=== PATIENT | female | born 1995 | race Caucasian/White ===

== ENCOUNTER 2018-02-22 17:10 | Emergency (ER) | payer SELFPAY ==
[2018-02-22] MEDS ORDERED: IBUPROFEN 200 MG TAB PO ONE (19:40)
[2018-02-22] MEDS ORDERED: ONDANSETRON 4 MG (ODT) TAB ONE (19:40)
[2018-02-22] MEDS ORDERED: DEXAMETHASONE 10 MG/ML VIAL ONE (19:40)
--- NOTE | 2018-02-22 20:43 | ER ---
Nurse's Notes [facility] Name: Wilber Amos Age: 22 yrs Sex: Female : 1995 Arrival Date: 02/22/2018 Time: 17:14 Bed 12 Private MD: None, None Diagnosis: Viral pharyngitis Presentation: 02/22 17:41 Presenting complaint: Patient states: Flu like symptoms with N/V/D without fever that aj started 2 days ago. Transition of care: patient was not received from another setting of care. Onset of symptoms was February 20, 2018. Risk Assessment: Do you want to hurt yourself or someone else? Patient reports no desire to harm self or others. Care prior to arrival: None. 17:41 Method Of Arrival: Ambulatory 17:41 Acuity: ANU 4 18:45 Initial Sepsis Screen: Does the patient meet any 2 criteria? No. Patient's initial kr2 sepsis screen is negative. Does the patient have a suspected source of infection? No. Patient's initial sepsis screen is negative. Triage Assessment: 17:42 General: Appears in no apparent distress. comfortable, Behavior is calm, cooperative, aj appropriate for age. Pain: Denies pain. EENT: Reports nasal congestion nasal discharge. Neuro: Level of Consciousness is awake, alert, obeys commands, Oriented to person, place, time, situation, Appropriate for age. Respiratory: Reports cough that is Airway is patent Respiratory effort is even, unlabored, Respiratory pattern is regular, symmetrical. GI: Reports diarrhea, nausea, vomiting. Derm: Skin is intact, is healthy with good turgor, Skin is pink, warm \T\ dry. normal. 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 - Social history:: Smoking status: Patient uses tobacco products, denies chronic smoking, but will smoke occasionally. - Ebola Screening: : Patient negative for fever greater than or equal to 101.5 degrees Fahrenheit, and additional compatible Ebola Virus Disease symptoms Patient denies exposure to infectious person Patient denies travel to an Ebola-affected area in the 21 days before illness onset No symptoms or risks identified at this time. Screenin:45 Abuse screen: Denies threats or abuse. Denies injuries from another. Nutritional kr2 screening: No deficits noted. Tuberculosis screening: No symptoms or risk factors identified. Fall Risk None identified. Assessment: 19:15 General: Appears in no apparent distress. comfortable, well groomed, well developed, kr2 well nourished, Behavior is calm, cooperative, appropriate for age. Pain: Denies pain. Neuro: Level of Consciousness is awake, alert, obeys commands, Oriented to person, place, time, situation, Appropriate for age. Cardiovascular: Capillary refill < 3 seconds in bilateral fingers Patient's skin is warm and dry. Respiratory: Reports cough that is non-productive, Airway is patent Respiratory effort is even, unlabored, Respiratory pattern is regular, symmetrical, Breath sounds are clear bilaterally. GI: Abdomen is flat, non-distended, Reports diarrhea, nausea, vomiting. : No signs and/or symptoms were reported regarding the genitourinary system. EENT: Oral mucosa is moist. Throat is pink. Derm: Skin is intact, is healthy with good turgor, Skin is pink, warm \T\ dry. pale. Musculoskeletal: Circulation, motion, and sensation intact. Vital Signs: 17:42 BP 112 / 67; Pulse 97; Resp 16; Temp 98.1; Pulse Ox 98% on R/A; Weight 86.18 kg; Height aj 5 ft. 6 in. (167.64 cm); 17:42 Body Mass Index 30.67 (86.18 kg, 167.64 cm) aj ED Course: 17:14 Patient arrived in ED. sb2 17:15 None, None is Private Physician. sb2 17:42 Triage completed. aj 17:42 Arm band placed on left wrist. Patient placed in waiting room, Patient notified of wait aj time. 18:42 Ana Anders RN is Primary Nurse. kr2 18:46 Patient has correct armband on for positive identification. Call light in reach. Door kr2 closed. Warm blanket given. Verbal reassurance given. 19:04 Sebastian Singleton MD is Attending Physician. ps1 19:35 Strep swab sent to lab. kr2 20:54 No provider procedures requiring assistance completed. Patient did not have IV access kr2 during this emergency room visit. Administered Medications: 19:47 Drug: Motrin 600 mg Route: PO; kr2 20:56 Follow up: Response: No adverse reaction kr2 19:47 Drug: Zofran 4 mg Route: PO; kr2 20:55 Follow up: Response: No adverse reaction; Nausea is decreased kr2 19:48 Drug: Decadron - Dexamethasone 10 mg {Note: Given oral as ordered by physician.} Route: kr2 IVP; Site: Other; 20:56 Follow up: Response: No adverse reaction kr2 Outcome: 20:43 Discharge ordered by MD. ps1 20:55 Discharged to home ambulatory, with family. kr2 20:55 Condition: good 20:55 Discharge instructions given to patient, family, Instructed on discharge instructions, follow up and referral plans. medication usage, Demonstrated understanding of instructions, follow-up care, medications, Prescriptions given X 1. 20:56 Patient left the ED. kr2 Signatures: Kat Duenas RN RN aj Reaves, Karey, RN RN kr2 Sebastian Singleton MD MD ps1 Christie Yoon2
--- NOTE | 2018-02-22 20:43 | EDPHYS ---
Physician Documentation [facility] Name: Wilber Amos Age: 22 yrs Sex: Female : 1995 Arrival Date: 02/22/2018 Time: 17:14 Bed 12 Private MD: None, None ED Physician Sebastian Singleton HPI: 02/22 19:33 This 22 yrs old Female presents to ER via Ambulatory with complaints of Flu ps1 Symptoms. 19:33 Onset 2 days ago and associated with pharyngitis, myalgias, nausea, vomiting, and ps1 diarrhea. No remitting or exacerbating factors. No abdominal pain. . 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 - Social history:: Smoking status: Patient uses tobacco products, denies chronic smoking, but will smoke occasionally. - Ebola Screening: : Patient negative for fever greater than or equal to 101.5 degrees Fahrenheit, and additional compatible Ebola Virus Disease symptoms Patient denies exposure to infectious person Patient denies travel to an Ebola-affected area in the 21 days before illness onset No symptoms or risks identified at this time. ROS: 19:33 Eyes: Negative for injury, pain, redness, and discharge, Neck: Negative for injury, ps1 pain, and swelling, Cardiovascular: Negative for chest pain, palpitations, and edema, Back: Negative for injury and pain, : Negative for injury, bleeding, discharge, and swelling, MS/Extremity: Negative for injury and deformity, Skin: Negative for injury, rash, and discoloration, Neuro: Negative for headache, weakness, numbness, tingling, and seizure. 19:33 Constitutional: Positive for fatigue, malaise. 19:33 ENT: Positive for sore throat. 19:33 Abdomen/GI: Positive for nausea, vomiting, and diarrhea. Exam: 19:33 Constitutional: This is a well developed, well nourished patient who is awake, alert, ps1 and in no acute distress. Head/Face: Normocephalic, atraumatic. Eyes: Pupils equal round and reactive to light, extra-ocular motions intact. Lids and lashes normal. Conjunctiva and sclera are non-icteric and not injected. Chest/axilla: Normal chest wall appearance and motion. Nontender with no deformity. No lesions are appreciated. Cardiovascular: Regular rate and rhythm. No gallops, murmurs, or rubs. Normal PMI, no JVD. No pulse deficits. Respiratory: Lungs have equal breath sounds bilaterally, clear to auscultation and percussion. No rales, rhonchi or wheezes noted. No increased work of breathing, no retractions or nasal flaring. Abdomen/GI: Soft, non-tender, with normal bowel sounds. No distension or tympany. No guarding or rebound. No evidence of tenderness throughout. Skin: Warm, dry with normal turgor. Normal color with no rashes, no lesions, and no evidence of cellulitis. MS/ Extremity: Pulses equal, no cyanosis. Neurovascular intact. Full, normal range of motion. Neuro: Awake and alert, GCS 15, oriented to person, place, time, and situation. Cranial nerves II-XII grossly intact. Sensory grossly intact. Vital Signs: 17:42 BP 112 / 67; Pulse 97; Resp 16; Temp 98.1; Pulse Ox 98% on R/A; Weight 86.18 kg; Height aj 5 ft. 6 in. (167.64 cm); 17:42 Body Mass Index 30.67 (86.18 kg, 167.64 cm) aj MDM: 19:33 Data reviewed: vital signs, nurses notes. ps1 20:43 Patient medically screened. ps1 06/05 19:32 Order name: Strep; Complete Time: 20:41 ps1 06/ 19:32 Order name: Throat Culture ps1 Administered Medications: 19:47 Drug: Motrin 600 mg Route: PO; kr2 20:56 Follow up: Response: No adverse reaction kr2 19:47 Drug: Zofran 4 mg Route: PO; kr2 20:55 Follow up: Response: No adverse reaction; Nausea is decreased kr2 19:48 Drug: Decadron - Dexamethasone 10 mg {Note: Given oral as ordered by physician.} Route: kr2 IVP; Site: Other; 20:56 Follow up: Response: No adverse reaction kr2 Disposition: 02/22/18 20:43 Discharged to Home. Impression: Viral pharyngitis. - Condition is Stable. - Discharge Instructions: Pharyngitis. - Prescriptions for Zofran 4 mg Oral Tablet - take 1 tablet by ORAL route every 12 hours As needed; 20 tablet. - Work release form, Medication Reconciliation Form, Thank You Letter, Antibiotic Education, Prescription Opioid Use form. - Follow up: Private Physician; When: 10 - 14 days; Reason: Recheck today's complaints, Continuance of care, Staple/Suture removal, Re-evaluation by your physician. Follow up: Emergency Department; When: As needed; Reason: Fever > 102 F, Worsening of condition. - Problem is new. - Symptoms have improved. Signatures: Dispatcher [employer] EDMS Kat Duenas RN RN aj Ana Anders RN RN kr2 Sebastian Singleton MD MD ps1 Corrections: (The following items were deleted from the chart) 20:56 20:43 02/22/2018 20:43 Discharged to Home. Impression: Viral pharyngitis. Condition is kr2 Stable. Forms are Medication Reconciliation Form, Thank You Letter, Antibiotic Education, Prescription Opioid Use. Follow up: Private Physician; When: 10 - 14 days; Reason: Recheck today's complaints, Continuance of care, Staple/Suture removal, Re-evaluation by your physician. Follow up: Emergency Department; When: As needed; Reason: Fever > 102 F, Worsening of condition. Problem is new. Symptoms have improved. ps1
== END 2018-02-22 20:56 | disposition home or self-care (01) ==
LOC: ER 17:10
DX: J02.8 Acute pharyngitis due to other specified organisms (principal); J45.909 Unspecified asthma, uncomplicated; F17.200 Nicotine dependence, unspecified, uncomplicated; Z88.8 Allergy status to other drugs, medicaments and biological substances
CPT/HCPCS: 87070; 87081; 96374; 99283; J1100

== ENCOUNTER 2018-02-26 19:39 | Emergency (ER) | payer SELFPAY ==
--- NOTE | 2018-02-26 20:51 | RAD REPORT ---
EXAM DESCRIPTION: RAD - Chest Pa And Lat (2 Views) - 02/26/2018 8:42 pm CLINICAL HISTORY: Chest pain. COMPARISON: 08/23/2017, 08/05/2017 FINDINGS: The lungs are clear. The heart is normal in size. No displaced fractures. IMPRESSION: No acute or concerning finding suspected.
--- NOTE | 2018-02-26 21:00 | ER ---
Nurse's Notes [facility] Name: Wilber Amos Age: 22 yrs Sex: Female : 1995 Arrival Date: 02/26/2018 Time: 19:40 Bed 28 Private MD: Diagnosis: Acute bronchitis Presentation: 02/26 19:44 Presenting complaint: Patient states: "I was here Wednesday for the same thing and they aj1 just told me it was a virus. Some of the symptoms have gone away like the diarrhea, but now my congestion is really bad and it hurts when I try to breathe. I'm still having cold sweats and hot flashes and nausea" Patient has not followed up with her PHCP. Transition of care: patient was not received from another setting of care. Onset of symptoms was February 20, 2018. Risk Assessment: Do you want to hurt yourself or someone else? Patient reports no desire to harm self or others. Initial Sepsis Screen: Does the patient meet any 2 criteria? No. Patient's initial sepsis screen is negative. Does the patient have a suspected source of infection? Yes: Other: sinus congestion. Care prior to arrival: None. 19:44 Method Of Arrival: Ambulatory aj1 19:44 Acuity: ANU 4 aj1 Triage Assessment: 19:48 General: Appears in no apparent distress. comfortable, Behavior is calm, cooperative, aj1 appropriate for age. Pain: Complains of pain in chest Pain does not radiate. Pain currently is 7 out of 10 on a pain scale. Quality of pain is described as sharp, throbbing, Pain began 1 day ago. Is continuous, Alleviated by nothing. Aggravated by deep breathing, coughing. 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 - Social history:: Smoking status: Patient uses tobacco products, denies chronic smoking, but will smoke occasionally. - Ebola Screening: : Patient denies travel to an Ebola-affected area in the 21 days before illness onset. Screenin:26 Abuse screen: Denies threats or abuse. Nutritional screening: No deficits noted. rk2 Tuberculosis screening: No symptoms or risk factors identified. Fall Risk None identified. Assessment: 20:26 General: Appears in no apparent distress. well groomed, well developed, well nourished, rk2 Behavior is calm, cooperative. Neuro: Level of Consciousness is alert, obeys commands, Oriented to person, place, time, situation. Respiratory: Airway is patent Respiratory effort is even, unlabored, Respiratory pattern is regular, symmetrical. Derm: Skin is pink, warm \\T\\ dry. 20:44 Reassessment: Returned from xray. rk2 Vital Signs: 19:48 BP 133 / 89; Pulse 94; Resp 18; Temp 98.1; Pulse Ox 100% on R/A; Weight 86.18 kg (R); aj1 Height 5 ft. 6 in. (167.64 cm); Pain 7/10; 21:24 BP 132 / 87; Pulse 88; Resp 17; Pulse Ox 100% on R/A; rk2 19:48 Body Mass Index 30.67 (86.18 kg, 167.64 cm) aj1 ED Course: 19:40 Patient arrived in ED. am2 19:46 Triage completed. aj1 19:48 Arm band placed on Patient placed in an exam room. aj 19:52 Magdiel Carter PA is PHCP. [facility] 19:52 Alcon Olmstead MD is Attending Physician. [facility] 19:54 Barbara Bernal, TOMÁS is Primary Nurse. rk2 20:26 Patient has correct armband on for positive identification. Bed in low position. Call rk2 light in reach. 20:41 Chest Pa And Lat (2 Views) XRAY In Process Unspecified. EDMS 21:25 No provider procedures requiring assistance completed. Patient did not have IV access rk2 during this emergency room visit. Administered Medications: No medications were administered Outcome: 21:00 Discharge ordered by . jm 21:25 Discharged to home ambulatory. rk2 21:25 Condition: good 21:25 Discharge instructions given to patient, Prescriptions given X 2. 21:26 Patient left the ED. rk2 Signatures: Dispatcher [employer] EDMS Amanda Elder RN RN aj1 Magdiel Carter PA PA jmm Moreno, Amanda am2 Barbara Bernal RN RN rk2
--- NOTE | 2018-02-26 21:00 | EDPHYS ---
Physician Documentation [facility] Name: Wilber Amos Age: 22 yrs Sex: Female : 1995 Arrival Date: 02/26/2018 Time: 19:40 Bed 28 Private MD: ED Physician Alcon Olmstead HPI: 02/26 20:05 This 22 yrs old Female presents to ER via Ambulatory with complaints of Chest jmm Congestion, Cold Symptoms. 20:05 The patient or guardian reports cough. Onset: The symptoms/episode began/occurred jmm gradually, 5 day(s) ago. Associated signs and symptoms: Pertinent positives: rhinorrhea, sore throat, vomiting, cough, diarrhea. This is a 22 year old female with a history of asthma that presents to the ED with cough, congestion, beginning approx 5 days ago. Patient also complains of sinus pressure and productive cough. . 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 - Social history:: Smoking status: Patient uses tobacco products, denies chronic smoking, but will smoke occasionally. - Ebola Screening: : Patient denies travel to an Ebola-affected area in the 21 days before illness onset. ROS: 20:05 Eyes: Negative for injury, pain, redness, and discharge. jmm 20:05 Neck: Negative for injury, pain, and swelling, Cardiovascular: Negative for chest pain, palpitations, and edema. 20:05 Back: Negative for injury and pain, MS/Extremity: Negative for injury and deformity, Skin: Negative for injury, rash, and discoloration, Neuro: Negative for headache, weakness, numbness, tingling, and seizure. 20:05 Constitutional: Positive for body aches. 20:05 ENT: Positive for sore throat. 20:05 Respiratory: Positive for cough. 20:05 Abdomen/GI: Positive for nausea, vomiting, diarrhea. 20:05 All other systems are negative. Exam: 20:05 Head/Face: atraumatic. Chest/axilla: Normal chest wall appearance and motion. jmm Nontender with no deformity. No lesions are appreciated. Cardiovascular: Regular rate and rhythm. No gallops, murmurs, or rubs. Full/Equal distal pulses. Respiratory: Lungs have equal breath sounds bilaterally, clear to auscultation. No rales, rhonchi or wheezes noted. No increased work of breathing, no retractions or nasal flaring. 20:05 Constitutional: The patient appears in no acute distress, alert, awake. 20:05 Skin: Appearance: Color: normal in color. 20:05 Neuro: Orientation: is normal, Mentation: is normal, Memory: is normal, Gait: is steady. Vital Signs: 19:48 BP 133 / 89; Pulse 94; Resp 18; Temp 98.1; Pulse Ox 100% on R/A; Weight 86.18 kg (R); aj1 Height 5 ft. 6 in. (167.64 cm); Pain 7/10; 21:24 BP 132 / 87; Pulse 88; Resp 17; Pulse Ox 100% on R/A; rk2 19:48 Body Mass Index 30.67 (86.18 kg, 167.64 cm) aj1 MDM: 20:03 Patient medically screened. [facility] 20:05 Differential diagnosis: bronchitis, URI, viral infection, pnuemonia. Data reviewed: [facility] vital signs, nurses notes. 20:58 Counseling: I had a detailed discussion with the patient and/or guardian regarding: the [facility] historical points, exam findings, and any diagnostic results supporting the discharge/admit diagnosis, the presence of at least one elevated blood pressure reading (>120/80) during this emergency department visit. 02/26 20:04 Order name: Chest Pa And Lat (2 Views) XRAY; Complete Time: 20:58 [facility] Administered Medications: No medications were administered Disposition: 23:26 Co-signature as Attending Physician, Alcon Olmstead MD. rn Disposition: 02/26/18 21:00 Discharged to Home. Impression: Acute bronchitis. - Condition is Stable. - Discharge Instructions: Acute Bronchitis. - Prescriptions for Zithromax Z- Andrea 250 mg Oral Tablet - take 1 tablet by ORAL route as directed for 5 days Day 1 - take two (2) tablets one time. Day 2, 3, 4 , 5 take one (1) tablet once daily.; 6 tablet. Albuterol Sulfate 90 mcg/actuation - inhale 1-2 puff by INHALATION route every 4-6 hours; 1 Inhaler. - Medication Reconciliation Form, Thank You Letter, Antibiotic Education, Prescription Opioid Use, Work release form form. - Follow up: Private Physician; When: 1 - 2 days; Reason: Continuance of care. Signatures: Dispatcher [employer] Amanda Singh RN RN aj1 Magdiel Carter PA PA jmm Nieto, Roman, MD MD rn Kidder, Rhonda, RN RN rk2 Corrections: (The following items were deleted from the chart) 21:26 21:00 02/26/2018 21:00 Discharged to Home. Impression: Acute bronchitis. Condition is rk2 Stable. Forms are Medication Reconciliation Form, Thank You Letter, Antibiotic Education, Prescription Opioid Use. Follow up: Private Physician; When: 1 - 2 days; Reason: Continuance of care. cesar
== END 2018-02-26 21:26 | disposition home or self-care (01) ==
LOC: ER 19:39
DX: J20.9 Acute bronchitis, unspecified (principal); F41.9 Anxiety disorder, unspecified; J45.909 Unspecified asthma, uncomplicated; F32.9 Major depressive disorder, single episode, unspecified; G43.909 Migraine, unspecified, not intractable, without status migrainosus; G47.00 Insomnia, unspecified; F17.200 Nicotine dependence, unspecified, uncomplicated
CPT/HCPCS: 71046; 99283

== ENCOUNTER 2018-03-24 08:04 | Emergency (ER) | payer SELFPAY ==
[2018-03-24 08:31] LABS: Absolute Lymphocytes (CBC) 2.2 K/uL (0.7-4.9); Absolute Monocytes 0.3 K/uL (0.1-1.3); Absolute Neutrophil 4.8 K/uL (1.8-8.0); Basophils % 0.6 % (0-1.3); Eosinophils % 0.7 % (0-4.4); Hematocrit 43.6 % (36.0-45.0); Lymphocytes % 29.9 % (15.3-44.8); MCH 27.1 pg (27.0-35.0); MCV 81.5 fL (80-100); Monocytes % 4.6 % (3.3-12.3); RBC Red Blood Cell Count 5.34 M/uL (3.86-4.86)
[2018-03-24] MEDS ORDERED: NA CHLORIDE 0.9% 1,000 ML ONE (08:43)
[2018-03-24 08:50] LABS: ALT/SGPT 19 U/L (12-78); AST/SGOT 15 U/L (15-37); Albumin 3.7 g/dL (3.4-5.0); Alkaline Phosphatase 93 U/L (45-117); BUN Blood Urea Nitrogen 10 mg/dL (7-18); Bicarbonate 27 mmol/L (21-32); Bilirubin Direct < 0.1 mg/dL (0-0.2); Bilirubin Total 0.2 mg/dL (0.2-1.0); Glucose Level 113 mg/dL (74-106); Lipase 158 U/L (73-393); Potassium 3.7 mmol/L (3.5-5.1); Protein, Total 7.5 g/dL (6.4-8.2); Sodium Level 141 mmol/L (136-145)
[2018-03-24 08:54] LABS: Urine Bacteria >50 /HPF (<20); Urine Culture Reflex Order NOT NEEDED; Urine RBC <5 /HPF (NONE SEEN)
--- NOTE | 2018-03-24 09:26 | ER ---
Nurse's Notes [facility] Name: Wilber Amos Age: 22 yrs Sex: Female : 1995 Arrival Date: 03/24/2018 Time: 08:07 Bed 5 Private MD: None, None Diagnosis: Urinary tract infection, site not specified;Nausea Presentation: 03/24 08:11 Presenting complaint: Patient states: generalized abd pain that is continuous and ss intermittent nausea x 1 week. Transition of care: patient was not received from another setting of care. Onset of symptoms was April 16, 2018. Risk Assessment: Do you want to hurt yourself or someone else? Patient reports no desire to harm self or others. Initial Sepsis Screen: Does the patient meet any 2 criteria? No. Patient's initial sepsis screen is negative. Does the patient have a suspected source of infection? No. Patient's initial sepsis screen is negative. Care prior to arrival: None. 08:11 Method Of Arrival: Ambulatory ss 08:11 Acuity: ANU 3 ss Historical: - PMHx: 08:13 Anxiety; Asthma; Depression; Migraines; sleep insomnia; ss - PSHx: 08:13 None; ss - Immunization history:: Adult Immunizations up to date. - Social history:: Smoking status: Patient/guardian denies using tobacco. - Ebola Screening: : Patient denies exposure to infectious person Patient denies travel to an Ebola-affected area in the 21 days before illness onset. Screenin:24 Abuse screen: Denies threats or abuse. Denies injuries from another. Nutritional sv screening: No deficits noted. Tuberculosis screening: No symptoms or risk factors identified. Fall Risk None identified. Assessment: 08:24 General: Appears in no apparent distress. comfortable, well groomed, Behavior is calm, ph cooperative, appropriate for age, Denies fever. Pain: Complains of pain in abdomen Pain began "about a week ago". Neuro: Level of Consciousness is awake, alert, obeys commands, Oriented to person, place, time, situation. Cardiovascular: Capillary refill < 3 seconds Patient's skin is warm and dry. Respiratory: Airway is patent Respiratory effort is even, unlabored, Respiratory pattern is regular, symmetrical. GI: Abdomen is non-distended, Bowel sounds present X 4 quads. Abd is soft X 4 quads Abdomen is tender to palpation X 4 quads. Reports lower abdominal pain, upper abdominal pain, diarrhea, nausea, Patient currently denies vomiting. : Denies burning with urination, urinary frequency. Derm: Skin is intact, is healthy with good turgor, Skin is pink, warm \\T\\ dry. Musculoskeletal: Circulation, motion, and sensation intact. Range of motion: intact in all extremities. 09:30 Reassessment: Patient appears in no apparent distress at this time. Patient and/or ph family updated on plan of care and expected duration. Pain level reassessed. Patient is alert, oriented x 3, equal unlabored respirations, skin warm/dry/pink. Vital Signs: 08:13 Weight 113.4 kg; Height 5 ft. 6 in. (167.64 cm); Pain 6/10; ss 08:27 BP 123 / 75; Pulse 79; Resp 18; Temp 97.6; Pulse Ox 100% on R/A; ph 09:09 BP 119 / 79; Pulse 77; Resp 18; Pulse Ox 99% on R/A; dh3 08:13 Body Mass Index 40.35 (113.40 kg, 167.64 cm) ED Course: 08:07 Patient arrived in ED. sb2 08:07 None, None is Private Physician. sb2 08:08 Josette Castillo FNP-C [facility]. snw 08:08 Alcon Olmstead MD is Attending Physician. snw 08:10 Deepthi Vicente, TOMÁS is Primary Nurse. ph 08:12 Triage completed. ss 08:13 Arm band placed on right wrist. ss 08:20 Initial lab(s) drawn, by nd, sent to lab. Inserted saline lock: 20 gauge in right sv antecubital area, using aseptic technique. Blood collected. Flushed right antecubital with 5 ml normal saline. 08:24 Patient has correct armband on for positive identification. Placed in gown. Bed in low sv position. Pulse ox on. NIBP on. 09:45 No provider procedures requiring assistance completed. IV discontinued, intact, sv bleeding controlled, No redness/swelling at site. Pressure dressing applied. Administered Medications: 08:45 Drug: NS 0.9% 1000 ml Route: IV; Rate: 1 bolus; Site: right antecubital; ph 18:33 Follow up: Response: No adverse reaction; IV Status: Completed infusion ph 09:30 Drug: Rocephin 1 grams Route: IV; Rate: calculated rate; Site: right antecubital; sv 09:35 Follow up: Response: No adverse reaction; IV Status: Completed infusion; IV Intake: 10mlsv Intake: 09:35 IV: 10ml; Total: 10ml. sv Outcome: 09:25 Discharge ordered by MD. vergara 09:45 Discharged to home ambulatory. sv 09:45 Condition: stable 09:45 Discharge instructions given to patient, Instructed on discharge instructions, follow up and referral plans. medication usage, Demonstrated understanding of instructions, follow-up care, medications, Prescriptions given X 2. 09:45 Patient left the ED. sv Signatures: Jayleen Quiroz RN RN Josette Castillo, ACCOUNTING MACHINE OPERATOR-C ACCOUNTING MACHINE OPERATOR-Csnw Tatianna Lan RN RN Deepthi Vicente RN RN Yogesh, Queenie 3 Christie Yoon sb2 Corrections: (The following items were deleted from the chart) 10:04 10:03 Patient left the ED. sv sv
--- NOTE | 2018-03-24 09:26 | EDPHYS ---
Physician Documentation [facility] Name: Wilber Amos Age: 22 yrs Sex: Female : 1995 Arrival Date: 03/24/2018 Time: 08:07 Bed 5 Private MD: None, None ED Physician Alcon Olmstead HPI: 03/24 08:51 This 22 yrs old Female presents to ER via Ambulatory with complaints of snw Abdominal Pain, Nausea. 08:51 The patient presents with abdominal pain that is diffuse. Onset: The symptoms/episode snw began/occurred suddenly, 1 week(s) ago, and became persistent. The symptoms do not radiate. Associated signs and symptoms: Pertinent positives: diarrhea, nausea. The symptoms are described as constant. Severity of pain: At its worst the pain was mild. The patient has not experienced similar symptoms in the past. The patient has not recently seen a physician. Historical: - PMHx: 08:13 Anxiety; Asthma; Depression; Migraines; sleep insomnia; ss - PSHx: 08:13 None; ss - Immunization history:: Adult Immunizations up to date. - Social history:: Smoking status: Patient/guardian denies using tobacco. - Ebola Screening: : Patient denies exposure to infectious person Patient denies travel to an Ebola-affected area in the 21 days before illness onset. ROS: 08:51 Constitutional: Negative for fever, chills, and weight loss, Eyes: Negative for injury, snw pain, redness, and discharge, ENT: Negative for injury, pain, and discharge, Neck: Negative for injury, pain, and swelling, Cardiovascular: Negative for chest pain, palpitations, and edema, Respiratory: Negative for shortness of breath, cough, wheezing, and pleuritic chest pain, Back: Negative for injury and pain, : Negative for injury, bleeding, discharge, and swelling, MS/Extremity: Negative for injury and deformity, Skin: Negative for injury, rash, and discoloration, Neuro: Negative for headache, weakness, numbness, tingling, and seizure. 08:51 Abdomen/GI: Positive for abdominal pain, nausea, vomiting, and diarrhea. Exam: 08:39 Constitutional: This is a well developed, well nourished patient who is awake, alert, snw and in no acute distress. Head/Face: Normocephalic, atraumatic. Eyes: Pupils equal round and reactive to light, extra-ocular motions intact. Lids and lashes normal. Conjunctiva and sclera are non-icteric and not injected. Cornea within normal limits. Periorbital areas with no swelling, redness, or edema. ENT: Nares patent. No nasal discharge, no septal abnormalities noted. Tympanic membranes are normal and external auditory canals are clear. Oropharynx with no redness, swelling, or masses, exudates, or evidence of obstruction, uvula midline. Mucous membranes moist. Neck: Trachea midline, no thyromegaly or masses palpated, and no cervical lymphadenopathy. Supple, full range of motion without nuchal rigidity, or vertebral point tenderness. No Meningismus. Chest/axilla: Normal chest wall appearance and motion. Nontender with no deformity. No lesions are appreciated. Cardiovascular: Regular rate and rhythm with a normal S1 and S2. No gallops, murmurs, or rubs. Normal PMI, no JVD. No pulse deficits. Respiratory: Lungs have equal breath sounds bilaterally, clear to auscultation and percussion. No rales, rhonchi or wheezes noted. No increased work of breathing, no retractions or nasal flaring. Back: No spinal tenderness. No costovertebral tenderness. Full range of motion. Skin: Warm, dry with normal turgor. Normal color with no rashes, no lesions, and no evidence of cellulitis. MS/ Extremity: Pulses equal, no cyanosis. Neurovascular intact. Full, normal range of motion. Neuro: Awake and alert, GCS 15, oriented to person, place, time, and situation. Cranial nerves II-XII grossly intact. Motor strength 5/5 in all extremities. Sensory grossly intact. Cerebellar exam normal. Normal gait. 08:39 Abdomen/GI: Inspection: obese Bowel sounds: normal, Palpation: moderate abdominal tenderness, in all quadrants. Vital Signs: 08:13 Weight 113.4 kg; Height 5 ft. 6 in. (167.64 cm); Pain 6/10; ss 08:27 BP 123 / 75; Pulse 79; Resp 18; Temp 97.6; Pulse Ox 100% on R/A; ph 09:09 BP 119 / 79; Pulse 77; Resp 18; Pulse Ox 99% on R/A; dh3 08:13 Body Mass Index 40.35 (113.40 kg, 167.64 cm) ss MDM: 08:13 Patient medically screened. snw 11:06 Data reviewed: vital signs, nurses notes. Data interpreted: Pulse oximetry: on room air snw is 99 %. Interpretation: normal. Counseling: I had a detailed discussion with the patient and/or guardian regarding: the historical points, exam findings, and any diagnostic results supporting the discharge/admit diagnosis, lab results, the need for outpatient follow up, to return to the emergency department if symptoms worsen or persist or if there are any questions or concerns that arise at home. Special discussion: Based on the patient's Hx, exam, and Dx evaluation, there is no indication for emergent surgery or inpatient Tx. It is understood by the patient/guardian that if the Sx's persist or worsen they need to return immediately for re-evaluation. Based on the history and exam findings, there is no indication for further emergent testing or inpatient evaluation. I discussed with the patient/guardian the need to see the primary care provider for further evaluation of the symptoms. 03/24 08:08 Order name: Urine Culture snw 03/24 08:08 Order name: Urine Microscopic Only; Complete Time: 08:55 snw 03/24 08:13 Order name: Basic Metabolic Panel; Complete Time: 08:52 snw 03/24 08:13 Order name: CBC with Diff; Complete Time: 08:33 snw 03/24 08:13 Order name: Hepatic Function; Complete Time: 08:52 snw 03/24 08:13 Order name: Lipase; Complete Time: 08:52 snw 03/24 08:08 Order name: Urine Test (obtain specimen); Complete Time: 08:23 snw 03/24 08:08 Order name: Urine Dipstick-Ancillary (obtain specimen); Complete Time: 08:23 snw 03/24 08:13 Order name: IV Saline Lock; Complete Time: 08:24 snw 03/24 08:13 Order name: Labs collected and sent; Complete Time: 08:24 snw 03/24 08:24 Order name: Urine Dipstick--Ancillary (enter results) em1 03/24 08:24 Order name: Urine --Ancillary (enter results) em1 Administered Medications: 08:45 Drug: NS 0.9% 1000 ml Route: IV; Rate: 1 bolus; Site: right antecubital; ph 18:33 Follow up: Response: No adverse reaction; IV Status: Completed infusion ph 09:30 Drug: Rocephin 1 grams Route: IV; Rate: calculated rate; Site: right antecubital; sv 09:35 Follow up: Response: No adverse reaction; IV Status: Completed infusion; IV Intake: 10mlsv Disposition: 15:00 Co-signature as Attending Physician, Alcon Olmstead MD. rn Disposition: 03/24/18 09:25 Discharged to Home. Impression: Urinary tract infection, site not specified, Nausea. - Condition is Stable. - Discharge Instructions: Nausea, Adult, Urinary Tract Infection, Abdominal Pain, Women. - Prescriptions for Zofran 4 mg Oral Tablet - take 1 tablet by ORAL route every 12 hours As needed; 6 tablet. cefpodoxime 200 mg Oral Tablet - take 1 tablet by ORAL route every 12 hours with food; 20 tablet. - Medication Reconciliation Form, Thank You Letter, Antibiotic Education, Prescription Opioid Use form. - Follow up: Private Physician; When: 2 - 3 days; Reason: Recheck today's complaints, Continuance of care, Re-evaluation by your physician. Follow up: Emergency Department; When: As needed; Reason: Worsening of condition. Signatures: Dispatcher [employer] EDJayleen Webb RN RN Josette Bernal, JOSELUIS-Rachel POTATO PEELER-Alcon Hill MD MD rn Smirch, Shelby, RN RN Deepthi Vicente RN RN ph Corrections: (The following items were deleted from the chart) 10:03 09:25 03/24/2018 09:25 Discharged to Home. Impression: Urinary tract infection, site sv not specified; Nausea. Condition is Stable. Forms are Medication Reconciliation Form, Thank You Letter, Antibiotic Education, Prescription Opioid Use. Follow up: Private Physician; When: 2 - 3 days; Reason: Recheck today's complaints, Continuance of care, Re-evaluation by your physician. Follow up: Emergency Department; When: As needed; Reason: Worsening of condition. snw
[2018-03-24] MEDS ORDERED: CEFTRIAXONE/SWI 1gm 1 GM/10 ML SYR ONE (09:45)
[2018-03-24 15:08] LABS: Urine Blood NEGATIVE (NEG); Urine Glucose NEGATIVE (NEG); Urine Protein NEGATIVE (NEG)
== END 2018-03-24 10:03 | disposition home or self-care (01) ==
LOC: ER 08:04
DX: N39.0 Urinary tract infection, site not specified (principal); J45.909 Unspecified asthma, uncomplicated
CPT/HCPCS: 36415; 80048; 80076; 81003; 81015; 81025; 83690; 85025; 87086; 87088; 96361; 96374; 99284; J0696; J7030

== ENCOUNTER 2018-05-24 20:06 | Emergency (ER) | payer SELFPAY ==
--- NOTE | 2018-05-24 21:18 | RAD REPORT ---
EXAM DESCRIPTION: RAD - Chest Pa And Lat (2 Views) - 05/24/2018 9:00 pm CLINICAL HISTORY: Chest pain COMPARISON: February 26 TECHNIQUE: PA and lateral views of the chest were obtained. FINDINGS: The lungs are clear. Heart size is normal and central vasculature is within normal limit s. No pleural effusion or pneumothorax seen. No acute bony finding noted. No aortic abnormality. IMPRESSION: No acute cardiopulmonary process. No significant interval change.
[2018-05-24 21:26] LABS: Urine Blood NEGATIVE (NEG); Urine Glucose NEGATIVE (NEG); Urine Protein NEGATIVE (NEG); Urine Specific Gravity >1.030 (1.005-1.030)
--- NOTE | 2018-05-24 21:43 | EDPHYS ---
Physician Documentation [facility] Name: Wilber Amos Age: 23 yrs Sex: Female : 1995 Arrival Date: 05/24/2018 Time: 20:09 Bed 24 Private MD: ED Physician Alcon Olmstead HPI: 05/24 21:36 This 23 yrs old Female presents to ER via Ambulatory with complaints of rn Cough, Chest Pain, Back Pain. 21:36 The patient or guardian reports cough, that is intermittent, described as mild, with no rn sputum. 21:36 Onset: The symptoms/episode began/occurred 4 day(s) ago. Severity of symptoms: At their rn worst the symptoms were mild, in the emergency department the symptoms are unchanged. Modifying factors: The symptoms are alleviated by nothing, the symptoms are aggravated by nothing. Associated signs and symptoms: Pertinent negatives: fever, vomiting. The patient has experienced similar episodes in the past. Reports cough, chest pain, back pain, breast pain, for 4 days, no fever, non-productive cough, no famhx of early/sudden cardiac disease.. 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 - Social history:: Smoking status: Patient/guardian denies using tobacco. - Ebola Screening: : Patient denies travel to an Ebola-affected area in the 21 days before illness onset. - Family history:: not pertinent. - Hospitalizations: : No recent hospitalization is reported. ROS: 21:36 Constitutional: Negative for fever, chills, and weight loss, Eyes: Negative for injury, rn pain, redness, and discharge, Cardiovascular: Negative for palpitations, and edema, Respiratory: Negative for wheezing Abdomen/GI: Negative for abdominal pain, nausea, vomiting, diarrhea, and constipation, MS/Extremity: Negative for injury and deformity, Skin: Negative for injury, rash, and discoloration, Neuro: Negative for headache, weakness, numbness, tingling, and seizure. Exam: 21:28 ECG was reviewed by the Attending Physician. rn 21:36 Constitutional: This is a well developed, well nourished patient who is awake, alert, rn and in no acute distress. Head/Face: Normocephalic, atraumatic. Eyes: Pupils equal round and reactive to light, extra-ocular motions intact. Lids and lashes normal. Conjunctiva and sclera are non-icteric and not injected. Cornea within normal limits. Periorbital areas with no swelling, redness, or edema. Chest/axilla: + reproducible central chest wall pain, no crepitus Cardiovascular: Regular rate and rhythm with a normal S1 and S2. No gallops, murmurs, or rubs. Normal PMI, no JVD. No pulse deficits. Respiratory: Lungs have equal breath sounds bilaterally, clear to auscultation and percussion. No rales, rhonchi or wheezes noted. No increased work of breathing, no retractions or nasal flaring. Abdomen/GI: Soft, non-tender, No guarding or rebound Skin: Warm, dry with normal turgor. Normal color with no rashes, no lesions, and no evidence of cellulitis. MS/ Extremity: Pulses equal, no cyanosis. Neurovascular intact. Full, normal range of motion. Equal circumference. Neuro: Awake and alert, GCS 15, oriented to person, place, time, and situation. Cranial nerves II-XII grossly intact. Motor strength 5/5 in all extremities. Sensory grossly intact. Cerebellar exam normal. Normal gait. Vital Signs: 20:23 BP 125 / 91; Pulse 86; Resp 16; Temp 98.6(O); Pulse Ox 99% on R/A; Weight 97.07 kg (R); aj1 Height 5 ft. 6 in. (167.64 cm) (R); Pain 6/10; 20:44 BP 122 / 75; Pulse 64; Pulse Ox 100% on R/A; rv 21:16 Pulse 72; Pulse Ox 100% on R/A; rv 20:23 Body Mass Index 34.54 (97.07 kg, 167.64 cm) aj1 MDM: 20:29 Patient medically screened. rn 21:36 Differential Diagnosis: Allergic Rhinitis Viral Syndrome Pneumonia Other pleurisy, rn chest wall pain, costochondritis. Data reviewed: vital signs, nurses notes, EKG, radiologic studies, and as a result, I will discharge patient. 21:42 Counseling: I had a detailed discussion with the patient and/or guardian regarding: the rn historical points, exam findings, and any diagnostic results supporting the discharge/admit diagnosis, radiology results, the need for outpatient follow up, to return to the emergency department if symptoms worsen or persist or if there are any questions or concerns that arise at home. Special discussion: Based on the patient's history, exam, and Dx evaluation, there is no indication for emergent intervention or inpatient Tx. It is understood by the patient/guardian that if the Sx's persist or worsen they need to return immediately for re-evaluation. I discussed with the patient/guardian in detail that at this point there is no indication for admission to the hospital. It is understood, however, that if the symptoms persist or worsen the patient needs to return immediately for re-evaluation. 05/24 20:45 Order name: Urine Dipstick--Ancillary (enter results); Complete Time: 21:28 [facility] 05/24 20:45 Order name: Urine --Ancillary (enter results); Complete Time: 21:28 [facility] 05/24 20:36 Order name: XRAY Chest Pa And Lat (2 Views); Complete Time: 21:28 05/24 20:36 Order name: EKG; Complete Time: 20:37 rn 05/24 20:36 Order name: EKG - Nurse/Tech; Complete Time: 20:37 05/24 20:36 Order name: Urine Test (obtain specimen); Complete Time: 20:37 rn EC:28 Rate is 66 beats/min. Rhythm is regular. QRS [place] is Normal. [place] interval is normal. QRS rn interval is normal. QT interval is normal. No Q waves. T waves are Normal. No ST changes noted. Clinical impression: Normal ECG. Interpreted by me. Administered Medications: No medications were administered Disposition: 05/24/18 21:42 Discharged to Home. Impression: Cough, Chest pain, unspecified. - Condition is Stable. - Discharge Instructions: Nonspecific Chest Pain, Chest Wall Pain, Pain Without a Known Cause, Form - Return To Work. - Medication Reconciliation Form, Thank You Letter, Antibiotic Education, Prescription Opioid Use, Work release form form. - Follow up: Private Physician; When: As needed; Reason: Recheck today's complaints, Re-evaluation by your physician. - Problem is new. - Symptoms have improved. Signatures: Dispatcher [employer] EDAmanda Caballero, RN RN aj1 Alcon Olmstead MD MD rn Lowrey, Tammy, RN RN tl3 Corrections: (The following items were deleted from the chart) 21:58 21:42 05/24/2018 21:42 Discharged to Home. Impression: Cough; Chest pain, unspecified. tl3 Condition is Stable. Forms are Medication Reconciliation Form, Thank You Letter, Antibiotic Education, Prescription Opioid Use. Follow up: Private Physician; When: As needed; Reason: Recheck today's complaints, Re-evaluation by your physician. Problem is new. Symptoms have improved. rn
--- NOTE | 2018-05-24 21:43 | ER ---
Nurse's Notes [facility] Name: Wilber Amos Age: 23 yrs Sex: Female : 1995 Arrival Date: 05/24/2018 Time: 20:09 Bed 24 Private MD: Diagnosis: Cough;Chest pain, unspecified Presentation: 05/24 20:20 Presenting complaint: Patient states: Her chest has been feeling congested for the past aj1 4 days, and she's been coughing, but has not been able to cough up any sputum. Her chest has been hurting intermittently and when it hurts that pain radiates to her back. Also reports SOB, sinus pressure. Denies nasal congestion, fever, N/V/D. Transition of care: patient was not received from another setting of care. Onset of symptoms was May 21, 2018. Risk Assessment: Do you want to hurt yourself or someone else? Patient reports no desire to harm self or others. Initial Sepsis Screen: Does the patient meet any 2 criteria? No. Patient's initial sepsis screen is negative. Does the patient have a suspected source of infection? No. Patient's initial sepsis screen is negative. Care prior to arrival: None. 20:20 Method Of Arrival: Ambulatory aj1 20:20 Acuity: ANU 3 aj1 Triage Assessment: 20:23 General: Appears in no apparent distress. comfortable, Behavior is calm, cooperative, aj1 appropriate for age. Pain: Complains of pain in mid-sternal area, right breast and left breast Pain radiates to back Pain currently is 6 out of 10 on a pain scale. Quality of pain is described as aching, sharp, Pain began 4 days ago Is intermittent, Aggravated by deep breathing. EENT: Reports sinus pressure. Denies nasal congestion, nasal discharge. Neuro: Level of Consciousness is awake, alert, obeys commands, Speech is normal, Facial symmetry appears normal. Cardiovascular: Reports chest pain, shortness of breath, Denies palpitations, syncope, vomiting, Patient's skin is warm and dry. Respiratory: Reports cough that is non-productive, Airway is patent Respiratory effort is even, unlabored, Respiratory pattern is regular, symmetrical. GI: Patient currently denies diarrhea, nausea, vomiting. [employer]: 20:23 LMP N/A - Depo-provera aj1 Historical: - Allergies: 20:23 Mefoxin; aj1 20:23 Iodine; aj1 - Home Meds: 20:23 Albuterol Inhl [Active]; Vistaril Oral [Active]; Zoloft Oral [Active]; Remeron Oral aj1 [Active]; - PMHx: 20:23 Anxiety; Asthma; Depression; Migraines; sleep insomnia; aj1 - Immunization history:: Flu vaccine is not up to date. - Social history:: Smoking status: Patient/guardian denies using tobacco. - Ebola Screening: : Patient denies travel to an Ebola-affected area in the 21 days before illness onset. - Family history:: not pertinent. - Hospitalizations: : No recent hospitalization is reported. Screenin:44 Abuse screen: Denies threats or abuse. Denies injuries from another. Nutritional rv screening: No deficits noted. Tuberculosis screening: No symptoms or risk factors identified. Fall Risk None identified. Assessment: 20:43 General: Appears in no apparent distress. comfortable, Behavior is calm, cooperative. rv Pain: Complains of pain in chest Pain currently is 6 out of 10 on a pain scale. Neuro: Level of Consciousness is awake, alert, obeys commands, Oriented to person, place, time, situation. Cardiovascular: Capillary refill < 3 seconds. Respiratory: Airway is patent. GI: No signs and/or symptoms were reported involving the gastrointestinal system. : No signs and/or symptoms were reported regarding the genitourinary system. EENT: No signs and/or symptoms were reported regarding the EENT system. Derm: Skin is intact. 21:17 Reassessment: Patient appears in no apparent distress at this time. Patient and/or rv family updated on plan of care and expected duration. Pain level reassessed. Patient is alert, oriented x 3, equal unlabored respirations, skin warm/dry/pink. AWAITING XRAY RESULT. Vital Signs: 20:23 BP 125 / 91; Pulse 86; Resp 16; Temp 98.6(O); Pulse Ox 99% on R/A; Weight 97.07 kg (R); aj1 Height 5 ft. 6 in. (167.64 cm) (R); Pain 6/10; 20:44 BP 122 / 75; Pulse 64; Pulse Ox 100% on R/A; rv 21:16 Pulse 72; Pulse Ox 100% on R/A; rv 20:23 Body Mass Index 34.54 (97.07 kg, 167.64 cm) aj1 ED Course: 20:09 Patient arrived in ED. al2 20:22 Triage completed. aj1 20:23 Arm band placed on Patient placed in an exam room. aj1 20:29 Alcon Olmstead MD is Attending Physician. rn 20:30 Urine collected: clean catch specimen, clear, yeni colored, Amount Voided: 100mL. jp3 20:44 Patient has correct armband on for positive identification. Placed in gown. Bed in low rv position. Call light in reach. Side rails up X 1. panel monitor on. Pulse ox on. NIBP on. 20:44 No provider procedures requiring assistance completed. Patient maintains SpO2 rv saturation greater than 95% on room air. 20:59 X-ray completed. Patient tolerated procedure well. az 21:08 XRAY Chest Pa And Lat (2 Views) In Process Unspecified. EDMS 21:57 Patient did not have IV access during this emergency room visit. tl3 Administered Medications: No medications were administered Outcome: 21:42 Discharge ordered by . rn 21:57 Discharged to home ambulatory. tl3 21:57 Condition: stable 21:57 Discharge instructions given to patient, Instructed on discharge instructions, follow up and referral plans. Demonstrated understanding of instructions, follow-up care. 21:58 Patient left the ED. tl3 Signatures: Dispatcher [employer] Amanda Singh RN RN aj1 Alcon Olmstead MD MD rn Love, Angelica al2 Melanie Pride RN RN tl3 Blas Gleason RN RN rv Pisarski, Jacob jp3 Elizabeth Manrique az
--- NOTE | 2018-05-25 17:54 | EKG ---
Test Date: 2018-05-24 Test Time: 20:36:59 [employer] Consultant: MEASUREMENT RESULTS: Intervals: Rate: 66 KS: 146 QRSD: 92 QT: 382 QTc: 400 Brimley: P: 65 KS: 146 QRS: 64 T: 62 INTERPRETIVE STATEMENTS: Normal sinus rhythm Normal ECG Compared to ECG 08/23/2017 17:44:18 No significant changes Electronically Signed On 05-25-18 17:51:06 CDT by Bart Christopher
== END 2018-05-24 21:58 | disposition home or self-care (01) ==
LOC: ER 20:06
DX: R07.9 Chest pain, unspecified (principal); J45.909 Unspecified asthma, uncomplicated; F32.9 Major depressive disorder, single episode, unspecified; F41.9 Anxiety disorder, unspecified; Z88.8 Allergy status to other drugs, medicaments and biological substances; Z91.048 Other nonmedicinal substance allergy status
CPT/HCPCS: 71046; 81003; 81025; 93005; 99284

== ENCOUNTER 2018-06-19 22:51 | Emergency (ER) | payer SELFPAY ==
--- NOTE | 2018-06-20 00:09 | EDPHYS ---
Physician Documentation [facility] Name: Wilber Amos Age: 23 yrs Sex: Female : 1995 Arrival Date: 06/19/2018 Time: 22:52 Bed 20 Private MD: ED Physician Sunny Bone HPI: 06/19 23:22 This 23 yrs old Female presents to ER via Ambulatory with complaints of jona Pelvic Pain. 23:22 The patient presents with pelvic pain, urinary symptoms, dysuria, frequency, hesitancy, jona urgency. Onset: The symptoms/episode began/occurred 3 day(s) ago. Modifying factors: The symptoms are alleviated by nothing. Associated signs and symptoms: The patient has no apparent associated signs or symptoms. Severity of symptoms: At their worst the symptoms were mild, in the emergency department the symptoms are unchanged. The patient has experienced similar episodes in the past, a few times. LUGGER: 22:54 LMP 03/2018, patient is taking her depo shot, last time she took was in March 2018. cc3 23:22 0, Full Term 0, Premature 0, 0, Living 0 jona Historical: - Allergies: 22:54 Iodine; cc3 22:54 Mefoxin; cc3 - Home Meds: 22:54 Remeron Oral 0.5 tab once daily [Active]; Vistaril Oral 0.5 cap once daily [Active]; cc3 - PMHx: 22:54 Anxiety; Depression; Asthma; Migraines; sleep insomnia; cc3 - PSHx: 22:54 None; cc3 - Immunization history:: Adult Immunizations not up to date. - Social history:: Smoking status: Patient/guardian denies using tobacco, never smoked. - Family history:: not pertinent. - Ebola Screening: : No symptoms or risks identified at this time. ROS: 23:22 Constitutional: Negative for fever, chills, and weight loss, Eyes: Negative for injury, jona pain, redness, and discharge, ENT: Negative for injury, pain, and discharge, Neck: Negative for injury, pain, and swelling, Cardiovascular: Negative for chest pain, palpitations, and edema, Respiratory: Negative for shortness of breath, cough, wheezing, and pleuritic chest pain, Abdomen/GI: Negative for abdominal pain, nausea, vomiting, diarrhea, and constipation, Back: Negative for injury and pain, MS/Extremity: Negative for injury and deformity, Skin: Negative for injury, rash, and discoloration, Neuro: Negative for headache, weakness, numbness, tingling, and seizure, Psych: Negative for depression, anxiety, suicide ideation, homicidal ideation, and hallucinations, Allergy/Immunology: Negative for hives, rash, and allergies, Endocrine: Negative for neck swelling, polydipsia, polyuria, polyphagia, and marked weight changes, Hematologic/Lymphatic: Negative for swollen nodes, abnormal bleeding, and unusual bruising. 23:22 : Positive for urinary symptoms, urinary frequency, burning with urination. Exam: 23:22 Constitutional: This is a well developed, well nourished patient who is awake, alert, jona and in no acute distress. Head/Face: Normocephalic, atraumatic. Eyes: Pupils equal round and reactive to light, extra-ocular motions intact. Lids and lashes normal. Conjunctiva and sclera are non-icteric and not injected. Cornea within normal limits. Periorbital areas with no swelling, redness, or edema. ENT: Nares patent. No nasal discharge, no septal abnormalities noted. Tympanic membranes are normal and external auditory canals are clear. Oropharynx with no redness, swelling, or masses, exudates, or evidence of obstruction, uvula midline. Mucous membranes moist. Neck: Trachea midline, no thyromegaly or masses palpated, and no cervical lymphadenopathy. Supple, full range of motion without nuchal rigidity, or vertebral point tenderness. No Meningismus. Chest/axilla: Normal chest wall appearance and motion. Nontender with no deformity. No lesions are appreciated. Cardiovascular: Regular rate and rhythm with a normal S1 and S2. No gallops, murmurs, or rubs. Normal PMI, no JVD. No pulse deficits. Respiratory: Lungs have equal breath sounds bilaterally, clear to auscultation and percussion. No rales, rhonchi or wheezes noted. No increased work of breathing, no retractions or nasal flaring. Back: No spinal tenderness. No costovertebral tenderness. Full range of motion. Female : Normal external genitalia. Skin: Warm, dry with normal turgor. Normal color with no rashes, no lesions, and no evidence of cellulitis. MS/ Extremity: Pulses equal, no cyanosis. Neurovascular intact. Full, normal range of motion. Neuro: Awake and alert, GCS 15, oriented to person, place, time, and situation. Cranial nerves II-XII grossly intact. Motor strength 5/5 in all extremities. Sensory grossly intact. Cerebellar exam normal. Normal gait. Psych: Awake, alert, with orientation to person, place and time. Behavior, mood, and affect are within normal limits. 23:22 Abdomen/GI: Inspection: abdomen appears normal, Bowel sounds: normal, Palpation: nontender, Liver: no appreciated palpable abnormalities, Hernia: not appreciated. Vital Signs: 22:54 BP 129 / 72; Pulse 98; Resp 17 S; Temp 99(O); Pulse Ox 99% on R/A; Weight 97.07 kg; 3 Height 5 ft. 6 in. (167.64 cm); Pain 3; 23:30 BP 117 / 73; Pulse 73; Resp 17 S; Pulse Ox 100% on R/A; 3 06/20 00:00 BP 122 / 88; Pulse 75; Resp 16 S; Pulse Ox 99% on R/A; 3 06/19 22:54 Body Mass Index 34.54 (97.07 kg, 167.64 cm) 3 MDM: 06/19 22:56 Patient medically screened. [facility] 23:22 Data reviewed: vital signs, nurses notes, lab test result(s). [facility] 06/19 23:21 Order name: Urine Culture [facility] 06/19 23:35 Order name: Urine Dipstick--Ancillary (enter results) ms 06/19 23:21 Order name: Urine Test (obtain specimen); Complete Time: 23:36 [facility] 06/19 23:21 Order name: Urine Dipstick-Ancillary (obtain specimen); Complete Time: 23:36 [facility] 06/19 23:35 Order name: Urine --Ancillary (enter results) ms Administered Medications: No medications were administered Disposition: 06/20/18 00:08 Discharged to Home. Impression: Dysuria. - Condition is Stable. - Discharge Instructions: Dysuria. - Prescriptions for Pyridium 200 mg Oral Tablet - take 1 tablet by ORAL route every 8 hours for 2 days; 6 tablet. Bactrim DS 800- 160 mg Oral Tablet - take 1 tablet by ORAL route every 12 hours for 7 days; 14 tablet. - Medication Reconciliation Form, Thank You Letter, Antibiotic Education, Prescription Opioid Use form. - Follow up: Private Physician; When: 2 - 3 days; Reason: Recheck today's complaints, Continuance of care, Re-evaluation by your physician. - Problem is new. - Symptoms have improved. Signatures: Dispatcher [employer] Sunny Martinez MD MD cha Cordel, Charlene cc3 Corrections: (The following items were deleted from the chart) 06/20 00:27 00:08 06/20/2018 00:08 Discharged to Home. Impression: Dysuria. Condition is Stable. cc3 Discharge Instructions: Dysuria. Prescriptions for Pyridium 200 mg Oral Tablet - take 1 tablet by ORAL route every 8 hours for 2 days; 6 tablet, Bactrim DS 800-160 mg Oral Tablet - take 1 tablet by ORAL route every 12 hours for 7 days; 14 tablet. and Forms are Medication Reconciliation Form, Thank You Letter, Antibiotic Education, Prescription Opioid Use. Follow up: Private Physician; When: 2 - 3 days; Reason: Recheck today's complaints, Continuance of care, Re-evaluation by your physician. Problem is new. Symptoms have improved. jona
--- NOTE | 2018-06-20 00:09 | ER ---
Nurse's Notes [facility] Name: Wilber Aoms Age: 23 yrs Sex: Female : 1995 Arrival Date: 06/19/2018 Time: 22:52 Bed 20 Private MD: Diagnosis: Dysuria Presentation: 06/19 22:54 Presenting complaint: Patient states: Lower abdominal pain and burning in urination cc3 since 2 days. Transition of care: patient was not received from another setting of care. Onset of symptoms was June 17, 2018. Risk Assessment: Do you want to hurt yourself or someone else? Patient reports no desire to harm self or others. Initial Sepsis Screen: Does the patient meet any 2 criteria? No. Patient's initial sepsis screen is negative. Does the patient have a suspected source of infection? No. Patient's initial sepsis screen is negative. Note patient said she took an over the counter drug for UTI for 2 days, which she cannot remember the name, but still the symptoms are unrelieved. Care prior to arrival: None. 22:54 Method Of Arrival: Ambulatory cc3 22:54 Acuity: ANU 3 cc3 Triage Assessment: 22:53 General: Appears in no apparent distress. comfortable, Behavior is calm, cooperative, cc3 appropriate for age. Pain: Complains of pain in lower abdominal pain Pain currently is 3 out of 10 on a pain scale. Quality of pain is described as crampy, Pain began 2-3 days ago. EENT: No signs and/or symptoms were reported regarding the EENT system. Neuro: Level of Consciousness is awake, alert, obeys commands, Oriented to person, place, time, situation, Appropriate for age. Cardiovascular: Denies chest pain, Patient's skin is warm and dry. Respiratory: Airway is patent Respiratory effort is even, unlabored, Respiratory pattern is regular, symmetrical. GI: Reports lower abdominal pain. : Reports burning with urination, since 2 days. Derm: No signs and/or symptoms reported regarding the dermatologic system. Musculoskeletal: Reports pain in lower abdomen. [employer]: 22:54 LMP 03/2018, patient is taking her depo shot, last time she took was in March 2018. cc3 23:22 0, Full Term 0, Premature 0, 0, Living 0 jona Historical: - Allergies: 22:54 Iodine; cc3 22:54 Mefoxin; cc3 - Home Meds: 22:54 Remeron Oral 0.5 tab once daily [Active]; Vistaril Oral 0.5 cap once daily [Active]; cc3 - PMHx: 22:54 Anxiety; Depression; Asthma; Migraines; sleep insomnia; cc3 - PSHx: 22:54 None; cc3 - Immunization history:: Adult Immunizations not up to date. - Social history:: Smoking status: Patient/guardian denies using tobacco, never smoked. - Family history:: not pertinent. - Ebola Screening: : No symptoms or risks identified at this time. Screenin:54 Abuse screen: Denies threats or abuse. Denies injuries from another. Nutritional cc3 screening: No deficits noted. Tuberculosis screening: No symptoms or risk factors identified. Fall Risk None identified. Ambulatory Aid- None/Bed Rest/Nurse Assist (0 pts). Gait- Normal/Bed Rest/Wheelchair (0 pts) Mental Status- Oriented to own ability (0 pts). Assessment: 22:55 Reassessment: see triage assessment. cc3 23:30 Reassessment: Patient appears in no apparent distress at this time. Patient and/or cc3 family updated on plan of care and expected duration. Pain level reassessed. Patient is alert, oriented x 3, equal unlabored respirations, skin warm/dry/pink. 06/20 00:15 Reassessment: Patient appears in no apparent distress at this time. Patient and/or cc3 family updated on plan of care and expected duration. Pain level reassessed. Patient is alert, oriented x 3, equal unlabored respirations, skin warm/dry/pink. Dr. Bone discharged home the patient with prescription given. Patient left ER vitally stable and ambulatory. Vital Signs: 06/19 22:54 BP 129 / 72; Pulse 98; Resp 17 S; Temp 99(O); Pulse Ox 99% on R/A; Weight 97.07 kg; cc3 Height 5 ft. 6 in. (167.64 cm); Pain 11/27; 23:30 BP 117 / 73; Pulse 73; Resp 17 S; Pulse Ox 100% on R/A; cc3 06/20 00:00 BP 122 / 88; Pulse 75; Resp 16 S; Pulse Ox 99% on R/A; cc3 06/19 22:54 Body Mass Index 34.54 (97.07 kg, 167.64 cm) cc3 ED Course: 06/19 22:52 Patient arrived in ED. ds1 22:54 Arm band placed on right wrist. cc3 22:54 Patient has correct armband on for positive identification. Bed in low position. Call cc3 light in reach. Side rails up X 1. 22:56 Sunny Bone MD is Attending Physician. jona 23:04 Rosa Davila is Primary Nurse. cc3 23:09 Triage completed. cc3 06/20 00:15 No provider procedures requiring assistance completed. Patient did not have IV access cc3 during this emergency room visit. Administered Medications: No medications were administered Outcome: 00:08 Discharge ordered by . jona 00:15 Discharged to home ambulatory. cc3 00:15 Condition: stable 00:15 Discharge instructions given to patient, Instructed on discharge instructions, follow up and referral plans. medication usage, Demonstrated understanding of instructions, follow-up care, medications, Prescriptions given X 2. 00:27 Patient left the ED. cc3 Signatures: Sunny Bone MD MD cha Sanford, Demi ds1 Rosa Davila cc3 Corrections: (The following items were deleted from the chart) 06/19 23:16 22:54 BP 129 / 72; Pulse 98bpm; Resp 17bpm; Spontaneous; Pulse Ox 99% RA; Temp 99F cc3 Oral; cc3 23:22 22:54 BP 129 / 72; Pulse 98bpm; Resp 17bpm; Spontaneous; Pulse Ox 99% RA; Temp 99F cc3 Oral; 97.07 kg; Height 5 ft. 6 in.; BMI: 34.5; cc3
[2018-06-20 01:39] LABS: Urine Blood TRACE (NEG); Urine Glucose NEGATIVE (NEG); Urine Protein TRACE (NEG); Urine Specific Gravity >1.030 (1.005-1.030); Urine pH 5.5 (5.0-7.0)
== END 2018-06-20 00:27 | disposition home or self-care (01) ==
LOC: ER 22:51
DX: R30.0 Dysuria (principal); F41.9 Anxiety disorder, unspecified; F32.9 Major depressive disorder, single episode, unspecified; Z88.8 Allergy status to other drugs, medicaments and biological substances; Z91.048 Other nonmedicinal substance allergy status
CPT/HCPCS: 81003; 81025; 87086; 87088; 99282

== ENCOUNTER 2018-08-05 16:43 | Emergency (ER) | payer SELFPAY ==
[2018-08-05] MEDS ORDERED: NA CHLORIDE 0.9% 1,000 ML ONE (17:52)
[2018-08-05] MEDS ORDERED: ONDANSETRON 4 MG/2 ML VIAL ONE (17:52)
[2018-08-05 18:13] LABS: Absolute Lymphocytes (CBC) 1.7 K/uL (0.7-4.9); Absolute Monocytes 0.4 K/uL (0.1-1.3); Absolute Neutrophil 4.8 K/uL (1.8-8.0); Basophils % 0.6 % (0-1.3); Eosinophils % 0.6 % (0-4.4); Hematocrit 43.2 % (36.0-45.0); Lymphocytes % 24.3 % (15.3-44.8); MCH 27.7 pg (27.0-35.0); MCV 82.6 fL (80-100); Monocytes % 5.6 % (3.3-12.3); RBC Red Blood Cell Count 5.23 M/uL (3.86-4.86)
[2018-08-05 18:23] LABS: Potassium 3.6 mmol/L (3.5-5.1)
[2018-08-05 18:24] LABS: Albumin 3.9 g/dL (3.4-5.0); Bilirubin Direct 0.1 mg/dL (0-0.2); Bilirubin Total 0.4 mg/dL (0.2-1.0); Protein, Total 7.5 g/dL (6.4-8.2)
[2018-08-05 18:55] LABS: Urine Blood NEGATIVE (NEG); Urine Glucose NEGATIVE (NEG); Urine Protein NEGATIVE (NEG); Urine Specific Gravity 1.015 (1.005-1.030)
[2018-08-05] MEDS ORDERED: PROMETHAZINE 25 MG TABLET ONE (20:36)
--- NOTE | 2018-08-05 20:39 | ER ---
Nurse's Notes [facility] Name: Wilber Amos Age: 23 yrs Sex: Female : 1995 Arrival Date: 08/05/2018 Time: 16:43 Bed 26 Private MD: None, None Diagnosis: Vomiting;Diarrhea, unspecified Presentation: 08/05 17:22 Presenting complaint: Patient states: For the past 3 days she been having nausea, aj1 vomiting, diarrhea, body aches, sore throat. Denies fever. Transition of care: patient was not received from another setting of care. Onset of symptoms was August 02, 2018. Risk Assessment: Do you want to hurt yourself or someone else? Patient reports no desire to harm self or others. Initial Sepsis Screen: Does the patient meet any 2 criteria? No. Patient's initial sepsis screen is negative. Does the patient have a suspected source of infection? No. Patient's initial sepsis screen is negative. Care prior to arrival: None. 17:22 Method Of Arrival: Ambulatory aj 17:22 Acuity: ANU 4 aj1 Triage Assessment: 17:23 General: Appears in no apparent distress. comfortable, Behavior is calm, cooperative, aj1 appropriate for age. Pain: Pain currently is 5 out of 10 on a pain scale. Neuro: Level of Consciousness is awake, alert, obeys commands. Cardiovascular: Patient's skin is warm and dry. Respiratory: Airway is patent Respiratory effort is even, unlabored, Respiratory pattern is regular, symmetrical. 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 - Social history:: Smoking status: Patient/guardian denies using tobacco. - Ebola Screening: : Patient denies travel to an Ebola-affected area in the 21 days before illness onset. Screenin:00 Abuse screen: Denies threats or abuse. Denies injuries from another. Nutritional sg screening: No deficits noted. Tuberculosis screening: No symptoms or risk factors identified. Never had TB. Fall Risk None identified. Assessment: 18:00 General: Appears in no apparent distress. well groomed, well developed, well nourished, sg Behavior is calm, cooperative, appropriate for age. Pain: Complains of pain in left upper quadrant and right upper quadrant Quality of pain is described as aching, crampy. Neuro: No deficits noted. Cardiovascular: Capillary refill is brisk in bilateral fingers Patient's skin is warm and dry. Chest pain is denied. Respiratory: Airway is patent Respiratory effort is even, unlabored, Respiratory pattern is regular, symmetrical. GI: Abdomen is round non-distended, Bowel sounds present X 4 quads. Reports lower abdominal pain, upper abdominal pain, nausea. : No signs and/or symptoms were reported regarding the genitourinary system. EENT: No signs and/or symptoms were reported regarding the EENT system. Derm: Skin is pink, warm \T\ dry. Musculoskeletal: No signs and/or symptoms reported regarding the musculoskeletal system. 19:00 Reassessment: Patient appears in no apparent distress at this time. Patient and/or sg family updated on plan of care and expected duration. Pain level reassessed. Patient is alert, oriented x 3, equal unlabored respirations, skin warm/dry/pink. awaiting new orders at this time Patient states feeling better. 20:12 Reassessment: Patient appears in no apparent distress at this time. Patient and/or mg2 family updated on plan of care and expected duration. Pain level reassessed. Patient is alert, oriented x 3, equal unlabored respirations, skin warm/dry/pink. 20:30 Reassessment: Upon preparation for discharge patient complained of nausea, no vomiting. kr2 Provider notified, medication given as ordered. Patient being monitored at this time. Vital Signs: 17:23 BP 130 / 73; Pulse 82; Resp 18; Temp 98.8; Pulse Ox 99% on R/A; Weight 97.07 kg (R); aj1 Height 5 ft. 6 in. (167.64 cm) (R); Pain 5/10; 20:09 BP 113 / 72; Pulse 69; Resp 18; Temp 98.4; Pulse Ox 99% on R/A; Pain 0/10; mg2 17:23 Body Mass Index 34.54 (97.07 kg, 167.64 cm) aj1 ED Course: 16:43 Patient arrived in ED. sb2 16:44 None, None is Private Physician. sb2 17:23 Triage completed. aj1 17:23 Arm band placed on Patient placed in an exam room. aj 17:30 Magdiel Carter PA is PHCP. [facility] 17:30 Liberty Colvin MD is Attending Physician. [facility] 17:30 Patient has correct armband on for positive identification. Bed in low position. Call kr2 light in reach. Side rails up X 1. Adult w/ patient. Pulse ox on. NIBP on. Door closed. Warm blanket given. Head of bed elevated. 17:59 Randy Alonzo, RN is Primary Nurse. sg 18:00 No provider procedures requiring assistance completed. Initial lab(s) drawn, by fl, sg sent to lab. Inserted saline lock: 20 gauge in right antecubital area, using aseptic technique. Blood collected. 20:25 IV discontinued, intact, bleeding controlled, No redness/swelling at site. Pressure kr2 dressing applied. Administered Medications: 18:00 Drug: NS 0.9% 1000 ml Route: IV; Rate: 1 bolus; Site: right antecubital; sg 20:09 Follow up: Response: No adverse reaction; Marked relief of symptoms; IV Status: mg2 Completed infusion 18:00 Drug: Zofran 4 mg Route: IVP; Site: right antecubital; sg 19:00 Follow up: Response: No adverse reaction; Marked relief of symptoms mg2 20:30 Drug: Promethazine 25 mg Route: PO; kr2 20:50 Follow up: Response: No adverse reaction kr2 Outcome: 20:10 Discharge ordered by . [facility] 20:44 Discharged to home via wheelchair, with family. kr2 20:44 Condition: stable 20:44 Discharge instructions given to patient, family, Instructed on discharge instructions, follow up and referral plans. medication usage, Demonstrated understanding of instructions, follow-up care, medications, Prescriptions given X 1. 20:51 Patient left the ED. kr2 Signatures: Amanda Elder, RN RN aj1 Randy Alonzo, RN RN sg Magdiel Carter PA PA jmm Reaves, Karey RN RN kr2 Christie Yoon sb2 Gera Fortune RN RN mg2
--- NOTE | 2018-08-05 20:39 | EDPHYS ---
Physician Documentation [facility] Name: Wilber Amos Age: 23 yrs Sex: Female : 1995 Arrival Date: 08/05/2018 Time: 16:43 Bed 26 Private MD: None, None ED Physician Liberty Colvin HPI: 08/05 17:33 This 23 yrs old Female presents to ER via Ambulatory with complaints of Flu jmm Symptoms. 17:33 The patient presents to the emergency department with nausea, vomiting, diarrhea, jmm abdominal pain. Onset: The symptoms/episode began/occurred gradually, 3 day(s) ago. Possible causes: sick contacts, by family, sister. Associated signs and symptoms: Pertinent positives: sore throat, cough. This is a 23 year old female with a history of anxiety, asthma, depression, migraines, that presents to the ED with cough, sore throat, vomiting, diarrhea and epigastric abdominal pain beginning 3 days ago.. Sister has similar symptoms. . 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 - Social history:: Smoking status: Patient/guardian denies using tobacco. - Ebola Screening: : Patient denies travel to an Ebola-affected area in the 21 days before illness onset. ROS: 17:33 Constitutional: Negative for fever, chills, and weight loss, Cardiovascular: Negative jmm for chest pain, palpitations, and edema. 17:33 Respiratory: Positive for cough. 17:33 Abdomen/GI: Positive for abdominal pain, nausea and vomiting, diarrhea. 17:33 All other systems are negative. Exam: 17:33 Constitutional: This is a well developed, well nourished patient who is awake, alert, jmm and in no acute distress. Head/Face: atraumatic. Eyes: EOMI, no conjunctival erythema appreciated ENT: Moist Mucus Membranes Neck: Trachea midline, Supple Chest/axilla: Normal chest wall appearance and motion. Cardiovascular: Regular rate and rhythm. No edema appreciated Respiratory: Normal respirations, no respiratory distress appreciated 17:33 Abdomen/GI: Inspection: abdomen appears normal, Bowel sounds: normal, Palpation: soft, mild abdominal tenderness, in the right upper quadrant and left upper quadrant. 17:33 Back: ROM is normal. 17:33 Musculoskeletal/extremity: ROM: intact in all extremities. 17:33 Skin: Appearance: Color: normal in color. 17:33 Neuro: Orientation: is normal, Mentation: is normal, Memory: is normal. 17:33 Psych: Behavior/mood is pleasant, cooperative. Vital Signs: 17:23 BP 130 / 73; Pulse 82; Resp 18; Temp 98.8; Pulse Ox 99% on R/A; Weight 97.07 kg (R); aj Height 5 ft. 6 in. (167.64 cm) (R); Pain 5/10; 20:09 BP 113 / 72; Pulse 69; Resp 18; Temp 98.4; Pulse Ox 99% on R/A; Pain 0/10; mg2 17:23 Body Mass Index 34.54 (97.07 kg, 167.64 cm) [facility] MDM: 17:33 Patient medically screened. [facility] 19:57 Data reviewed: vital signs, nurses notes. Data interpreted: Pulse oximetry: on room air [facility] is 99 %. Interpretation: normal. Counseling: I had a detailed discussion with the patient and/or guardian regarding: the historical points, exam findings, and any diagnostic results supporting the discharge/admit diagnosis, radiology results, the need for outpatient follow up, to return to the emergency department if symptoms worsen or persist or if there are any questions or concerns that arise at home. 20:08 ED course: Patient states feeling better in the ED. Patient is able to tolerate PO in jmm the ED. Abdomen is soft. No lower abdominal pain. I do not currently suspect an acute intraabdominal process. Symptoms appear more likely related to a viral syndrome. Patient and mother given early appendicitis return precautions. Mother and patient understood and agree with the plan of care. . 08/05 17:25 Order name: Flu; Complete Time: 18:41 [facility] 08/05 17:25 Order name: Strep; Complete Time: 18:08 [facility] 08/05 17:38 Order name: Basic Metabolic Panel; Complete Time: 18:41 [facility] 08/05 17:38 Order name: CBC with Diff; Complete Time: 18:41 [facility] 08/05 17:38 Order name: Creatinine for Radiology; Complete Time: 18:41 [facility] 08/05 17:38 Order name: Hepatic Function; Complete Time: 18:41 [facility] 08/05 17:38 Order name: Lipase; Complete Time: 18:41 [facility] 08/05 17:38 Order name: IV Saline Lock; Complete Time: 18:00 [facility] 08/05 17:56 Order name: Urine Dipstick--Ancillary (enter results); Complete Time: 19:16 08/05 17:56 Order name: Urine --Ancillary (enter results); Complete Time: 19:16 08/05 18:02 Order name: Throat Culture [facility] 08/05 17:38 Order name: Labs collected and sent; Complete Time: 18:00 [facility] 08/05 17:38 Order name: Urine Dipstick-Ancillary (obtain specimen); Complete Time: 18:00 [facility] 08/05 17:38 Order name: Urine Test (obtain specimen); Complete Time: 18:00 [facility] Administered Medications: 18:00 Drug: NS 0.9% 1000 ml Route: IV; Rate: 1 bolus; Site: right antecubital; sg 20:09 Follow up: Response: No adverse reaction; Marked relief of symptoms; IV Status: mg2 Completed infusion 18:00 Drug: Zofran 4 mg Route: IVP; Site: right antecubital; sg 19:00 Follow up: Response: No adverse reaction; Marked relief of symptoms mg2 20:30 Drug: Promethazine 25 mg Route: PO; kr2 20:50 Follow up: Response: No adverse reaction kr2 Disposition: 08/05/18 20:10 Discharged to Home. Impression: Vomiting, Diarrhea, unspecified. - Condition is Stable. - Discharge Instructions: Food Choices to Help Relieve Diarrhea, Adult, Nausea and Vomiting, Adult. - Prescriptions for Zofran ODT 4 mg Oral tablet,disintegrating - place 1 tablet by TRANSLINGUAL route every 4-6 hours; 20 tablet. - Medication Reconciliation Form, Thank You Letter, Antibiotic Education, Prescription Opioid Use, Work release form form. - Follow up: Private Physician; When: As needed; Reason: Recheck today's complaints, Continuance of care, Re-evaluation by your physician. Addendum: 08/09/2018 17:25 Co-signature as Attending Physician, Liberty garza a2 Signatures: Dispatcher [employer] EDAmanda Caballero RN RN aj1 Randy Alonzo RN RN Magdiel Corona PA PA jmm Reaves, Karey, RN RN kr2 Liberty Colvin MD MD ma2 Gera Fortune RN mg2 Corrections: (The following items were deleted from the chart) 08/05 20:51 20:10 08/05/2018 20:10 Discharged to Home. Impression: Vomiting; Diarrhea, unspecified. kr2 Condition is Stable. Forms are Medication Reconciliation Form, Thank You Letter, Antibiotic Education, Prescription Opioid Use. Follow up: Private Physician; When: As needed; Reason: Recheck today's complaints, Continuance of care, Re-evaluation by your physician. cesar
== END 2018-08-05 20:51 | disposition home or self-care (01) ==
LOC: ER 16:43
DX: R11.10 Vomiting, unspecified (principal); R19.7 Diarrhea, unspecified
CPT/HCPCS: 36415; 80048; 80076; 81003; 81025; 83690; 85025; 87070; 87081; 87804; 96361; 96374; 99284; J2405; J7030

== ENCOUNTER 2018-10-14 10:55 | Emergency (ER) | payer SELFPAY ==
[2018-10-14 12:51] LABS: Absolute Lymphocytes (CBC) 1.7 K/uL (0.7-4.9); Absolute Monocytes 0.4 K/uL (0.1-1.3); Absolute Neutrophil 4.4 K/uL (1.8-8.0); Basophils % 0.3 % (0-1.3); Eosinophils % 0.6 % (0-4.4); Lymphocytes % 25.9 % (15.3-44.8); MPV 8.3 fL (7.6-11.3); Monocytes % 5.6 % (3.3-12.3); RBC Red Blood Cell Count 5.27 M/uL (3.86-4.86)
[2018-10-14 12:55] LABS: Urine Amorphous Sediment 1+ /HPF (NONE SEEN); Urine Bacteria >50 /HPF (<20); Urine Culture Reflex Order NOT NEEDED; Urine Mucus LIGHT /HPF (NONE SEEN); Urine RBC <5 /HPF (NONE SEEN)
[2018-10-14 12:56] LABS: Urine Blood NEGATIVE (NEG); Urine Glucose NEGATIVE (NEG); Urine Protein TRACE (NEG); Urine pH 5.5 (5.0-7.0)
[2018-10-14 13:07] LABS: ALT/SGPT 18 U/L (12-78); AST/SGOT 15 U/L (15-37); Albumin 3.7 g/dL (3.4-5.0); Alkaline Phosphatase 83 U/L (45-117); BUN Blood Urea Nitrogen 13 mg/dL (7-18); Bicarbonate 26 mmol/L (21-32); Bilirubin Direct < 0.1 mg/dL (0-0.2); Bilirubin Total 0.3 mg/dL (0.2-1.0); Glucose Level 84 mg/dL (74-106); Lipase 130 U/L (73-393); Potassium 4.1 mmol/L (3.5-5.1); Protein, Total 7.5 g/dL (6.4-8.2); Sodium Level 142 mmol/L (136-145)
--- NOTE | 2018-10-14 15:34 | RAD REPORT ---
EXAM DESCRIPTION: CT - Abdomen Pelvis Wo Contrast - 10/14/2018 3:11 pm CLINICAL HISTORY: Abdominal pain with vomiting COMPARISON: November 2017 TECHNIQUE: Computed axial tomography of the abdomen and pelvis was obtained. IV was not requested. O ral contrast was given. Coronal reconstructions performed. All CT scans are performed using dose optimization technique as appropriate and may include automated exposure control or mA/KV adjustment according to patient size. FINDINGS: The evaluation of solid organs and vessels is limited secondary to the lack of contrast a dministration. The liver, spleen, pancreas, adrenals and kidneys appear grossly normal. The appendix is normal. There is no evidence of diverticulitis. An adnexal mass is not noted Small umbilical hernia IMPRESSION: No acute abnormality is displayed.
--- NOTE | 2018-10-14 16:07 | EDPHYS ---
Physician Documentation [facility] Name: Wilber Amos Age: 23 yrs Sex: Female : 1995 Arrival Date: 10/14/2018 Time: 10:59 Bed 14 Private MD: None, None ED Physician Liberty Colvin HPI: 10/14 12:30 This 23 yrs old Female presents to ER via Ambulatory with complaints of pm1 Abdominal Pain. 12:30 The patient presents with abdominal pain. pm1 12:30 Onset: The symptoms/episode began/occurred 2 day(s) ago. The symptoms do not radiate. pm1 Associated signs and symptoms: Pertinent positives: nausea and vomiting, Pertinent negatives: chest pain, constipation, diarrhea, dysuria, fever, shortness of breath. The symptoms are described as sharp. Modifying factors: The symptoms are alleviated by nothing, the symptoms are aggravated by nothing. Severity of pain: in the emergency department the pain is unchanged. The patient has not experienced similar symptoms in the past. The patient has not recently seen a physician. Historical: - Allergies: 11:06 Iodine; sv 11:06 Mefoxin; sv - PMHx: 11:06 Anxiety; Asthma; Depression; Migraines; sleep insomnia; sv - PSHx: 11:06 None; sv - Immunization history:: Adult Immunizations up to date. - Social history:: Smoking status: Patient uses tobacco products, vape. - Ebola Screening: : No symptoms or risks identified at this time. ROS: 12:30 Constitutional: Negative for fever, chills, and weight loss, Eyes: Negative for injury, pm1 pain, redness, and discharge, ENT: Negative for injury, pain, and discharge, Neck: Negative for injury, pain, and swelling, Cardiovascular: Negative for chest pain, palpitations, and edema, Respiratory: Negative for shortness of breath, cough, wheezing, and pleuritic chest pain. 12:30 Back: Negative for injury and pain, : Negative for injury, bleeding, discharge, and swelling, MS/Extremity: Negative for injury and deformity, Skin: Negative for injury, rash, and discoloration, Neuro: Negative for headache, weakness, numbness, tingling, and seizure. 12:30 Abdomen/GI: Positive for abdominal pain, nausea and vomiting, of the abdomen diffusely, Negative for diarrhea, constipation. Exam: 12:30 Constitutional: This is a well developed, well nourished patient who is awake, alert, pm1 and in no acute distress. Head/Face: Normocephalic, atraumatic. Eyes: Pupils equal round and reactive to light, extra-ocular motions intact. Lids and lashes normal. Conjunctiva and sclera are non-icteric and not injected. Cornea within normal limits. Periorbital areas with no swelling, redness, or edema. ENT: Nares patent. No nasal discharge, no septal abnormalities noted. Tympanic membranes are normal and external auditory canals are clear. Oropharynx with no redness, swelling, or masses, exudates, or evidence of obstruction, uvula midline. Mucous membranes moist. Neck: Trachea midline, no thyromegaly or masses palpated, and no cervical lymphadenopathy. Supple, full range of motion without nuchal rigidity, or vertebral point tenderness. No Meningismus. Chest/axilla: Normal chest wall appearance and motion. Nontender with no deformity. No lesions are appreciated. Cardiovascular: Regular rate and rhythm with a normal S1 and S2. No gallops, murmurs, or rubs. Normal PMI, no JVD. No pulse deficits. Respiratory: Lungs have equal breath sounds bilaterally, clear to auscultation and percussion. No rales, rhonchi or wheezes noted. No increased work of breathing, no retractions or nasal flaring. 12:30 Back: No spinal tenderness. No costovertebral tenderness. Full range of motion. Skin: Warm, dry with normal turgor. Normal color with no rashes, no lesions, and no evidence of cellulitis. MS/ Extremity: Pulses equal, no cyanosis. Neurovascular intact. Full, normal range of motion. 12:30 Abdomen/GI: Inspection: obese Bowel sounds: normal, Palpation: soft, mild abdominal tenderness, in the umbilical area, mass, is not appreciated, rebound tenderness, is not appreciated. 12:30 Neuro: Orientation: is normal, Motor: is normal, moves all fours, Sensation: is normal, no obvious gross deficits, Gait: is steady, at a normal pace, without difficulty. Vital Signs: 11:06 BP 107 / 72; Pulse 84; Resp 16; Temp 98.7(O); Pulse Ox 98% ; Weight 95.44 kg (M); sv Height 5 ft. 6 in. (167.64 cm); Pain 6/10; 12:01 BP 126 / 79; Pulse 72; Resp 18; Pulse Ox 99% on R/A; aj1 13:05 BP 121 / 82; Pulse 82; Resp 18; Pulse Ox 99% on R/A; aj1 14:12 BP 113 / 72; Pulse 74; Resp 18; Pulse Ox 98% on R/A; aj1 16:15 BP 108 / 71; Pulse 82; Resp 16; Pulse Ox 100% on R/A; aj1 11:06 Body Mass Index 33.96 (95.44 kg, 167.64 cm) sv MDM: 12:00 Patient medically screened. pm1 12:30 Data reviewed: vital signs. Data interpreted: Pulse oximetry: on room air is 98 %. pm1 Interpretation: normal. 16:05 Counseling: I had a detailed discussion with the patient and/or guardian regarding: the pm1 historical points, exam findings, and any diagnostic results supporting the discharge/admit diagnosis, lab results, radiology results, the need for outpatient follow up, to return to the emergency department if symptoms worsen or persist or if there are any questions or concerns that arise at home. 10/14 12:07 Order name: Basic Metabolic Panel 1 10/14 12:07 Order name: CBC with Diff [facility] 10/14 12:07 Order name: Creatinine for Radiology [facility] 10/14 12:07 Order name: Hepatic Function [facility] 10/14 12:07 Order name: Lipase [facility] 10/14 12:07 Order name: Urine Microscopic Only [facility] 10/14 12:24 Order name: Urine Dipstick--Ancillary (enter results) 10/14 12:24 Order name: Urine --Ancillary (enter results) 10/14 12:56 Order name: Urine Microscopic Only; Complete Time: 13:07 [facility] 10/14 12:56 Order name: Urine --Ancillary; Complete Time: 13:07 [facility] 10/14 12:56 Order name: Urine Dipstick-Ancillary; Complete Time: 13:07 [facility] 10/14 12:57 Order name: CBC with Automated Diff; Complete Time: 13:07 [facility] 10/14 13:06 Order name: Creatinine (Radiology Only); Complete Time: 13:07 [facility] 10/14 13:07 Order name: Basic Metabolic Panel; Complete Time: 13:08 [facility] 10/14 12:07 Order name: IV Saline Lock; Complete Time: 12:38 pm1 10/14 12:07 Order name: Labs collected and sent; Complete Time: 12:38 pm1 10/14 12:07 Order name: Urine Dipstick-Ancillary (obtain specimen); Complete Time: 12:58 pm10/14 12:07 Order name: Urine Test (obtain specimen); Complete Time: 12:58 pm10/14 13:07 Order name: Liver (Hepatic) Function; Complete Time: 13:08 [facility] 10/14 13:07 Order name: Lipase; Complete Time: 13:08 [facility] 10/14 13:13 Order name: CT Abd/Pelvis - W/Contrast: PO contrast only pm10/14 15:35 Order name: CT; Complete Time: 16:01 EDMS Administered Medications: No medications were administered Disposition: 16:48 Co-signature as Attending Physician, Liberty Colvin MD. ma2 Disposition: 10/14/18 16:06 Discharged to Home. Impression: Unspecified abdominal pain. - Condition is Stable. - Discharge Instructions: Abdominal Pain, Adult, Nausea and Vomiting, Adult. - Prescriptions for Bentyl 20 mg Oral Tablet - take 1 tablet by ORAL route every 6 hours As needed; 20 tablet. Zofran 4 mg Oral Tablet - take 1 tablet by ORAL route every 12 hours As needed; 20 tablet. - Work release form, Medication Reconciliation Form, Thank You Letter, Antibiotic Education, Prescription Opioid Use form. - Follow up: Emergency Department; When: As needed; Reason: Worsening of condition. Follow up: Private Physician; When: 2 - 3 days; Reason: Recheck today's complaints, Continuance of care, Re-evaluation by your physician. - Problem is new. - Symptoms have improved. Signatures: Dispatcher [employer] EDNV Amanda Elder RN RN aj1 Jayleen Quiroz RN RN sv Marinas, Patrick, WALL COVERING INSTALLER WALL COVERING INSTALLER pm1 Liberty Colvin MD MD ma2 Corrections: (The following items were deleted from the chart) 16:45 16:06 10/14/2018 16:06 Discharged to Home. Impression: Unspecified abdominal pain. aj1 Condition is Stable. Forms are Medication Reconciliation Form, Thank You Letter, Antibiotic Education, Prescription Opioid Use. Follow up: Emergency Department; When: As needed; Reason: Worsening of condition. Follow up: Private Physician; When: 2 - 3 days; Reason: Recheck today's complaints, Continuance of care, Re-evaluation by your physician. Problem is new. Symptoms have improved. pm1
--- NOTE | 2018-10-14 16:07 | ER ---
Nurse's Notes [facility] Name: Wilber Amos Age: 23 yrs Sex: Female : 1995 Arrival Date: 10/14/2018 Time: 10:59 Bed 14 Private MD: None, None Diagnosis: Unspecified abdominal pain Presentation: 10/14 11:04 Presenting complaint: Patient states: diffuse abd pain, n/v x 2 days. Transition of sv care: patient was not received from another setting of care. Onset of symptoms was October 12, 2018. Care prior to arrival: None. 11:04 Method Of Arrival: Ambulatory sv 11:04 Acuity: ANU 3 sv 16:15 Risk Assessment: Do you want to hurt yourself or someone else? Patient reports no aj1 desire to harm self or others. Initial Sepsis Screen: Does the patient meet any 2 criteria? No. Patient's initial sepsis screen is negative. Does the patient have a suspected source of infection? Yes: Acute abdominal pain. Historical: - Allergies: 11:06 Iodine; sv 11:06 Mefoxin; sv - PMHx: 11:06 Anxiety; Asthma; Depression; Migraines; sleep insomnia; sv - PSHx: 11:06 None; sv - Immunization history:: Adult Immunizations up to date. - Social history:: Smoking status: Patient uses tobacco products, vape. - Ebola Screening: : No symptoms or risks identified at this time. Screenin:01 Abuse screen: Denies threats or abuse. Denies injuries from another. Nutritional aj1 screening: No deficits noted. Tuberculosis screening: No symptoms or risk factors identified. 16:15 Fall Risk None identified. aj1 Assessment: 12:01 General: Appears in no apparent distress. comfortable, Behavior is calm, cooperative, aj1 appropriate for age. Pain: Complains of pain in left upper quadrant and left lower quadrant Pain does not radiate. Pain currently is 6 out of 10 on a pain scale. Pain began 2-3 days ago. Neuro: Level of Consciousness is awake, alert, obeys commands. Cardiovascular: Patient's skin is warm and dry. Respiratory: Airway is patent Respiratory effort is even, unlabored, Respiratory pattern is regular, symmetrical. GI: Abdomen is flat, non-distended, Bowel sounds present X 4 quads. Abd is soft X 4 quads Abdomen is tender to palpation in left lower quadrant. : No signs and/or symptoms were reported regarding the genitourinary system. EENT: No signs and/or symptoms were reported regarding the EENT system. Derm: No signs and/or symptoms reported regarding the dermatologic system. Skin is pink, warm \T\ dry. normal. Musculoskeletal: No signs and/or symptoms reported regarding the musculoskeletal system. Capillary refill. 13:05 Reassessment: Patient appears in no apparent distress at this time. No changes from aj1 previously documented assessment. Patient and/or family updated on plan of care and expected duration. Pain level reassessed. Patient is alert, oriented x 3, equal unlabored respirations, skin warm/dry/pink. 13:32 Reassessment: Notified CT that patient has finished her contrast. aj1 14:12 Reassessment: Patient appears in no apparent distress at this time. No changes from aj1 previously documented assessment. Patient and/or family updated on plan of care and expected duration. Pain level reassessed. Patient is alert, oriented x 3, equal unlabored respirations, skin warm/dry/pink. 15:15 Reassessment: Patient appears in no apparent distress at this time. No changes from aj1 previously documented assessment. Patient and/or family updated on plan of care and expected duration. Pain level reassessed. Patient is alert, oriented x 3, equal unlabored respirations, skin warm/dry/pink. 16:15 Reassessment: Patient appears in no apparent distress at this time. No changes from aj1 previously documented assessment. Patient and/or family updated on plan of care and expected duration. Pain level reassessed. Patient is alert, oriented x 3, equal unlabored respirations, skin warm/dry/pink. Vital Signs: 11:06 BP 107 / 72; Pulse 84; Resp 16; Temp 98.7(O); Pulse Ox 98% ; Weight 95.44 kg (M); sv Height 5 ft. 6 in. (167.64 cm); Pain 6/10; 12:01 BP 126 / 79; Pulse 72; Resp 18; Pulse Ox 99% on R/A; aj1 13:05 BP 121 / 82; Pulse 82; Resp 18; Pulse Ox 99% on R/A; aj1 14:12 BP 113 / 72; Pulse 74; Resp 18; Pulse Ox 98% on R/A; aj1 16:15 BP 108 / 71; Pulse 82; Resp 16; Pulse Ox 100% on R/A; aj1 11:06 Body Mass Index 33.96 (95.44 kg, 167.64 cm) sv ED Course: 10:59 Patient arrived in ED. sb2 10:59 None, None is Private Physician. sb2 11:05 Triage completed. sv 11:07 Arm band placed on. sv 11:47 Amanda Elder RN is Primary Nurse. aj1 11:50 [facility] pm1 11:50 Liberty Colvin MD is Attending Physician. pm1 12:01 Patient has correct armband on for positive identification. Bed in low position. Call aj1 light in reach. Side rails up X 1. 12:01 No provider procedures requiring assistance completed. aj1 12:33 Initial lab(s) drawn, by me, sent to lab. Inserted saline lock: 20 gauge in right dh3 antecubital area, using aseptic technique. Blood collected. 15:11 CT completed. Patient tolerated procedure well. Patient moved to CT via wheelchair. Patient moved back from CT. 16:15 IV discontinued, intact, bleeding controlled, No redness/swelling at site. Pressure aj1 dressing applied. Administered Medications: No medications were administered Outcome: 16:06 Discharge ordered by MD. pm1 16:35 Discharged to home ambulatory. aj1 16:35 Condition: good 16:35 Discharge instructions given to patient, Instructed on discharge instructions, follow up and referral plans. medication usage, Demonstrated understanding of instructions, follow-up care, medications, Prescriptions given X 2. 16:45 Patient left the ED. aj1 Signatures: Amanda Elder RN RN aj1 Jayleen Quiroz RN RN Jono Menendez Jordy Sellers NP EMERGENCY MANAGEMENT PROGRAM SPECIALIST pm1 Queenie Zuñiga 3 Christie Yoon sb2 Corrections: (The following items were deleted from the chart) 11:07 11:06 BP 107 / 72; Pulse 84bpm; Resp 16bpm; Pulse Ox 98%; Temp 98.7F Oral; Height 5 ft. sv 6 in.; Pain 6/10; sv
== END 2018-10-14 16:45 | disposition home or self-care (01) ==
LOC: ER 10:55
DX: R10.9 Unspecified abdominal pain (principal); R11.2 Nausea with vomiting, unspecified; Z72.0 Tobacco use; Z88.8 Allergy status to other drugs, medicaments and biological substances; Z91.048 Other nonmedicinal substance allergy status
CPT/HCPCS: 36415; 74176; 80048; 80076; 81003; 81015; 81025; 83690; 85025; 99284

== ENCOUNTER 2018-11-01 10:28 | Emergency (ER) | payer SELFPAY ==
[2018-11-01 11:46] LABS: Absolute Lymphocytes (CBC) 1.6 K/uL (0.7-4.9); Absolute Monocytes 0.3 K/uL (0.1-1.3); Absolute Neutrophil 4.4 K/uL (1.8-8.0); Basophils % 0.6 % (0-1.3); Eosinophils % 0.7 % (0-4.4); Hematocrit 43.1 % (36.0-45.0); Lymphocytes % 25.2 % (15.3-44.8); MPV 8.3 fL (7.6-11.3); Monocytes % 5.2 % (3.3-12.3); RBC Red Blood Cell Count 5.26 M/uL (3.86-4.86)
[2018-11-01] MEDS ORDERED: ONDANSETRON 4 MG/2 ML VIAL ONE (11:47)
[2018-11-01] MEDS ORDERED: MORPHINE 4 MG/ML SYR ONE (11:47)
[2018-11-01 11:51] LABS: Potassium 4.1 mmol/L (3.5-5.1)
--- NOTE | 2018-11-01 13:23 | RAD REPORT ---
EXAM DESCRIPTION: US - Transvaginal Study Probe - 11/01/2018 1:07 pm CLINICAL HISTORY: ABD PAIN Pelvic pain. COMPARISON: Transvaginal Study Probe dated 07/12/2017; Abdomen Pelvis Wo Contrast dated 10/14/2018 FINDINGS: The uterus is normal in size, shape and echotexture. The uterus measures 6.2 x 3.6 x 3.1 c m. The endometrial stripe measures 2 mm, normal. Both ovaries are normal in size, shape and echotexture. The right ovary measures 1.9 x 1.4 x 1.2 cm. The left ovary measures 2.5 x 2.4 x 2.3 cm. No ovarian or parovarian lesions. No adnexal masses. Normal Doppler blood flow was demonstrated to both ovaries. No significant pelvic ascites. IMPRESSION: Unremarkable study.
--- NOTE | 2018-11-01 13:29 | ER ---
Nurse's Notes [facility] Name: Wilber Amos Age: 23 yrs Sex: Female : 1995 Arrival Date: 11/01/2018 Time: 10:31 Bed 25 Private MD: None, None Diagnosis: Dysmenorrhea, unspecified;Abnormal uterine and vaginal bleeding, unspecified Presentation: 11/01 10:35 Presenting complaint: Patient states: Lower abdominal pain 10/10 x 2 days, heavy hb menstrual bleeding x 2 weeks. Transition of care: patient was not received from another setting of care. Onset of symptoms was November 01, 2018. Risk Assessment: Do you want to hurt yourself or someone else? Patient reports no desire to harm self or others. Initial Sepsis Screen: Does the patient meet any 2 criteria? No. Patient's initial sepsis screen is negative. Does the patient have a suspected source of infection? No. Patient's initial sepsis screen is negative. Care prior to arrival: None. 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 - Social history:: Smoking status: Patient/guardian denies using tobacco. - Ebola Screening: : No symptoms or risks identified at this time. Screenin:32 Abuse screen: Denies threats or abuse. Denies injuries from another. Nutritional aj screening: No deficits noted. Tuberculosis screening: No symptoms or risk factors identified. Fall Risk None identified. Assessment: 11:32 General: Appears in no apparent distress. comfortable, Behavior is calm, cooperative, aj appropriate for age. Pain: Complains of pain in pelvis. Neuro: Level of Consciousness is awake, alert, obeys commands, Oriented to person, place, time, situation, Appropriate for age. Respiratory: Airway is patent Respiratory effort is even, unlabored, Respiratory pattern is regular, symmetrical. GI: Abdomen is flat, Bowel sounds present X 4 quads. Abd is soft and non tender X 4 quads. : Reports vaginal bleeding that is moderate flow. Derm: Skin is intact, is healthy with good turgor, Skin is pink, warm \T\ dry. normal. Vital Signs: 10:37 BP 127 / 75; Pulse 81; Resp 16; Temp 98.4(O); Pulse Ox 100% on R/A; Pain 10/10; hb 13:03 BP 108 / 69 LA (auto/lg); Pulse Ox 97% on R/A; jp3 ED Course: 10:31 Patient arrived in ED. mr 10:32 None, None is Private Physician. mr 10:37 Triage completed. hb 10:37 Arm band placed on. hb 10:44 Judson Masters PA is PHCP. jr8 10:44 Alcon Olmstead MD is Attending Physician. jr8 11:18 Kat Duenas, TOMÁS is Primary Nurse. aj 11:32 Patient has correct armband on for positive identification. aj 11:32 Inserted saline lock: 20 gauge in right antecubital area, using aseptic technique. aj 11:35 CBC with Diff Sent. aj 11:35 Basic Metabolic Panel Sent. aj 11:40 Urine collected: clean catch specimen, clear. aj 13:05 US Transvaginal Study (Probe) In Process Unspecified. EDMS 13:51 No provider procedures requiring assistance completed. IV discontinued, intact, aj bleeding controlled, No redness/swelling at site. Pressure dressing applied. Administered Medications: 11:39 Drug: Zofran 4 mg Route: IVP; Site: right antecubital; aj 13:53 Follow up: Response: No adverse reaction aj 11:40 Drug: morphine 4 mg Route: IVP; Site: right antecubital; aj 13:52 Follow up: Response: No adverse reaction aj Outcome: 13:28 Discharge ordered by . jr8 13:51 Discharged to home ambulatory. aj 13:51 Condition: good 13:51 Discharge instructions given to patient, Instructed on discharge instructions, follow up and referral plans. medication usage, Demonstrated understanding of instructions, follow-up care, medications, Need to follow up with OIL[employer] FIELD OPERATOR Prescriptions given X 1. 13:53 Patient left the ED. aj Signatures: Dispatcher [employer] EDMS Kat Duenas RN RN aj Rivera, Mary mr Judson Masters PA PA jrEsme Dobbins RN RN Taiwo Mccord jp3 Corrections: (The following items were deleted from the chart) 13:06 13:03 BP 105 / 63 Auto L Arm Large; Pulse Ox 97% RA; jp3 jp3
--- NOTE | 2018-11-01 13:29 | EDPHYS ---
Physician Documentation [facility] Name: Wilber Amos Age: 23 yrs Sex: Female : 1995 Arrival Date: 11/01/2018 Time: 10:31 Bed 25 Private MD: None, None ED Physician Alcon Olmstead HPI: 11/01 11:34 This 23 yrs old Female presents to ER via Ambulatory with complaints of jr8 Abdominal Cramping, Vaginal Bleeding. 11:51 Onset: The symptoms/episode began/occurred gradually, 2 week(s) ago. Modifying factors: jr8 The symptoms are alleviated by nothing, the symptoms are aggravated by nothing. Associated signs and symptoms: Pertinent positives: cramping, vaginal bleeding. Severity of symptoms: At their worst the symptoms were moderate, in the emergency department the symptoms are unchanged. The patient has not experienced similar symptoms in the past. The patient has not recently seen a physician. 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 - Social history:: Smoking status: Patient/guardian denies using tobacco. - Ebola Screening: : No symptoms or risks identified at this time. ROS: 11:52 Eyes: Negative for injury, pain, redness, and discharge, ENT: Negative for injury, jr8 pain, and discharge, Neck: Negative for injury, pain, and swelling, Cardiovascular: Negative for chest pain, palpitations, and edema, Respiratory: Negative for shortness of breath, cough, wheezing, and pleuritic chest pain, Back: Negative for injury and pain, MS/Extremity: Negative for injury and deformity, Skin: Negative for injury, rash, and discoloration, Neuro: Negative for headache, weakness, numbness, tingling, and seizure. 11:52 Abdomen/GI: Positive for abdominal pain, Negative for nausea, vomiting, and diarrhea, abdominal distension, hematemesis, black/tarry stool, rectal pain, rectal bleeding, bowel incontinence, flatulence. 11:52 : Positive for vaginal bleeding, menstrual abnormality, Negative for vaginal discharge, vaginal itching. Exam: 11:52 Eyes: Pupils equal round and reactive to light, extra-ocular motions intact. Lids and jr8 lashes normal. Conjunctiva and sclera are non-icteric and not injected. Cornea within normal limits. Periorbital areas with no swelling, redness, or edema. ENT: Nares patent. No nasal discharge, no septal abnormalities noted. Tympanic membranes are normal and external auditory canals are clear. Oropharynx with no redness, swelling, or masses, exudates, or evidence of obstruction, uvula midline. Mucous membranes moist. Neck: Trachea midline, no thyromegaly or masses palpated, and no cervical lymphadenopathy. Supple, full range of motion without nuchal rigidity, or vertebral point tenderness. No Meningismus. Cardiovascular: Regular rate and rhythm with a normal S1 and S2. No gallops, murmurs, or rubs. Normal PMI, no JVD. No pulse deficits. Respiratory: Lungs have equal breath sounds bilaterally, clear to auscultation and percussion. No rales, rhonchi or wheezes noted. No increased work of breathing, no retractions or nasal flaring. Back: No spinal tenderness. No costovertebral tenderness. Full range of motion. Skin: Warm, dry with normal turgor. Normal color with no rashes, no lesions, and no evidence of cellulitis. MS/ Extremity: Pulses equal, no cyanosis. Neurovascular intact. Full, normal range of motion. Neuro: Awake and alert, GCS 15, oriented to person, place, time, and situation. Cranial nerves II-XII grossly intact. Motor strength 5/5 in all extremities. Sensory grossly intact. Cerebellar exam normal. Normal gait. 11:52 Abdomen/GI: Inspection: abdomen appears normal, Bowel sounds: active, all quadrants, Palpation: soft, in all quadrants, moderate abdominal tenderness, in the lower pelvic region, rebound tenderness, is not appreciated, voluntary guarding, is not appreciated, involuntary guarding, is not appreciated, no appreciated organomegaly, Indicators: McBurney's point is not tender, Mason's sign is negative, Rovsing's sign is negative, Liver: tenderness, is not appreciated. Vital Signs: 10:37 BP 127 / 75; Pulse 81; Resp 16; Temp 98.4(O); Pulse Ox 100% on R/A; Pain 10/10; hb 13:03 BP 108 / 69 LA (auto/lg); Pulse Ox 97% on R/A; jp3 MDM: 10:44 Patient medically screened. 8 13:27 Differential diagnosis: dysmenorrhea, ectopic , endometriosis, jr8 menometrorrhagia, menorrhea, Neoplasm nonspecific abdominal pain, ovarian cyst, pelvic inflammatory disease, ruptured ectopic , uterine fibroids, urinary tract infection. Data reviewed: vital signs, nurses notes, lab test result(s), radiologic studies, ultrasound, and as a result, I will discharge patient. Data interpreted: Pulse oximetry: on room air is 97 %. Interpretation: normal. Counseling: I had a detailed discussion with the patient and/or guardian regarding: the historical points, exam findings, and any diagnostic results supporting the discharge/admit diagnosis, lab results, radiology results, the need for outpatient follow up, an OB/Gyne specialist, to return to the emergency department if symptoms worsen or persist or if there are any questions or concerns that arise at home. Special discussion: Based on the patient's Hx, exam, and Dx evaluation, there is no indication for emergent surgery or inpatient Tx. It is understood by the patient/guardian that if the Sx's persist or worsen they need to return immediately for re-evaluation. 11/01 11:11 Order name: CBC with Diff; Complete Time: 11:[address] [facility] 11/01 11:11 Order name: Basic Metabolic Panel; Complete Time: 11:[address] [facility] 11/01 11:38 Order name: Urine Dipstick--Ancillary (enter results) 11/01 11:38 Order name: Urine --Ancillary (enter results) 11/01 11:51 Order name: US Transvaginal Study (Probe); Complete Time: 13:[address] [facility] 11/01 11:11 Order name: Urine Test (obtain specimen); Complete Time: 11:[address] [facility] 11/01 11:11 Order name: Urine Dipstick-Ancillary (obtain specimen); Complete Time: 11:[address] [facility] 11/01 11:11 Order name: IV; Complete Time: 11:31 Administered Medications: 11:39 Drug: Zofran 4 mg Route: IVP; Site: right antecubital; aj 13:53 Follow up: Response: No adverse reaction aj 11:40 Drug: morphine 4 mg Route: IVP; Site: right antecubital; aj 13:52 Follow up: Response: No adverse reaction aj Disposition: 18:20 Co-signature as Attending Physician, Alcon Olmstead MD. rn Disposition: 11/01/18 13:28 Discharged to Home. Impression: Dysmenorrhea, unspecified, Abnormal uterine and vaginal bleeding, unspecified. - Condition is Stable. - Discharge Instructions: Abnormal Uterine Bleeding, Dysmenorrhea. - Prescriptions for Tylenol- Codeine #3 300-30 mg Oral Tablet - take 2 tablets by ORAL route every 6 hours As needed; 12 tablet. - Work release form, Medication Reconciliation Form, Thank You Letter, Antibiotic Education, Prescription Opioid Use form. - Follow up: Private Physician; When: 2 - 3 days; Reason: Recheck today's complaints, Continuance of care, Re-evaluation by your physician. - Problem is new. - Symptoms have improved. Signatures: Dispatcher [employer] EDKat Ocasio RN RN aj Nieto, Roman, MD MD rn Roszak, Josh, PA PA jr8 Esme Cochran RN RN Corrections: (The following items were deleted from the chart) 13:53 13:28 11/01/2018 13:28 Discharged to Home. Impression: Dysmenorrhea, unspecified; aj Abnormal uterine and vaginal bleeding, unspecified. Condition is Stable. Forms are Medication Reconciliation Form, Thank You Letter, Antibiotic Education, Prescription Opioid Use. Follow up: Private Physician; When: 2 - 3 days; Reason: Recheck today's complaints, Continuance of care, Re-evaluation by your physician. Problem is new. Symptoms have improved. jr8
[2018-11-01 14:12] LABS: Urine Blood 3+ (NEG); Urine Glucose NEGATIVE (NEG); Urine Protein TRACE (NEG); Urine Specific Gravity 1.025 (1.005-1.030); Urine pH 5.5 (5.0-7.0)
== END 2018-11-01 13:53 | disposition home or self-care (01) ==
LOC: ER 10:28
DX: N94.6 Dysmenorrhea, unspecified (principal); N93.9 Abnormal uterine and vaginal bleeding, unspecified; F41.9 Anxiety disorder, unspecified; J45.909 Unspecified asthma, uncomplicated; F32.9 Major depressive disorder, single episode, unspecified; Z88.1 Allergy status to other antibiotic agents; Z88.8 Allergy status to other drugs, medicaments and biological substances
CPT/HCPCS: 36415; 76830; 80048; 81003; 81025; 85025; 96374; 96375; 99284; J2405

== ENCOUNTER 2018-11-03 11:18 | Emergency (ER) | payer SELFPAY ==
[2018-11-03 14:37] LABS: Urine Blood 2+ (NEG); Urine Glucose NEGATIVE (NEG); Urine Protein TRACE (NEG); Urine Specific Gravity >1.030 (1.005-1.030)
[2018-11-03] MEDS ORDERED: NA CHLORIDE 0.9% 1,000 ML ONE (14:45)
[2018-11-03] MEDS ORDERED: ONDANSETRON 4 MG/2 ML VIAL ONE (14:45)
[2018-11-03] MEDS ORDERED: MORPHINE 4 MG/ML SYR ONE (14:45)
[2018-11-03] MEDS ORDERED: FAMOTIDINE 20 MG/2 ML VIAL IV ONE (14:46)
[2018-11-03 14:51] LABS: Absolute Lymphocytes (CBC) 2.1 K/uL (0.7-4.9); Absolute Monocytes 0.3 K/uL (0.1-1.3); Absolute Neutrophil 3.7 K/uL (1.8-8.0); Basophils % 0.6 % (0-1.3); Hematocrit 41.2 % (36.0-45.0); Lymphocytes % 33.3 % (15.3-44.8); MPV 8.3 fL (7.6-11.3); Monocytes % 5.4 % (3.3-12.3); RBC Red Blood Cell Count 5.04 M/uL (3.86-4.86)
[2018-11-03 15:05] LABS: ALT/SGPT 13 U/L (12-78); AST/SGOT 10 U/L (15-37); Albumin 3.8 g/dL (3.4-5.0); Alkaline Phosphatase 88 U/L (45-117); BUN Blood Urea Nitrogen 11 mg/dL (7-18); Bicarbonate 28 mmol/L (21-32); Bilirubin Direct < 0.1 mg/dL (0-0.2); Bilirubin Total 0.2 mg/dL (0.2-1.0); Glucose Level 82 mg/dL (74-106); Lipase 102 U/L (73-393); Potassium 3.8 mmol/L (3.5-5.1); Protein, Total 7.2 g/dL (6.4-8.2); Sodium Level 141 mmol/L (136-145)
--- NOTE | 2018-11-03 15:08 | RAD REPORT ---
EXAM DESCRIPTION: CT - Abdomen Pelvis Wo Contrast - 11/03/2018 2:46 pm CLINICAL HISTORY: Vaginal bleeding, abdominal pain, left lower quadrant pain COMPARISON: Pelvic ultrasound November 01, CT imaging October 14 TECHNIQUE: Axial [address] imaging of the abdomen and pelvis was performed without IV contrast. No IV contrast was given because of allergy, abnormal renal function, patient refusal or physician re quest. No oral contrast given. All CT scans are performed using dose optimization technique as appropriate and may include automated exposure control or mA/KV adjustment according to patient size. FINDINGS: No suspicious findings in the lung bases. The liver, spleen and pancreas show no suspicious findings on non-contrast imaging. Gallbladder and b iliary tree are also without suspicious finding. No hydronephrosis or suspicious renal mass. No significant adrenal finding. Isodense renal masses an d pyelonephritis cannot be excluded in the absence of IV contrast. Urinary bladder is contracted. [place] murali and ovaries show no suspicious findings. There is a 2 cm left ovarian cyst. No evidence for cyst rupture or hemorrhage. A few small mesenteric lymph nodes are present. No dilated bowel loops or bowel wall thickening. No free air, free fluid or inflammatory stranding. N o hernia, mass or bulky lymphadenopathy. No suspicious bony findings. IMPRESSION: Non-contrast enhanced CT abdomen and pelvis imaging show no significant or suspicious fi nding. A small left ovarian cyst is present without cyst rupture or hemorrhage finding. Full assessment is limited is the absence of IV contrast.
--- NOTE | 2018-11-03 16:23 | ER ---
Nurse's Notes [facility] Name: Wilber Amos Age: 23 yrs Sex: Female : 1995 Arrival Date: 11/03/2018 Time: 11:26 Bed 25 Private MD: Diagnosis: Abdominal and pelvic pain;Abnormal uterine and vaginal bleeding, unspecified Presentation: 11/03 11:31 Presenting complaint: Mother states: she was here a couple of days ago for the same tw2 symptoms, pain the the lower stomach and into left abdomen, been bleeding for 2.5 weeks, +N, she was passing blood clots last night, she is tired and dizzy, she says sharp shooting pain. Transition of care: patient was not received from another setting of care. Onset of symptoms was November 03, 2018. Risk Assessment: Do you want to hurt yourself or someone else? Patient reports no desire to harm self or others. Initial Sepsis Screen: Does the patient meet any 2 criteria? No. Patient's initial sepsis screen is negative. Does the patient have a suspected source of infection? No. Patient's initial sepsis screen is negative. Care prior to arrival: None. 11:31 Method Of Arrival: Wheelchair tw2 11:31 Acuity: ANU 3 tw2 Triage Assessment: 11:33 General: Appears in no apparent distress. Behavior is calm, cooperative. Pain: tw2 Complains of pain in abdomen. GI: Reports lower abdominal pain, nausea. 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 - Social history:: Smoking status: Patient/guardian denies using tobacco. - Ebola Screening: : Patient denies travel to an Ebola-affected area in the 21 days before illness onset. Screenin:56 Abuse screen: Denies threats or abuse. Denies injuries from another. Nutritional ca1 screening: No deficits noted. Tuberculosis screening: No symptoms or risk factors identified. Fall Risk None identified. Assessment: 13:56 General: Appears in no apparent distress. uncomfortable, ill, Behavior is calm, ca1 cooperative, appropriate for age. Pain: Complains of pain in abdomen Pain does not radiate. Pain currently is 8 out of 10 on a pain scale. Neuro: Level of Consciousness is awake, alert, obeys commands, Oriented to person, place, time, situation, Reports dizziness. Cardiovascular: Heart tones S1 S2 Capillary refill < 3 seconds Patient's skin is warm and dry. Respiratory: Airway is patent Respiratory effort is even, unlabored, Respiratory pattern is regular, symmetrical, Breath sounds are clear bilaterally. GI: Abdomen is flat, non-distended, Bowel sounds present X 4 quads. Abd is soft X 4 quads Abdomen is tender to palpation in suprapubic area Reports cramping, nausea, vomiting. : No signs and/or symptoms were reported regarding the genitourinary system. EENT: No signs and/or symptoms were reported regarding the EENT system. Derm: Skin is intact, Skin is pink, warm \\T\\ dry. Musculoskeletal: Circulation, motion, and sensation intact. 14:50 Reassessment: Patient appears in no apparent distress at this time. Patient and/or ca1 family updated on plan of care and expected duration. Pain level reassessed. Patient is alert, oriented x 3, equal unlabored respirations, skin warm/dry/pink. 15:55 Reassessment: Patient appears in no apparent distress at this time. Patient and/or ca1 family updated on plan of care and expected duration. Pain level reassessed. Patient is alert, oriented x 3, equal unlabored respirations, skin warm/dry/pink. Patient states feeling better. 16:45 Reassessment: Patient appears in no apparent distress at this time. Patient is alert, ca1 oriented x 3, equal unlabored respirations, skin warm/dry/pink. Dr. Sanderson at bedside. Vital Signs: 11:33 BP 112 / 75; Pulse 72; Resp 18; Temp 98.8(O); Pulse Ox 100% on R/A; Weight 95.25 kg tw2 (R); Height 5 ft. 6 in. (167.64 cm); Pain 9/10; 13:56 BP 116 / 67; Pulse 75; Resp 18; Pulse Ox 100% on R/A; ca1 14:55 BP 115 / 74; Pulse 74; Resp 18; Pulse Ox 100% on R/A; ca1 15:59 BP 110 / 63; Pulse 73; Resp 19; Pulse Ox 100% ; ca1 16:40 BP 107 / 62; Pulse 75; Resp 19; Pulse Ox 100% on R/A; ca1 11:33 Body Mass Index 33.89 (95.25 kg, 167.64 cm) tw2 ED Course: 11:26 Patient arrived in ED. as 11:32 Triage completed. tw2 11:34 Arm band placed on. tw2 13:44 Yoel Sanderson MD is Attending Physician. kdr 13:49 Shayla Jaime RN is Primary Nurse. ca1 13:56 Patient has correct armband on for positive identification. Placed in gown. Bed in low ca1 position. Call light in reach. Side rails up X2. Pulse ox on. NIBP on. Warm blanket given. 14:25 Inserted saline lock: 20 gauge in right antecubital area, using aseptic technique. ca1 Blood collected. 14:[address] via wheelchair. nj 14:45 CT completed. Patient tolerated procedure well. Patient moved to CT via wheelchair. nj Patient moved back from CT. 14:48 CT Abd/Pelvis - Without Cont In Process Unspecified. EDMS 16:46 No provider procedures requiring assistance completed. IV discontinued, intact, ca1 bleeding controlled, No redness/swelling at site. Pressure dressing applied. Administered Medications: 14:33 Drug: NS 0.9% 1000 ml Route: IV; Rate: 1 bolus; Site: right antecubital; ca1 16:13 Follow up: Response: No adverse reaction; IV Status: Completed infusion ca1 14:35 Drug: Pepcid 20 mg Route: IVP; Site: right antecubital; ca1 16:13 Follow up: Response: No adverse reaction ca1 14:37 Drug: Zofran 4 mg Route: IVP; Site: right antecubital; ca1 16:14 Follow up: Response: No adverse reaction; Nausea is decreased ca1 14:43 Drug: morphine 4 mg Route: IVP; Site: right antecubital; ca1 16:14 Follow up: Response: No adverse reaction; Pain is decreased ca1 16:42 Drug: Captiva 10 mg-325 mg 1 tabs Route: PO; ca1 16:45 Follow up: Response: No adverse reaction; Medication administered at discharge. ca1 Outcome: 16:23 Discharge ordered by . kdr 16:46 Discharged to home via wheelchair. ca1 16:46 Condition: stable 16:46 Discharge instructions given to patient, Instructed on discharge instructions, follow up and referral plans. medication usage, Demonstrated understanding of instructions, follow-up care, medications, Prescriptions given X 4. 16:54 Patient left the ED. ca1 Signatures: Dispatcher [employer] EDMS Yoel Sanderson MD MD kdr Martinez, Amelia as Wise, Tara, RN RN tw2 Eugene Guzman Cheryl RN RN ca1
--- NOTE | 2018-11-03 16:24 | EDPHYS ---
Physician Documentation [facility] Name: Wilber Amos Age: 23 yrs Sex: Female : 1995 Arrival Date: 11/03/2018 Time: 11:26 Bed 25 Private MD: ED Physician Yoel Sanderson HPI: 11/03 15:14 This 23 yrs old Female presents to ER via Wheelchair with complaints of kdr Abdominal Pain. 15:14 The patient presents with abdominal pain in the lower abdomen, in the left lower kdr quadrant. Onset: The symptoms/episode began/occurred gradually, 2.5 week(s) ago. The symptoms do not radiate. Associated signs and symptoms: Pertinent positives: nausea and vomiting, fever, vaginal bleeding, vomiting, Pertinent negatives: constipation, diarrhea, dysuria, fever, headache, hematuria, palpitations, shortness of breath, vaginal discharge. The symptoms are described as achy, crampy, intermittent, stabbing, waxing/waning. Modifying factors: The symptoms are alleviated by nothing, the symptoms are aggravated by coughing, movement. Severity of pain: At its worst the pain was moderate severe just prior to arrival, in the emergency department the pain has improved mildly. The patient has experienced a previous episode, This is an ongoing problem for the past two and a half weeks. The patient has not recently seen a physician. 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 - Social history:: Smoking status: Patient/guardian denies using tobacco. - Ebola Screening: : Patient denies travel to an Ebola-affected area in the 21 days before illness onset. ROS: 15:14 Constitutional: Negative for fever, chills, and weight loss, Eyes: Negative for injury, kdr pain, redness, and discharge, Neck: Negative for injury, pain, and swelling, Cardiovascular: Negative for chest pain, palpitations, and edema, Respiratory: Negative for shortness of breath, cough, wheezing, and pleuritic chest pain, Back: Negative for injury and pain, : Negative for injury, bleeding, discharge, and swelling, MS/Extremity: Negative for injury and deformity, Skin: Negative for injury, rash, and discoloration, Neuro: Negative for headache, weakness, numbness, tingling, and seizure activity. Psych: Negative for depression, anxiety, suicide ideation, homicidal ideation, and hallucinations, Allergy/Immunology: Negative for hives, rash, and allergies, Endocrine: Negative for neck swelling, polydipsia, polyuria, polyphagia, and marked weight changes, Hematologic/Lymphatic: Negative for swollen nodes, abnormal bleeding, and unusual bruising. 15:14 Abdomen/GI: Positive for abdominal pain, nausea and vomiting, abdominal cramps, Negative for diarrhea, constipation, abdominal distension, dysphagia, hematemesis, black/tarry stool, rectal pain, rectal bleeding, bowel incontinence. Exam: 15:14 Constitutional: This is a well developed, well nourished patient who is awake, alert, kdr and in no acute distress. Head/Face: Normocephalic, atraumatic. Eyes: Pupils equal round and reactive to light, extra-ocular motions intact. Lids and lashes normal. Conjunctiva and sclera are non-icteric and not injected. Cornea within normal limits. Periorbital areas with no swelling, redness, or edema. Neck: Trachea midline, no thyromegaly or masses palpated, and no cervical lymphadenopathy. Supple, full range of motion without nuchal rigidity, or vertebral point tenderness. No Meningismus. Chest/axilla: Normal chest wall appearance and motion. Nontender with no deformity. No lesions are appreciated. Cardiovascular: Regular rate and rhythm with a normal S1 and S2. No gallops, murmurs, or rubs. Normal PMI, no JVD. No pulse deficits. Respiratory: Lungs have equal breath sounds bilaterally, clear to auscultation and percussion. No rales, rhonchi or wheezes noted. No increased work of breathing, no retractions or nasal flaring. Back: No spinal tenderness. No costovertebral tenderness. Full range of motion. Skin: Warm, dry with normal turgor. Normal color with no rashes, no lesions, and no evidence of cellulitis. MS/ Extremity: Pulses equal, no cyanosis. Neurovascular intact. Full, normal range of motion. Neuro: Awake and alert, GCS 15, oriented to person, place, time, and situation. Cranial nerves II-XII grossly intact. Motor strength 5/5 in all extremities. Sensory grossly intact. Cerebellar exam normal. Normal gait. Psych: Awake, alert, with orientation to person, place and time. Behavior, mood, and affect are within normal limits. 15:14 Abdomen/GI: Inspection: abdomen appears normal, Bowel sounds: active, all quadrants, diminished, Palpation: soft, moderate abdominal tenderness, in the suprapubic area and left lower quadrant. Vital Signs: 11:33 BP 112 / 75; Pulse 72; Resp 18; Temp 98.8(O); Pulse Ox 100% on R/A; Weight 95.25 kg tw2 (R); Height 5 ft. 6 in. (167.64 cm); Pain 9/10; 13:56 BP 116 / 67; Pulse 75; Resp 18; Pulse Ox 100% on R/A; ca1 14:55 BP 115 / 74; Pulse 74; Resp 18; Pulse Ox 100% on R/A; ca1 15:59 BP 110 / 63; Pulse 73; Resp 19; Pulse Ox 100% ; ca1 16:40 BP 107 / 62; Pulse 75; Resp 19; Pulse Ox 100% on R/A; ca1 11:33 Body Mass Index 33.89 (95.25 kg, 167.64 cm) tw2 MDM: 15:14 Data reviewed: vital signs, nurses notes, lab test result(s), radiologic studies. kdr Counseling: I had a detailed discussion with the patient and/or guardian regarding: the historical points, exam findings, and any diagnostic results supporting the discharge/admit diagnosis, lab results, radiology results. 16:23 Patient medically screened. kdr 11/03 14:10 Order name: Urine Dipstick--Ancillary (enter results); Complete Time: 16:21 em1 11/03 14:10 Order name: Urine --Ancillary (enter results); Complete Time: 16:21 em1 11/03 14:19 Order name: Basic Metabolic Panel; Complete Time: 16:21 kdr 11/03 14:19 Order name: CBC with Diff; Complete Time: 16:21 kdr 11/03 14:19 Order name: Creatinine for Radiology; Complete Time: 16:21 [facility] 11/03 14:19 Order name: Hepatic Function; Complete Time: 16:21 [facility] 11/03 14:10 Order name: Urine Dipstick-Ancillary (obtain specimen); Complete Time: 14:10 1 11/03 14:19 Order name: Lipase; Complete Time: 16:21 [facility] 11/03 14:21 Order name: CT Abd/Pelvis - Without Cont; Complete Time: 16:21 [facility] 11/03 14:10 Order name: Urine Test (obtain specimen); Complete Time: 14:10 em1 11/03 14:19 Order name: IV Saline Lock; Complete Time: 14:44 kdr 11/03 14:19 Order name: Labs collected and sent; Complete Time: 14:44 kdr Administered Medications: 14:33 Drug: NS 0.9% 1000 ml Route: IV; Rate: 1 bolus; Site: right antecubital; ca1 16:13 Follow up: Response: No adverse reaction; IV Status: Completed infusion ca1 14:35 Drug: Pepcid 20 mg Route: IVP; Site: right antecubital; ca1 16:13 Follow up: Response: No adverse reaction ca1 14:37 Drug: Zofran 4 mg Route: IVP; Site: right antecubital; ca1 16:14 Follow up: Response: No adverse reaction; Nausea is decreased ca1 14:43 Drug: morphine 4 mg Route: IVP; Site: right antecubital; ca1 16:14 Follow up: Response: No adverse reaction; Pain is decreased ca1 16:42 Drug: [place] 10 mg-325 mg 1 tabs Route: PO; ca1 16:45 Follow up: Response: No adverse reaction; Medication administered at discharge. ca1 Disposition: 11/03/18 16:23 Discharged to Home. Impression: Abdominal and pelvic pain, Abnormal uterine and vaginal bleeding, unspecified. - Condition is Stable. - Discharge Instructions: Dysfunctional Uterine Bleeding, Abdominal Pain, Adult, [id number], Abnormal Uterine Bleeding, [id number]. - Prescriptions for Bentyl 20 mg Oral Tablet - take 1 tablet by ORAL route every 6 hours As needed; 20 tablet. Pepcid 20 mg Oral Tablet - take 1 tablet by ORAL route every 12 hours for 5 days; 10 tablet. Tramadol 50 mg Oral Tablet - take 1 tablet by ORAL route every 8 hours as needed; 12 tablet. promethazine 25 mg Oral Tablet - take 1 tablet by ORAL route every 6 hours As needed; 20 tablet. - Medication Reconciliation Form, Thank You Letter, Prescription Opioid Use, Work release form form. - Follow up: Private Physician; When: 2 - 3 days; Reason: If symptoms return, Further diagnostic work-up, Recheck today's complaints, Continuance of care, Re-evaluation by your physician. - Problem is an ongoing problem. - Symptoms have improved. Signatures: Dispatcher [employer] EDMS Yoel Sanderson MD MD kdr Sim Quigley em1 Anna Sánchez RN RN tw2 Shayla Jaime RN RN ca1 Corrections: (The following items were deleted from the chart) 16:54 16:23 11/03/2018 16:23 Discharged to Home. Impression: Abdominal and pelvic pain; ca1 Abnormal uterine and vaginal bleeding, unspecified. Condition is Stable. Forms are Medication Reconciliation Form, Thank You Letter, Antibiotic Education, Prescription Opioid Use. Follow up: Private Physician; When: 2 - 3 days; Reason: If symptoms return, Further diagnostic work-up, Recheck today's complaints, Continuance of care, Re-evaluation by your physician. Problem is an ongoing problem. Symptoms have improved. kdr
[2018-11-03] MEDS ORDERED: HYDROCODONE/APAP 10/325 TAB ONE (16:52)
== END 2018-11-03 16:54 | disposition home or self-care (01) ==
LOC: ER 11:18
DX: N93.9 Abnormal uterine and vaginal bleeding, unspecified (principal); F41.9 Anxiety disorder, unspecified; F32.9 Major depressive disorder, single episode, unspecified; Z88.8 Allergy status to other drugs, medicaments and biological substances
CPT/HCPCS: 36415; 74176; 80048; 80076; 81003; 81025; 83690; 85025; 96361; 96374; 96375; 99284; J2405; J7030

== ENCOUNTER 2018-12-21 17:31 | Emergency (ER) | payer SELFPAY ==
[2018-12-21 20:36] LABS: Urine Bacteria <20 /HPF (<20); Urine Culture Reflex Order NOT NEEDED; Urine Mucus 1+ /HPF (NONE SEEN); Urine RBC NONE SEEN /HPF (NONE SEEN)
[2018-12-21 20:37] LABS: Urine Blood NEGATIVE (NEG); Urine Glucose NEGATIVE (NEG); Urine Protein 1+ (NEG); Urine Specific Gravity >1.030 (1.005-1.030); Urine pH 5.5 (5.0-7.0)
[2018-12-21] MEDS ORDERED: ACETAMINOPHEN 500 MG TAB ONE (22:09)
[2018-12-21] MEDS ORDERED: IPRATROPIUM BROM 0.5MG/2.5ML ONE (22:09)
[2018-12-21] MEDS ORDERED: ONDANSETRON 4 MG (ODT) TAB ONE (22:09)
[2018-12-21] MEDS ORDERED: ALBUTEROL 2.5 MG/3 ML NEB SOL ONE (22:09)
--- NOTE | 2018-12-22 01:14 | EDPHYS ---
Physician Documentation [facility] Name: Wilber Amos Age: 23 yrs Sex: Female : 1995 Arrival Date: 12/21/2018 Time: 17:34 Bed 12 Private MD: ED Physician Fausto Hendrickson HPI: 12/22 01:18 This 23 yrs old Female presents to ER via Ambulatory with complaints of Body wa Aches, Congestion, Cough, Nausea/Vomiting/Diarrhea. 01:18 The patient or guardian reports cough, that is constant, with productive sputum, that wa is yellow, body aches, diarrhea, vomiting. Onset: The symptoms/episode began/occurred 3 day(s) ago. Severity of symptoms: At their worst the symptoms were moderate, in the emergency department the symptoms have improved, states only one episode of diarrhea today. vomiting has resolved. still coughing. Modifying factors: The symptoms are alleviated by nothing, the symptoms are aggravated by nothing. Associated signs and symptoms: Pertinent positives: diarrhea, fever, nausea, vomiting, Pertinent negatives: chest pain, sore throat. The patient has not experienced similar symptoms in the past. The patient has not recently seen a physician. 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 - Social history:: Smoking status: Patient/guardian denies using tobacco. - Ebola Screening: : No symptoms or risks identified at this time. - Family history:: not pertinent. - Hospitalizations: : No recent hospitalization is reported. ROS: 12/22 01:21 Eyes: Negative for injury, pain, redness, and discharge, Neck: Negative for injury, wa pain, and swelling, Cardiovascular: Negative for chest pain, palpitations, and edema, Back: Negative for injury and pain, : Negative for injury, bleeding, discharge, and swelling, MS/Extremity: Negative for injury and deformity, Skin: Negative for injury, rash, and discoloration, Neuro: Negative for headache, weakness, numbness, tingling, and seizure, Psych: Negative for depression, anxiety, suicide ideation, homicidal ideation, and hallucinations. Constitutional: Positive for body aches, chills, fever, Negative for weight loss. ENT: Positive for sinus congestion. Respiratory: Positive for cough, with yellow sputum, Negative for shortness of breath. Abdomen/GI: Positive for nausea, vomiting, diarrhea, Negative for abdominal pain. Exam: 01:24 Constitutional: This is a well developed, well nourished patient who is awake, alert, wa and in no acute distress. Head/Face: Normocephalic, atraumatic. Eyes: Pupils equal round and reactive to light, extra-ocular motions intact. Lids and lashes normal. Conjunctiva and sclera are non-icteric and not injected. Cornea within normal limits. Periorbital areas with no swelling, redness, or edema. Neck: Trachea midline, no thyromegaly or masses palpated, and no cervical lymphadenopathy. Supple, full range of motion without nuchal rigidity, or vertebral point tenderness. No Meningismus. Chest/axilla: Normal chest wall appearance and motion. Nontender with no deformity. No lesions are appreciated. Cardiovascular: Regular rate and rhythm with a normal S1 and S2. No gallops, murmurs, or rubs. Normal PMI, no JVD. No pulse deficits. Abdomen/GI: Soft, non-tender, with normal bowel sounds. No distension or tympany. No guarding or rebound. No evidence of tenderness throughout. Back: No spinal tenderness. No costovertebral tenderness. Full range of motion. Skin: Warm, dry with normal turgor. Normal color with no rashes, no lesions, and no evidence of cellulitis. MS/ Extremity: Pulses equal, no cyanosis. Neurovascular intact. Full, normal range of motion. Neuro: Awake and alert, GCS 15, oriented to person, place, time, and situation. Cranial nerves II-XII grossly intact. Motor strength 5/5 in all extremities. Sensory grossly intact. Cerebellar exam normal. Normal gait. Psych: Awake, alert, with orientation to person, place and time. Behavior, mood, and affect are within normal limits. 01:24 ENT: Mouth: is normal, Posterior pharynx: is normal. 01:24 Respiratory: the patient does not display signs of respiratory distress, Respirations: normal, Breath sounds: coarse bilaterally. associated with deep cough on inspiration. Vital Signs: 12/21 18:09 BP 125 / 75; Pulse 84; Resp 18 S; Temp 97.7(TE); Pulse Ox 98% on R/A; Pain 7/10; aa5 12/22 00:23 BP 110 / 66; Pulse 83; Resp 20; Temp 96.8(O); Pulse Ox 98% on R/A; Pain 0/10; fu MDM: 12/21 20:54 Patient medically screened. vt 12/22 01:26 Differential Diagnosis: Bronchitis Influenza Upper Respiratory Infection Viral Syndrome wa Pneumonia. Data reviewed: vital signs, nurses notes, lab test result(s), radiologic studies. Test interpretation: by ED physician or midlevel provider: CXR normal. flu screen negative. . Response to treatment: the patient's symptoms have mildly improved after treatment. 12/21 19:02 Order name: Urine Culture snw 12/21 19:02 Order name: Urine Microscopic Only; Complete Time: 20:39 snw 12/21 20:08 Order name: Urine --Ancillary (enter results); Complete Time: 20:39 ar5 12/21 20:08 Order name: Urine Dipstick--Ancillary (enter results); Complete Time: 20:39 [facility] 12/21 21:38 Order name: Flu; Complete Time: 23:36 vt 12/21 21:39 Order name: Chest Pa And Lat (2 Views) XRAY vt 12/21 19:02 Order name: Urine Test (obtain specimen); Complete Time: 20:59 snw 12/21 19:02 Order name: Urine Dipstick-Ancillary (obtain specimen); Complete Time: 20:59 snw Administered Medications: 12/21 22:11 Drug: Zofran 4 mg Route: PO; 22:12 Drug: Albuterol - atroVENT (3:1) (2.5 mg - 0.5 mg) 3 ml Route: Nebulizer; 22:15 Drug: Tylenol 1000 mg Route: PO; Disposition: 12/22/18 01:14 Discharged to Home. Impression: Acute Viral Syndrome, Acute bronchitis. - Condition is Stable. - Discharge Instructions: Viral Respiratory Infection, Acute Bronchitis, [id number]. - Prescriptions for Prednisone 20 mg Oral Tablet - take 2 tablet by ORAL route once daily for 5 days; 10 tablet. Albuterol Sulfate 2.5 mg /3 mL (0.083 %) Inhalation Solution for Nebulization - inhale 1 unit by NEBULIZATION route every 8 hours As needed; 1 box. Cipro 500 mg Oral Tablet - take 1 tablet by ORAL route every 12 hours for 5 days; 10 tablet. - Medication Reconciliation Form, Thank You Letter, Antibiotic Education, Prescription Opioid Use, Work release form form. - Follow up: Private Physician; When: 1 - 2 days; Reason: Recheck today's complaints. - Problem is new. - Symptoms have improved. - Notes: take medication as prescribed. see your doctor for further evaluation as discussed Signatures: Dispatcher [employer] EDMS Josette Castillo, JOSELUIS-C REHABILITATION PROGRAM COORDINATOR-Csnw Radha Bean, RN RN Yarely Chaudhry RN RN aa5 Fausto Hendrickson MD MD wa Umadhay, Felix, RN RN fu Corrections: (The following items were deleted from the chart) 12/22 01:32 01:14 12/22/2018 01:14 Discharged to Home. Impression: Acute Viral Syndrome; Acute fu bronchitis. Condition is Stable. Forms are Medication Reconciliation Form, Thank You Letter, Antibiotic Education, Prescription Opioid Use. Follow up: Private Physician; When: 1 - 2 days; Reason: Recheck today's complaints. Problem is new. Symptoms have improved. jose
--- NOTE | 2018-12-22 01:14 | ER ---
Nurse's Notes [facility] Name: Wilber Amos Age: 23 yrs Sex: Female : 1995 Arrival Date: 12/21/2018 Time: 17:34 Bed 12 Private MD: Diagnosis: Acute Viral Syndrome;Acute bronchitis Presentation: 12/21 18:08 Presenting complaint: Patient states: cough, congestion, body aches, nausea, vomiting, aa5 diarrhea that began 1 week ago. Pt also c/o headache. Transition of care: patient was not received from another setting of care. Onset of symptoms was November 2018. Risk Assessment: Do you want to hurt yourself or someone else? Patient reports no desire to harm self or others. Initial Sepsis Screen: Does the patient meet any 2 criteria? No. Patient's initial sepsis screen is negative. Does the patient have a suspected source of infection? No. Patient's initial sepsis screen is negative. Care prior to arrival: None. 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 - Social history:: Smoking status: Patient/guardian denies using tobacco. - Ebola Screening: : No symptoms or risks identified at this time. - Family history:: not pertinent. - Hospitalizations: : No recent hospitalization is reported. Screenin:01 Abuse screen: Denies threats or abuse. Nutritional screening: No deficits noted. fc Tuberculosis screening: No symptoms or risk factors identified. Fall Risk None identified. Assessment: 21:00 General: Appears uncomfortable, obese, Behavior is calm, cooperative, appropriate for fc age. Pain: Complains of pain in body Quality of pain is described as aching, Pain began 10 days ago Is continuous. Neuro: Level of Consciousness is awake, alert, obeys commands, Oriented to person, place, time, situation, Appropriate for age. Cardiovascular: Heart tones S1 S2 present Capillary refill < 3 seconds. Respiratory: Reports cough that is productive, pain with cough Airway is patent Trachea midline Respiratory effort is even, unlabored, Respiratory pattern is regular, symmetrical, Breath sounds are clear bilaterally. Onset: The symptoms/episode began/occurred gradually, the patient has mild shortness of breath. GI: Abdomen is round non-distended, Bowel sounds present X 4 quads. Abd is soft and non tender X 4 quads. Reports diarrhea, nausea, vomiting. : No deficits noted. EENT: Nares with drainage noted Reports nasal congestion nasal discharge that is green. Derm: Skin is pink, warm \T\ dry. Musculoskeletal: Circulation, motion, and sensation intact. Capillary refill < 3 seconds, Range of motion: intact in all extremities. 12/22 00:24 General: Appears comfortable, obese, Behavior is calm, cooperative, appropriate for fu age. Pain: Denies pain. Neuro: Level of Consciousness is awake, alert, obeys commands, Oriented to person, place, time, situation, Appropriate for age. Cardiovascular:. Respiratory: Reports cough that is productive, pain with cough. Musculoskeletal: Circulation, motion, and sensation intact. Capillary refill < 3 seconds, Range of motion: intact in all extremities. Vital Signs: 12/21 18:09 BP 125 / 75; Pulse 84; Resp 18 S; Temp 97.7(TE); Pulse Ox 98% on R/A; Pain 7/10; aa5 12/22 00:23 BP 110 / 66; Pulse 83; Resp 20; Temp 96.8(O); Pulse Ox 98% on R/A; Pain 0/10; fu ED Course: 12/21 17:34 Patient arrived in ED. rg4 18:08 Arm band placed on. aa5 18:09 Triage completed. aa5 20:54 Fausto Hendrickson MD is Attending Physician. wa 21:01 Patient has correct armband on for positive identification. Call light in reach. fc 21:01 No provider procedures requiring assistance completed. fc 22:01 Chest Pa And Lat (2 Views) XRAY In Process Unspecified. EDMS 22:20 Flu and/or RSV swab sent to lab. fc 23:41 Nikolas Espinosa, TOMÁS is Primary Nurse. fu 12/22 01:12 Dr. Hendrickson in patient's room talking with the patient. fu 01:31 Patient did not have IV access during this emergency room visit. fu Administered Medications: 12/21 22:11 Drug: Zofran 4 mg Route: PO; 22:12 Drug: Albuterol - atroVENT (3:1) (2.5 mg - 0.5 mg) 3 ml Route: Nebulizer; 22:15 Drug: Tylenol 1000 mg Route: PO; Outcome: 12/22 01:14 Discharge ordered by . pa 01:31 Discharged to home ambulatory. 01:31 Condition: stable 01:31 Discharge instructions given to patient, Instructed on discharge instructions, follow up and referral plans. Demonstrated understanding of instructions, follow-up care, medications, Prescriptions given X 3. 01:32 Patient left the ED. Signatures: Dispatcher [employer] EDMS Radha Bean, RN RN Yarely Calvillo RN RN aa5 Isa Enciso 4 Fausto Hendrickson MD MD wa Umadhay, Felix, RN RN fu
--- NOTE | 2018-12-22 08:19 | RAD REPORT ---
EXAM DESCRIPTION: RAD - Chest Pa And Lat (2 Views) - 12/21/2018 10:00 pm CLINICAL HISTORY: Cough and congestion, body aches, nausea vomiting and diarrhea COMPARISON: May 2018 TECHNIQUE: PA and lateral views of the chest were obtained. FINDINGS: The lungs are clear of a mass or consolidation. Interstitial pattern is fractionally incr eased over baseline. Heart size is normal and central vasculature is within normal limits. No pleura l effusion or pneumothorax seen. No acute bony finding noted. No aortic abnormality. IMPRESSION: No focal mass or consolidation. Minimal interstitial infiltrate or edema in the lower lung johnston.
== END 2018-12-22 01:32 | disposition home or self-care (01) ==
LOC: ER 17:31
DX: J20.9 Acute bronchitis, unspecified (principal); B34.9 Viral infection, unspecified; Z88.8 Allergy status to other drugs, medicaments and biological substances
CPT/HCPCS: 71046; 81003; 81015; 81025; 87086; 87088; 87804; 94640; 99284

== ENCOUNTER 2019-01-26 19:09 | Emergency (ER) | payer SELFPAY ==
--- NOTE | 2019-01-26 21:39 | ER ---
Nurse's Notes [facility] Name: Wilber Amos Age: 23 yrs Sex: Female : 1995 Arrival Date: 01/26/2019 Time: 19:12 Bed Waiting Private MD: Diagnosis: Presentation: 01/26 19:18 Presenting complaint: Patient states: I stubbed my pinky toe on my right foot about a ed1 week ago and the pain is still there and now it is moving up my foot to my ankle and knee. Transition of care: patient was not received from another setting of care. Onset of symptoms was January 19, 2019. Risk Assessment: Do you want to hurt yourself or someone else? Patient reports no desire to harm self or others. Initial Sepsis Screen: Does the patient meet any 2 criteria? No. Patient's initial sepsis screen is negative. Does the patient have a suspected source of infection? No. Patient's initial sepsis screen is negative. Care prior to arrival: None. 19:18 Method Of Arrival: Ambulatory ed1 19:18 Acuity: ANU 5 ed1 Triage Assessment: 19:20 General: Appears in no apparent distress. Behavior is calm, cooperative, Pt ambulated ed1 to triage with steady gait. Pain: Complains of pain in right foot Pain radiates to right leg Pain currently is 8 out of 10 on a pain scale. 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 - Social history:: Smoking status: Patient/guardian denies using tobacco. - Ebola Screening: : Patient negative for fever greater than or equal to 101.5 degrees Fahrenheit, and additional compatible Ebola Virus Disease symptoms Patient denies exposure to infectious person Patient denies travel to an Ebola-affected area in the 21 days before illness onset No symptoms or risks identified at this time. Vital Signs: 19:20 BP 131 / 76; Pulse 99; Resp 18; Temp 97.2; Pulse Ox 94% on R/A; Height 5 ft. 6 in. ed1 (167.64 cm); Pain 8/10; 19:20 Pt does not know her weight ed1 ED Course: 19:12 Patient arrived in ED. es 19:19 Triage completed. ed1 19:21 Arm band placed on left wrist. ed1 20:15 Patient's name was called from ER lobby. No response. ed1 20:30 Patient's name was called from ER lobby. No response. ed1 Administered Medications: No medications were administered Outcome: 21:38 Eloped from waiting room, Time discovered patient gone: January 26, 2019 at 20:30 ed1 21:38 unknown 21:38 Discharge instructions given to N/A 21:39 Patient left the ED. ed1 Signatures: Renetta Berry Erika RN RN ed1
== END 2019-01-26 21:39 | disposition left against medical advice (07) ==
LOC: ER 19:09
DX: M79.671 Pain in right foot (principal); Z53.21 Procedure and treatment not carried out due to patient leaving prior to being seen by health care provider
CPT/HCPCS: 99281

== ENCOUNTER 2019-01-29 09:14 | Emergency (ER) | payer SELFPAY ==
--- NOTE | 2019-01-29 11:09 | EDPHYS ---
Physician Documentation [facility] Name: Wilber Amos Age: 23 yrs Sex: Female : 1995 Arrival Date: 01/29/2019 Time: 09:16 Bed 16 Private MD: ED Physician Sunny Bone HPI: 01/29 10:57 This 23 yrs old Female presents to ER via Ambulatory with complaints of Sore jona Throat. 10:57 The patient presents with sore throat. The patient describes throat pain as burning, jona constant. Onset: The symptoms/episode began/occurred 2 day(s) ago. Severity of symptoms: At their worst the symptoms were mild, in the emergency department the symptoms are unchanged. Modifying factors: The symptoms are alleviated by nothing, the symptoms are aggravated by fluids, swallowing, Patient's oral intake status: good. Associated signs and symptoms: Pertinent positives: cough, Sore throat. The patient has not experienced similar symptoms in the past. 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 - Social history:: Smoking status: . - Ebola Screening: : Patient denies travel to an Ebola-affected area in the 21 days before illness onset. - Family history:: not pertinent. ROS: 10:57 Constitutional: Negative for fever, chills, and weight loss, Eyes: Negative for injury, jona pain, redness, and discharge, ENT: Negative for injury, pain, and discharge, Neck: Negative for injury, pain, and swelling, Cardiovascular: Negative for chest pain, palpitations, and edema, Abdomen/GI: Negative for abdominal pain, nausea, vomiting, diarrhea, and constipation, Back: Negative for injury and pain, : Negative for injury, bleeding, discharge, and swelling, MS/Extremity: Negative for injury and deformity, Skin: Negative for injury, rash, and discoloration, Neuro: Negative for headache, weakness, numbness, tingling, and seizure, Psych: Negative for depression, anxiety, suicide ideation, homicidal ideation, and hallucinations, Allergy/Immunology: Negative for hives, rash, and allergies, Endocrine: Negative for neck swelling, polydipsia, polyuria, polyphagia, and marked weight changes, Hematologic/Lymphatic: Negative for swollen nodes, abnormal bleeding, and unusual bruising. 10:57 Respiratory: Positive for cough, with no reported sputum. Exam: 10:57 Constitutional: This is a well developed, well nourished patient who is awake, alert, jona and in no acute distress. Head/Face: Normocephalic, atraumatic. Eyes: Pupils equal round and reactive to light, extra-ocular motions intact. Lids and lashes normal. Conjunctiva and sclera are non-icteric and not injected. Cornea within normal limits. Periorbital areas with no swelling, redness, or edema. Neck: Trachea midline, no thyromegaly or masses palpated, and no cervical lymphadenopathy. Supple, full range of motion without nuchal rigidity, or vertebral point tenderness. No Meningismus. Chest/axilla: Normal chest wall appearance and motion. Nontender with no deformity. No lesions are appreciated. Cardiovascular: Regular rate and rhythm with a normal S1 and S2. No gallops, murmurs, or rubs. Normal PMI, no JVD. No pulse deficits. Respiratory: Lungs have equal breath sounds bilaterally, clear to auscultation and percussion. No rales, rhonchi or wheezes noted. No increased work of breathing, no retractions or nasal flaring. Abdomen/GI: Soft, non-tender, with normal bowel sounds. No distension or tympany. No guarding or rebound. No evidence of tenderness throughout. Back: No spinal tenderness. No costovertebral tenderness. Full range of motion. Skin: Warm, dry with normal turgor. Normal color with no rashes, no lesions, and no evidence of cellulitis. MS/ Extremity: Pulses equal, no cyanosis. Neurovascular intact. Full, normal range of motion. Neuro: Awake and alert, GCS 15, oriented to person, place, time, and situation. Cranial nerves II-XII grossly intact. Motor strength 5/5 in all extremities. Sensory grossly intact. Cerebellar exam normal. Normal gait. Psych: Awake, alert, with orientation to person, place and time. Behavior, mood, and affect are within normal limits. 10:57 Musculoskeletal/extremity: DVT Exam: No signs of deep vein thrombosis. no pain, no swelling, no tenderness, negative Homans' sign noted on exam, no appreciated bluish discoloration, no erythema, no increased warmth. Vital Signs: 09:30 BP 124 / 84; Pulse 88; Resp 17; Temp 99.2(TE); Pulse Ox 100% on R/A; Weight 97.52 kg tw2 (R); Height 5 ft. 6 in. (167.64 cm); Pain 10/10; 10:29 BP 105 / 65; Pulse 76; Resp 17; Pulse Ox 100% on R/A; tw2 11:38 BP 128 / 79; Pulse 73; Resp 17; Temp 98.9(TE); Pulse Ox 100% ; tw2 09:30 Body Mass Index 34.70 (97.52 kg, 167.64 cm) tw2 MDM: 09:22 Patient medically screened. jona Administered Medications: 11:10 Drug: Decadron 10 mg Route: IM; Site: right gluteus; tw2 11:39 Follow up: Response: No adverse reaction tw2 11:14 Drug: Zithromax 500 mg Route: PO; tw2 11:39 Follow up: Response: No adverse reaction tw2 Disposition: 01/29/19 11:08 Discharged to Home. Impression: Acute laryngitis, Acute upper respiratory infection, unspecified. - Condition is Stable. - Discharge Instructions: Laryngitis, Upper Respiratory Infection, Adult, Cool Mist Vaporizer, Upper Respiratory Infection, Adult, [id number], Cough, Adult, [id number]. - Prescriptions for Maya- D 12 Hour 60-120 mg Oral Tablet Sustained Release 12 hr - take 1 tablet by ORAL route every 12 hours As needed; 20 tablet. Medrol (Andrea) 4 mg Oral Tablets, Dose Pack - take 1 tablet by ORAL route as directed - follow package instructions; 1 packet. Zithromax 500 mg Oral Tablet - take 1 tablet by ORAL route once daily for 4 days; 4 tablet. - Medication Reconciliation Form, Thank You Letter, Antibiotic Education, Prescription Opioid Use, Work release form form. - Follow up: Private Physician; When: 2 - 3 days; Reason: Recheck today's complaints, Continuance of care, Re-evaluation by your physician. - Problem is new. - Symptoms have improved. Signatures: Sunny Bone MD MD cha Wise, Tara, RN RN tw2 Corrections: (The following items were deleted from the chart) 11:40 11:08 01/29/2019 11:08 Discharged to Home. Impression: Acute laryngitis; Acute upper tw2 respiratory infection, unspecified. Condition is Stable. Forms are Work release form, Medication Reconciliation Form, Thank You Letter, Antibiotic Education, Prescription Opioid Use. Follow up: Private Physician; When: 2 - 3 days; Reason: Recheck today's complaints, Continuance of care, Re-evaluation by your physician. Problem is new. Symptoms have improved. jona
--- NOTE | 2019-01-29 11:09 | ER ---
Nurse's Notes [facility] Name: Wilber Amos Age: 23 yrs Sex: Female : 1995 Arrival Date: 01/29/2019 Time: 09:16 Bed 16 Private MD: Diagnosis: Acute laryngitis;Acute upper respiratory infection, unspecified Presentation: 01/29 09:29 Presenting complaint: Patient states: pt types on phone " i have a swollen throat, it tw2 started 2 days ago, and i have lost my voice, it hurts when i swallow and when i have to open my mouth or when i do anything that causes my throat to stretch, maris tried some motrin but it doesn't help, i have some nausea, no vomiting, no ear pain, no teeth problems.". Transition of care: patient was not received from another setting of care. Onset of symptoms was January 29, 2019. Risk Assessment: Do you want to hurt yourself or someone else? Patient reports no desire to harm self or others. Initial Sepsis Screen: Does the patient meet any 2 criteria? No. Patient's initial sepsis screen is negative. Does the patient have a suspected source of infection? No. Patient's initial sepsis screen is negative. Care prior to arrival: None. 09:29 Method Of Arrival: Ambulatory tw2 09:29 Acuity: ANU 4 tw2 Triage Assessment: 09:34 General: Appears in no apparent distress. Behavior is calm, cooperative, appropriate tw2 for age. Pain: Complains of pain in sore throat. EENT: No signs and/or symptoms were reported regarding the EENT system. Neuro: Level of Consciousness is awake, alert, obeys commands, Oriented to person, place, time, situation. Cardiovascular: Patient's skin is warm and dry. Respiratory: Airway is patent Respiratory effort is even, unlabored, Respiratory pattern is regular, symmetrical. GI: Abdomen is flat, Bowel sounds present X 4 quads. Abd is soft and non tender X 4 quads. Reports nausea. : No signs and/or symptoms were reported regarding the genitourinary system. Derm: No signs and/or symptoms reported regarding the dermatologic system. Musculoskeletal: Range of motion: intact in all extremities. 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 - Social history:: Smoking status: . - Ebola Screening: : Patient denies travel to an Ebola-affected area in the 21 days before illness onset. - Family history:: not pertinent. Screenin:36 Abuse screen: Denies threats or abuse. Nutritional screening: No deficits noted. tw2 Tuberculosis screening: No symptoms or risk factors identified. Fall Risk None identified. Assessment: 09:36 Reassessment: see triage assessment. Respiratory: Airway is patent Respiratory effort tw2 is even, unlabored, Respiratory pattern is regular, symmetrical, Breath sounds are clear bilaterally. 09:37 EENT: Throat is reddened. tw2 10:34 Reassessment: Patient appears in no apparent distress at this time. No changes from tw2 previously documented assessment. Patient and/or family updated on plan of care and expected duration. Pain level reassessed. Patient is alert, oriented x 3, equal unlabored respirations, skin warm/dry/pink. 11:38 Reassessment: Patient appears in no apparent distress at this time. No changes from tw2 previously documented assessment. Patient and/or family updated on plan of care and expected duration. Pain level reassessed. Patient is alert, oriented x 3, equal unlabored respirations, skin warm/dry/pink. Vital Signs: 09:30 BP 124 / 84; Pulse 88; Resp 17; Temp 99.2(TE); Pulse Ox 100% on R/A; Weight 97.52 kg tw2 (R); Height 5 ft. 6 in. (167.64 cm); Pain 10/10; 10:29 BP 105 / 65; Pulse 76; Resp 17; Pulse Ox 100% on R/A; tw2 11:38 BP 128 / 79; Pulse 73; Resp 17; Temp 98.9(TE); Pulse Ox 100% ; tw2 09:30 Body Mass Index 34.70 (97.52 kg, 167.64 cm) tw2 ED Course: 09:16 Patient arrived in ED. rg4 09:22 Sunny Bone MD is Attending Physician. jona 09:22 Bed in low position. Call light in reach. Pulse ox on. NIBP on. tw2 09:29 Anna Sánchez, RN is Primary Nurse. tw2 09:30 Triage completed. tw2 09:32 Arm band placed on. tw2 09:59 No provider procedures requiring assistance completed. Patient did not have IV access tw2 during this emergency room visit. Administered Medications: 11:10 Drug: Decadron 10 mg Route: IM; Site: right gluteus; tw2 11:39 Follow up: Response: No adverse reaction tw2 11:14 Drug: Zithromax 500 mg Route: PO; tw2 11:39 Follow up: Response: No adverse reaction tw2 Outcome: 11:08 Discharge ordered by . jona 11:39 Discharged to home ambulatory. tw2 11:39 Condition: stable 11:39 Discharge instructions given to patient, Instructed on discharge instructions, follow up and referral plans. medication usage, Demonstrated understanding of instructions, follow-up care, medications, Prescriptions given X 3. 11:40 Patient left the ED. tw2 Signatures: Sunny Bone MD MD cha Wise, Tara, RN RN tw2 Isa Enciso rg4
[2019-01-29] MEDS ORDERED: AZITHROMYCIN 250 MG TAB ONE (11:22)
[2019-01-29] MEDS ORDERED: DEXAMETHASONE 10 MG/ML VIAL ONE (11:22)
== END 2019-01-29 11:40 | disposition home or self-care (01) ==
LOC: ER 09:14
DX: J04.0 Acute laryngitis (principal); J06.9 Acute upper respiratory infection, unspecified; F32.9 Major depressive disorder, single episode, unspecified; F41.9 Anxiety disorder, unspecified; Z88.8 Allergy status to other drugs, medicaments and biological substances; Z91.048 Other nonmedicinal substance allergy status
CPT/HCPCS: 96372; 99283; J1100

== ENCOUNTER 2019-03-03 17:09 | Emergency (ER) | payer SELFPAY ==
--- NOTE | 2019-03-03 17:38 | EDPHYS ---
Physician Documentation [facility] Name: Wilber Amos Age: 23 yrs Sex: Female : 1995 Arrival Date: 03/03/2019 Time: 17:11 Bed 25 Private MD: ED Physician Yoel Sanderson HPI: 03/03 17:45 This 23 yrs old Female presents to ER via Ambulatory with complaints of snw Vaginal Pain. 17:45 The patient presents with vaginal burning and itching [place] the beach for [place] days, denies dysuria. Onset: The symptoms/episode began/occurred suddenly. Associated signs and symptoms: The patient has no apparent associated signs or symptoms. Severity of symptoms: At their worst the symptoms were moderate. The patient is sexually active. The patient's method of control includes nothing. The patient has not experienced similar symptoms in the past, pt states she has had STI in the past but this does not feel similar. The patient has not recently seen a physician. 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 - Social history:: Smoking status: Patient/guardian denies using tobacco. - Ebola Screening: : No symptoms or risks identified at this time. ROS: 17:41 Constitutional: Negative for fever, chills, and weight loss, Eyes: Negative for injury, snw pain, redness, and discharge, ENT: Negative for injury, pain, and discharge, Neck: Negative for injury, pain, and swelling, Cardiovascular: Negative for chest pain, palpitations, and edema, Respiratory: Negative for shortness of breath, cough, wheezing, and pleuritic chest pain, Abdomen/GI: Negative for abdominal pain, nausea, vomiting, diarrhea, and constipation, Back: Negative for injury and pain, MS/Extremity: Negative for injury and deformity, Skin: Negative for injury, rash, and discoloration, Neuro: Negative for headache, weakness, numbness, tingling, and seizure, Psych: Negative for depression, anxiety, suicide ideation, homicidal ideation, and hallucinations. 17:41 : Positive for vaginal itching, of the vaginal burning, no lesions, no dysuria. Exam: 17:40 Constitutional: This is a well developed, well nourished patient who is awake, alert, snw and in no acute distress. Head/Face: Normocephalic, atraumatic. Eyes: Pupils equal round and reactive to light, extra-ocular motions intact. Lids and lashes normal. Conjunctiva and sclera are non-icteric and not injected. Cornea within normal limits. Periorbital areas with no swelling, redness, or edema. ENT: Nares patent. No nasal discharge, no septal abnormalities noted. Tympanic membranes are normal and external auditory canals are clear. Oropharynx with no redness, swelling, or masses, exudates, or evidence of obstruction, uvula midline. Mucous membranes moist. Neck: Trachea midline, no thyromegaly or masses palpated, and no cervical lymphadenopathy. Supple, full range of motion without nuchal rigidity, or vertebral point tenderness. No Meningismus. Chest/axilla: Normal chest wall appearance and motion. Nontender with no deformity. No lesions are appreciated. Cardiovascular: Regular rate and rhythm with a normal S1 and S2. No gallops, murmurs, or rubs. Normal PMI, no JVD. No pulse deficits. Respiratory: Lungs have equal breath sounds bilaterally, clear to auscultation and percussion. No rales, rhonchi or wheezes noted. No increased work of breathing, no retractions or nasal flaring. Abdomen/GI: Soft, non-tender, with normal bowel sounds. No distension or tympany. No guarding or rebound. No evidence of tenderness throughout. Back: No spinal tenderness. No costovertebral tenderness. Full range of motion. Pelvic Exam: Normal external genitalia with mild erythema to distal vulva with white discharge, pruritis Skin: Warm, dry with normal turgor. Normal color with no rashes, no lesions, and no evidence of cellulitis. MS/ Extremity: Pulses equal, no cyanosis. Neurovascular intact. Full, normal range of motion. Neuro: Awake and alert, GCS 15, oriented to person, place, time, and situation. Cranial nerves II-XII grossly intact. Motor strength 5/5 in all extremities. Sensory grossly intact. Cerebellar exam normal. Normal gait. Vital Signs: 17:16 BP 135 / 73; Pulse 81; Resp 16 S; Temp 98.8(TE); Pulse Ox 99% on R/A; Weight 99.79 kg aa5 (R); Height 5 ft. 6 in. (167.64 cm) (R); Pain 0/10; 17:16 Body Mass Index 35.51 (99.79 kg, 167.64 cm) aa5 MDM: 17:29 Patient medically screened. snw 17:42 Data reviewed: vital signs, nurses notes. Data interpreted: Pulse oximetry: on room air snw is 99 %. Counseling: I had a detailed discussion with the patient and/or guardian regarding: the historical points, exam findings, and any diagnostic results supporting the discharge/admit diagnosis, the need for outpatient follow up, to return to the emergency department if symptoms worsen or persist or if there are any questions or concerns that arise at home. Special discussion: Based on the history and exam findings, there is no indication for further emergent testing or inpatient evaluation. I discussed with the patient/guardian the need to see the OB Gyne specialist for further evaluation of the symptoms. I discussed with the patient/guardian the need to see the primary care provider for further evaluation of the symptoms. Administered Medications: 17:50 Drug: DiFLUcan 200 mg Route: PO; ca1 17:50 Follow up: Response: Medication administered at discharge. ca1 Disposition: 18:09 Co-signature as Attending Physician, Yoel Sanderson MD I agree with the assessment and kdr plan of care. Disposition: 03/03/19 17:37 Discharged to Home. Impression: Candidiasis of vulva and vagina. - Condition is Stable. - Discharge Instructions: How to Take a Sitz Bath, Vaginal Yeast Infection, Adult. - Prescriptions for Diflucan 150 mg Oral Tablet - take 1 tablet by ORAL route one time for 1 day To take next week (03/10/19); 1 tablet. - Medication Reconciliation Form, Thank You Letter, Antibiotic Education, Prescription Opioid Use form. - Follow up: Private Physician; When: 5 - 6 days; Reason: Recheck today's complaints, Continuance of care, Re-evaluation by your physician. Follow up: Emergency Department; When: As needed; Reason: Worsening of condition. Signatures: Yoel Sandersno MD MD kdr Therrien, Shelly, FNP-C LIVESTOCK SLAUGHTERER-Csnw Yarely Calvillo, RN RN aa5 Shayla Jaime RN RN ca1 Corrections: (The following items were deleted from the chart) 17:55 17:37 03/03/2019 17:37 Discharged to Home. Impression: Candidiasis of vulva and vagina. ca1 Condition is Stable. Forms are Medication Reconciliation Form, Thank You Letter, Antibiotic Education, Prescription Opioid Use. Follow up: Private Physician; When: 5 - 6 days; Reason: Recheck today's complaints, Continuance of care, Re-evaluation by your physician. Follow up: Emergency Department; When: As needed; Reason: Worsening of condition. snw
--- NOTE | 2019-03-03 17:38 | ER ---
Nurse's Notes [facility] Name: Wilber Amos Age: 23 yrs Sex: Female : 1995 Arrival Date: 03/03/2019 Time: 17:11 Bed 25 Private MD: Diagnosis: Candidiasis of vulva and vagina Presentation: 03/03 17:15 Presenting complaint: Patient states: "I went to the beach a few days ago and now I aa5 have itching and a burning sensation to my vagina". Transition of care: patient was not received from another setting of care. Onset of symptoms was February 2019. Risk Assessment: Do you want to hurt yourself or someone else? Patient reports no desire to harm self or others. Initial Sepsis Screen: Does the patient meet any 2 criteria? No. Patient's initial sepsis screen is negative. Does the patient have a suspected source of infection? No. Patient's initial sepsis screen is negative. Care prior to arrival: None. 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 - Social history:: Smoking status: Patient/guardian denies using tobacco. - Ebola Screening: : No symptoms or risks identified at this time. Screenin:25 Abuse screen: Denies threats or abuse. Denies injuries from another. Nutritional ca1 screening: No deficits noted. Tuberculosis screening: No symptoms or risk factors identified. Fall Risk None identified. Assessment: 17:25 General: Appears in no apparent distress. comfortable, Behavior is calm, cooperative, ca1 appropriate for age. Pain: Complains of pain in groin Pain does not radiate. Pain currently is 4 out of 10 on a pain scale. Pain began 2-3 days ago. Neuro: Level of Consciousness is awake, alert, obeys commands, Oriented to person, place, time, situation. : Reports vaginal itching, since 2-3 days ago. Derm: Skin is intact, is healthy with good turgor, Skin is pink, warm \\T\\ dry. Musculoskeletal: Circulation, motion, and sensation intact. Capillary refill < 3 seconds. Vital Signs: 17:16 BP 135 / 73; Pulse 81; Resp 16 S; Temp 98.8(TE); Pulse Ox 99% on R/A; Weight 99.79 kg aa5 (R); Height 5 ft. 6 in. (167.64 cm) (R); Pain 0/10; 17:16 Body Mass Index 35.51 (99.79 kg, 167.64 cm) aa5 ED Course: 17:11 Patient arrived in ED. mr 17:16 Triage completed. aa5 17:16 Arm band placed on. aa5 17:25 Patient has correct armband on for positive identification. Bed in low position. Call ca1 light in reach. Side rails up X 1. Pulse ox on. NIBP on. 17:29 [facility]C [facility]. snw 17:29 Yoel Sanderson MD is Attending Physician. snw 17:46 Shayla Jaime RN is Primary Nurse. ca1 17:54 No provider procedures requiring assistance completed. Patient did not have IV access ca1 during this emergency room visit. Administered Medications: 17:50 Drug: DiFLUcan 200 mg Route: PO; ca1 17:50 Follow up: Response: Medication administered at discharge. ca1 Outcome: 17:37 Discharge ordered by . snw 17:54 Discharged to home ambulatory, with family. ca1 17:54 Condition: stable 17:54 Discharge instructions given to patient, Instructed on discharge instructions, follow up and referral plans. medication usage, Demonstrated understanding of instructions, follow-up care, medications, Prescriptions given X 1. 17:55 Patient left the ED. ca1 Signatures: Josette Castillo FNP-C FNP-Juan Diego Aida NeffYarely RN RN aa5 Shayla Jaime RN RN ca1
[2019-03-03] MEDS ORDERED: FLUCONAZOLE 100 MG TAB ONE (18:03)
== END 2019-03-03 17:55 | disposition home or self-care (01) ==
LOC: ER 17:09
DX: B37.3 Candidiasis of vulva and vagina (principal); Z88.8 Allergy status to other drugs, medicaments and biological substances; Z91.048 Other nonmedicinal substance allergy status
CPT/HCPCS: 99283

== ENCOUNTER 2019-03-27 23:59 | Emergency (ER) | payer SELFPAY ==
--- NOTE | 2019-03-28 00:35 | ER ---
Nurse's Notes [facility] Name: Wilber Amos Age: 23 yrs Sex: Female : 1995 Arrival Date: 03/28/2019 Time: 00:06 Bed 13 Private MD: Diagnosis: Pain in right knee Presentation: 03/28 00:21 Presenting complaint: Patient states: right knee pain X1 month. pt c/o increased pain ak1 that now radiates down right let to right foot X2 weeks. Transition of care: patient was not received from another setting of care. Onset of symptoms is unknown. Risk Assessment: Do you want to hurt yourself or someone else? Patient reports no desire to harm self or others. Initial Sepsis Screen: Does the patient meet any 2 criteria? No. Patient's initial sepsis screen is negative. Does the patient have a suspected source of infection? No. Patient's initial sepsis screen is negative. Care prior to arrival: None. 00:21 Method Of Arrival: Ambulatory ak1 00:21 Acuity: ANU 4 ak1 Triage Assessment: 00:23 General: Appears in no apparent distress. Behavior is calm, cooperative. Pain: ak1 Complains of pain in right leg. 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 - Social history:: Smoking status: Patient/guardian denies using tobacco. - Ebola Screening: : No symptoms or risks identified at this time. - Family history:: not pertinent. - Hospitalizations: : No recent hospitalization is reported. Screenin:23 Abuse screen: Denies threats or abuse. Denies injuries from another. Nutritional ak1 screening: No deficits noted. Tuberculosis screening: No symptoms or risk factors identified. Fall Risk None identified. Assessment: 00:40 Reassessment: reported understanding of discharge instructions. even and steady gait jd3 upon discharge. General: Appears in no apparent distress. uncomfortable, Behavior is calm, cooperative, appropriate for age. Pain: Complains of pain in right knee Quality of pain is described as aching, Aggravated by increased activity, repositioning, weight bearing. Neuro: Level of Consciousness is awake, alert, obeys commands, Oriented to person, place, time, situation. Cardiovascular: Capillary refill < 3 seconds Patient's skin is warm and dry. Respiratory: Airway is patent Respiratory effort is even, unlabored, Respiratory pattern is regular, symmetrical. GI: No signs and/or symptoms were reported involving the gastrointestinal system. : No signs and/or symptoms were reported regarding the genitourinary system. EENT: No signs and/or symptoms were reported regarding the EENT system. Derm: Skin is intact, Skin is dry, Skin is normal, Skin temperature is warm. Musculoskeletal: Circulation, motion, and sensation intact. Range of motion: intact in all extremities. Vital Signs: 00:21 BP 124 / 86; Pulse 78; Resp 16; Temp 98.5; Pulse Ox 100% on R/A; Weight 104.33 kg (R); ak1 Height 5 ft. 6 in. (167.64 cm); Pain 7/10; 00:21 Body Mass Index 37.12 (104.33 kg, 167.64 cm) ak1 ED Course: 00:06 Patient arrived in ED. ag3 00:18 Alcon Olmstead MD is Attending Physician. rn 00:21 Arm band placed on Patient placed in an exam room, on a stretcher, on pulse oximetry, ak1 Patient notified of wait time. 00:22 Triage completed. ak1 00:23 Patient has correct armband on for positive identification. Bed in low position. Call ak1 light in reach. Side rails up X 1. Adult w/ patient. Pulse ox on. NIBP on. 00:40 Derrick Rodriguez RN is Primary Nurse. jd3 00:43 No provider procedures requiring assistance completed. Patient did not have IV access jd3 during this emergency room visit. Administered Medications: No medications were administered Outcome: 00:34 Discharge ordered by . rn 00:43 Discharged to home ambulatory, with friend. jd3 00:43 Condition: stable 00:43 Discharge instructions given to patient, friend, Instructed on discharge instructions, follow up and referral plans. Demonstrated understanding of instructions, follow-up care. 00:44 Patient left the ED. jd3 Signatures: Alcon Olmstead MD MD rn Monique Bolton RN RN ak1 Derrick Rodriguez RN RN jd3 Josephine Carlson3
--- NOTE | 2019-03-28 00:35 | EDPHYS ---
Physician Documentation [facility] Name: Wilber Amos Age: 23 yrs Sex: Female : 1995 Arrival Date: 03/28/2019 Time: 00:06 Bed 13 Private MD: ED Physician Alcon Olmstead HPI: 03/28 00:28 This 23 yrs old Female presents to ER via Ambulatory with complaints of Knee rn Pain. 00:28 The patient presents with pain, that is chronic. The complaints affect the right knee. rn Onset: The symptoms/episode began/occurred 2 month(s) ago. Modifying factors: The symptoms are alleviated by nothing. the symptoms are aggravated by movement, weight bearing, bending knee. Associated signs and symptoms: The patient has no apparent associated signs or symptoms, Pertinent negatives fever, rash, swelling, warmth, weakness. Severity of symptoms: At their worst the symptoms were moderate, in the emergency department the symptoms are unchanged. The patient has experienced similar episodes in the past. Reports 1-2 months of right knee pain, no fever, no trauma, hurts to stand and walk on, no swelling no skin changes, no other joint issues, denies drug use. Has appt with specialist tomorrow [facility] . 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 - Social history:: Smoking status: Patient/guardian denies using tobacco. - Ebola Screening: : No symptoms or risks identified at this time. - Family history:: not pertinent. - Hospitalizations: : No recent hospitalization is reported. ROS: 00:31 Constitutional: Negative for fever, chills, and weight loss, Cardiovascular: Negative rn for chest pain, palpitations, and edema, Respiratory: Negative for shortness of breath, cough, wheezing, and pleuritic chest pain, Abdomen/GI: Negative for abdominal pain, nausea, vomiting, diarrhea, and constipation, Back: Negative for injury and pain, MS/Extremity: + right knee pain Skin: Negative for injury, rash, and discoloration, Neuro: Negative for headache, weakness, numbness, tingling, and seizure. Exam: 00:31 Constitutional: This is a well developed, well nourished patient who is awake, alert, rn and in no acute distress. Smiling and affected knee bent and hanging off bed. Skin: Warm, dry with normal turgor. Normal color with no rashes, no lesions, and no evidence of cellulitis. MS/ Extremity: Pulses equal, no cyanosis. Neurovascular intact. Full, normal range of motion. Equal circumference. Neuro: Awake and alert, GCS 15, oriented to person, place, time, and situation. Cranial nerves II-XII grossly intact. Motor strength 5/5 in all extremities. Sensory grossly intact. Cerebellar exam normal. Normal gait. Vital Signs: 00:21 BP 124 / 86; Pulse 78; Resp 16; Temp 98.5; Pulse Ox 100% on R/A; Weight 104.33 kg (R); ak1 Height 5 ft. 6 in. (167.64 cm); Pain 7/10; 00:21 Body Mass Index 37.12 (104.33 kg, 167.64 cm) ak1 MDM: 00:18 Patient medically screened. rn 00:31 Differential diagnosis: tendonitis. Data reviewed: vital signs, nurses notes, and as a rn result, I will discharge patient. Counseling: I had a detailed discussion with the patient and/or guardian regarding: the historical points, exam findings, and any diagnostic results supporting the discharge/admit diagnosis, the need for outpatient follow up, to return to the emergency department if symptoms worsen or persist or if there are any questions or concerns that arise at home. Special discussion: I discussed with the patient/guardian in detail that at this point there is no indication for admission to the hospital. It is understood, however, that if the symptoms persist or worsen the patient needs to return immediately for re-evaluation. Based on the history and exam findings, there is no indication for further emergent testing or inpatient evaluation. I discussed with the patient/guardian the need to see the orthopedic surgeon for further evaluation of the symptoms. ED course: No acute injury or change, has appt with specialist tomorrow. Will dc home.. Administered Medications: No medications were administered Disposition: 03/28/19 00:34 Discharged to Home. Impression: Pain in right knee. - Condition is Stable. - Discharge Instructions: How to Use a Knee Brace, Musculoskeletal Pain, Knee Pain. - Medication Reconciliation Form, Thank You Letter, Antibiotic Education, Prescription Opioid Use form. - Follow up: Private Physician; When: As needed; Reason: Recheck today's complaints, Re-evaluation by your physician. - Problem is chronic. - Symptoms are unchanged. Signatures: Alcon Olmstead MD MD rn Monique Bolton RN RN ak1 Derrick Rodriguez RN RN jd3 Corrections: (The following items were deleted from the chart) 00:33 00:31 Constitutional: This is a well developed, well nourished patient who is awake, rn alert, and in no acute distress. Skin: Warm, dry with normal turgor. Normal color with no rashes, no lesions, and no evidence of cellulitis. MS/ Extremity: Pulses equal, no cyanosis. Neurovascular intact. Full, normal range of motion. Equal circumference. Neuro: Awake and alert, GCS 15, oriented to person, place, time, and situation. Cranial nerves II-XII grossly intact. Motor strength 5/5 in all extremities. Sensory grossly intact. Cerebellar exam normal. Normal gait. rn 00:44 00:34 03/28/2019 00:34 Discharged to Home. Impression: Pain in right knee. Condition is jd3 Stable. Forms are Medication Reconciliation Form, Thank You Letter, Antibiotic Education, Prescription Opioid Use. Follow up: Private Physician; When: As needed; Reason: Recheck today's complaints, Re-evaluation by your physician. Problem is chronic. Symptoms are unchanged. rn
== END 2019-03-28 00:44 | disposition home or self-care (01) ==
LOC: ER 23:59
DX: M25.561 Pain in right knee (principal); F41.9 Anxiety disorder, unspecified; J45.909 Unspecified asthma, uncomplicated; F32.9 Major depressive disorder, single episode, unspecified; Z88.1 Allergy status to other antibiotic agents; Z88.8 Allergy status to other drugs, medicaments and biological substances
CPT/HCPCS: 99283

== ENCOUNTER 2019-03-31 20:37 | Emergency (ER) | payer SELFPAY ==
[2019-03-31 21:37] LABS: Urine Blood NEGATIVE (NEG); Urine Glucose NEGATIVE (NEG); Urine Protein 1+ (NEG); Urine Specific Gravity 1.025 (1.005-1.030)
[2019-03-31 21:51] LABS: Barbiturates NEGATIVE (NEGATIVE); Benzodiazepines NEGATIVE (NEGATIVE); Cocaine NEGATIVE (NEGATIVE); METHAMPHETAM NEGATIVE (NEGATIVE); Methadone NEGATIVE (NEGATIVE); Opiates NEGATIVE (NEGATIVE); Phencyclidine NEGATIVE (NEGATIVE); THC Cannibis POSITIVE (NEGATIVE)
[2019-03-31] MEDS ORDERED: FAMOTIDINE 20 MG/2 ML VIAL IV ONE (21:55)
[2019-03-31] MEDS ORDERED: ONDANSETRON 4 MG/2 ML VIAL ONE (21:55)
[2019-03-31 21:58] LABS: Urine RBC <5 /HPF (NONE SEEN)
[2019-03-31 21:59] LABS: Urine Amorphous Sediment TRACE /HPF (NONE SEEN); Urine Bacteria 20-50 /HPF (<20); Urine Culture Reflex Order NOT NEEDED; Urine Mucus 3+ /HPF (NONE SEEN)
[2019-03-31 22:06] LABS: Basophils % 0.6 % (0-1.3); Eosinophils % 0.4 % (0-4.4); Hematocrit 43.3 % (36.0-45.0); Lymphocytes % 21.3 % (15.3-44.8); MPV 8.4 fL (7.6-11.3); Monocytes % 4.4 % (3.3-12.3); RBC Red Blood Cell Count 5.15 M/uL (3.86-4.86)
[2019-03-31 22:29] LABS: ALT/SGPT 23 U/L (12-78); AST/SGOT 12 U/L (15-37); Albumin 3.5 g/dL (3.4-5.0); Alkaline Phosphatase 70 U/L (45-117); BUN Blood Urea Nitrogen 11 mg/dL (7-18); Bicarbonate 28 mmol/L (21-32); Bilirubin Direct < 0.1 mg/dL (0-0.2); Bilirubin Total 0.3 mg/dL (0.2-1.0); Glucose Level 86 mg/dL (74-106); Lipase 140 U/L (73-393); Sodium Level 144 mmol/L (136-145)
--- NOTE | 2019-03-31 23:15 | ER ---
Nurse's Notes [facility] Name: Wilber Amos Age: 23 yrs Sex: Female : 1995 Arrival Date: 03/31/2019 Time: 20:40 Bed 15 Private MD: Diagnosis: Nausea and vomiting Presentation: 03/31 20:45 Presenting complaint: Patient states: I started feeling nauseous yesterday and then la1 started vomiting, today I am having abd pain and vomiting, I can keep water down but vomit after eating. Transition of care: patient was not received from another setting of care. Onset of symptoms was March 31, 2019. Risk Assessment: Do you want to hurt yourself or someone else? Patient reports no desire to harm self or others. Initial Sepsis Screen: Does the patient meet any 2 criteria? No. Patient's initial sepsis screen is negative. Does the patient have a suspected source of infection? No. Patient's initial sepsis screen is negative. Care prior to arrival: None. 20:45 Method Of Arrival: Ambulatory la1 20:45 Acuity: ANU 3 la1 Triage Assessment: 20:49 General: Appears in no apparent distress. comfortable, Behavior is calm, cooperative, cc3 appropriate for age. Pain: Complains of pain in abdomen. GI: Reports upper abdominal pain, nausea, vomiting. Historical: - Allergies: 20:46 Iodine; la1 20:46 Mefoxin; la1 - Home Meds: 20:49 Remeron Oral [Active]; Vistaril Oral [Active]; Zoloft Oral [Active]; cc3 - PMHx: 20:46 Anxiety; Asthma; Depression; Migraines; sleep insomnia; la1 - Immunization history:: Adult Immunizations up to date. - Social history:: Smoking status: Patient/guardian denies using tobacco. - Ebola Screening: : No symptoms or risks identified at this time. Screenin:49 Abuse screen: Denies threats or abuse. Denies injuries from another. Nutritional cc3 screening: No deficits noted. Tuberculosis screening: No symptoms or risk factors identified. Fall Risk Ambulatory Aid- None/Bed Rest/Nurse Assist (0 pts). Gait- Normal/Bed Rest/Wheelchair (0 pts) Mental Status- Oriented to own ability (0 pts). Assessment: 20:49 General: Appears in no apparent distress. comfortable, Behavior is calm, cooperative, cc3 appropriate for age. Pain: Complains of pain in abdomen. Neuro: Level of Consciousness is awake, alert, obeys commands, Oriented to person, place, time, situation, Appropriate for age. Cardiovascular: Denies chest pain, Capillary refill < 3 seconds Patient's skin is warm and dry. Respiratory: Airway is patent Respiratory effort is even, unlabored, Respiratory pattern is regular, symmetrical. GI: Abdomen is flat, round non-distended. : No signs and/or symptoms were reported regarding the genitourinary system. EENT: No signs and/or symptoms were reported regarding the EENT system. Derm: Skin is intact, is healthy with good turgor, Skin is pink, warm \T\ dry. normal. Musculoskeletal: Circulation, motion, and sensation intact. Range of motion: intact in all extremities. 21:20 Reassessment: Patient appears in no apparent distress at this time. Patient and/or cc3 family updated on plan of care and expected duration. Pain level reassessed. Patient is alert, oriented x 3, equal unlabored respirations, skin warm/dry/pink. 22:25 Reassessment: Patient appears in no apparent distress at this time. Patient and/or cc3 family updated on plan of care and expected duration. Pain level reassessed. Patient is alert, oriented x 3, equal unlabored respirations, skin warm/dry/pink. 23:00 Reassessment: Patient appears in no apparent distress at this time. Patient and/or cr4 family updated on plan of care and expected duration. Pain level reassessed. Patient is alert, oriented x 3, equal unlabored respirations, skin warm/dry/pink. 23:20 Reassessment: Patient appears in no apparent distress at this time. Patient and/or cc3 family updated on plan of care and expected duration. Pain level reassessed. Patient is alert, oriented x 3, equal unlabored respirations, skin warm/dry/pink. PA Page discharged the patient home with prescriptions given. IV cannula removed and patient left ER vitally stable and ambulatory with her family. No valuables left in the patient's room. Patient denies pain at this time. Patient states feeling better. Patient states symptoms have improved. Vital Signs: 20:46 BP 125 / 67; Pulse 86; Resp 16; Temp 97.5; Pulse Ox 98% on R/A; Weight 104.33 kg; la1 Height 5 ft. 6 in. (167.64 cm); 21:18 BP 123 / 72; Pulse 85; Resp 15 S; Pulse Ox 99% on R/A; cc3 22:36 BP 119 / 77; Pulse 83; Resp 16 S; Pulse Ox 98% on R/A; cc3 23:12 BP 120 / 63; Pulse 88; Resp 16 S; Pulse Ox 98% on R/A; cc3 20:46 Body Mass Index 37.12 (104.33 kg, 167.64 cm) la1 ED Course: 20:40 Patient arrived in ED. do 20:46 Triage completed. la1 20:47 Arm band placed on left wrist. la1 20:49 Rosa Davila is Primary Nurse. cc3 20:49 Patient has correct armband on for positive identification. Placed in gown. Bed in low cc3 position. Call light in reach. Side rails up X 1. Pulse ox on. NIBP on. 20:53 Sunny Kohli PA is PHCP. cp 20:53 Ezequiel Miller MD is Attending Physician. cp 21:45 Inserted saline lock: 20 gauge in right antecubital area, using aseptic technique. cc3 Blood collected. 23:20 No provider procedures requiring assistance completed. IV discontinued, intact, cc3 bleeding controlled, No redness/swelling at site. Pressure dressing applied. Administered Medications: 21:45 Drug: Pepcid 20 mg Route: IVP; Site: right antecubital; cc3 22:18 Follow up: Response: No adverse reaction; Pain is decreased cc3 21:50 Drug: Zofran 4 mg Route: IVP; Site: right antecubital; cc3 22:18 Follow up: Response: No adverse reaction; Nausea is decreased cc3 Outcome: 23:14 Discharge ordered by MD. cp 23:20 Discharged to home ambulatory, with family. cc3 23:20 Condition: stable 23:20 Discharge instructions given to patient, Instructed on discharge instructions, follow up and referral plans. medication usage, Demonstrated understanding of instructions, follow-up care, medications, Prescriptions given X 2. 23:25 Patient left the ED. cc3 Signatures: Iesha Lucero RN RN cr4 Zeb Ramirez RN RN laSunny Chan PA PA cp Yadira Pritchett, Rosa cc3
--- NOTE | 2019-03-31 23:15 | EDPHYS ---
Physician Documentation [facility] Name: Wilber Amos Age: 23 yrs Sex: Female : 1995 Arrival Date: 03/31/2019 Time: 20:40 Bed 15 Private MD: ED Physician Ezequiel Miller HPI: 03/31 21:00 This 23 yrs old Female presents to ER via Ambulatory with complaints of cp Nausea/Vomiting, Dizziness, Abdominal Pain. 21:00 The patient presents to the emergency department with nausea, that is mild, vomiting, cp that is intermittent, abdominal pain, of the abdomen diffusely. Onset: The symptoms/episode began/occurred yesterday. Possible causes: unknown. Associated signs and symptoms: Pertinent negatives: constipation, diarrhea, fever, GI bleeding. Severity of symptoms: in the emergency department the symptoms are unchanged despite home interventions. Historical: - Allergies: 20:46 Iodine; la1 20:46 Mefoxin; la1 - Home Meds: 20:49 Remeron Oral [Active]; Vistaril Oral [Active]; Zoloft Oral [Active]; cc3 - PMHx: 20:46 Anxiety; Asthma; Depression; Migraines; sleep insomnia; la1 - Immunization history:: Adult Immunizations up to date. - Social history:: Smoking status: Patient/guardian denies using tobacco. - Ebola Screening: : No symptoms or risks identified at this time. ROS: 21:05 Constitutional: Negative for body aches, chills, fever, poor PO intake. cp 21:05 Eyes: Negative for injury, pain, redness, and discharge. cp 21:05 ENT: Negative for drainage from ear(s), ear pain, sore throat, difficulty swallowing, difficulty handling secretions. 21:05 Cardiovascular: Negative for chest pain, palpitations. 21:05 Respiratory: Negative for cough, shortness of breath, wheezing. 21:05 Abdomen/GI: Positive for abdominal pain, nausea and vomiting, Negative for diarrhea, constipation, active vomiting. 21:05 : Negative for urinary symptoms, flank pain. 21:05 Skin: Negative for rash. 21:05 Neuro: Positive for dizziness, Negative for altered mental status, headache, weakness. 21:05 All other systems are negative. Exam: 21:10 Constitutional: The patient appears in no acute distress, alert, awake, non-toxic, well cp developed, well nourished. 21:10 Head/Face: Normocephalic, atraumatic. cp 21:10 Eyes: Periorbital structures: appear normal, Conjunctiva: normal, no exudate, no injection, Sclera: no appreciated abnormality, Lids and lashes: appear normal, bilaterally. 21:10 ENT: External ear(s): are unremarkable, Ear canal(s): are normal, clear, TM's: bulging, is not appreciated, bilaterally, dullness, bilaterally, erythema, is not appreciated, bilaterally, Nose: is normal, Mouth: Lips: moist, Oral mucosa: pink and intact, moist, Posterior pharynx: is normal, airway is patent, no erythema, no exudate. 21:10 Neck: ROM/movement: is normal, is supple, without pain, no range of motions limitations, no meningismus, no nuchal rigidity. 21:10 Chest/axilla: Inspection: normal, Palpation: is normal, no crepitus, no tenderness. 21:10 Cardiovascular: Rate: normal, Rhythm: regular. 21:10 Respiratory: the patient does not display signs of respiratory distress, Respirations: normal, no use of accessory muscles, no retractions, no splinting, no tachypnea, labored breathing, is not present, Breath sounds: are clear throughout, no decreased breath sounds, no stridor, no wheezing. 21:10 Abdomen/GI: Inspection: abdomen appears normal, Bowel sounds: active, all quadrants, Palpation: soft, in all quadrants, mild abdominal tenderness, in all quadrants, rebound tenderness, is not appreciated, voluntary guarding, is not appreciated, involuntary guarding, is not appreciated. 21:10 Back: CVA tenderness, is absent. 21:10 Neuro: Orientation: to person, place \T\ time. Mentation: is normal, Cerebellar function: is grossly normal, Motor: moves all fours, strength is normal. Vital Signs: 20:46 BP 125 / 67; Pulse 86; Resp 16; Temp 97.5; Pulse Ox 98% on R/A; Weight 104.33 kg; la1 Height 5 ft. 6 in. (167.64 cm); 21:18 BP 123 / 72; Pulse 85; Resp 15 S; Pulse Ox 99% on R/A; cc3 22:36 BP 119 / 77; Pulse 83; Resp 16 S; Pulse Ox 98% on R/A; cc3 23:12 BP 120 / 63; Pulse 88; Resp 16 S; Pulse Ox 98% on R/A; cc3 20:46 Body Mass Index 37.12 (104.33 kg, 167.64 cm) la1 MDM: 21:03 Patient medically screened. cp 21:30 Differential diagnosis: gastritis, cholecystitis, pancreatitis, appendicitis, viral cp gastroenteritis, gastroenteritis, UTI. 23:13 Data reviewed: vital signs, nurses notes, lab test result(s), and as a result, I will cp discharge patient. 23:13 Counseling: I had a detailed discussion with the patient and/or guardian regarding: the cp historical points, exam findings, and any diagnostic results supporting the discharge/admit diagnosis, lab results, to return to the emergency department if symptoms worsen or persist or if there are any questions or concerns that arise at home. Response to treatment: the patient's symptoms have markedly improved after treatment, VSS, Nausea and pain improved. No vomiting observed while in ED. Will discharge to home for continued monitoring. 03/31 20:48 Order name: Urine Culture [facility] 03/31 20:48 Order name: Urine Microscopic Only; Complete Time: 22:33 [facility] 03/31 23:09 Interpretation: Normal except: UBACT 20-50; SQEPI 10-20; MUCUS 3+. 03/31 21:12 Order name: Basic Metabolic Panel; Complete Time: 22:33 03/31 23:09 Interpretation: Normal except: CL 110; GFR 86. 03/31 21:12 Order name: CBC with Diff; Complete Time: 22:33 03/31 21:12 Order name: Creatinine for Radiology; Complete Time: 22:33 03/31 21:12 Order name: Hepatic Function; Complete Time: 22:33 03/31 20:48 Order name: Urine Test (obtain specimen); Complete Time: 22:27 [facility] 03/31 20:48 Order name: Urine Dipstick-Ancillary (obtain specimen); Complete Time: 22:27 [facility] 03/31 21:12 Order name: Lipase; Complete Time: 22:33 03/31 21:12 Order name: UDS; Complete Time: 22:33 03/31 21:29 Order name: Urine Dipstick--Ancillary (enter results); Complete Time: 22:33 mw2 03/31 21:29 Order name: Urine --Ancillary (enter results); Complete Time: 22:33 mw2 03/31 21:12 Order name: IV Saline Lock; Complete Time: 22:27 cp 03/31 21:12 Order name: Labs collected and sent; Complete Time: 22:27 cp 03/31 22:33 Order name: PO challenge; Complete Time: 23:06 cp Administered Medications: 21:45 Drug: Pepcid 20 mg Route: IVP; Site: right antecubital; cc3 22:18 Follow up: Response: No adverse reaction; Pain is decreased cc3 21:50 Drug: Zofran 4 mg Route: IVP; Site: right antecubital; cc3 22:18 Follow up: Response: No adverse reaction; Nausea is decreased cc3 Disposition: 03/31/19 23:14 Discharged to Home. Impression: Nausea and vomiting. - Condition is Stable. - Discharge Instructions: Nausea and Vomiting, Adult. - Prescriptions for Pepcid 20 mg Oral Tablet - take 1 tablet by ORAL route every 12 hours for 10 days; 20 tablet. Zofran 4 mg Oral Tablet - take 1 tablet by ORAL route every 12 hours As needed; 20 tablet. - Medication Reconciliation Form, Thank You Letter, Antibiotic Education, Prescription Opioid Use, Work release form form. - Follow up: Private Physician; When: 2 - 3 days; Reason: Recheck today's complaints. - Problem is new. - Symptoms have improved. Addendum: 04/02/2019 01:30 Co-signature as Attending Physician, Ezequiel Miller MD. g s Signatures: Dispatcher [employer] EDJosette Spears, DEVELOPMENTAL TRAINING COUNSELOR-C DEVELOPMENTAL TRAINING COUNSELOR-Csnw Zeb Ramirez RN RN la1 Sunny Kohli PA PA Ezequiel Elaine MD MD gs Cordel, Charlene cc3 Corrections: (The following items were deleted from the chart) 03/31 23:25 23:14 03/31/2019 23:14 Discharged to Home. Impression: Nausea and vomiting. Condition cc3 is Stable. Forms are Medication Reconciliation Form, Thank You Letter, Antibiotic Education, Prescription Opioid Use. Follow up: Private Physician; When: 2 - 3 days; Reason: Recheck today's complaints. Problem is new. Symptoms have improved. cp
== END 2019-03-31 23:25 | disposition home or self-care (01) ==
LOC: ER 20:37
DX: R11.2 Nausea with vomiting, unspecified (principal); Z91.09 Other allergy status, other than to drugs and biological substances; Z88.1 Allergy status to other antibiotic agents; F41.8 Other specified anxiety disorders; G47.00 Insomnia, unspecified; J45.909 Unspecified asthma, uncomplicated
CPT/HCPCS: 36415; 80048; 80076; 80307; 81003; 81015; 81025; 83690; 85025; 87086; 87088; 96374; 96375; 99284; J2405

== ENCOUNTER 2019-05-08 16:55 | Emergency (ER) | payer SELFPAY ==
[2019-05-08 18:01] LABS: Basophils % 0.3 % (0-1.3); Hematocrit 39.7 % (36.0-45.0); Lymphocytes % 30.4 % (15.3-44.8); MPV 8.7 fL (7.6-11.3); RBC Red Blood Cell Count 4.78 M/uL (3.86-4.86)
[2019-05-08 18:08] LABS: Urine Blood TRACE (NEG); Urine Glucose NEGATIVE (NEG); Urine Protein NEGATIVE (NEG); Urine Specific Gravity 1.025 (1.005-1.030); Urine pH 6.5 (5.0-7.0)
[2019-05-08 18:10] LABS: Protime INR 1.03
[2019-05-08 18:21] LABS: ALT/SGPT 15 U/L (12-78); AST/SGOT 13 U/L (15-37); Albumin 3.6 g/dL (3.4-5.0); Alkaline Phosphatase 70 U/L (45-117); BUN Blood Urea Nitrogen 8 mg/dL (7-18); Bicarbonate 28 mmol/L (21-32); Bilirubin Direct 0.1 mg/dL (0-0.2); Bilirubin Total 0.3 mg/dL (0.2-1.0); Glucose Level 70 mg/dL (74-106); Potassium 3.8 mmol/L (3.5-5.1); Protein, Total 6.7 g/dL (6.4-8.2); Sodium Level 144 mmol/L (136-145)
[2019-05-08 18:22] LABS: Barbiturates NEGATIVE (NEGATIVE); Benzodiazepines NEGATIVE (NEGATIVE); Cocaine NEGATIVE (NEGATIVE); METHAMPHETAM NEGATIVE (NEGATIVE); Methadone NEGATIVE (NEGATIVE); Opiates NEGATIVE (NEGATIVE); Phencyclidine NEGATIVE (NEGATIVE); THC Cannibis POSITIVE (NEGATIVE)
[2019-05-08] MEDS ORDERED: ACETAMINOPHEN 500 MG TAB ONE (20:15)
--- NOTE | 2019-05-09 02:08 | EDPHYS ---
Physician Documentation [facility] Name: Wilber Amos Age: 23 yrs Sex: Female : 1995 Arrival Date: 05/08/2019 Time: 16:57 Bed 17 Private MD: ED Physician Alcon Olmstead HPI: 05/08 17:22 This 23 yrs old Female presents to ER via Ambulatory with complaints of cp Suicidal Ideation. 17:22 The patient presents to the emergency department with suicide ideation, but the patient cp has no formulated plan. Onset: The symptoms/episode began/occurred 1 week(s) ago. Past psychiatric history: Prior diagnosis: depression, Psychiatric medications include: none, the patient has not had a prior suicide gesture, the patient does not have a previous inpatient psychiatric history, referred by therapist today after expressing thoughts of suicide and self cutting. Associated signs and symptoms: Pertinent positives; depression, suicide ideation, Pertinent negatives: abdominal pain, chest pain, delusions, hallucinations, homicidal ideation, paranoia, substance abuse. Severity of symptoms: in the emergency department the symptoms are unchanged. 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 - Social history:: Smoking status: Patient uses tobacco products, 4-5 cigarettes a day . - Ebola Screening: : No symptoms or risks identified at this time. ROS: 17:30 Constitutional: Negative for body aches, chills, fever, poor PO intake. cp 17:30 Eyes: Negative for injury, pain, redness, and discharge. cp 17:30 ENT: Negative for drainage from ear(s), ear pain, sore throat, difficulty swallowing, difficulty handling secretions. 17:30 Cardiovascular: Negative for chest pain, palpitations. 17:30 Respiratory: Negative for cough, shortness of breath, wheezing. 17:30 Abdomen/GI: Negative for abdominal pain, nausea, vomiting, and diarrhea. 17:30 : Negative for urinary symptoms. 17:30 Skin: Negative for cellulitis, rash. 17:30 Neuro: Negative for altered mental status, dizziness, headache, weakness. 17:30 Psych: Positive for depression, suicidal ideation, Negative for suicide gesture. 17:30 All other systems are negative. Exam: 17:35 Constitutional: The patient appears in no acute distress, alert, awake, non-toxic, well cp developed, well nourished. 17:35 Head/Face: Normocephalic, atraumatic. cp 17:35 Eyes: Pupils equal round and reactive to light, extra-ocular motions intact. Lids and cp lashes normal. Conjunctiva and sclera are non-icteric and not injected. Cornea within normal limits. Periorbital areas with no swelling, redness, or edema. ENT: Nares patent. No nasal discharge, no septal abnormalities noted. Tympanic membranes are normal and external auditory canals are clear. Oropharynx with no redness, swelling, or masses, exudates, or evidence of obstruction, uvula midline. Mucous membranes moist. Chest/axilla: Normal chest wall appearance and motion. Nontender with no deformity. No lesions are appreciated. 17:35 Cardiovascular: Rate: normal, Rhythm: regular, Heart sounds: murmur, not appreciated. cp 17:35 Respiratory: the patient does not display signs of respiratory distress, Respirations: normal, no use of accessory muscles, no retractions, no splinting, labored breathing, is not present, Breath sounds: are clear throughout, no decreased breath sounds, no stridor, no wheezing. 17:35 Abdomen/GI: Inspection: abdomen appears normal, Palpation: abdomen is soft and non-tender, in all quadrants, voluntary guarding, is not appreciated, involuntary guarding, is not appreciated. 17:35 Back: pain, is absent, ROM is normal. 17:35 Skin: cellulitis, is not appreciated, injury, laceration(s), of the left upper leg, that can be described as linear, without bleeding, superficial. 17:35 Neuro: Orientation: to person, place \T\ time. Mentation: is normal, Motor: moves all fours, strength is normal. 17:35 Psych: Patient having thoughts of suicide. Denies suicidal plan. Delusions/hallucinations are not present. 18:51 ECG was reviewed by the Attending Physician. cp Vital Signs: 17:00 BP 112 / 68; Pulse 85; Resp 18 S; Temp 98.2(TE); Pulse Ox 97% on R/A; Pain 0/10; aa5 21:07 BP 123 / 73; Pulse 70; Resp 16; Temp 98.8; Pulse Ox 99% ; Pain 0/10; sh8 05/09 01:01 BP 117 / 68 RA Sitting (auto/reg); Pulse 69 RA; Resp 16 S; Temp 98.7(O); Pulse Ox 99% sh8 on R/A; Pain 0/10; 05:02 BP 107 / 69 RA Sitting (auto/reg); Pulse 71 RA; Resp 17 S; Temp 98.0(O); Pulse Ox 100% sh8 on R/A; Pain 0/10; 09:29 BP 101 / 59; Pulse 71; Resp 15; Temp 98.4; Pulse Ox 98% ; mb5 14:33 BP 125 / 67; Pulse 82; Resp 18; Temp 98.0(TE); Pulse Ox 98% on R/A; mh5 19:31 BP 97 / 58; Pulse 76; Resp 17; Temp 98.6; Pulse Ox 98% ; dg1 05/10 03:06 BP 110 / 60; Pulse 74; Resp 17; Temp 97.2; Pulse Ox 98% ; dg1 MDM: 05/08 17:08 Patient medically screened. 19:00 Data reviewed: vital signs, nurses notes, lab test result(s), EKG. 19:00 Test interpretation: by ED physician or midlevel provider: ECG. 05/10 07:16 ED course: Pt sleeping comfortably, still waiting psychiatric transfer. rn 11:18 ED course: Spoke with [facility]Y ASSEMBLER at [facility] for patient transfer \T\ [id number].. rn 13:39 ED course: Spoke with Dr. Dailey with [facility], accepts patient for manager internet transfer.. 05/08 17:09 Order name: Acetaminophen 05/08 17:09 Order name: Basic Metabolic Panel 05/08 17:09 Order name: CBC with Diff; Complete Time: 18:51 05/08 17:09 Order name: ETOH Level; Complete Time: 18:51 05/08 17:09 Order name: Hepatic Function; Complete Time: 18:51 05/08 17:09 Order name: PT-INR; Complete Time: 18:51 cp 05/08 17:09 Order name: Ptt, Activated; Complete Time: 18:51 cp 05/08 17:09 Order name: Salicylate; Complete Time: 18:51 cp 05/08 17:09 Order name: Urine Drug Screen; Complete Time: 18:51 cp 05/08 18:51 Interpretation: Normal except: THC POSITIVE. cp 05/08 17:10 Order name: Acetaminophen Level; Complete Time: 18:51 EDMS 05/08 17:10 Order name: Basic Metabolic Panel; Complete Time: 18:51 EDMS 05/08 18:51 Interpretation: Normal except: CL 110; GLUC 70; GFR 76. cp 05/08 17:56 Order name: Urine Dipstick--Ancillary (enter results); Complete Time: 18:51 bd 05/08 17:56 Order name: Urine --Ancillary (enter results); Complete Time: 18:51 bd 05/08 17:09 Order name: Urine Test (obtain specimen); Complete Time: 17:47 cp 05/08 17:09 Order name: EKG; Complete Time: 17:10 cp 05/08 17:09 Order name: EKG - Nurse/Tech; Complete Time: 17:27 cp 05/08 17:09 Order name: IV Saline Lock; Complete Time: 17:47 cp 05/08 17:09 Order name: Labs collected and sent; Complete Time: 17:47 cp 05/08 17:09 Order name: Urine Dipstick-Ancillary (obtain specimen); Complete Time: 17:47 cp 05/08 17:47 Order name: Diet Regular; Complete Time: 17:48 bp 05/09 07:04 Order name: Diet Regular; Complete Time: 07:05 5 05/09 10:30 Order name: Diet Regular; Complete Time: 10:31 5 05/09 12:35 Order name: Diet Finger Food; Complete Time: 12:36 bd 05/10 07:53 Order name: Diet Finger Food; Complete Time: 07:54 bd 05/10 08:28 Order name: Diet Regular; Complete Time: 08:29 hj 05/10 11:08 Order name: Diet Finger Food; Complete Time: 11:10 bd EC/19 18:51 Rate is 78 beats/min. Rhythm is regular. NE interval is normal. QRS interval is normal. cp QT interval is normal. T waves are Flattened in lead III. Interpreted by me. Reviewed by me. Administered Medications: 20:10 Drug: Tylenol 1000 mg Route: PO; cc3 21:17 Follow up: Response: No adverse reaction; Pain is decreased cc3 Disposition: 05/09/19 02:05 Transfer ordered to Psych Facility. Diagnosis is Suicidal ideations. - Reason for transfer: Higher level of care. - Accepting physician is inpatient psych. - Condition is Stable. - Problem is new. - Symptoms are unchanged. Signatures: Dispatcher [employer] EDAlcon Barr MD MD rn Calderon, Audri RN RN aa5 Mj Whitaker RN RN Sunny Fierro PA PA cp Cordel, Charlene cc3 Corrections: (The following items were deleted from the chart) 21:22 17:08 Home Meds: None; aa5 cc3 05/10 14:41 05/09 02:05 05/09/2019 02:05 Transfer ordered to Psych Facility. Diagnosis is Suicidal hj ideations. Reason for transfer: Higher level of care. Accepting physician is inpatient psych. Condition is Stable. Problem is new. Symptoms are unchanged. cp
--- NOTE | 2019-05-09 02:08 | ER ---
Nurse's Notes [facility] Name: Wilber Amos Age: 23 yrs Sex: Female : 1995 Arrival Date: 05/08/2019 Time: 16:57 Bed 17 Private MD: Diagnosis: Suicidal ideations Presentation: 05/08 16:59 Presenting complaint: Mother states: "she saw her therapist today and they said that aa5 she is getting worse and that she was talking about being done with her life and wanting to kill herself and she's been cutting herself". Pt's mother states "she's been off her meds for about a year". Transition of care: patient was not received from another setting of care. Onset of symptoms was May 08, 2019. Risk Assessment: Do you want to hurt yourself or someone else? Patient reports desire/thoughts of hurting themselves or someone else. Provider notified. Initial Sepsis Screen: Does the patient meet any 2 criteria? No. Patient's initial sepsis screen is negative. Does the patient have a suspected source of infection? No. Patient's initial sepsis screen is negative. 16:59 Method Of Arrival: Ambulatory 5 16:59 Acuity: ANU 2 aa5 16:59 Care prior to arrival: None. aa5 Triage Assessment: 17:00 General: Appears in no apparent distress. comfortable, Behavior is calm, cooperative, bp appropriate for age, flat. Pain: Denies pain. EENT: No deficits noted. Neuro: No deficits noted. Cardiovascular: No deficits noted. Respiratory: No deficits noted. GI: No signs and/or symptoms were reported involving the gastrointestinal system. : No signs and/or symptoms were reported regarding the genitourinary system. Derm: No deficits noted. Musculoskeletal: No deficits noted. 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 - Social history:: Smoking status: Patient uses tobacco products, 4-5 cigarettes a day . - Ebola Screening: : No symptoms or risks identified at this time. Screenin:48 Abuse screen: Denies threats or abuse. Denies injuries from another. Nutritional bp screening: No deficits noted. Tuberculosis screening: No symptoms or risk factors identified. Fall Risk None identified. Assessment: 17:00 General: SEE TRIAGE NOTE. bp 19:20 Reassessment: Patient appears in no apparent distress at this time. Patient and/or cc3 family updated on plan of care and expected duration. Pain level reassessed. Patient is alert, oriented x 3, equal unlabored respirations, skin warm/dry/pink. Received this female patient from morning shift RN Dimas as a case of suicidal ideation with IV cannula gauge 20 at the right ACV saline locked. Sitter present and mother at bedside. 19:20 General: Appears in no apparent distress. comfortable, Behavior is calm, cooperative, cc3 appropriate for age. 19:20 Pain: Denies pain. Neuro: Level of Consciousness is awake, alert, obeys commands, cc3 Oriented to person, place, time, situation, Appropriate for age. Cardiovascular: Denies chest pain, Capillary refill < 3 seconds Patient's skin is warm and dry. Respiratory: Airway is patent Respiratory effort is even, unlabored, Respiratory pattern is regular, symmetrical. GI: Abdomen is round non-distended. : No signs and/or symptoms were reported regarding the genitourinary system. EENT: No signs and/or symptoms were reported regarding the EENT system. Derm: Skin is intact, is healthy with good turgor, Skin is pink, warm \\T\\ dry. normal. Musculoskeletal: Circulation, motion, and sensation intact. Range of motion: intact in all extremities. 20:09 Reassessment: Patient appears in no apparent distress at this time. Patient and/or cc3 family updated on plan of care and expected duration. Pain level reassessed. Patient is alert, oriented x 3, equal unlabored respirations, skin warm/dry/pink. Patient complains of headache, PA Page informed. Sitter present and mother at bedside. 20:15 Reassessment: [facility] clearance representative came at bedside and talking to the patient. cc3 20:45 Reassessment: [facility] clearance representative left the patient's room. cc3 21:17 Reassessment: Patient appears in no apparent distress at this time. Patient and/or cc3 family updated on plan of care and expected duration. Pain level reassessed. Patient is alert, oriented x 3, equal unlabored respirations, skin warm/dry/pink. Sitter present and mother at bedside. Patient denies pain at this time. Patient states feeling better. Patient states symptoms have improved. 22:17 Reassessment: Patient appears in no apparent distress at this time. Patient and/or cc3 family updated on plan of care and expected duration. Pain level reassessed. Patient is alert, oriented x 3, equal unlabored respirations, skin warm/dry/pink. Sitter present and mother at bedside. Patient denies pain at this time. 23:12 Reassessment: Patient appears in no apparent distress at this time. Patient and/or cc3 family updated on plan of care and expected duration. Pain level reassessed. Patient is alert, oriented x 3, equal unlabored respirations, skin warm/dry/pink. Sitter present and mother at bedside. Patient denies pain at this time. 05/09 00:11 Reassessment: Patient appears in no apparent distress at this time. Patient and/or cc3 family updated on plan of care and expected duration. Pain level reassessed. Patient is alert, oriented x 3, equal unlabored respirations, skin warm/dry/pink. Staff from [facility] called and said they need the exclusionary of the patient to be faxed to them and the H\\T\\P that was faxed to them was incomplete so ED telecommunications clerk Cate and charge nurse Susu informed. Sitter present. Patient denies pain at this time. 01:30 Reassessment: Patient appears in no apparent distress at this time. Patient and/or cc3 family updated on plan of care and expected duration. Pain level reassessed. Patient is alert, oriented x 3, equal unlabored respirations, skin warm/dry/pink. Sitter present Patient denies pain at this time. 02:12 Reassessment: Patient appears in no apparent distress at this time. Patient and/or cc3 family updated on plan of care and expected duration. Pain level reassessed. Patient is alert, oriented x 3, equal unlabored respirations, skin warm/dry/pink. Sitter present and mother at bedside. 03:18 Reassessment: Patient appears in no apparent distress at this time. Patient and/or cc3 family updated on plan of care and expected duration. Pain level reassessed. Patient sleeping comfortably, kept undisturbed. Sitter present, mother at bedside. 04:26 Reassessment: Patient appears in no apparent distress at this time. Patient and/or cc3 family updated on plan of care and expected duration. Pain level reassessed. Patient sleeping comfortably, sitter present, mother at bedside sleeping as well. 05:18 Reassessment: Patient appears in no apparent distress at this time. Patient and/or cc3 family updated on plan of care and expected duration. Pain level reassessed. Patient sleeping, kept undisturbed. Sitter present. 06:08 Reassessment: Patient appears in no apparent distress at this time. Patient and/or cc3 family updated on plan of care and expected duration. Pain level reassessed. Patient comfortably sleeping, kept undisturbed. Sitter present. Mother at bedside. 07:03 General: Appears in no apparent distress. comfortable, Behavior is calm, cooperative. rb1 Pain: Denies pain. Neuro: Level of Consciousness is awake, alert, obeys commands, Oriented to person, place, time, situation. Cardiovascular: Capillary refill < 3 seconds is brisk in bilateral fingers. Respiratory: Airway is patent Respiratory effort is even, unlabored, Respiratory pattern is regular, symmetrical. GI: No signs and/or symptoms were reported involving the gastrointestinal system. : No signs and/or symptoms were reported regarding the genitourinary system. Derm: Skin is pink, warm \\T\\ dry. 07:55 Reassessment: pt has no open wounds on her body, pt has healed scars on her left iw shoulder and right upper thigh from previous episodes of cutting, pt does not require wound care. 07:57 Derm: Skin is intact, is healthy with good turgor, Skin is dry, Skin is pink, warm \\T\\ iw dry. normal. 08:00 Reassessment: Patient appears in no apparent distress at this time. Pt. is resting with rb1 eyes closed, respirations even, unlabored. Mother is at pt. bedside. 09:00 Reassessment: Patient appears in no apparent distress at this time. Patient and/or rb1 family updated on plan of care and expected duration. Pain level reassessed. Patient is alert, oriented x 3, equal unlabored respirations, skin warm/dry/pink. Pt. is talking with her family at the bedside. Patient denies pain at this time. 10:00 Reassessment: Patient appears in no apparent distress at this time. No changes from rb1 previously documented assessment. 11:10 Reassessment: Patient appears in no apparent distress at this time. Patient and/or tw2 family updated on plan of care and expected duration. Pain level reassessed. Patient is alert, oriented x 3, equal unlabored respirations, skin warm/dry/pink. pt appears to be sleeping at this time, sitter at bedside and will remain with pt throughout shift. 12:10 Reassessment: Patient appears in no apparent distress at this time. No changes from tw2 previously documented assessment. Patient and/or family updated on plan of care and expected duration. Pain level reassessed. Patient is alert, oriented x 3, equal unlabored respirations, skin warm/dry/pink. pt appears to be sleeping at this time, lunch tray at bedside, mother states "she does this sometimes and just dont eat". 13:10 Reassessment: Patient appears in no apparent distress at this time. No changes from tw2 previously documented assessment. Patient and/or family updated on plan of care and expected duration. Pain level reassessed. Patient is alert, oriented x 3, equal unlabored respirations, skin warm/dry/pink. pt appears to be sleeping at this time, mother remains at bedside. 14:10 Reassessment: Patient appears in no apparent distress at this time. No changes from tw2 previously documented assessment. Patient and/or family updated on plan of care and expected duration. Pain level reassessed. Patient is alert, oriented x 3, equal unlabored respirations, skin warm/dry/pink. 15:10 Reassessment: Patient appears in no apparent distress at this time. Patient and/or tw2 family updated on plan of care and expected duration. Pain level reassessed. Patient is alert, oriented x 3, equal unlabored respirations, skin warm/dry/pink. pt sitting up eating at this time, talking to mother. 15:39 Reassessment: Patient and/or family updated on plan of care and expected duration. Pain tw2 level reassessed. Patient is alert, oriented x 3, equal unlabored respirations, skin warm/dry/pink. pt sitting up crying at this time, provider at bedside talking with pt. 16:10 Reassessment: Patient appears in no apparent distress at this time. Patient and/or tw2 family updated on plan of care and expected duration. Pain level reassessed. Patient is alert, oriented x 3, equal unlabored respirations, skin warm/dry/pink. 17:10 Reassessment: Patient appears in no apparent distress at this time. No changes from tw2 previously documented assessment. Patient and/or family updated on plan of care and expected duration. Pain level reassessed. Patient is alert, oriented x 3, equal unlabored respirations, skin warm/dry/pink. 18:10 Reassessment: Patient appears in no apparent distress at this time. No changes from tw2 previously documented assessment. Patient and/or family updated on plan of care and expected duration. Pain level reassessed. Patient is alert, oriented x 3, equal unlabored respirations, skin warm/dry/pink. 19:00 Reassessment: Patient and/or family updated on plan of care and expected duration. Pain tr5 level reassessed. Patient is alert, oriented x 3, equal unlabored respirations, skin warm/dry/pink. 20:00 Reassessment: Patient appears in no apparent distress at this time. Patient and/or tr5 family updated on plan of care and expected duration. Pain level reassessed. 21:00 Reassessment: No changes from previously documented assessment. Patient and/or family tr5 updated on plan of care and expected duration. Pain level reassessed. Patient is alert, oriented x 3, equal unlabored respirations, skin warm/dry/pink. 22:00 Reassessment: Patient and/or family updated on plan of care and expected duration. Pain tr5 level reassessed. Patient is alert, oriented x 3, equal unlabored respirations, skin warm/dry/pink. Patient denies pain at this time. 23:00 Reassessment: Patient appears in no apparent distress at this time. Patient and/or tr5 family updated on plan of care and expected duration. Pain level reassessed. Patient denies pain at this time. 05/10 00:00 Reassessment: No changes from previously documented assessment. Patient and/or family tr5 updated on plan of care and expected duration. Pain level reassessed. 01:00 Reassessment: Patient appears in no apparent distress at this time. No changes from tr5 previously documented assessment. Patient and/or family updated on plan of care and expected duration. Pain level reassessed. Patient is alert, oriented x 3, equal unlabored respirations, skin warm/dry/pink. Pt appears to be sleeping in bed. 02:00 Reassessment: No changes from previously documented assessment. Patient and/or family tr5 updated on plan of care and expected duration. Pain level reassessed. 03:00 Reassessment: No changes from previously documented assessment. Patient is alert, tr5 oriented x 3, equal unlabored respirations, skin warm/dry/pink. Patient denies pain at this time. 04:00 Reassessment: No changes from previously documented assessment. Patient and/or family tr5 updated on plan of care and expected duration. Pain level reassessed. Patient is alert, oriented x 3, equal unlabored respirations, skin warm/dry/pink. 05:03 Reassessment: No changes from previously documented assessment. Patient and/or family tr5 updated on plan of care and expected duration. Pain level reassessed. Patient is alert, oriented x 3, equal unlabored respirations, skin warm/dry/pink. Pt appears to be sleeping in bed. 06:00 Reassessment: Patient appears in no apparent distress at this time. Patient and/or tr5 family updated on plan of care and expected duration. Pain level reassessed. Patient is alert, oriented x 3, equal unlabored respirations, skin warm/dry/pink. Psych: 05/08 17:00 Subjective: Patient's mood is sad, Delusions are denied, Hallucinations are denied bp Having thoughts of suicide. Denies suicidal plan. Objective: Patient is cooperative, Speech is soft, Affect is flat. Interventions: Removed personal items and placed in bag. Patient placed in hospital gown. Searched person for dangerous items. Urine collected and sent for urine drug test. BELONGINGS TO FAMILY. Suicide Risk Assessment: Sad Person Scale: Sex of patient: Female: Score 0 points. Age of patient: Score 1 point if patient 15-34. Depression: Score 1 point if signs of depression are present. Previous Attempt: Score 0 point if patient has not previously attempted suicide. Substance Abuse: Score 0 point if patient does not abuse alcohol or drugs. Rational Thinking: Score 0 point if patient has rational thinking. Social Support: Score 0 if social support is present/available. Organized Plan: Score 0 if patient did not have an organized plan in place. Relationship: Score 1 point if patient is , , , or for a single male Chronic Sickness: Score 0 point if patient does not have a chronic illness, debilitating, or severe disorder. TOTAL POINTS: If total points are 3-4, proposed clinical action is close follow-up/consider hospitalization. Safety Checks: Personal items have been removed. Door is open. Visitors are present. Pt denies substance abuse. Commitment: NONE, [facility] PENDING. Vital Signs: 17:00 BP 112 / 68; Pulse 85; Resp 18 S; Temp 98.2(TE); Pulse Ox 97% on R/A; Pain 0/10; aa5 21:07 BP 123 / 73; Pulse 70; Resp 16; Temp 98.8; Pulse Ox 99% ; Pain 0/10; sh8 05/09 01:01 BP 117 / 68 RA Sitting (auto/reg); Pulse 69 RA; Resp 16 S; Temp 98.7(O); Pulse Ox 99% sh8 on R/A; Pain 0/10; 05:02 BP 107 / 69 RA Sitting (auto/reg); Pulse 71 RA; Resp 17 S; Temp 98.0(O); Pulse Ox 100% sh8 on R/A; Pain 0/10; 09:29 BP 101 / 59; Pulse 71; Resp 15; Temp 98.4; Pulse Ox 98% ; mb5 14:33 BP 125 / 67; Pulse 82; Resp 18; Temp 98.0(TE); Pulse Ox 98% on R/A; mh5 19:31 BP 97 / 58; Pulse 76; Resp 17; Temp 98.6; Pulse Ox 98% ; dg1 05/10 03:06 BP 110 / 60; Pulse 74; Resp 17; Temp 97.2; Pulse Ox 98% ; dg1 ED Course: 05/08 16:57 Patient arrived in ED. mr 16:59 Arm band placed on. aa5 17:00 Safety checks: Items removed: yes. Door open/sign placed on door: yes. Family/friend mh5 present: yes. Family/friends encouraged to stay with patient. Sitter present: Yes. 17:06 Sunny Kohli PA is PHCP. cp 17:06 Alcon Olmstead MD is Attending Physician. cp 17:07 Triage completed. aa5 17:08 Dimas Spivey, RN is Primary Nurse. bp 17:15 Safety checks: Items removed: yes. Door open/sign placed on door: yes. Family/friend mh5 present: yes. Family/friends encouraged to stay with patient. Sitter present: Yes. 17:30 Safety checks: Items removed: yes. Door open/sign placed on door: yes. Family/friend mh5 present: yes. Family/friends encouraged to stay with patient. Sitter present: Yes. 17:45 Safety checks: Items removed: yes. Door open/sign placed on door: yes. Family/friend mh5 present: yes. Family/friends encouraged to stay with patient. Sitter present: Yes. 17:48 Patient has correct armband on for positive identification. bp 18:00 Safety checks: Items removed: yes. Door open/sign placed on door: yes. Family/friend mh5 present: yes. Family/friends encouraged to stay with patient. Sitter present: Yes. 18:01 Initial lab(s) drawn, by me, sent to lab. Urine collected: clean catch specimen, clear, mh5 Amount Voided: 180mL. Inserted saline lock: 20 gauge in right antecubital area, using aseptic technique. Blood collected. 18:02 Patient has correct armband on for positive identification. Placed in gown. Bed in low mh5 position. Call light in reach. Side rails up X 1. Adult w/ patient. Warm blanket given. Diet: Patient given a regular meal tray. 18:15 Safety checks: Items removed: yes. Door open/sign placed on door: yes. Family/friend mh5 present: yes. Family/friends encouraged to stay with patient. Sitter present: Yes. 18:30 Safety checks: Items removed: yes. Door open/sign placed on door: yes. Family/friend mh5 present: yes. Family/friends encouraged to stay with patient. Sitter present: Yes. 18:45 Safety checks: Items removed: Door open/sign placed on door: yes. Family/friend mh5 present: yes. Family/friends encouraged to stay with patient. Sitter present: Yes. 19:00 Safety checks: Items removed: yes. Door open/sign placed on door: yes. Family/friend mh5 present: yes. Family/friends encouraged to stay with patient. Sitter present: Yes. 19:14 Safety checks: Items removed: yes. Door open/sign placed on door: yes. Family/friend sh8 present: yes. Sitter present: Yes. 19:18 Sunny Bone MD is Attending Physician. 19:30 Safety checks: Items removed: yes. Door open/sign placed on door: yes. Family/friend sh8 present: yes. Sitter present: Yes. 19:44 Safety checks: Items removed: yes. Door open/sign placed on door: yes. Family/friend sh8 present: yes. Sitter present: Yes. 19:58 Safety checks: Items removed: yes. Door open/sign placed on door: yes. Family/friend sh8 present: yes. Family/friends encouraged to stay with patient. Sitter present: Yes. 20:14 Safety checks: Items removed: yes. Door open/sign placed on door: yes. Family/friend sh8 present: yes. Family/friends encouraged to stay with patient. Sitter present: Yes. 20:29 Safety checks: Items removed: yes. Door open/sign placed on door: no. Family/friend sh8 present: yes. Family/friends encouraged to stay with patient. Sitter present: Yes. 20:45 Safety checks: Items removed: yes. Door open/sign placed on door: Other: restroom sh8 Family/friend present: yes. Family/friends encouraged to stay with patient. Sitter present: Yes. 21:00 Safety checks: Items removed: yes. Door open/sign placed on door: yes. Family/friend sh8 present: yes. Family/friends encouraged to stay with patient. Sitter present: Yes. 21:15 Safety checks: Items removed: yes. Door open/sign placed on door: yes. Family/friend sh8 present: yes. Family/friends encouraged to stay with patient. Sitter present: Yes. 21:15 Diet: Patient given snack. sh8 21:29 Safety checks: Items removed: yes. Door open/sign placed on door: yes. Family/friend sh8 present: yes. Family/friends encouraged to stay with patient. Sitter present: Yes. 21:44 Safety checks: Items removed: yes. Door open/sign placed on door: yes. Family/friend sh8 present: yes. Family/friends encouraged to stay with patient. Sitter present: Yes. 21:57 Safety checks: Items removed: yes. Door open/sign placed on door: yes. Family/friend sh8 present: yes. Family/friends encouraged to stay with patient. Sitter present: Yes. 22:15 Safety checks: Items removed: yes. Door open/sign placed on door: yes. Family/friend sh8 present: yes. Family/friends encouraged to stay with patient. Sitter present: Yes. 22:30 Safety checks: Items removed: yes. Door open/sign placed on door: yes. Family/friend sh8 present: yes. Family/friends encouraged to stay with patient. Sitter present: Yes. 22:44 Safety checks: Items removed: yes. Door open/sign placed on door: yes. Family/friend sh8 present: yes. Family/friends encouraged to stay with patient. Sitter present: Yes. 23:02 Safety checks: Items removed: yes. Door open/sign placed on door: yes. Family/friend sh8 present: yes. Family/friends encouraged to stay with patient. Sitter present: Yes. 23:14 Safety checks: Items removed: yes. Door open/sign placed on door: yes. Family/friend sh8 present: yes. Family/friends encouraged to stay with patient. Sitter present: Yes. 23:27 Safety checks: Items removed: yes. Door open/sign placed on door: yes. Family/friend sh8 present: yes. Family/friends encouraged to stay with patient. Sitter present: Yes. 23:42 Safety checks: Items removed: yes. Door open/sign placed on door: yes. Family/friend sh8 present: yes. Family/friends encouraged to stay with patient. Sitter present: Yes. 05/09 00:02 Safety checks: Items removed: yes. Door open/sign placed on door: yes. Family/friend sh8 present: no. Other: mother went to store, she is to return. Sitter present: Yes. 00:15 Safety checks: Items removed: yes. Door open/sign placed on door: yes. Family/friend sh8 present: no. Sitter present: Yes. 00:29 Safety checks: Items removed: yes. Door open/sign placed on door: yes. Family/friend sh8 present: yes. Family/friends encouraged to stay with patient. Sitter present: Yes. 00:44 Safety checks: Items removed: yes. Door open/sign placed on door: yes. Family/friend sh8 present: yes. Family/friends encouraged to stay with patient. Sitter present: Yes. 01:00 Safety checks: Items removed: yes. Door open/sign placed on door: yes. Family/friend sh8 present: yes. Sitter present: Yes. 01:15 Safety checks: Items removed: yes. Door open/sign placed on door: yes. Family/friend sh8 present: yes. Family/friends encouraged to stay with patient. Sitter present: Yes. 01:37 Safety checks: Items removed: yes. Door open/sign placed on door: yes. Family/friend sh8 present: yes. Family/friends encouraged to stay with patient. Sitter present: Yes. 01:45 Safety checks: Items removed: yes. Door open/sign placed on door: yes. Family/friend sh8 present: yes. Family/friends encouraged to stay with patient. Sitter present: Yes. 01:58 Safety checks: Items removed: yes. Door open/sign placed on door: yes. Family/friend sh8 present: yes. Family/friends encouraged to stay with patient. Sitter present: Yes. 02:16 Safety checks: Items removed: yes. Door open/sign placed on door: Other: restroom sh8 Family/friend present: yes. Family/friends encouraged to stay with patient. Sitter present: Yes. 02:30 Safety checks: Items removed: yes. Door open/sign placed on door: yes. Family/friend sh8 present: yes. Family/friends encouraged to stay with patient. Sitter present: Yes. 02:45 Safety checks: Items removed: yes. Door open/sign placed on door: yes. Family/friend sh8 present: yes. Family/friends encouraged to stay with patient. Sitter present: Yes. 02:56 Safety checks: Items removed: yes. Door open/sign placed on door: yes. Family/friend sh8 present: yes. Family/friends encouraged to stay with patient. Sitter present: Yes. 03:14 Safety checks: Items removed: yes. Door open/sign placed on door: yes. Family/friend sh8 present: yes. Family/friends encouraged to stay with patient. Sitter present: Yes. 03:33 Safety checks: Items removed: yes. Door open/sign placed on door: yes. Family/friend sh8 present: yes. Family/friends encouraged to stay with patient. Sitter present: Yes. 03:43 Safety checks: Items removed: yes. Door open/sign placed on door: yes. Family/friend sh8 present: yes. Sitter present: Yes. 04:00 Safety checks: Items removed: yes. Door open/sign placed on door: yes. Family/friend sh8 present: yes. Sitter present: Yes. 04:15 Safety checks: Items removed: yes. Door open/sign placed on door: yes. Family/friend sh8 present: yes. Sitter present: Yes. 04:25 Safety checks: Items removed: yes. Door open/sign placed on door: yes. Family/friend sh8 present: yes. Sitter present: Yes. 04:44 Safety checks: Items removed: yes. Door open/sign placed on door: yes. Family/friend sh8 present: yes. Sitter present: Yes. 05:01 Safety checks: Items removed: yes. Door open/sign placed on door: yes. Family/friend sh8 present: yes. Family/friends encouraged to stay with patient. Sitter present: Yes. 05:22 Safety checks: Items removed: yes. Door open/sign placed on door: yes. Family/friend sh8 present: yes. Family/friends encouraged to stay with patient. Sitter present: Yes. 05:32 Safety checks: Items removed: yes. Door open/sign placed on door: yes. Family/friend sh8 present: yes. Family/friends encouraged to stay with patient. Sitter present: Yes. 05:46 Safety checks: Items removed: yes. Door open/sign placed on door: yes. Family/friend sh8 present: yes. Sitter present: Yes. 06:00 Safety checks: Items removed: yes. Door open/sign placed on door: yes. Family/friend sh8 present: yes. Family/friends encouraged to stay with patient. Sitter present: Yes. 06:14 Safety checks: Items removed: yes. Door open/sign placed on door: yes. Family/friend sh8 present: yes. Sitter present: Yes. 06:28 Safety checks: Items removed: yes. Door open/sign placed on door: yes. Family/friend sh8 present: yes. Family/friends encouraged to stay with patient. Sitter present: Yes. 06:43 Safety checks: Items removed: yes. Door open/sign placed on door: yes. Family/friend sh8 present: yes. Family/friends encouraged to stay with patient. Sitter present: Yes. 06:59 Report given to TOMÁS Soto. cc3 07:00 Safety checks: Items removed: yes. Door open/sign placed on door: yes. Family/friend mh5 present: yes. Family/friends encouraged to stay with patient. Sitter present: Yes. 07:12 Safety checks: Items removed: Door open/sign placed on door: Family/friend present: mb5 yes. Sitter present: Yes. 07:31 Safety checks: Items removed: yes. Door open/sign placed on door: yes. Family/friend mb5 present: yes. Sitter present: Yes. 07:45 Safety checks: Items removed: yes. Door open/sign placed on door: yes. Family/friend mh5 present: yes. Family/friends encouraged to stay with patient. Sitter present: Yes. 07:56 talked to Lauren at [facility], pt is on the waiting list for [facility] beds. bd 08:00 Safety checks: Items removed: yes. Door open/sign placed on door: yes. Family/friend mb5 present: yes. Sitter present: Yes. 08:14 faxed updated assessment of wound care to [facility]. bd 08:15 Safety checks: Items removed: yes. Door open/sign placed on door: yes. Family/friend mb5 present: no. Sitter present: Yes. 08:30 Safety checks: Items removed: yes. Door open/sign placed on door: yes. Family/friend mb5 present: no. Sitter present: Yes. 08:45 Safety checks: Items removed: yes. Door open/sign placed on door: yes. Family/friend mb5 present: no. Sitter present: Yes. 09:00 Safety checks: Items removed: yes. Door open/sign placed on door: yes. Family/friend mb5 present: yes. Sitter present: Yes. 09:16 Safety checks: Items removed: yes. Door open/sign placed on door: yes. Family/friend mb5 present: yes. Sitter present: Yes. 09:30 Safety checks: Items removed: yes. Door open/sign placed on door: yes. Family/friend mb5 present: yes. Sitter present: Yes. 09:45 Safety checks: Items removed: yes. Door open/sign placed on door: yes. Family/friend mb5 present: yes. Sitter present: Yes. 10:00 Safety checks: Items removed: yes. Door open/sign placed on door: yes. Family/friend mb5 present: yes. Sitter present: Yes. 10:15 Safety checks: Items removed: yes. Door open/sign placed on door: yes. Family/friend mb5 present: no. Sitter present: Yes. 10:29 called [facility] to check status of transfer, "chart is still in bd review". 10:30 Safety checks: Items removed: yes. Door open/sign placed on door: yes. Family/friend mh5 present: yes. Family/friends encouraged to stay with patient. Sitter present: Yes. 10:37 Acetaminophen Sent. mh5 10:38 Basic Metabolic Panel Sent. 5 10:45 Safety checks: Items removed: yes. Door open/sign placed on door: yes. Family/friend mh5 present: yes. Family/friends encouraged to stay with patient. Sitter present: Yes. 11:00 Safety checks: Items removed: yes. Door open/sign placed on door: yes. Family/friend mh5 present: yes. Family/friends encouraged to stay with patient. Sitter present: Yes. 11:10 No apparent distress. Appears to be sleeping. 2 11:11 Primary Nurse role handed off by Dimas Spivey RN tw2 11:11 Anna Sánchez RN is Primary Nurse. tw2 11:15 Safety checks: Items removed: yes. Door open/sign placed on door: yes. Family/friend mh5 present: yes. Family/friends encouraged to stay with patient. Sitter present: Yes. 11:30 Safety checks: Items removed: yes. Door open/sign placed on door: yes. Family/friend mh5 present: yes. Sitter present: Yes. 11:45 Safety checks: Items removed: yes. Door open/sign placed on door: yes. Family/friend mh5 present: yes. Family/friends encouraged to stay with patient. Sitter present: Yes. 11:59 Diet: Patient given a regular meal tray. mh5 12:00 Safety checks: Items removed: yes. Door open/sign placed on door: yes. Family/friend mh5 present: yes. Family/friends encouraged to stay with patient. Sitter present: Yes. 12:15 Safety checks: Items removed: yes. Door open/sign placed on door: yes. Family/friend mh5 present: yes. Family/friends encouraged to stay with patient. Sitter present: Yes. 12:30 Safety checks: Items removed: yes. Door open/sign placed on door: yes. Family/friend mh5 present: yes. Family/friends encouraged to stay with patient. Sitter present: Yes. 12:45 Safety checks: Items removed: yes. Door open/sign placed on door: yes. Family/friend mh5 present: no. Sitter present: Yes. 13:00 Safety checks: Items removed: yes. Door open/sign placed on door: yes. Family/friend mh5 present: yes. Family/friends encouraged to stay with patient. Sitter present: Yes. 13:15 Safety checks: Items removed: yes. Door open/sign placed on door: yes. Family/friend mh5 present: yes. Family/friends encouraged to stay with patient. Sitter present: Yes. 13:30 Safety checks: Items removed: yes. Door open/sign placed on door: yes. Family/friend jp3 present: yes. Family/friends encouraged to stay with patient. Sitter present: Yes. 13:45 Safety checks: Items removed: yes. Door open/sign placed on door: yes. Family/friend jp3 present: yes. Family/friends encouraged to stay with patient. Sitter present: Yes. 13:59 Diet: Patient given snack. PATIENT SPONGE BATH ORAL CARE WITH MOM IN ROOM . mh5 14:00 Safety checks: Items removed: yes. Door open/sign placed on door: yes. Family/friend mh5 present: yes. Family/friends encouraged to stay with patient. Sitter present: Yes. 14:15 Safety checks: Items removed: yes. Safety checks: Items removed: yes. Door open/sign mh5 placed on door: yes. Family/friend present: yes. Family/friends encouraged to stay with patient. Sitter present: Yes. 14:23 contacted [facility], pt is waiting list. bd 14:30 Safety checks: Items removed: yes. Door open/sign placed on door: yes. Family/friend mh5 present: yes. Family/friends encouraged to stay with patient. Sitter present: Yes. 14:44 contacted [facility] in attempt to transfer pt. pt was denied due to no bd capacity at this time. 14:45 Safety checks: Items removed: yes. Door open/sign placed on door: yes. Family/friend mh5 present: yes. Family/friends encouraged to stay with patient. Sitter present: Yes. 15:00 Safety checks: Items removed: yes. Door open/sign placed on door: yes. Family/friend mh5 present: yes. Family/friends encouraged to stay with patient. Sitter present: Yes. 15:15 Safety checks: Items removed: yes. Door open/sign placed on door: yes. Family/friend mh5 present: yes. Family/friends encouraged to stay with patient. Sitter present: Yes. 15:30 Safety checks: Items removed: yes. Door open/sign placed on door: yes. Family/friend mh5 present: yes. Family/friends encouraged to stay with patient. Sitter present: Yes. 15:45 Safety checks: Items removed: yes. Door open/sign placed on door: yes. Family/friend mh5 present: yes. Family/friends encouraged to stay with patient. Sitter present: Yes. 16:00 Safety checks: Items removed: yes. Door open/sign placed on door: yes. Family/friend mh5 present: yes. Family/friends encouraged to stay with patient. Sitter present: Yes. 16:15 Safety checks: Items removed: yes. Door open/sign placed on door: yes. Family/friend mh5 present: yes. Family/friends encouraged to stay with patient. Sitter present: Yes. 16:30 Safety checks: Items removed: yes. Door open/sign placed on door: yes. Family/friend mh5 present: yes. Family/friends encouraged to stay with patient. Sitter present: Yes. 16:45 Safety checks: Items removed: yes. Door open/sign placed on door: yes. Family/friend mh5 present: yes. Family/friends encouraged to stay with patient. Sitter present: Yes. 17:00 Safety checks: Items removed: yes. Door open/sign placed on door: yes. Family/friend mh5 present: yes. Family/friends encouraged to stay with patient. Sitter present: Yes. 17:15 Safety checks: Items removed: yes. Door open/sign placed on door: yes. Family/friend mh5 present: yes. Family/friends encouraged to stay with patient. Sitter present: Yes. 17:30 Safety checks: Items removed: yes. Door open/sign placed on door: yes. Family/friend mh5 present: yes. Family/friends encouraged to stay with patient. Sitter present: Yes. 17:36 Diet: Patient given a regular meal tray. mh5 17:45 Safety checks: Items removed: yes. Door open/sign placed on door: yes. Family/friend mh5 present: yes. Family/friends encouraged to stay with patient. Sitter present: Yes. 18:00 Safety checks: Items removed: yes. Door open/sign placed on door: yes. Family/friend mh5 present: yes. Family/friends encouraged to stay with patient. Sitter present: Yes. 18:15 Safety checks: Items removed: yes. Door open/sign placed on door: yes. Family/friend mh5 present: yes. Family/friends encouraged to stay with patient. Sitter present: Yes. 18:30 Safety checks: Items removed: yes. Door open/sign placed on door: yes. Family/friend mh5 present: yes. Family/friends encouraged to stay with patient. Sitter present: Yes. 18:45 Safety checks: Items removed: yes. Door open/sign placed on door: yes. Family/friend mh5 present: yes. Family/friends encouraged to stay with patient. Sitter present: Yes. 18:59 Safety checks: Items removed: yes. Door open/sign placed on door: yes. Family/friend mh5 present: yes. Family/friends encouraged to stay with patient. Sitter present: Yes. 19:00 Report given to TOMÁS Cristobal. tw2 19:03 Safety checks: Items removed: yes. Door open/sign placed on door: yes. Family/friend lt1 present: yes. Sitter present: Yes. 19:05 Safety checks: Items removed: yes. Door open/sign placed on door: yes. Family/friend lt1 present: yes. Sitter present: Yes. 19:08 Safety checks: Items removed: yes. Door open/sign placed on door: yes. Family/friend dg1 present: yes. Sitter present: Yes. 19:15 Safety checks: Items removed: yes. Door open/sign placed on door: yes. Family/friend dg1 present: yes. Sitter present: Yes. 19:20 Safety checks: Items removed: yes. Door open/sign placed on door: yes. Family/friend dg1 present: yes. Sitter present: Yes. 19:30 Safety checks: Items removed: yes. Door open/sign placed on door: yes. Family/friend dg1 present: yes. Sitter present: Yes. 19:45 Safety checks: Items removed: yes. Door open/sign placed on door: yes. Family/friend dg1 present: yes. Sitter present: Yes. 20:00 Safety checks: Items removed: yes. Door open/sign placed on door: yes. Family/friend dg1 present: yes. Sitter present: Yes. 20:15 Safety checks: Items removed: yes. Door open/sign placed on door: yes. Family/friend dg1 present: yes. Sitter present: Yes. 20:30 Safety checks: Items removed: yes. Door open/sign placed on door: yes. Family/friend dg1 present: yes. Sitter present: Yes. 21:00 Safety checks: Items removed: yes. Door open/sign placed on door: Family/friend dg1 present: yes. Sitter present: Yes. 22:00 Safety checks: Items removed: yes. Door open/sign placed on door: yes. no. dg1 Family/friend present: yes. Sitter present: Yes. 22:45 Safety checks: Items removed: yes. Door open/sign placed on door: no. Family/friend dg1 present: yes. Sitter present: Yes. 23:30 Safety checks: Items removed: yes. Door open/sign placed on door: no. Family/friend dg1 present: yes. Sitter present: Yes. 05/10 00:15 Safety checks: Items removed: yes. Door open/sign placed on door: no. Family/friend dg1 present: yes. Sitter present: Yes. 01:00 Safety checks: Items removed: yes. Door open/sign placed on door: no. Family/friend dg1 present: yes. Sitter present: Yes. 01:15 Safety checks: Items removed: yes. Door open/sign placed on door: no. Family/friend dg1 present: yes. Sitter present: Yes. 01:30 Safety checks: Items removed: yes. Door open/sign placed on door: no. Family/friend dg1 present: yes. Sitter present: Yes. 02:00 Safety checks: Items removed: yes. Door open/sign placed on door: no. Family/friend dg1 present: yes. Sitter present: Yes. 02:30 Safety checks: Items removed: yes. Door open/sign placed on door: no. Family/friend dg1 present: yes. Sitter present: Yes. 03:00 Safety checks: Items removed: yes. Door open/sign placed on door: no. Family/friend dg1 present: yes. Sitter present: Yes. 04:08 Safety checks: Items removed: yes. Door open/sign placed on door: no. Family/friend dg1 present: yes. Sitter present: Yes. 04:30 Safety checks: Items removed: yes. Door open/sign placed on door: no. Family/friend dg1 present: yes. Sitter present: Yes. 05:00 Safety checks: Items removed: yes. Door open/sign placed on door: no. Family/friend dg1 present: yes. Sitter present: Yes. 05:30 Safety checks: Items removed: yes. Door open/sign placed on door: no. Family/friend dg1 present: yes. Sitter present: Yes. 07:45 Safety checks: Door open/sign placed on door: yes. Safety checks: Items removed: yes. mb4 Family/friend present: no. Sitter present: Yes. 08:28 Safety checks: Items removed: yes. Door open/sign placed on door: yes. Family/friend mb4 present: yes. Sitter present: Yes. 08:52 contacted [facility], pt is still on waiting list, "no [facility] beds at this bd time" per Lauren. 08:54 contacted [facility], " they have no beds at this time, waiting on discharges, bd but they are not sure when that will happen, pt is still on waiting list" per Ervin. 09:10 Safety checks: Items removed: yes. Door open/sign placed on door: yes. Family/friend mb4 present: yes. Sitter present: Yes. 09:21 Diet: delivered to room. patient still sleeping.. mb4 09:41 Safety checks: Items removed: yes. Door open/sign placed on door: yes. Family/friend mb4 present: yes. Sitter present: Yes. 10:27 Safety checks: Items removed: yes. Door open/sign placed on door: yes. Family/friend mb4 present: yes. Sitter present: Yes. 11:08 Safety checks: Items removed: yes. Door open/sign placed on door: yes. Family/friend mb4 present: no. Sitter present: Yes. 11:18 Attending Physician role handed off by Sunny Bone MD rn 11:18 Alcon Olmstead MD is Attending Physician. rn 11:20 Safety checks: Family/friend present: yes. mb4 11:40 Safety checks: Items removed: yes. Door open/sign placed on door: yes. Family/friend mb4 present: yes. Sitter present: Yes. 12:00 Safety checks: Items removed: yes. Door open/sign placed on door: yes. Family/friend mb4 present: yes. Sitter present: Yes. 12:45 Safety checks: Items removed: yes. Door open/sign placed on door: yes. Family/friend mb4 present: yes. Sitter present: Yes. Diet tray given. Verbal reassurance given. 13:11 Safety checks: Items removed: yes. Door open/sign placed on door: yes. Family/friend mb4 present: yes. Sitter present: Yes. 13:39 Safety checks: Items removed: yes. Door open/sign placed on door: yes. Family/friend mb4 present: yes. Sitter present: Yes. 14:01 Safety checks: Items removed: yes. Door open/sign placed on door: yes. Family/friend mb4 present: yes. Sitter present: Yes. 14:06 pt accepted at [facility], admin approval given by Greg Arias. bd 14:40 No provider procedures requiring assistance completed. IV discontinued. hj Administered Medications: 05/08 20:10 Drug: Tylenol 1000 mg Route: PO; cc3 21:17 Follow up: Response: No adverse reaction; Pain is decreased cc3 Outcome: 05/09 02:05 ER care complete, transfer ordered by MD. smith 05/10 14:40 Transferred by ground EMS Transfer form completed. X-rays sent w/ patient. hj Condition: stable 14:41 Patient left the ED. hj Signatures: Yissel Andrade Neff, Aida Campos, Roma, RN RN iw Alcon Olmstead MD MD rn Calderon, Audri RN RN aa5 Mj Whitaker RN RN hj Page, Corey, PA PA cp Barber, Rebecca, RN RN rb1 Anna Sánchez RN RN tw2 Chela Quigley 5 Dimas Spivey RN RN bp Taiwo Mccord jp3 Teresita Lawton dg1 Cecilia Cochran mb4 Rosa Davila cc3 Willa Wilkins lt1 Anthony Beltran RN RN tr5 Sydnee Tripathi mb5 Chanel Ramirez 8 Corrections: (The following items were deleted from the chart) 05/08 17: 17:05 Presenting complaint: Mother states: "she saw her therapist today and they said aa5 that she is getting worse and that she was talking about being done with her life and wanting to kill herself and she's been cutting herself". Pt's mother states "she's been off her meds for about a year" [facility] 17: [facility]05 Risk Assessment: Do you want to hurt yourself or someone else? Patient reports aa5 desire/thoughts of hurting themselves or someone else. Provider notified. [facility] 17: 17:05 Initial Sepsis Screen: Does the patient meet any 2 criteria? No. [facility]. Does the patient have a suspected source of infection? No. Patient's initial sepsis screen is negative. [facility] 17: 17:05 Onset of symptoms was May 08, 2019 [place] [id number] 17:07 17:05 Transition of care: patient was not received from another setting of care. [place] [address] 17:07 17:05 Care prior to arrival: None. [place] [address] 17:07 17:05 Acuity: ANU 2 [place] [address] 17:07 17:05 Method Of Arrival: Ambulatory [place] [address] 20:47 20:11 Reassessment: Patient appears in no apparent distress at this time. Patient cc3 and/or family updated on plan of care and expected duration. Pain level reassessed. Patient is alert, oriented x 3, equal unlabored respirations, skin warm/dry/pink. cc3 21:19 19:20 Reassessment: Patient appears in no apparent distress at this time. Patient cc3 and/or family updated on plan of care and expected duration. Pain level reassessed. Patient is alert, oriented x 3, equal unlabored respirations, skin warm/dry/pink. Received this female patient from morning shift RN Dimas as a case of suicidal ideation with IV cannula gauge 20 at the right ACV saline locked. cc3 21:22 17:08 Home Meds: None; aa5 cc3 05/09 01: 00:11 Reassessment: Patient appears in no apparent distress at this time. Patient cc3 and/or family updated on plan of care and expected duration. Pain level reassessed. Patient is alert, oriented x 3, equal unlabored respirations, skin warm/dry/pink. Staff from [facility] called and said they need the exclusionary of the patient to be faxed to them and the H\\T\\P that was faxed to them was incomplete so ED telecommunications clerkcarmen Esposito informed. Patient denies pain at this time. cc3 05/08 19:20 Reassessment: Patient appears in no apparent distress at this time. Patient cc3 and/or family updated on plan of care and expected duration. Pain level reassessed. Patient is alert, oriented x 3, equal unlabored respirations, skin warm/dry/pink. Received this female patient from morning shift RN Dimas as a case of suicidal ideation with IV cannula gauge 20 at the right ACV saline locked. cc3 05/09 01:05/08 20:09 Reassessment: Patient appears in no apparent distress at this time. Patient cc3 and/or family updated on plan of care and expected duration. Pain level reassessed. Patient is alert, oriented x 3, equal unlabored respirations, skin warm/dry/pink. Patient complains of headache, PA Page informed. cc3 05/09 01:05/08 21:17 Reassessment: Patient appears in no apparent distress at this time. Patient cc3 and/or family updated on plan of care and expected duration. Pain level reassessed. Patient is alert, oriented x 3, equal unlabored respirations, skin warm/dry/pink. Patient denies pain at this time. Patient states feeling better. Patient states symptoms have improved. cc3 05/09 01:05/08 22:17 Reassessment: Patient appears in no apparent distress at this time. Patient cc3 and/or family updated on plan of care and expected duration. Pain level reassessed. Patient is alert, oriented x 3, equal unlabored respirations, skin warm/dry/pink. Patient denies pain at this time. cc3 05/09 01:33 00:11 Reassessment: Patient appears in no apparent distress at this time. Patient cc3 and/or family updated on plan of care and expected duration. Pain level reassessed. Patient is alert, oriented x 3, equal unlabored respirations, skin warm/dry/pink. Staff from [facility] called and said they need the exclusionary of the patient to be faxed to them and the H\\T\\P that was faxed to them was incomplete so ED telecommunications clerk Cate and charge nurse Susu informed. Patient denies pain at this time. cc3 05/08 23:12 Reassessment: Patient appears in no apparent distress at this time. Patient cc3 and/or family updated on plan of care and expected duration. Pain level reassessed. Patient is alert, oriented x 3, equal unlabored respirations, skin warm/dry/pink. Patient denies pain at this time. cc3 05/10 14:18 09:09 Safety checks: Items removed: yes. Door open/sign placed on door: yes. mb4 Family/friend present: yes. Sitter present: Yes. mb4
--- NOTE | 2019-05-09 07:27 | EKG ---
Test Date: 2019-05-08 Test Time: 17:27:54 Nursery Nurse: SARAH MEASUREMENT RESULTS: Intervals: Rate: 78 TX: 152 QRSD: 80 QT: 368 QTc: 419 [place]: P: 62 TX: 152 QRS: 39 T: 38 INTERPRETIVE STATEMENTS: Normal sinus rhythm Normal ECG Compared to ECG 05/24/2018 20:36:59 No significant changes Electronically Signed On 05-09-19 07:26:05 CDT by Raphael Valdovinos
== END 2019-05-10 14:41 ==
LOC: ER 16:55
DX: R45.851 Suicidal ideations (principal); F41.8 Other specified anxiety disorders; F17.210 Nicotine dependence, cigarettes, uncomplicated; Z91.09 Other allergy status, other than to drugs and biological substances
CPT/HCPCS: 36415; 80048; 80076; 80307; 80320; 80329; 81003; 81025; 85025; 85610; 85730; 93005

== ENCOUNTER 2019-07-14 11:55 | Emergency (ER) | payer SELFPAY ==
[2019-07-14] MEDS ORDERED: METOCLOPRAMIDE 10 MG/2mL INJ ONE (12:44)
[2019-07-14] MEDS ORDERED: KETOROLAC 30 MG/ML INJ ONE (12:44)
[2019-07-14] MEDS ORDERED: NA CHLORIDE 0.9% 1,000 ML ONE (12:44)
--- NOTE | 2019-07-14 13:42 | ER ---
Nurse's Notes [facility] Name: Wilber mAos Age: 24 yrs Sex: Female : 1995 Arrival Date: 07/14/2019 Time: 11:56 Bed 13 Private MD: None, None Diagnosis: Acute upper respiratory infection, unspecified;Nausea with vomiting, unspecified;Diarrhea, unspecified Presentation: 07/14 12:20 Presenting complaint: Patient states: flu like symptoms. my sibling had it as well. sore throat, nausea vomiting, headache, diarrhea, body aches, chills. Transition of care: patient was not received from another setting of care. Onset of symptoms was July 11, 2019. Risk Assessment: Do you want to hurt yourself or someone else? Patient reports no desire to harm self or others. Initial Sepsis Screen: Does the patient meet any 2 criteria? No. Patient's initial sepsis screen is negative. Does the patient have a suspected source of infection? No. Patient's initial sepsis screen is negative. Care prior to arrival: None. 12:35 Method Of Arrival: Ambulatory 12:35 Acuity: ANU 3 Triage Assessment: 12:39 Headache History: The patient has had previous headaches and this one is similar to previous episodes. General: Appears in no apparent distress. comfortable, Behavior is calm, cooperative, quiet. Pain: Complains of pain in generalized Pain currently is 6 out of 10 on a pain scale. Pain began suddenly, Also complains of no other associated symptoms. Neuro: Level of Consciousness is. Respiratory: Airway is patent Respiratory effort is even, unlabored, Breath sounds are clear bilaterally. GI: Reports diarrhea, nausea, vomiting. Derm: Skin is pale. 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 - Social history:: Smoking status: Patient/guardian denies using tobacco. - Ebola Screening: : Patient negative for fever greater than or equal to 101.5 degrees Fahrenheit, and additional compatible Ebola Virus Disease symptoms Patient denies exposure to infectious person Patient denies travel to an Ebola-affected area in the 21 days before illness onset No symptoms or risks identified at this time. Screenin:46 Abuse screen: Denies threats or abuse. Denies injuries from another. Nutritional ch screening: No deficits noted. Tuberculosis screening: No symptoms or risk factors identified. Fall Risk None identified. Assessment: 12:59 Reassessment: Patient appears in no apparent distress at this time. Patient and/or ch family updated on plan of care and expected duration. Pain level reassessed. Patient is alert, oriented x 3, equal unlabored respirations, skin warm/dry/pink. Pain: Complains of pain in head. 13:49 Reassessment: Patient appears in no apparent distress at this time. Patient and/or ch family updated on plan of care and expected duration. Pain level reassessed. Patient is alert, oriented x 3, equal unlabored respirations, skin warm/dry/pink. Patient states feeling better. Patient states symptoms have improved. 14:38 Reassessment: Patient appears in no apparent distress at this time. Patient and/or ch family updated on plan of care and expected duration. Pain level reassessed. Patient is alert, oriented x 3, equal unlabored respirations, skin warm/dry/pink. Patient states feeling better. Patient states symptoms have improved. Vital Signs: 12:39 BP 92 / 59; Pulse 84; Resp 16; Temp 98.8; Pulse Ox 99% on R/A; Pain 6/10; ch 12:42 BP 99 / 66 LA Supine; Pulse 76; ch 12:44 BP 100 / 55 Sitting; Pulse 86; ch 12:46 BP 92 / 42 LA Standing; Pulse 104; ch 13:49 BP 92 / 66; Pulse 74; Resp 16; Temp 98.3; Pulse Ox 99% on R/A; Pain 2/10; ch 14:38 BP 102 / 62; Pulse 64; Resp 16; Temp 98.1; Pulse Ox 99% on R/A; Pain 3/10; ch ED Course: 11:56 Patient arrived in ED. ag5 11:56 None, None is Private Physician. ag5 12:08 Tania Lamb FNP-C is [facility]. kb 12:09 Yoel Sanderson MD is Attending Physician. kb 12:35 Lizbeth Tesfaye, RN is Primary Nurse. ch 12:36 Triage completed. ch 12:39 Arm band placed on left wrist. Patient placed in an exam room, on a stretcher, on pulse ch oximetry. 12:41 Inserted saline lock: 20 gauge in right antecubital area, using aseptic technique. ch 12:46 No apparent distress. Resting quietly. ch 12:46 Patient has correct armband on for positive identification. Bed in low position. Call light in reach. Side rails up X 1. Pulse ox on. NIBP on. Door closed. Noise minimized. Lights dimmed. Warm blanket given. PO fluids given. Verbal reassurance given. 12:46 No provider procedures requiring assistance completed. ch 14:38 IV discontinued, intact, bleeding controlled, No redness/swelling at site. Pressure ch dressing applied. Administered Medications: 12:40 Drug: TORadol - Ketorolac 15 mg Route: IVP; Site: right antecubital; ch 13:48 Follow up: Response: No adverse reaction ch 12:56 Drug: NS 0.9% 1000 ml Route: IV; Rate: 1000 ml; Site: right antecubital; ch 13:48 Follow up: Response: No adverse reaction; pt had her arm bent, fluids are not finished ch yet. fluids placed to pressure bag and pt educated 14:40 Follow up: IV Status: Completed infusion; IV Intake: 1000ml ch 12:56 Drug: Reglan 10 mg Route: IVP; Site: right antecubital; ch 13:48 Follow up: Response: No adverse reaction ch Intake: 14:40 IV: 1000ml; Total: 1000ml. ch Outcome: 13:41 Discharge ordered by . kb 14:38 Discharged to home ambulatory. ch 14:38 Condition: improved 14:38 Discharge instructions given to patient, Instructed on discharge instructions, follow up and referral plans. medication usage, Demonstrated understanding of instructions, follow-up care, medications, Prescriptions given X 2. 14:40 Patient left the ED. ch Signatures: Tania Lamb FNP-C FNP-Lizbeth Cazares, RN RN Patti Orr ag5
--- NOTE | 2019-07-14 13:42 | EDPHYS ---
Physician Documentation [facility] Name: Wilber Amos Age: 24 yrs Sex: Female : 1995 Arrival Date: 07/14/2019 Time: 11:56 Bed 13 Private MD: None, None ED Physician Yoel Sanderson HPI: 07/14 13:33 This 24 yrs old Female presents to ER via Ambulatory with complaints of kb Fever, Headache, Nausea/Vomiting/Diarrhea. 13:37 The patient or guardian reports cough, flu symptoms, arthralgias, low-grade fever, kb myalgias. Onset: The symptoms/episode began/occurred 3 day(s) ago. Severity of symptoms: At their worst the symptoms were moderate, in the emergency department the symptoms are unchanged. Modifying factors: The symptoms are alleviated by nothing, the symptoms are aggravated by nothing. Associated signs and symptoms: Pertinent positives: diarrhea, fever, nausea, rhinorrhea, sore throat, vomiting, Pertinent negatives: chest pain, ear ache. The patient has not experienced similar symptoms in the past. The patient has not recently seen a physician. Pt reports siblings have been sick with similar symptoms as well. Pt reports cough, congestion, sore throat, fever, chills, n/v/d and a migraine. 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 - Social history:: Smoking status: Patient/guardian denies using tobacco. - Ebola Screening: : Patient negative for fever greater than or equal to 101.5 degrees Fahrenheit, and additional compatible Ebola Virus Disease symptoms Patient denies exposure to infectious person Patient denies travel to an Ebola-affected area in the 21 days before illness onset No symptoms or risks identified at this time. ROS: 13:33 Neck: Negative for injury, pain, and swelling, Cardiovascular: Negative for chest pain, kb palpitations, and edema, Back: Negative for injury and pain, : Negative for injury, bleeding, discharge, and swelling, MS/Extremity: Negative for injury and deformity, Skin: Negative for injury, rash, and discoloration. 13:33 Constitutional: Positive for body aches, chills, fatigue, fever, malaise. 13:33 ENT: Positive for rhinorrhea, sore throat. 13:33 Respiratory: Positive for cough, Negative for dyspnea on exertion, hemoptysis, orthopnea, pleurisy, shortness of breath, sputum production, wheezing. 13:33 Abdomen/GI: Positive for nausea, vomiting, and diarrhea. Exam: 13:37 Constitutional: This is a well developed, well nourished patient who is awake, alert, kb and in no acute distress. Head/Face: Normocephalic, atraumatic. ENT: Nares patent. No nasal discharge, no septal abnormalities noted. Tympanic membranes are normal and external auditory canals are clear. Oropharynx with no redness, swelling, or masses, exudates, or evidence of obstruction, uvula midline. Mucous membranes moist. Neck: Trachea midline, no thyromegaly or masses palpated, and no cervical lymphadenopathy. Supple, full range of motion without nuchal rigidity, or vertebral point tenderness. No Meningismus. Chest/axilla: Normal chest wall appearance and motion. Nontender with no deformity. No lesions are appreciated. Cardiovascular: Regular rate and rhythm with a normal S1 and S2. No gallops, murmurs, or rubs. Normal PMI, no JVD. No pulse deficits. Respiratory: Lungs have equal breath sounds bilaterally, clear to auscultation and percussion. No rales, rhonchi or wheezes noted. No increased work of breathing, no retractions or nasal flaring. Abdomen/GI: Soft, non-tender, with normal bowel sounds. No distension or tympany. No guarding or rebound. No evidence of tenderness throughout. Back: No spinal tenderness. No costovertebral tenderness. Full range of motion. Skin: Warm, dry with normal turgor. Normal color with no rashes, no lesions, and no evidence of cellulitis. MS/ Extremity: Pulses equal, no cyanosis. Neurovascular intact. Full, normal range of motion. Neuro: Awake and alert, GCS 15, oriented to person, place, time, and situation. Cranial nerves II-XII grossly intact. Motor strength 5/5 in all extremities. Sensory grossly intact. Cerebellar exam normal. Normal gait. Vital Signs: 12:39 BP 92 / 59; Pulse 84; Resp 16; Temp 98.8; Pulse Ox 99% on R/A; Pain 6/10; ch 12:42 BP 99 / 66 LA Supine; Pulse 76; ch 12:44 BP 100 / 55 Sitting; Pulse 86; ch 12:46 BP 92 / 42 LA Standing; Pulse 104; ch 13:49 BP 92 / 66; Pulse 74; Resp 16; Temp 98.3; Pulse Ox 99% on R/A; Pain 2/10; ch 14:38 BP 102 / 62; Pulse 64; Resp 16; Temp 98.1; Pulse Ox 99% on R/A; Pain 3/10; ch MDM: 12:17 Patient medically screened. kb 13:37 Data reviewed: vital signs, nurses notes. Data interpreted: Pulse oximetry: on room air kb is 99 %. Interpretation: normal. 13:37 Counseling: I had a detailed discussion with the patient and/or guardian regarding: the kb historical points, exam findings, and any diagnostic results supporting the discharge/admit diagnosis, lab results, the need for outpatient follow up, a family practitioner, to return to the emergency department if symptoms worsen or persist or if there are any questions or concerns that arise at home. 07/14 12:25 Order name: Flu; Complete Time: 13:20 kb 07/14 12:25 Order name: Strep; Complete Time: 12:46 kb 07/14 12:25 Order name: Addison Screen Profile; Complete Time: 13:20 kb 07/14 12:47 Order name: Throat Culture EDMS 07/14 12:25 Order name: IV Start; Complete Time: 12:35 kb Administered Medications: 12:40 Drug: TORadol - Ketorolac 15 mg Route: IVP; Site: right antecubital; ch 13:48 Follow up: Response: No adverse reaction ch 12:56 Drug: NS 0.9% 1000 ml Route: IV; Rate: 1000 ml; Site: right antecubital; ch 13:48 Follow up: Response: No adverse reaction; pt had her arm bent, fluids are not finished ch yet. fluids placed to pressure bag and pt educated 14:40 Follow up: IV Status: Completed infusion; IV Intake: 1000ml 12:56 Drug: Reglan 10 mg Route: IVP; Site: right antecubital; 13:48 Follow up: Response: No adverse reaction Disposition: 15:11 Co-signature as Attending Physician, Yoel Sanderson MD I agree with the assessment and kdr plan of care. Disposition: 07/14/19 13:41 Discharged to Home. Impression: Acute upper respiratory infection, unspecified, Nausea with vomiting, unspecified, Diarrhea, unspecified. - Condition is Stable. - Discharge Instructions: Viral Gastroenteritis, Adult, [id number], Upper Respiratory Infection, Adult, [id number], Viral Respiratory Infection, [id number]. - Prescriptions for Zofran 4 mg Oral Tablet - take 1 tablet by ORAL route every 6 hours As needed; 20 tablet. Bentyl 20 mg Oral Tablet - take 1 tablet by ORAL route every 6 hours As needed; 20 tablet. - Medication Reconciliation Form, Thank You Letter, Antibiotic Education, Prescription Opioid Use, Work release form form. - Follow up: Emergency Department; When: As needed; Reason: Worsening of condition. Follow up: Private Physician; When: 2 - 3 days; Reason: Recheck today's complaints, Continuance of care, Re-evaluation by your physician. Signatures: Dispatcher [employer] EDTania Montemayor, JOSELUIS-C STITCH RUBBER-Lizbeth Cazares, RN RN Yoel Calderon MD MD [facility] Corrections: (The following items were deleted from the chart) 13:43 13:41 07/14/2019 13:41 Discharged to Home. Impression: Acute upper respiratory kb infection, unspecified. Condition is Stable. Forms are Medication Reconciliation Form, Thank You Letter, Antibiotic Education, Prescription Opioid Use. Follow up: Emergency Department; When: As needed; Reason: Worsening of condition. Follow up: Private Physician; When: 2 - 3 days; Reason: Recheck today's complaints, Continuance of care, Re-evaluation by your physician. 14:40 13:43 07/14/2019 13:41 Discharged to Home. Impression: Acute upper respiratory ch infection, unspecified; Nausea with vomiting, unspecified; Diarrhea, unspecified. Condition is Stable. Discharge Instructions: Upper Respiratory Infection, Adult, [id number], Viral Respiratory Infection, Vftw-Sx-[id number], Viral Gastroenteritis, Adult, [id number]. Prescriptions for Zofran 4 mg Oral Tablet - take 1 tablet by ORAL route every 6 hours As needed; 20 tablet, Bentyl 20 mg Oral Tablet - take 1 tablet by ORAL route every 6 hours As needed; 20 tablet. and Forms are Medication Reconciliation Form, Thank You Letter, Antibiotic Education, Prescription Opioid Use. Follow up: Emergency Department; When: As needed; Reason: Worsening of condition. Follow up: Private Physician; When: 2 - 3 days; Reason: Recheck today's complaints, Continuance of care, Re-evaluation by your physician. kb
[2019-07-14 14:51] VITALS: O2SAT 99
[2019-07-14 14:57] VITALS: BP 102/62; TEMP 98.1
== END 2019-07-14 14:40 | disposition home or self-care (01) ==
LOC: ER 11:55
DX: J06.9 Acute upper respiratory infection, unspecified (principal); R11.2 Nausea with vomiting, unspecified; R19.7 Diarrhea, unspecified; F41.9 Anxiety disorder, unspecified; F32.9 Major depressive disorder, single episode, unspecified; Z88.8 Allergy status to other drugs, medicaments and biological substances; Z91.048 Other nonmedicinal substance allergy status
CPT/HCPCS: 36415; 86308; 87070; 87081; 87804; 96361; 96374; 96375; 99284; J2765; J7030

== ENCOUNTER 2019-07-22 21:16 | Emergency (ER) | payer SELFPAY ==
[2019-07-22] MEDS ORDERED: ONDANSETRON 4 MG (ODT) TAB ONE (22:27)
[2019-07-22 22:44] LABS: Urine Blood NEGATIVE (NEG); Urine Glucose NEGATIVE (NEG); Urine Protein NEGATIVE (NEG)
--- NOTE | 2019-07-22 23:17 | ER ---
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 Transition of care: patient was not received from another setting of care. Onset of symptoms is unknown. Risk Assessment: Do you want to hurt yourself or someone else? Patient reports no desire to harm self or others. Initial Sepsis Screen: Does the patient meet any 2 criteria? No. Patient's initial sepsis screen is negative. Does the patient have a suspected source of infection? No. Patient's initial sepsis screen is negative. Care prior to arrival: None. 21:27 Method Of Arrival: Ambulatory ak1 21:27 Acuity: ANU 3 ak1 Triage Assessment: 21:26 General: Appears in no apparent distress. ak1 22:18 General: Behavior is calm, cooperative, appropriate for age. Pain: Denies pain. GI: cc3 Reports nausea, vomiting, since 3 weeks. 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 - Social history:: Smoking status: Patient uses tobacco products, denies chronic smoking, but will smoke occasionally. - Ebola Screening: : No symptoms or risks identified at this time. Screenin:18 Abuse screen: Denies threats or abuse. Denies injuries from another. Nutritional cc3 screening: No deficits noted. Tuberculosis screening: No symptoms or risk factors identified. Fall Risk Ambulatory Aid- None/Bed Rest/Nurse Assist (0 pts). Gait- Normal/Bed Rest/Wheelchair (0 pts) Mental Status- Oriented to own ability (0 pts). Assessment: 22:18 General: Appears in no apparent distress. uncomfortable, Behavior is calm, cooperative, cc3 appropriate for age. Pain: Denies pain. Neuro: Level of Consciousness is awake, alert, obeys commands, Oriented to person, place, time, situation, Appropriate for age. Cardiovascular: Denies chest pain, Heart tones S1 S2 present Capillary refill < 3 seconds in bilateral fingers Patient's skin is warm and dry. Respiratory: Airway is patent Respiratory effort is even, unlabored, Respiratory pattern is regular, symmetrical, Breath sounds are clear bilaterally. GI: Abdomen is round non-distended, Bowel sounds present X 4 quads. Abd is soft and non tender X 4 quads. : No signs and/or symptoms were reported regarding the genitourinary system. EENT: No signs and/or symptoms were reported regarding the EENT system. Derm: Skin is intact, is healthy with good turgor, Skin is pink, warm \T\ dry. normal. Musculoskeletal: Circulation, motion, and sensation intact. Range of motion: intact in all extremities. 23:25 Reassessment: Patient appears in no apparent distress at this time. Patient and/or cc3 family updated on plan of care and expected duration. Pain level reassessed. Patient is alert, oriented x 3, equal unlabored respirations, skin warm/dry/pink. PA Page discharged the patient home with prescriptions given. No IV cannula in situ. Patient left ER vitally stable and ambulatory. NO valuables left in the patient's room. Patient denies pain at this time. Patient states feeling better. Patient states symptoms have improved. Vital Signs: 21:26 BP 115 / 79; Pulse 86; Resp 16; Temp 98.3; Pulse Ox 100% on R/A; Weight 92.08 kg (R); ak1 Height 5 ft. 6 in. (167.64 cm) (R); Pain 7/10; 22:20 BP 112 / 77; Pulse 85; Resp 15 S; Pulse Ox 100% on R/A; cc3 23:13 BP 118 / 73; Pulse 81; Resp 15 S; Pulse Ox 100% on R/A; Pain 0/10; cc3 21:26 Body Mass Index 32.76 (92.08 kg, 167.64 cm) ak1 ED Course: 21:19 Patient arrived in ED. ds1 21:27 Arm band placed on Patient placed in waiting room, Patient notified of wait time. ak1 21:28 Triage completed. ak1 22:05 Sunny Kohli PA is PHCP. cp 22:05 Sunny Bone MD is Attending Physician. cp 22:18 Rosa Davila is Primary Nurse. cc3 22:18 Patient has correct armband on for positive identification. Bed in low position. Call cc3 light in reach. Side rails up X 1. Pulse ox on. NIBP on. 23:16 Fausto Tao MD is Referral Physician. cp 23:25 No provider procedures requiring assistance completed. Patient did not have IV access cc3 during this emergency room visit. Administered Medications: 22:25 Drug: Zofran 4 mg Route: PO; cc3 23:00 Follow up: Response: No adverse reaction; Nausea is decreased; Vomiting decreased cc3 Outcome: 23:16 Discharge ordered by MD. cp 23:25 Discharged to home ambulatory. cc3 23:25 Condition: stable 23:25 Discharge instructions given to patient, Instructed on discharge instructions, follow up and referral plans. medication usage, Demonstrated understanding of instructions, follow-up care, medications, Prescriptions given X 2. 23:29 Patient left the ED. cc3 Signatures: Laney Carias ds1 Monique Bolton, RN RN ak1 Sunny Kohli PA PA cp Rosa Davila cc3
--- NOTE | 2019-07-22 23:17 | EDPHYS ---
Physician Documentation [facility] Name: Wilber Amos Age: 24 yrs Sex: Female : 1995 Arrival Date: 07/22/2019 Time: 21:19 Bed 17 Private MD: ED Physician Sunny Bone HPI: 07/22 22:13 This 24 yrs old Female presents to ER via Ambulatory with complaints of cp Vomiting. 22:13 The patient presents to the emergency department with vomiting, that is intermittent, cp described as bilious. Onset: The symptoms/episode began/occurred 3 week(s) ago. Possible causes: unknown. Associated signs and symptoms: Pertinent positives: headache, Pertinent negatives: diarrhea, fever, GI bleeding. 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 - Social history:: Smoking status: Patient uses tobacco products, denies chronic smoking, but will smoke occasionally. - Ebola Screening: : No symptoms or risks identified at this time. ROS: 22:15 Constitutional: Negative for body aches, chills, fever, poor PO intake. cp 22:15 Eyes: Negative for injury, pain, redness, and discharge. cp 22:15 Cardiovascular: Negative for chest pain, palpitations. 22:15 Respiratory: Negative for cough, shortness of breath, wheezing. 22:15 Abdomen/GI: Positive for abdominal pain, nausea and vomiting, Negative for diarrhea, constipation, hematemesis, black/tarry stool, rectal bleeding. 22:15 Back: Negative for pain at rest, pain with movement, radiated pain. 22:15 : Negative for urinary symptoms. 22:15 Neuro: Negative for altered mental status, headache, weakness. 22:15 All other systems are negative. Exam: 22:20 Constitutional: The patient appears in no acute distress, alert, awake, comfortable, cp non-toxic, well developed, well nourished. 22:20 Head/Face: Normocephalic, atraumatic. cp 22:20 Eyes: Periorbital structures: appear normal, Conjunctiva: normal, no exudate, no injection, Sclera: no appreciated abnormality, Lids and lashes: appear normal, bilaterally. 22:20 ENT: External ear(s): are unremarkable, Nose: is normal, Mouth: Lips: moist, Oral mucosa: pink and intact, moist, Posterior pharynx: is normal, airway is patent, no erythema, no exudate. 22:20 Chest/axilla: Inspection: normal, Palpation: is normal, no crepitus, no tenderness. 22:20 Cardiovascular: Rate: normal, Rhythm: regular. 22:20 Respiratory: the patient does not display signs of respiratory distress, Respirations: normal, no use of accessory muscles, no retractions, no splinting, no tachypnea, labored breathing, is not present, Breath sounds: are clear throughout, no decreased breath sounds, no stridor, no wheezing. 22:20 Abdomen/GI: Inspection: abdomen appears normal, Bowel sounds: active, all quadrants, Palpation: soft, in all quadrants, mild abdominal tenderness, in the epigastric area, rebound tenderness, is not appreciated, involuntary guarding, is not appreciated. 22:20 Back: pain, is absent, ROM is normal. 22:20 Skin: no rash present. Vital Signs: 21:26 BP 115 / 79; Pulse 86; Resp 16; Temp 98.3; Pulse Ox 100% on R/A; Weight 92.08 kg (R); ak1 Height 5 ft. 6 in. (167.64 cm) (R); Pain 7/10; 22:20 BP 112 / 77; Pulse 85; Resp 15 S; Pulse Ox 100% on R/A; cc3 23:13 BP 118 / 73; Pulse 81; Resp 15 S; Pulse Ox 100% on R/A; Pain 0/10; cc3 21:26 Body Mass Index 32.76 (92.08 kg, 167.64 cm) ak1 MDM: 22:11 Patient medically screened. cp 23:15 Data reviewed: vital signs, nurses notes. cp 23:15 Special discussion: Based on the patient's Hx, exam, and Dx evaluation, there is no cp indication for emergent surgery or inpatient Tx. It is understood by the patient/guardian that if the Sx's persist or worsen they need to return immediately for re-evaluation. ED course: VSS. No vomiting observed while in ED. Patient has been seen multiple times in ED with similar complaints. Will discharge to home with RXs for antiemetics. 07/22 21:53 Order name: Urine Dipstick--Ancillary (enter results) [facility] 07/22 21:53 Order name: Urine --Ancillary (enter results) [facility] 07/22 22:10 Order name: PO challenge; Complete Time: 23:08 cp Administered Medications: 22:25 Drug: Zofran 4 mg Route: PO; cc3 23:00 Follow up: Response: No adverse reaction; Nausea is decreased; Vomiting decreased cc3 Disposition: 07/22/19 23:16 Discharged to Home. Impression: Vomiting. - Condition is Stable. - Discharge Instructions: Vomiting, Adult. - Prescriptions for Phenergan 25 mg Rectal Suppository - insert 1 suppository by RECTAL route every 6 hours As needed; 12 suppository. promethazine 25 mg Oral Tablet - take 1 tablet by ORAL route every 6 hours As needed; 20 tablet. - Medication Reconciliation Form, Thank You Letter, Antibiotic Education, Prescription Opioid Use form. - Follow up: Fausto Tao MD; When: 2 - 3 days; Reason: Recheck today's complaints. - Problem is an ongoing problem. - Symptoms have improved. Addendum: 07/24/2019 07:54 Co-signature as Attending Physician, Sunny Bone MD I agree with the assessment and c freire plan of care. Signatures: Dispatcher [employer] Sunny Martinez MD MD cha Krenek, Amber, RN RN ak1 Sunny Kohli PA PA Rosa Delacruz cc3 Corrections: (The following items were deleted from the chart) 07/22 23:29 23:16 07/22/2019 23:16 Discharged to Home. Impression: Vomiting. Condition is Stable. cc3 Forms are Medication Reconciliation Form, Thank You Letter, Antibiotic Education, Prescription Opioid Use. Follow up: Fausto Tao; When: 2 - 3 days; Reason: Recheck today's complaints. Problem is an ongoing problem. Symptoms have improved. cp 07/23 22:23 07/22 23:15 Constitutional: Negative for body aches, chills, fever, poor PO intake, cp cp 07/23 22:23 07/22 23:15 Eyes: Negative for injury, pain, redness, and discharge, cp cp 07/23 22:23 07/22 23:15 Respiratory: Negative for cough, shortness of breath, wheezing, cp cp 07/23 22:23 07/22 23:15 Abdomen/GI: Positive for abdominal pain, nausea and vomiting, Negative for cp diarrhea, constipation, anorexia, black/tarry stool, rectal bleeding, cp 07/23 22:23 07/22 23:15 Cardiovascular: Negative for chest pain, palpitations, cp cp 07/23 22:23 07/22 23:15 ENT: Negative for drainage from ear(s), ear pain, sore throat, difficulty cp swallowing, difficulty handling secretions, cp 07/23 22:23 07/22 23:15 Back: Negative for pain at rest, pain with movement, cp cp 07/23 22:23 07/22 23:15 : Negative for urinary symptoms, cp cp 07/23 22:23 07/22 23:15 Neuro: Negative for altered mental status, dizziness, weakness, cp cp 07/23 22:23 07/22 23:15 All other systems are negative, cp cp
[2019-07-23 00:43] VITALS: BP 115/79; TEMP 98.3; O2SAT 100
== END 2019-07-22 23:29 | disposition home or self-care (01) ==
LOC: ER 21:16
DX: R11.10 Vomiting, unspecified (principal); Z91.09 Other allergy status, other than to drugs and biological substances; F41.8 Other specified anxiety disorders
CPT/HCPCS: 81003; 81025; 99283

== ENCOUNTER 2019-08-14 00:23 | Emergency (ER) | payer SELFPAY ==
[2019-08-14 01:12] LABS: Absolute Lymphocytes (CBC) 2.6 K/uL (0.7-4.9); Basophils % 0.6 % (0-1.3); Hematocrit 40.4 % (36.0-45.0); Lymphocytes % 30.2 % (15.3-44.8); MPV 8.8 fL (7.6-11.3); RBC Red Blood Cell Count 4.86 M/uL (3.86-4.86)
[2019-08-14 01:21] LABS: Albumin 3.9 g/dL (3.4-5.0); Bilirubin Direct 0.1 mg/dL (0-0.2); Bilirubin Total 0.4 mg/dL (0.2-1.0); Potassium 3.5 mmol/L (3.5-5.1); Protein, Total 7.1 g/dL (6.4-8.2)
[2019-08-14 01:49] LABS: Urine Blood NEGATIVE (NEG); Urine Glucose NEGATIVE (NEG); Urine Protein NEGATIVE (NEG); Urine Specific Gravity 1.025 (1.005-1.030); Urine pH 6.5 (5.0-7.0)
--- NOTE | 2019-08-14 02:08 | ER ---
Nurse's Notes [facility] Name: Wilber Amos Age: 24 yrs Sex: Female : 1995 Arrival Date: 08/14/2019 Time: 00:37 Bed 7 Private MD: Diagnosis: Abdominal tenderness;chronic abdominal pain Presentation: 08/14 00:50 Presenting complaint: Patient states: lower abdominal pain x 3 weeks, nausea, vomiting, tl2 headaches intermittent. Denies urinary symptoms. Transition of care: patient was not received from another setting of care. Onset of symptoms was July 21, 2019. Risk Assessment: Do you want to hurt yourself or someone else? Patient reports no desire to harm self or others. Initial Sepsis Screen: Does the patient meet any 2 criteria? No. Patient's initial sepsis screen is negative. Does the patient have a suspected source of infection? No. Patient's initial sepsis screen is negative. Care prior to arrival: None. 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 - Social history:: Smoking status: Patient/guardian denies using tobacco, the patient reports quitting approximately .3 years ago. - Ebola Screening: : No symptoms or risks identified at this time. Screenin:56 Abuse screen: Denies threats or abuse. Nutritional screening: No deficits noted. tl2 Tuberculosis screening: No symptoms or risk factors identified. Fall Risk None identified. Assessment: 01:00 General: Appears in no apparent distress. uncomfortable, Behavior is calm, cooperative, rr5 appropriate for age. Pain: Complains of pain in pelvis Pain does not radiate. Pain currently is 8 out of 10 on a pain scale. Quality of pain is described as aching, Pain began gradually, Is intermittent. Neuro: Level of Consciousness is awake, alert, obeys commands, Oriented to person, place, time, situation, Appropriate for age Cardiovascular: Capillary refill < 3 seconds Patient's skin is warm and dry. Respiratory: Airway is patent Respiratory effort is even, unlabored, Respiratory pattern is regular, symmetrical. 01:00 GI: Abdomen is round Bowel sounds present X 4 quads. Abd is soft and non tender Reports rr5 lower abdominal pain, nausea. : Urine is clear, Reports cramping, my LMP was mid last month. EENT: No signs and/or symptoms were reported regarding the EENT system. Derm: Skin is intact, Skin temperature is warm. Musculoskeletal: Circulation, motion, and sensation intact. Reports pain in back. 02:10 Reassessment: Patient appears in no apparent distress at this time. Patient is alert, rr5 oriented x 3, equal unlabored respirations, skin warm/dry/pink. discharge instruction given and explained without complaints made. Vital Signs: 00:54 BP 105 / 64; Pulse 88; Resp 18; Temp 98.5(O); Pulse Ox 99% on R/A; Weight 92.08 kg; tl2 Height 5 ft. 6 in. (167.64 cm); Pain 8/10; 01:42 BP 104 / 68; Pulse 85; Resp 16; Pulse Ox 99% ; rr5 02:15 BP 104 / 68; Pulse 71; Resp 15; Temp 98; Pulse Ox 99% ; rr5 00:54 Body Mass Index 32.76 (92.08 kg, 167.64 cm) tl2 ED Course: 00:37 Patient arrived in ED. cf2 00:40 Roe Gaxiola RN is Primary Nurse. rr5 00:42 Milan Huerta MD is Attending Physician. tw4 00:52 Triage completed. tl2 00:54 Arm band placed on right wrist. tl2 00:56 Patient has correct armband on for positive identification. Bed in low position. Call tl2 light in reach. Side rails up X 1. 01:00 Inserted saline lock: 20 gauge in right antecubital area, using aseptic technique. rr5 Blood collected. 01:05 Pulse ox on. NIBP on. rr5 02:16 No provider procedures requiring assistance completed. IV discontinued, intact, rr5 bleeding controlled, No redness/swelling at site. Pressure dressing applied. Administered Medications: No medications were administered Outcome: 02:07 Discharge ordered by . tw4 02:16 Discharged to home ambulatory, with family. rr5 02:16 Condition: stable 02:16 Discharge instructions given to patient, Instructed on discharge instructions, follow up and referral plans. medication usage, Demonstrated understanding of instructions, follow-up care, medications, Prescriptions given X 1. 02:17 Patient left the ED. rr5 Signatures: Joaquina Chiang RN RN tl2 Milan Huerta MD MD tw4 Roe Gaxiola RN RN rr5 Jia Shelley cf2 Corrections: (The following items were deleted from the chart) 01:01 01:00 Inserted saline lock: 20 gauge in right antecubital area, using aseptic rr5 technique. Blood collected. tl2
--- NOTE | 2019-08-14 02:08 | EDPHYS ---
Physician Documentation [facility] Name: Wilber Amos Age: 24 yrs Sex: Female : 1995 Arrival Date: 08/14/2019 Time: 00:37 Bed 7 Private MD: ED Physician Milan Huerta HPI: 08/14 01:00 This 24 yrs old Female presents to ER via Ambulatory with complaints of tw4 Abdominal Pain. 01:00 The patient presents with abdominal pain. Onset: The symptoms/episode began/occurred 3 tw4 week(s) ago. The symptoms do not radiate. Associated signs and symptoms: none. The symptoms are described as dull. Modifying factors: The symptoms are alleviated by nothing, the symptoms are aggravated by nothing. Severity of pain: At its worst the pain was moderate in the emergency department the pain is unchanged. The patient has not experienced similar symptoms in the past. 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 - Social history:: Smoking status: Patient/guardian denies using tobacco, the patient reports quitting approximately .3 years ago. - Ebola Screening: : No symptoms or risks identified at this time. ROS: 01:00 Constitutional: Negative for fever, chills, and weight loss, Eyes: Negative for injury, tw4 pain, redness, and discharge, Cardiovascular: Negative for chest pain, palpitations, and edema, Respiratory: Negative for shortness of breath, cough, wheezing, and pleuritic chest pain, Back: Negative for injury and pain, MS/Extremity: Negative for injury and deformity, Skin: Negative for injury, rash, and discoloration, Neuro: Negative for headache, weakness, numbness, tingling, and seizure. 01:00 Abdomen/GI: Positive for abdominal pain, Negative for nausea and vomiting, nausea, vomiting, and diarrhea, nausea, abdominal cramps, abdominal distension, anorexia. Exam: 01:00 Constitutional: This is a well developed, well nourished patient who is awake, alert, tw4 and in no acute distress. Head/Face: Normocephalic, atraumatic. Chest/axilla: Normal chest wall appearance and motion. Nontender with no deformity. No lesions are appreciated. Cardiovascular: Regular rate and rhythm with a normal S1 and S2. No gallops, murmurs, or rubs. Normal PMI, no JVD. No pulse deficits. Respiratory: Lungs have equal breath sounds bilaterally, clear to auscultation and percussion. No rales, rhonchi or wheezes noted. No increased work of breathing, no retractions or nasal flaring. MS/ Extremity: Pulses equal, no cyanosis. Neurovascular intact. Full, normal range of motion. Neuro: Awake and alert, GCS 15, oriented to person, place, time, and situation. Cranial nerves II-XII grossly intact. Motor strength 5/5 in all extremities. Sensory grossly intact. Cerebellar exam normal. Normal gait. 01:00 Abdomen/GI: Inspection: abdomen appears normal, Bowel sounds: normal, Palpation: mild abdominal tenderness, in the right lower quadrant and left lower quadrant. Vital Signs: 00:54 BP 105 / 64; Pulse 88; Resp 18; Temp 98.5(O); Pulse Ox 99% on R/A; Weight 92.08 kg; tl2 Height 5 ft. 6 in. (167.64 cm); Pain 8/10; 01:42 BP 104 / 68; Pulse 85; Resp 16; Pulse Ox 99% ; rr5 02:15 BP 104 / 68; Pulse 71; Resp 15; Temp 98; Pulse Ox 99% ; rr5 00:54 Body Mass Index 32.76 (92.08 kg, 167.64 cm) tl2 MDM: 00:42 Patient medically screened. tw4 02:12 Differential diagnosis: gastritis, gastroesophageal reflux disease, GI Bleed, tw4 non-specific abd pain, Ureterolithiasis, urinary tract infection. Data reviewed: vital signs, nurses notes. Data interpreted: Pulse oximetry: Interpretation: normal. Counseling: I had a detailed discussion with the patient and/or guardian regarding: the historical points, exam findings, and any diagnostic results supporting the discharge/admit diagnosis, lab results. Special discussion: I discussed with the patient/guardian in detail that at this point there is no indication for admission to the hospital. It is understood, however, that if the symptoms persist or worsen the patient needs to return immediately for re-evaluation. 02:13 Special discussion: Based on the patient's Hx, exam, and Dx evaluation, there is no indication for emergent surgery or inpatient Tx. It is understood by the patient/guardian that if the Sx's persist or worsen they need to return immediately for re-evaluation. ED course: Pt has had multiple visits for abdominal pain. Pt has abdominal pain has improved. Pt has not followed up with PCP for previous symptoms . 08/14 00:42 Order name: Basic Metabolic Panel; Complete Time: 02:04 [facility] 08/14 02:04 Interpretation: Normal except: CL 110; GFR 72. 08/14 00:42 Order name: CBC with Diff; Complete Time: 02:04 [facility] 08/14 02:05 Interpretation: Within normal limits. 08/14 00:42 Order name: Creatinine for Radiology; Complete Time: 02:04 [facility] 08/14 02:05 Interpretation: Within normal limits. 08/14 00:42 Order name: Hepatic Function; Complete Time: 02:04 [facility] 08/14 02:04 Interpretation: Normal except: AST 12. 08/14 00:42 Order name: Lipase; Complete Time: 02:04 [facility] 08/14 02:05 Interpretation: Within normal limits. 08/14 01:12 Order name: Urine Dipstick--Ancillary (enter results); Complete Time: 02:04 6 08/14 02:05 Interpretation: Normal except: UKET 1+. 08/14 00:42 Order name: IV Saline Lock; Complete Time: 01:00 08/14 00:42 Order name: Labs collected and sent; Complete Time: 01:00 08/14 00:42 Order name: Urine Dipstick-Ancillary (obtain specimen); Complete Time: 01:00 08/14 00:42 Order name: Urine Test (obtain specimen); Complete Time: 01:00 08/14 01:12 Order name: Urine --Ancillary (enter results); Complete Time: 02:04 [facility] 08/14 02:05 Interpretation: Within normal limits: URINE PREG NEG. Administered Medications: No medications were administered Disposition: 08/14/19 02:07 Discharged to Home. Impression: Abdominal tenderness, chronic abdominal pain. - Condition is Stable. - Discharge Instructions: Abdominal Pain, Adult, [id number]. - Prescriptions for Bentyl 20 mg Oral Tablet - take 1 tablet by ORAL route every 6 hours As needed; 20 tablet. - Medication Reconciliation Form, Thank You Letter, Antibiotic Education, Prescription Opioid Use form. - Follow up: Private Physician; When: Upon discharge from the Emergency Department; Reason: Recheck today's complaints, Continuance of care. - Problem is new. - Symptoms have improved. Signatures: Dispatcher [employer] EDMS Joaquina Chiang RN RN tl2 Milan Huerta MD MD tw4 Roe Gaxiola RN RN rr5 Corrections: (The following items were deleted from the chart) 02:13 02:07 08/14/2019 02:07 Discharged to Home. Impression: Abdominal tenderness. Condition tw4 is Stable. Forms are Medication Reconciliation Form, Thank You Letter, Antibiotic Education, Prescription Opioid Use. Follow up: Private Physician; When: Upon discharge from the Emergency Department; Reason: Recheck today's complaints, Continuance of care. Problem is new. Symptoms have improved. tw4 02:17 02:13 08/14/2019 02:07 Discharged to Home. Impression: Abdominal tenderness; chronic rr5 abdominal pain. Condition is Stable. Discharge Instructions: Abdominal Pain, Adult, Crck-by-Ggph. Prescriptions for Bentyl 20 mg Oral Tablet - take 1 tablet by ORAL route every 6 hours As needed; 20 tablet. and Forms are Medication Reconciliation Form, Thank You Letter, Antibiotic Education, Prescription Opioid Use. Follow up: Private Physician; When: Upon discharge from the Emergency Department; Reason: Recheck today's complaints, Continuance of care. Problem is new. Symptoms have improved. tw4
[2019-08-14 02:26] VITALS: O2SAT 99
[2019-08-14 02:28] VITALS: BP 104/68
[2019-08-14 02:29] VITALS: TEMP 98
== END 2019-08-14 02:17 | disposition home or self-care (01) ==
LOC: ER 00:23
DX: G89.29 Other chronic pain (principal); R10.9 Unspecified abdominal pain; Z88.8 Allergy status to other drugs, medicaments and biological substances; Z91.048 Other nonmedicinal substance allergy status
CPT/HCPCS: 36415; 80048; 80076; 81003; 81025; 83690; 85025; 99284

== ENCOUNTER 2019-10-03 13:45 | Emergency (ER) | payer SELFPAY ==
[2019-10-03 15:47] LABS: Urine Blood TRACE (NEG); Urine Glucose NEGATIVE (NEG); Urine Protein NEGATIVE (NEG); Urine Specific Gravity 1.025 (1.005-1.030)
[2019-10-03 16:01] LABS: Barbiturates NEGATIVE (NEGATIVE); Benzodiazepines NEGATIVE (NEGATIVE); Cocaine NEGATIVE (NEGATIVE); METHAMPHETAM NEGATIVE (NEGATIVE); Methadone NEGATIVE (NEGATIVE); Opiates NEGATIVE (NEGATIVE); Phencyclidine NEGATIVE (NEGATIVE); THC Cannibis NEGATIVE (NEGATIVE)
--- NOTE | 2019-10-03 16:12 | EDPHYS ---
Physician Documentation [facility] Name: Wilber Amos Age: 24 yrs Sex: Female : 1995 Arrival Date: 10/03/2019 Time: 13:49 Bed 14 Private MD: ED Physician Sunny Bone HPI: 10/03 15:43 This 24 yrs old Female presents to ER via Ambulatory with complaints of snw Probable Seizure, Headache. 15:43 The patient presents after having a single isolated seizure, that lasted an unknown snw period of time. 15:46 Character of seizure(s): Motor activity: focal activity, blank stare. Seizure onset: snw weekly, pt states last seizure was this am. Context: the seizure(s) was witnessed, by a friend, occurred at home. Seizure Hx: Usual frequency: roughly every 1 week(s), Seizure medications: "psych meds". Associated injury: The patient did not suffer any apparent associated injury. Current symptoms: headache, that is mild. The patient has experienced similar episodes in the past. It is unknown whether or not the patient has recently seen a physician. 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 - Social history:: Smoking status: Patient uses tobacco products, Smoking status: Patient uses tobacco products, smokes one pack cigarettes per day. - Ebola Screening: : Patient negative for fever greater than or equal to 101.5 degrees Fahrenheit, and additional compatible Ebola Virus Disease symptoms Patient denies exposure to infectious person Patient denies travel to an Ebola-affected area in the 21 days before illness onset No symptoms or risks identified at this time. ROS: 15:43 Constitutional: Negative for fever, chills, and weight loss, Eyes: Negative for injury, snw pain, redness, and discharge, ENT: Negative for injury, pain, and discharge, Neck: Negative for injury, pain, and swelling, Cardiovascular: Negative for chest pain, palpitations, and edema, Respiratory: Negative for shortness of breath, cough, wheezing, and pleuritic chest pain, Abdomen/GI: Negative for abdominal pain, nausea, vomiting, diarrhea, and constipation, Back: Negative for injury and pain, : Negative for injury, bleeding, discharge, and swelling, MS/Extremity: Negative for injury and deformity, Skin: Negative for injury, rash, and discoloration. 15:43 Neuro: Positive for seizure activity. Exam: 15:42 Constitutional: This is a well developed, well nourished patient who is awake, alert, snw and in no acute distress. Head/Face: Normocephalic, atraumatic. Eyes: Pupils equal round and reactive to light, extra-ocular motions intact. Lids and lashes normal. Conjunctiva and sclera are non-icteric and not injected. Cornea within normal limits. Periorbital areas with no swelling, redness, or edema. ENT: Nares patent. No nasal discharge, no septal abnormalities noted. Tympanic membranes are normal and external auditory canals are clear. Oropharynx with no redness, swelling, or masses, exudates, or evidence of obstruction, uvula midline. Mucous membranes moist. Neck: Trachea midline, no thyromegaly or masses palpated, and no cervical lymphadenopathy. Supple, full range of motion without nuchal rigidity, or vertebral point tenderness. No Meningismus. Chest/axilla: Normal chest wall appearance and motion. Nontender with no deformity. No lesions are appreciated. Cardiovascular: Regular rate and rhythm with a normal S1 and S2. No gallops, murmurs, or rubs. Normal PMI, no JVD. No pulse deficits. Respiratory: Lungs have equal breath sounds bilaterally, clear to auscultation and percussion. No rales, rhonchi or wheezes noted. No increased work of breathing, no retractions or nasal flaring. Abdomen/GI: Soft, non-tender, with normal bowel sounds. No distension or tympany. No guarding or rebound. No evidence of tenderness throughout. Back: No spinal tenderness. No costovertebral tenderness. Full range of motion. Skin: Warm, dry with normal turgor. Normal color with no rashes, no lesions, and no evidence of cellulitis. MS/ Extremity: Pulses equal, no cyanosis. Neurovascular intact. Full, normal range of motion. Neuro: Awake and alert, GCS 15, oriented to person, place, time, and situation. Cranial nerves II-XII grossly intact. Motor strength 5/5 in all extremities. Sensory grossly intact. Cerebellar exam normal. Normal gait. Vital Signs: 14:02 BP 143 / 90; Pulse 97; Resp 16; Temp 98.4; Pulse Ox 97% on R/A; Weight 91.63 kg; Height iw 5 ft. 6 in. (167.64 cm); 15:00 BP 137 / 83; Pulse 85; Resp 17; Pulse Ox 97% ; bp 16:30 BP 139 / 87; Pulse 83; Resp 17; Temp 98.5; Pulse Ox 97% ; bp 14:02 Body Mass Index 32.60 (91.63 kg, 167.64 cm) iw [place] Coma Score: 14:30 Eye Response: spontaneous(4). Verbal Response: oriented(5). Motor Response: obeys bp commands(6). Total: 15. MDM: 14:42 Patient medically screened. jona 16:13 Data reviewed: vital signs, nurses notes. Data interpreted: Pulse oximetry: on room air snw is 97 %. Interpretation: normal. Counseling: I had a detailed discussion with the patient and/or guardian regarding: the historical points, exam findings, and any diagnostic results supporting the discharge/admit diagnosis, lab results, the need for outpatient follow up, to return to the emergency department if symptoms worsen or persist or if there are any questions or concerns that arise at home, smoking cessation. Special discussion: I have referred the patient to see his PCP for further evaluation of high blood pressure. Based on the patient's history, exam and DX evaluation, there is no indication for emergent intervention or inpatient TX. It is understood by the patient/guardian that if the SXs persist or worsen they need to return immediately for re-evaluation. Based on the history and exam findings, there is no indication for further emergent testing or inpatient evaluation. I discussed with the patient/guardian the need to see the neurologist for further evaluation of the symptoms. I discussed with the patient/guardian the need to see the primary care provider for further evaluation of the symptoms. 10/03 14:56 Order name: Flu; Complete Time: 16:08 snw 10/03 14:56 Order name: Strep; Complete Time: 16:14 snw 10/03 14:56 Order name: Urine Culture formerly [facility] 10/03 14:56 Order name: Urine Drug Screen; Complete Time: 16:07 snw 10/03 14:56 Order name: Urine Microscopic Only; Complete Time: 16:16 snw 10/03 15:32 Order name: Urine Dipstick--Ancillary (enter results); Complete Time: 15:48 bd 10/03 14:56 Order name: Urine Test (obtain specimen); Complete Time: 15:32 snw 10/03 14:56 Order name: Urine Dipstick-Ancillary (obtain specimen); Complete Time: 15:32 snw 10/03 15:32 Order name: Urine --Ancillary (enter results); Complete Time: 15:48 bd 10/03 16:09 Order name: Throat Culture EDOR Administered Medications: 16:30 Drug: Doxycycline 100 mg Route: PO; bp 16:46 Follow up: Response: No adverse reaction bp Disposition: 10/04 07:15 Co-signature as Attending Physician, Sunny Bone MD I agree with the assessment and jona plan of care. Disposition: 10/03/19 16:11 Discharged to Home. Impression: Possible seizure, Urinary tract infection, site not specified. - Condition is Stable. - Discharge Instructions: Electroencephalogram, Adult, General Headache Without Cause, Seizure, Adult, Steps to Quit Smoking, Smoking Hazards, Urinary Tract Infection, Adult. - Prescriptions for Doxycycline Hyclate 100 mg Oral Tablet - take 1 tablet by ORAL route every 12 hours; 20 tablet. - Medication Reconciliation Form, Thank You Letter, Antibiotic Education, Prescription Opioid Use, Work release form form. - Follow up: Emergency Department; When: As needed; Reason: Worsening of condition. Follow up: Private Physician; When: As needed; Reason: Recheck today's complaints, Continuance of care, Re-evaluation by your physician. Follow up: Pascual Andrade MD; When: 1 week; Reason: Recheck today's complaints, Continuance of care, Re-evaluation by your physician. Signatures: Dispatcher [employer] Sunny Martinez MD MD cha Therrien, Shelly, EDGER HAND-C EDGER HAND-Csnw Roma Campos RN RN iw Dimas Spivey RN RN bp Corrections: (The following items were deleted from the chart) 10/03 16:17 16:11 10/03/2019 16:11 Discharged to Home. Impression: Possible seizure. Condition is snw Stable. Forms are Medication Reconciliation Form, Thank You Letter, Antibiotic Education, Prescription Opioid Use. Follow up: Emergency Department; When: As needed; Reason: Worsening of condition. Follow up: Private Physician; When: As needed; Reason: Recheck today's complaints, Continuance of care, Re-evaluation by your physician. Follow up: Pascual Andrade; When: 1 week; Reason: Recheck today's complaints, Continuance of care, Re-evaluation by your physician. snw 16:50 16:17 10/03/2019 16:11 Discharged to Home. Impression: Possible seizure; Urinary tract bp infection, site not specified. Condition is Stable. Discharge Instructions: Electroencephalogram, Adult, General Headache Without Cause, Seizure, Adult, Steps to Quit Smoking, Smoking Hazards. Forms are Medication Reconciliation Form, Thank You Letter, Antibiotic Education, Prescription Opioid Use. Follow up: Emergency Department; When: As needed; Reason: Worsening of condition. Follow up: Private Physician; When: As needed; Reason: Recheck today's complaints, Continuance of care, Re-evaluation by your physician. Follow up: Pascual Andrade; When: 1 week; Reason: Recheck today's complaints, Continuance of care, Re-evaluation by your physician. snw
--- NOTE | 2019-10-03 16:12 | ER ---
Nurse's Notes [facility] Name: Wilber Amos Age: 24 yrs Sex: Female : 1995 Arrival Date: 10/03/2019 Time: 13:49 Bed 14 Private MD: Diagnosis: Possible seizure;Urinary tract infection, site not specified Presentation: 10/03 14:00 Presenting complaint: Patient states: past few weeks, epileptic seizures, was iw originally once a week, decreased her psych meds, started recurring when off her meds and even when she is not having a panic attack, last seizure was this morning. Transition of care: patient was not received from another setting of care. Onset of symptoms was October 03, 2019. Risk Assessment: Do you want to hurt yourself or someone else? Patient reports no desire to harm self or others. Initial Sepsis Screen: Does the patient meet any 2 criteria? No. Patient's initial sepsis screen is negative. Does the patient have a suspected source of infection? No. Patient's initial sepsis screen is negative. Care prior to arrival: None. 14:00 Method Of Arrival: Ambulatory iw 14:00 Acuity: ANU 3 iw Triage Assessment: 14:30 General: Appears in no apparent distress. comfortable, Behavior is cooperative, bp appropriate for age, anxious. Pain: Complains of pain in head. EENT: No deficits noted. Neuro: Level of Consciousness is awake, alert, obeys commands, Oriented to person, place, time, situation, Appropriate for age. Cardiovascular: No deficits noted. Respiratory: No deficits noted. GI: No signs and/or symptoms were reported involving the gastrointestinal system. : No signs and/or symptoms were reported regarding the genitourinary system. Derm: No deficits noted. Musculoskeletal: No deficits noted. 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 - Social history:: Smoking status: Patient uses tobacco products, Smoking status: Patient uses tobacco products, smokes one pack cigarettes per day. - Ebola Screening: : Patient negative for fever greater than or equal to 101.5 degrees Fahrenheit, and additional compatible Ebola Virus Disease symptoms Patient denies exposure to infectious person Patient denies travel to an Ebola-affected area in the 21 days before illness onset No symptoms or risks identified at this time. Screenin:40 Abuse screen: Denies threats or abuse. Denies injuries from another. Nutritional bp screening: No deficits noted. Tuberculosis screening: No symptoms or risk factors identified. Fall Risk None identified. Assessment: 14:30 General: SEE TRIAGE NOTE. bp 15:30 Reassessment: ALL CURRENT ORDERS COMPLETED, NO S/S SZ ACTIVITY. iw 16:48 Reassessment: PT D/C HOME AMBULATORY WITH FRIENDS, DX WITH POSSIBLE SEIZURE AND UTI. bp Vital Signs: 14:02 BP 143 / 90; Pulse 97; Resp 16; Temp 98.4; Pulse Ox 97% on R/A; Weight 91.63 kg; Height iw 5 ft. 6 in. (167.64 cm); 15:00 BP 137 / 83; Pulse 85; Resp 17; Pulse Ox 97% ; bp 16:30 BP 139 / 87; Pulse 83; Resp 17; Temp 98.5; Pulse Ox 97% ; bp 14:02 Body Mass Index 32.60 (91.63 kg, 167.64 cm) iw [place] Coma Score: 14:30 Eye Response: spontaneous(4). Verbal Response: oriented(5). Motor Response: obeys bp commands(6). Total: 15. ED Course: 13:49 Patient arrived in ED. as 14:01 Triage completed. iw 14:02 Arm band placed on. iw 14:30 Seizure precautions initiated. bp 14:34 Dimas Spivey, RN is Primary Nurse. bp 14:40 Patient has correct armband on for positive identification. Bed in low position. Call bp light in reach. Side rails up X2. 14:42 Sunny Bone MD is Attending Physician. jona 14:55 Josette Castillo FNP-C is PHCP. snw 16:10 Pascual Andrade MD is Referral Physician. snw 16:48 No provider procedures requiring assistance completed. Patient did not have IV access bp during this emergency room visit. Administered Medications: 16:30 Drug: Doxycycline 100 mg Route: PO; bp 16:46 Follow up: Response: No adverse reaction bp Outcome: 16:11 Discharge ordered by . snabisai 16:49 Discharged to home ambulatory, with friend. bp 16:49 Condition: stable 16:49 Discharge instructions given to patient, Instructed on discharge instructions, follow up and referral plans. medication usage, Demonstrated understanding of instructions, follow-up care, medications, Prescriptions given X 1. 16:50 Patient left the ED. bp Signatures: Sunny Bone MD MD cha Therrien, Shelly, SENIOR PRODUCT DEVELOPMENT ENGINEER-C SENIOR PRODUCT DEVELOPMENT ENGINEER-Monica Hernandez Irene, RN RN iw Dimas Spivey RN RN bp
[2019-10-03 16:14] LABS: Urine Bacteria >50 /HPF (<20); Urine Culture Reflex Order NOT NEEDED; Urine Mucus 1+ /HPF (NONE SEEN); Urine RBC <5 /HPF (NONE SEEN)
[2019-10-03] MEDS ORDERED: DOXYCYCLINE 100 MG CAP PO ONE (16:40)
[2019-10-03 17:14] VITALS: O2SAT 97
[2019-10-03 17:17] VITALS: BP 139/87; TEMP 98.5
== END 2019-10-03 16:50 | disposition home or self-care (01) ==
LOC: ER 13:45
DX: N39.0 Urinary tract infection, site not specified (principal); F17.210 Nicotine dependence, cigarettes, uncomplicated; F90.9 Attention-deficit hyperactivity disorder, unspecified type; F41.9 Anxiety disorder, unspecified; Z88.8 Allergy status to other drugs, medicaments and biological substances; Z91.048 Other nonmedicinal substance allergy status
CPT/HCPCS: 80307; 81003; 81015; 81025; 87070; 87081; 87086; 87088; 87804; 99283

== ENCOUNTER 2019-12-05 | Emergency (ER) | payer SELFPAY ==
--- NOTE | 2019-12-05 14:50 | ER ---
Nurse's Notes [facility] Name: Wilber Amos Age: 24 yrs Sex: Female : 1995 Arrival Date: 12/05/2019 Time: 13:14 Bed 24 Private MD: Diagnosis: Allergic rhinitis, unspecified Presentation: 12/04 13:40 Chief complaint: Patient states: cough and congestion x 4 days. Denies fever. Reports ca1 nausea. Denies vomiting. Coronavirus screen: The patient has NOT traveled to a country currently being monitored by the [facility] within the last 14 days. The patient has NOT had contact with any known and/or suspected case of coronavirus. Ebola Screen: Patient negative for fever greater than or equal to 101.5 degrees Fahrenheit, and additional compatible Ebola Virus Disease symptoms Patient denies exposure to infectious person. Patient denies travel to an Ebola-affected area in the 21 days before illness onset. No symptoms or risks identified at this time. Initial Sepsis Screen: Does the patient meet any 2 criteria? No. Patient's initial sepsis screen is negative. Does the patient have a suspected source of infection? No. Patient's initial sepsis screen is negative. Risk Assessment: Do you want to hurt yourself or someone else? Patient reports no desire to harm self or others. Onset of symptoms was December 02, 2019. 13:40 Method Of Arrival: Ambulatory ca1 13:40 Acuity: ANU 4 ca1 Triage Assessment: 14:53 General: Appears in no apparent distress. Behavior is calm, cooperative, appropriate vc for age. Pain: Denies pain. 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 - Social history:: Smoking status: Patient reports the use of cigarette tobacco products, smokes one pack cigarettes per day. Screenin:52 Abuse screen: Denies threats or abuse. Nutritional screening: No deficits noted. vc Tuberculosis screening: No symptoms or risk factors identified. Fall Risk None identified. Assessment: 14:54 General: Appears in no apparent distress. comfortable, Behavior is calm, cooperative, vc appropriate for age. Neuro: Level of Consciousness is awake, alert, obeys commands, Oriented to person, place, time, situation, Appropriate for age. Cardiovascular: Capillary refill < 3 seconds Patient's skin is warm and dry. Respiratory: Respiratory effort is even, unlabored, Respiratory pattern is regular, symmetrical. GI: No signs and/or symptoms were reported involving the gastrointestinal system. EENT: Reports COUGH. Vital Signs: 13:40 BP 113 / 70; Pulse 85; Resp 16 S; Temp 97.7(TE); Pulse Ox 99% on R/A; Weight 87.54 kg ca1 (R); Height 5 ft. 6 in. (167.64 cm) (R); Pain 5/10; 15:10 BP 113 / 75; Pulse 80; Resp 17; Pulse Ox 100% on R/A; vc 13:40 Body Mass Index 31.15 (87.54 kg, 167.64 cm) ca1 ED Course: 13:14 Patient arrived in ED. rg4 13:42 Triage completed. ca1 13:43 Arm band placed on right wrist. ca1 14:11 Tania Lamb FNP-C is PHCP. kb 14:11 Alcon Olmstead MD is Attending Physician. kb 14:52 Stacey Davis RN is Primary Nurse. vc 14:53 Patient has correct armband on for positive identification. vc 15:09 No provider procedures requiring assistance completed. Patient did not have IV access vc during this emergency room visit. Administered Medications: No medications were administered Outcome: 14:49 Discharge ordered by MD. kb 15:09 Discharged to home ambulatory. vc 15:09 Condition: good 15:09 Discharge instructions given to patient, Instructed on discharge instructions, follow up and referral plans. Demonstrated understanding of instructions, follow-up care. 15:11 Patient left the ED. vc Signatures: Tania Lamb FNP-C FNP-Ckb Garcia, Rubi rg4 Shayla Jaime RN RN ca1 Stacey Davis RN RN vc
--- NOTE | 2019-12-05 14:50 | EDPHYS ---
Physician Documentation [facility] Name: Wilber Amos Age: 24 yrs Sex: Female : 1995 Arrival Date: 12/05/2019 Time: 13:14 Bed 24 Private MD: ED Physician Alcon Olmstead HPI: 12/04 14:53 This 24 yrs old Female presents to ER via Ambulatory with complaints of Cough.kb 14:54 The patient or guardian reports cough, that is intermittent, described as moderate. kb Onset: The symptoms/episode began/occurred last night. Severity of symptoms: At their worst the symptoms were moderate, in the emergency department the symptoms are unchanged. Modifying factors: The symptoms are alleviated by nothing, the symptoms are aggravated by nothing. Associated signs and symptoms: Pertinent positives: rhinorrhea, Pertinent negatives: chest pain, diarrhea, ear ache, fever, nausea, sore throat, vomiting. The patient has not experienced similar symptoms in the past. The patient has not recently seen a physician. Pt reports she has seasonal allergies and started having congestion and cough yesterday. States "My mom and my job are freaking out and wanted me to come make sure I don't have the coronavirus.". 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 - Social history:: Smoking status: Patient reports the use of cigarette tobacco products, smokes one pack cigarettes per day. ROS: 14:52 Constitutional: Negative for fever, chills, and weight loss, Neck: Negative for injury, kb pain, and swelling, Cardiovascular: Negative for chest pain, palpitations, and edema, Abdomen/GI: Negative for abdominal pain, nausea, vomiting, diarrhea, and constipation, Back: Negative for injury and pain, MS/Extremity: Negative for injury and deformity, Skin: Negative for injury, rash, and discoloration, Neuro: Negative for headache, weakness, numbness, tingling, and seizure. 14:52 ENT: Positive for rhinorrhea, sinus congestion. 14:52 Respiratory: Positive for cough, Negative for dyspnea on exertion, hemoptysis, orthopnea, pleurisy, shortness of breath, sputum production, wheezing. Exam: 14:52 Constitutional: This is a well developed, well nourished patient who is awake, alert, kb and in no acute distress. Head/Face: Normocephalic, atraumatic. ENT: Nares patent. No nasal discharge, no septal abnormalities noted. Tympanic membranes are normal and external auditory canals are clear. Oropharynx with no redness, swelling, or masses, exudates, or evidence of obstruction, uvula midline. Mucous membranes moist. Neck: Trachea midline, no thyromegaly or masses palpated, and no cervical lymphadenopathy. Supple, full range of motion without nuchal rigidity, or vertebral point tenderness. No Meningismus. Chest/axilla: Normal chest wall appearance and motion. Nontender with no deformity. No lesions are appreciated. Cardiovascular: Regular rate and rhythm with a normal S1 and S2. No gallops, murmurs, or rubs. Normal PMI, no JVD. No pulse deficits. Respiratory: Lungs have equal breath sounds bilaterally, clear to auscultation and percussion. No rales, rhonchi or wheezes noted. No increased work of breathing, no retractions or nasal flaring. Abdomen/GI: Soft, non-tender, with normal bowel sounds. No distension or tympany. No guarding or rebound. No evidence of tenderness throughout. Skin: Warm, dry with normal turgor. Normal color with no rashes, no lesions, and no evidence of cellulitis. MS/ Extremity: Pulses equal, no cyanosis. Neurovascular intact. Full, normal range of motion. Neuro: Awake and alert, GCS 15, oriented to person, place, time, and situation. Cranial nerves II-XII grossly intact. Motor strength 5/5 in all extremities. Sensory grossly intact. Cerebellar exam normal. Normal gait. Vital Signs: 13:40 BP 113 / 70; Pulse 85; Resp 16 S; Temp 97.7(TE); Pulse Ox 99% on R/A; Weight 87.54 kg ca1 (R); Height 5 ft. 6 in. (167.64 cm) (R); Pain 5/10; 15:10 BP 113 / 75; Pulse 80; Resp 17; Pulse Ox 100% on R/A; vc 13:40 Body Mass Index 31.15 (87.54 kg, 167.64 cm) ca1 MDM: 14:39 Patient medically screened. kb 14:51 Data reviewed: vital signs, nurses notes. Data interpreted: Pulse oximetry: on room air kb is 99 %. Interpretation: normal. Counseling: I had a detailed discussion with the patient and/or guardian regarding: the historical points, exam findings, and any diagnostic results supporting the discharge/admit diagnosis, the need for outpatient follow up, a family practitioner, to return to the emergency department if symptoms worsen or persist or if there are any questions or concerns that arise at home. Administered Medications: No medications were administered Disposition: 15:29 Co-signature as Attending Physician, Alcon Olmstead MD. rn Disposition: 12/05/19 14:49 Discharged to Home. Impression: Allergic rhinitis, unspecified. - Condition is Stable. - Discharge Instructions: Allergic Rhinitis. - Work release form, Medication Reconciliation Form, Thank You Letter, Antibiotic Education, Prescription Opioid Use form. - Follow up: Emergency Department; When: As needed; Reason: Worsening of condition. Follow up: Private Physician; When: 2 - 3 days; Reason: Recheck today's complaints, Continuance of care, Re-evaluation by your physician. Signatures: Tania Lamb, SYSTEM VALIDATION ENGINEER-C SYSTEM VALIDATION ENGINEER-Ckb Alcon Olmstead MD MD rn Addison, TOMÁS Mcguire RN Stacey Cash RN RN vc Corrections: (The following items were deleted from the chart) 15:11 14:49 12/05/2019 14:49 Discharged to Home. Impression: Allergic rhinitis, unspecified. vc Condition is Stable. Forms are Medication Reconciliation Form, Thank You Letter, Antibiotic Education, Prescription Opioid Use. Follow up: Emergency Department; When: As needed; Reason: Worsening of condition. Follow up: Private Physician; When: 2 - 3 days; Reason: Recheck today's complaints, Continuance of care, Re-evaluation by your physician. kb
== END 2019-12-05 15:11 | disposition home or self-care (01) ==
CPT/HCPCS: 99281

== ENCOUNTER 2019-12-06 20:14 | Emergency (ER) | payer SELFPAY ==
[2019-12-06] MEDS ORDERED: ACETAMINOPHEN 325 MG TABLET ONE (20:56)
[2019-12-06] MEDS ORDERED: NA CHLORIDE 0.9% 1,000 ML ONE (20:56)
[2019-12-06 21:06] LABS: Absolute Lymphocytes (CBC) 1.2 K/uL (0.7-4.9); Basophils % 0.6 % (0-1.3); Hematocrit 41.7 % (36.0-45.0); Lymphocytes % 13.8 % (15.3-44.8); MPV 8.6 fL (7.6-11.3); RBC Red Blood Cell Count 4.95 M/uL (3.86-4.86)
[2019-12-06 21:13] LABS: Albumin 3.8 g/dL (3.4-5.0); Bilirubin Total 0.3 mg/dL (0.2-1.0); Potassium 3.6 mmol/L (3.5-5.1); Protein, Total 7.6 g/dL (6.4-8.2)
[2019-12-06] MEDS ORDERED: Levofloxacin500mg IV 500 MG/100 ML BAG IV ONE (21:25)
[2019-12-06 21:42] LABS: Urine Blood NEGATIVE (NEG); Urine Glucose NEGATIVE (NEG); Urine Protein TRACE (NEG); Urine Specific Gravity >1.030 (1.005-1.030)
--- NOTE | 2019-12-06 21:45 | RAD REPORT ---
EXAM DESCRIPTION: RAD - Chest Pa And Lat (2 Views) - 12/06/2019 8:56 pm CLINICAL HISTORY: Congestion;Cough, fever COMPARISON: Two view chest December 2018 TECHNIQUE: Frontal and lateral views of the chest were obtained. FINDINGS: The lungs are clear. Heart size is normal and central vasculature is within normal limit s. No pleural effusion or pneumothorax seen. No acute bony finding noted. No aortic abnormality. No significant change from comparison. IMPRESSION: No acute cardiopulmonary process.
--- NOTE | 2019-12-06 22:43 | ER ---
Nurse's Notes [facility] Name: Wilber Amos Age: 24 yrs Sex: Female : 1995 Arrival Date: 12/06/2019 Time: 20:18 Bed 26 Private MD: Diagnosis: Urinary tract infection, site not specified;Acute upper respiratory infection, unspecified;Fever, unspecified Presentation: 12/05 20:24 Chief complaint: Patient states: Cough and congestion since Wednesday. Was here ca1 yesterday. Fever today. Today, reports worsening of cough, body aches, general body weakness, nausea and vomiting. Coronavirus screen: The patient has NOT traveled to a country currently being monitored by the [facility] within the last 14 days. The patient has NOT had contact with any known and/or suspected case of coronavirus. Ebola Screen: Patient negative for fever greater than or equal to 101.5 degrees Fahrenheit, and additional compatible Ebola Virus Disease symptoms Patient denies exposure to infectious person. Patient denies travel to an Ebola-affected area in the 21 days before illness onset. No symptoms or risks identified at this time. Initial Sepsis Screen: Does the patient meet any 2 criteria? No. Patient's initial sepsis screen is negative. Does the patient have a suspected source of infection? No. Patient's initial sepsis screen is negative. Risk Assessment: Do you want to hurt yourself or someone else? Patient reports no desire to harm self or others. Onset of symptoms was December 06, 2019. 20:24 Method Of Arrival: Wheelchair ca1 20:24 Acuity: ANU 3 ca1 Triage Assessment: 21:00 General: Appears in no apparent distress. uncomfortable, ill, Behavior is calm, vc cooperative, appropriate for age. 21:31 Respiratory: Reports shortness of breath on exertion cough that is dry, persistent vc Onset: The symptoms/episode began/occurred this morning, the patient has mild shortness of breath. 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 - Social history:: Smoking status: Patient reports the use of cigarette tobacco products, smokes one pack cigarettes per day. Screenin:00 Abuse screen: Denies threats or abuse. Nutritional screening: No deficits noted. vc Tuberculosis screening: No symptoms or risk factors identified. Fall Risk None identified. Assessment: 21:00 Pain: Denies pain. Cardiovascular: Rhythm is regular. Respiratory: Airway is patent vc Respiratory effort is even, unlabored. 21:30 Respiratory: Breath sounds are clear bilaterally. vc 21:32 General: Appears in no apparent distress. uncomfortable, ill, Behavior is calm, vc cooperative, appropriate for age. Neuro: Level of Consciousness is awake, alert, obeys commands, Oriented to person, place, time, situation, Appropriate for age. GI: No signs and/or symptoms were reported involving the gastrointestinal system. : No signs and/or symptoms were reported regarding the genitourinary system. Derm: Skin is intact, is healthy with good turgor, Skin temperature is warm. Musculoskeletal: Circulation, motion, and sensation intact. Range of motion: intact in all extremities. 21:58 Reassessment: Patient is alert, oriented x 3, equal unlabored respirations, skin vc warm/dry/pink. Patient states symptoms have not improved. 23:10 Reassessment: Patient and/or family updated on plan of care and expected duration. Pain vc level reassessed. Patient is alert, oriented x 3, equal unlabored respirations, skin warm/dry/pink. Patient states symptoms have improved. Vital Signs: 20:24 BP 97 / 61; Pulse 110; Resp 18 S; Temp 99.2(O); Pulse Ox 98% on R/A; Weight 87.54 kg ca1 (R); Height 5 ft. 6 in. (167.64 cm) (R); 21:40 BP 106 / 69; Pulse 92; Resp 18; Pulse Ox 100% on R/A; vc 22:27 BP 102 / 67; Pulse 93; Resp 18; Temp 98.7(O); Pulse Ox 100% on R/A; vc 20:24 Body Mass Index 31.15 (87.54 kg, 167.64 cm) ca1 ED Course: 20:18 Patient arrived in ED. cl3 20:27 Triage completed. ca1 20:28 Arm band placed on right wrist. ca1 20:30 Sunny Bone MD is Attending Physician. jona 20:49 Stacey Davis, TOMÁS is Primary Nurse. vc 20:54 Chest Pa And Lat (2 Views) XRAY In Process Unspecified. EDMS 21:31 Patient has correct armband on for positive identification. Bed in low position. Call vc light in reach. Adult w/ patient. Pulse ox on. NIBP on. 23:08 No provider procedures requiring assistance completed. IV discontinued, intact, vc bleeding controlled, No redness/swelling at site. Pressure dressing applied. Administered Medications: 21:15 Drug: NS 0.9% 1000 ml Route: IV; Rate: 1 bolus; Site: right antecubital; vc 22:15 Follow up: IV Status: Completed infusion; IV Intake: 1000ml vc 21:15 Drug: Tylenol 650 mg Route: PO; vc 21:37 Follow up: Response: No adverse reaction vc 21:36 Drug: levofloxacin 500 mg Volume: 100 ml; Route: IVPB; Infused Over: 60 mins; Site: vc right antecubital; 22:36 Follow up: IV Status: Completed infusion; IV Intake: 100ml vc Intake: 22:15 IV: 1000ml; Total: 1000ml. vc 22:36 IV: 100ml; Total: 1100ml. vc Outcome: 22:42 Discharge ordered by . jona 23:08 Condition: improved vc 23:08 Discharge instructions given to patient, family, Instructed on discharge instructions, follow up and referral plans. medication usage, Demonstrated understanding of instructions, follow-up care, medications, Prescriptions given X 3. 23:09 Discharged to home ambulatory, with family. vc 23:14 Patient left the ED. vc Signatures: Dispatcher [employer] EDIL Sunny Bone MD MD cha Acob, Cheryl, RN RN ca1 Katerine Betancourt cl3 Stacey Davis, TOMÁS RN vc Corrections: (The following items were deleted from the chart) 20:29 20:24 Coronavirus screen: The patient has NOT traveled to a country currently being ca1 monitored by the [facility] within the last 14 days. The patient has NOT had contact with any known and/or suspected case of coronavirus. ca1
--- NOTE | 2019-12-06 22:43 | EDPHYS ---
Physician Documentation [facility] Name: Wilber Amos Age: 24 yrs Sex: Female : 1995 Arrival Date: 12/06/2019 Time: 20:18 Bed 26 Private MD: ED Physician Sunny Bone HPI: 12/05 22:39 This 24 yrs old Female presents to ER via Wheelchair with complaints of jona Shortness Of Breath, Cough. 22:39 The patient has shortness of breath at rest, with light activity. Onset: The jona symptoms/episode began/occurred 3 day(s) ago. Duration: The symptoms are continuous, and are steadily getting worse. The patient's shortness of breath has no apparent modifying factors. Associated signs and symptoms: The patient has no apparent associated signs or symptoms. Severity of symptoms: At their worst the symptoms were mild in the emergency department the symptoms are unchanged. The patient has not experienced similar symptoms in the past. 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 - Social history:: Smoking status: Patient reports the use of cigarette tobacco products, smokes one pack cigarettes per day. ROS: 22:39 Eyes: Negative for injury, pain, redness, and discharge, ENT: Negative for injury, jona pain, and discharge, Neck: Negative for injury, pain, and swelling, Cardiovascular: Negative for chest pain, palpitations, and edema, Abdomen/GI: Negative for abdominal pain, nausea, vomiting, diarrhea, and constipation, Back: Negative for injury and pain, : Negative for injury, bleeding, discharge, and swelling, MS/Extremity: Negative for injury and deformity, Skin: Negative for injury, rash, and discoloration, Neuro: Negative for headache, weakness, numbness, tingling, and seizure, Psych: Negative for depression, anxiety, suicide ideation, homicidal ideation, and hallucinations, Allergy/Immunology: Negative for hives, rash, and allergies, Endocrine: Negative for neck swelling, polydipsia, polyuria, polyphagia, and marked weight changes, Hematologic/Lymphatic: Negative for swollen nodes, abnormal bleeding, and unusual bruising. 22:39 Constitutional: Positive for fever. 22:39 Respiratory: Positive for cough, shortness of breath. Exam: 22:39 Head/Face: Normocephalic, atraumatic. Eyes: Pupils equal round and reactive to light, jona extra-ocular motions intact. Lids and lashes normal. Conjunctiva and sclera are non-icteric and not injected. Cornea within normal limits. Periorbital areas with no swelling, redness, or edema. ENT: Nares patent. No nasal discharge, no septal abnormalities noted. Tympanic membranes are normal and external auditory canals are clear. Oropharynx with no redness, swelling, or masses, exudates, or evidence of obstruction, uvula midline. Mucous membranes moist. Neck: Trachea midline, no thyromegaly or masses palpated, and no cervical lymphadenopathy. Supple, full range of motion without nuchal rigidity, or vertebral point tenderness. No Meningismus. Chest/axilla: Normal chest wall appearance and motion. Nontender with no deformity. No lesions are appreciated. Cardiovascular: Regular rate and rhythm with a normal S1 and S2. No gallops, murmurs, or rubs. Normal PMI, no JVD. No pulse deficits. Respiratory: Lungs have equal breath sounds bilaterally, clear to auscultation and percussion. No rales, rhonchi or wheezes noted. No increased work of breathing, no retractions or nasal flaring. Abdomen/GI: Soft, non-tender, with normal bowel sounds. No distension or tympany. No guarding or rebound. No evidence of tenderness throughout. Back: No spinal tenderness. No costovertebral tenderness. Full range of motion. Female : Normal external genitalia. Skin: Warm, dry with normal turgor. Normal color with no rashes, no lesions, and no evidence of cellulitis. MS/ Extremity: Pulses equal, no cyanosis. Neurovascular intact. Full, normal range of motion. Neuro: Awake and alert, GCS 15, oriented to person, place, time, and situation. Cranial nerves II-XII grossly intact. Motor strength 5/5 in all extremities. Sensory grossly intact. Cerebellar exam normal. Normal gait. Psych: Awake, alert, with orientation to person, place and time. Behavior, mood, and affect are within normal limits. 22:39 Constitutional: The patient appears febrile. 22:39 ENT: Posterior pharynx: Airway: normal, no evidence of obstruction, Tonsils: are normal in appearance, enlarged on the right, enlarged on the left, Uvula: normal, swelling, is not appreciated, erythema, is not appreciated, exudate, is not appreciated. Vital Signs: 20:24 BP 97 / 61; Pulse 110; Resp 18 S; Temp 99.2(O); Pulse Ox 98% on R/A; Weight 87.54 kg ca1 (R); Height 5 ft. 6 in. (167.64 cm) (R); 21:40 BP 106 / 69; Pulse 92; Resp 18; Pulse Ox 100% on R/A; vc 22:27 BP 102 / 67; Pulse 93; Resp 18; Temp 98.7(O); Pulse Ox 100% on R/A; vc 20:24 Body Mass Index 31.15 (87.54 kg, 167.64 cm) ca1 MDM: 20:30 Patient medically screened. [facility] 23:04 Data reviewed: vital signs, nurses notes, lab test result(s), radiologic studies, CT jona scan, plain films. 12/05 20:35 Order name: CBC with Diff; Complete Time: 21:10 [facility] 12/05 20:35 Order name: Comprehensive Metabolic Panel; Complete Time: 22:33 [facility] 12/05 20:35 Order name: Influenza Screen (a \T\ B); Complete Time: 22:33 [facility] 12/05 20:35 Order name: Urine Culture [facility] 12/05 20:35 Order name: Chest Pa And Lat (2 Views) XRAY; Complete Time: 22:33 [facility] 12/05 21:09 Order name: Strep; Complete Time: 22:33 [facility] 12/05 21:34 Order name: Urine Dipstick--Ancillary (enter results); Complete Time: 22:33 [facility] 12/05 21:34 Order name: Urine --Ancillary (enter results); Complete Time: 22:33 [facility] 12/05 21:39 Order name: Throat Culture [facility] 12/05 20:35 Order name: Urine Dipstick-Ancillary (obtain specimen); Complete Time: 21:16 [facility] 12/05 20:35 Order name: Urine Test (obtain specimen); Complete Time: 21:16 [facility] Administered Medications: 21:15 Drug: NS 0.9% 1000 ml Route: IV; Rate: 1 bolus; Site: right antecubital; vc 22:15 Follow up: IV Status: Completed infusion; IV Intake: 1000ml vc 21:15 Drug: Tylenol 650 mg Route: PO; vc 21:37 Follow up: Response: No adverse reaction vc 21:36 Drug: levofloxacin 500 mg Volume: 100 ml; Route: IVPB; Infused Over: 60 mins; Site: vc right antecubital; 22:36 Follow up: IV Status: Completed infusion; IV Intake: 100ml vc Disposition: 12/06/19 22:42 Discharged to Home. Impression: Urinary tract infection, site not specified, Acute upper respiratory infection, unspecified, Fever, unspecified. - Condition is Stable. - Discharge Instructions: Upper Respiratory Infection, Adult, Urinary Tract Infection, Adult, Urinary Tract Infection, Adult, [id number], Cough, Adult, [id number], Cough, Adult. - Prescriptions for Bromfed DM 2- 30-10 mg/5 mL Oral syrup - take 10 milliliter by ORAL route every 6 hours; 160 milliliter. Levaquin 500 mg Oral Tablet - take 1 tablet by ORAL route once daily for 7 days; 7 tablet. Zofran 4 mg Oral Tablet - take 1 tablet by ORAL route every 12 hours As needed; 14 tablet. - Medication Reconciliation Form, Thank You Letter, Antibiotic Education, Prescription Opioid Use form. - Follow up: Private Physician; When: 2 - 3 days; Reason: Recheck today's complaints, Continuance of care, Re-evaluation by your physician. - Problem is new. - Symptoms have improved. Signatures: Dispatcher [employer] EDDC Sunny Bone MD MD cha Acob, Cheryl, RN RN ca1 Calcote, Vanessa, RN RN Corrections: (The following items were deleted from the chart) 23:14 22:42 12/06/2019 22:42 Discharged to Home. Impression: Urinary tract infection, site vc not specified; Acute upper respiratory infection, unspecified; Fever, unspecified. Condition is Stable. Forms are Medication Reconciliation Form, Thank You Letter, Antibiotic Education, Prescription Opioid Use. Follow up: Private Physician; When: 2 - 3 days; Reason: Recheck today's complaints, Continuance of care, Re-evaluation by your physician. Problem is new. Symptoms have improved. jona
[2019-12-06 23:22] VITALS: O2SAT 100
[2019-12-06 23:29] VITALS: BP 102/67; TEMP 98.7
== END 2019-12-06 23:14 | disposition home or self-care (01) ==
LOC: ER 20:14
DX: J06.9 Acute upper respiratory infection, unspecified (principal); N39.0 Urinary tract infection, site not specified; R50.9 Fever, unspecified; F17.210 Nicotine dependence, cigarettes, uncomplicated; Z88.8 Allergy status to other drugs, medicaments and biological substances; Z91.048 Other nonmedicinal substance allergy status
CPT/HCPCS: 36415; 71046; 80053; 81003; 81025; 85025; 87070; 87081; 87086; 87088; 87804; 96365; 99284; J7030

== ENCOUNTER 2019-12-16 13:56 | Emergency (ER) | payer SELFPAY ==
--- NOTE | 2019-12-16 14:10 | ER ---
Nurse's Notes [facility] Name: Wilber Amos Age: 24 yrs Sex: Female : 1995 Arrival Date: 12/16/2019 Time: 13:57 Bed 24 Private MD: Diagnosis: Cough Presentation: 12/15 14:06 Chief complaint: Patient states: SEEN FOR A URI A WEEK AGO, FEELING BETTER NOW, JUST ss NEEDS A WORK NOTE. Coronavirus screen: Patient denies fever greater than 100.4F, cough, shortness of breath, or difficulty breathing. Proceed with normal triage process. Ebola Screen: Patient denies exposure to infectious person. Patient denies travel to an Ebola-affected area in the 21 days before illness onset. Initial Sepsis Screen: Does the patient meet any 2 criteria? No. Patient's initial sepsis screen is negative. Does the patient have a suspected source of infection? No. Patient's initial sepsis screen is negative. Risk Assessment: Do you want to hurt yourself or someone else? Patient reports no desire to harm self or others. 14:06 Method Of Arrival: Ambulatory ss 14:06 Acuity: ANU 5 ss 14:53 Onset of symptoms was December 09, 2019. 1 14:55 Onset of symptoms was December 09, 2019. 1 14:57 Onset of symptoms was December 09, 2019 at 21:00. 1 Triage Assessment: 14:07 General: Appears in no apparent distress. Behavior is calm, cooperative. Pain: Denies ll1 pain. Neuro: No deficits noted. Cardiovascular: No deficits noted. Respiratory: Reports cough that is slight lingering cough Airway is patent Trachea midline Respiratory effort is even, unlabored, Respiratory pattern is regular, symmetrical, Breath sounds are clear bilaterally. Denies shortness of breath labored breathing. 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 - Social history:: Smoking status: Patient reports the use of cigarette tobacco products, smokes one pack cigarettes per day. Screenin:06 Abuse screen: Denies threats or abuse. Nutritional screening: No deficits noted. ll1 Tuberculosis screening: No symptoms or risk factors identified. Fall Risk None identified. Total Winchester Fall Scale indicates No Risk (0-24 pts). Assessment: 14:07 General: Appears in no apparent distress. comfortable, Behavior is calm, cooperative. Pain: Denies pain. Neuro: Level of Consciousness is awake, alert, obeys commands, Oriented to person, place, time, situation. Respiratory: Airway is patent Respiratory effort is even, unlabored, Respiratory pattern is regular, symmetrical. EENT: Oral mucosa is moist. Derm: Skin is intact, is healthy with good turgor, Skin is dry, Skin is pink, warm \T\ dry. normal. Musculoskeletal: Circulation, motion, and sensation intact. Range of motion: intact in all extremities, Swelling absent. Vital Signs: 14:05 BP 116 / 79; Pulse 90; Resp 14; Temp 98.3; Pulse Ox 98% on R/A; Pain 0/10; ss ED Course: 13:57 Patient arrived in ED. am2 14:05 Wilman Betancourt, RN is Primary Nurse. 1 14:05 Arm band placed on right wrist. 14:06 Sunny Bone MD is Attending Physician. [facility] 14:06 Triage completed. 14:07 Patient has correct armband on for positive identification. Bed in low position. Call 1 light in reach. 14:07 No provider procedures requiring assistance completed. Patient did not have IV access ss during this emergency room visit. Administered Medications: No medications were administered Outcome: 14:08 Discharge ordered by . [facility] 14:20 Discharged to home ambulatory. 1 14:20 Condition: good 14:20 Discharge instructions given to patient, Instructed on discharge instructions, follow up and referral plans. Demonstrated understanding of instructions, follow-up care. 14:31 Patient left the ED. 1 Signatures: Sunny Bone MD MD cha Smirch, Shelby, RN RN Kat Townsend 2 Wilman Betancourt RN RN 1
--- NOTE | 2019-12-16 14:10 | EDPHYS ---
Physician Documentation [facility] Name: Wilber Amos Age: 24 yrs Sex: Female : 1995 Arrival Date: 12/16/2019 Time: 13:57 Bed 24 Private MD: ED Physician Sunny Bone HPI: 12/15 14:06 This 24 yrs old Female presents to ER via Unassigned with complaints of jona Medical Clearance. 14:06 needs work note. Onset: The symptoms/episode began/occurred 1 week(s) ago. Severity of jona symptoms: At their worst the symptoms were mild in the emergency department the symptoms have resolved and did so earlier today. The patient has not experienced similar symptoms in the past. 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 - Social history:: Smoking status: Patient reports the use of cigarette tobacco products, smokes one pack cigarettes per day. ROS: 14:07 Constitutional: Negative for fever, chills, and weight loss, Eyes: Negative for injury, jona pain, redness, and discharge, ENT: Negative for injury, pain, and discharge, Neck: Negative for injury, pain, and swelling, Cardiovascular: Negative for chest pain, palpitations, and edema, Abdomen/GI: Negative for abdominal pain, nausea, vomiting, diarrhea, and constipation, Back: Negative for injury and pain, : Negative for injury, bleeding, discharge, and swelling, MS/Extremity: Negative for injury and deformity, Skin: Negative for injury, rash, and discoloration, Neuro: Negative for headache, weakness, numbness, tingling, and seizure, Psych: Negative for depression, anxiety, suicide ideation, homicidal ideation, and hallucinations, Allergy/Immunology: Negative for hives, rash, and allergies, Endocrine: Negative for neck swelling, polydipsia, polyuria, polyphagia, and marked weight changes, Hematologic/Lymphatic: Negative for swollen nodes, abnormal bleeding, and unusual bruising. 14:07 Respiratory: Positive for cough, with no reported sputum. Exam: 14:07 Constitutional: This is a well developed, well nourished patient who is awake, alert, jona and in no acute distress. Head/Face: Normocephalic, atraumatic. Eyes: Pupils equal round and reactive to light, extra-ocular motions intact. Lids and lashes normal. Conjunctiva and sclera are non-icteric and not injected. Cornea within normal limits. Periorbital areas with no swelling, redness, or edema. ENT: Nares patent. No nasal discharge, no septal abnormalities noted. Tympanic membranes are normal and external auditory canals are clear. Oropharynx with no redness, swelling, or masses, exudates, or evidence of obstruction, uvula midline. Mucous membranes moist. Neck: Trachea midline, no thyromegaly or masses palpated, and no cervical lymphadenopathy. Supple, full range of motion without nuchal rigidity, or vertebral point tenderness. No Meningismus. Chest/axilla: Normal chest wall appearance and motion. Nontender with no deformity. No lesions are appreciated. Cardiovascular: Regular rate and rhythm with a normal S1 and S2. No gallops, murmurs, or rubs. Normal PMI, no JVD. No pulse deficits. Respiratory: Lungs have equal breath sounds bilaterally, clear to auscultation and percussion. No rales, rhonchi or wheezes noted. No increased work of breathing, no retractions or nasal flaring. Abdomen/GI: Soft, non-tender, with normal bowel sounds. No distension or tympany. No guarding or rebound. No evidence of tenderness throughout. Back: No spinal tenderness. No costovertebral tenderness. Full range of motion. Skin: Warm, dry with normal turgor. Normal color with no rashes, no lesions, and no evidence of cellulitis. MS/ Extremity: Pulses equal, no cyanosis. Neurovascular intact. Full, normal range of motion. Neuro: Awake and alert, GCS 15, oriented to person, place, time, and situation. Cranial nerves II-XII grossly intact. Motor strength 5/5 in all extremities. Sensory grossly intact. Cerebellar exam normal. Normal gait. Psych: Awake, alert, with orientation to person, place and time. Behavior, mood, and affect are within normal limits. Vital Signs: 14:05 BP 116 / 79; Pulse 90; Resp 14; Temp 98.3; Pulse Ox 98% on R/A; Pain 0/10; ss MDM: 14:06 Patient medically screened. [facility] 14:08 Data reviewed: vital signs, nurses notes. [facility] Administered Medications: No medications were administered Disposition: 12/16/19 14:08 Discharged to Home. Impression: Cough. - Condition is Stable. - Discharge Instructions: Cough, Adult, [id number], Cough, Adult. - Work release form, Medication Reconciliation Form, Thank You Letter, Antibiotic Education, Prescription Opioid Use form. - Follow up: Private Physician; When: 2 - 3 days; Reason: Recheck today's complaints, Re-evaluation by your physician. - Problem is new. - Symptoms have improved. Signatures: Sunny Bone MD MD cha Smirch, Shelby RN RN Wilman Betancourt RN RN ll1 Corrections: (The following items were deleted from the chart) 14:31 14:08 12/16/2019 14:08 Discharged to Home. Impression: Cough. Condition is Stable. ll1 Forms are Medication Reconciliation Form, Thank You Letter, Antibiotic Education, Prescription Opioid Use. Follow up: Private Physician; When: 2 - 3 days; Reason: Recheck today's complaints, Re-evaluation by your physician. Problem is new. Symptoms have improved. [facility]
[2019-12-16 14:44] VITALS: BP 116/79; TEMP 98.3; O2SAT 98
== END 2019-12-16 14:31 | disposition home or self-care (01) ==
LOC: ER 13:56
DX: R05 Cough (principal); F17.210 Nicotine dependence, cigarettes, uncomplicated; Z88.8 Allergy status to other drugs, medicaments and biological substances
CPT/HCPCS: 99281

== ENCOUNTER 2020-02-29 22:38 | Emergency (ER) | payer SELFPAY ==
[2020-02-29] MEDS ORDERED: BUPIVACAINE 0.5% PF 10 ML VIAL ONE (23:11)
--- NOTE | 2020-02-29 23:31 | ER ---
Nurse's Notes [facility] Name: Wilber Amos Age: 24 yrs Sex: Female : 1995 Arrival Date: 02/29/2020 Time: 22:42 Bed 12 Private MD: Diagnosis: Dental caries Presentation: 02/28 22:45 Acuity: ANU 4 sg 22:45 Chief complaint: Patient states: facial pain and swelling to the face, pt reports may sg have an abscess tooth. Coronavirus screen: Proceed with normal triage. Ebola Screen: Patient negative for fever greater than or equal to 101.5 degrees Fahrenheit, and additional compatible Ebola Virus Disease symptoms Patient denies exposure to infectious person. Patient denies travel to an Ebola-affected area in the 21 days before illness onset. No symptoms or risks identified at this time. Initial Sepsis Screen: Does the patient meet any 2 criteria? No. Patient's initial sepsis screen is negative. Does the patient have a suspected source of infection? No. Patient's initial sepsis screen is negative. Risk Assessment: Do you want to hurt yourself or someone else? Patient reports no desire to harm self or others. Onset of symptoms was February 29, 2020. Care prior to arrival: None. Transition of care: patient was not received from another setting of care. 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 - Social history:: Smoking status: Patient denies any tobacco usage or history of. Vital Signs: 22:45 BP 136 / 80; Pulse 88; Resp 17; Temp 98.8; Pulse Ox 100% on R/A; Pain 10/10; sg ED Course: 22:42 Patient arrived in ED. es 22:45 Magdiel Carter PA is PHCP. [facility] 22:45 Alcon Olmstead MD is Attending Physician. [facility] 22:45 Triage completed. sg 22:45 Arm band placed on. sg 23:33 No provider procedures requiring assistance completed. Patient did not have IV access sg during this emergency room visit. Administered Medications: 23:02 Drug: Marcaine (0.5 %) 10 ml {Note: administered by Yasmin CARDENAS.} Volume: 10 ml; sg Route: Infiltration; Outcome: 23:31 Discharge ordered by MD. guerrero 23:33 Discharged to home ambulatory. sg 23:33 Condition: good 23:33 Discharge instructions given to patient, Instructed on discharge instructions, follow up and referral plans. medication usage, safety practices, Demonstrated understanding of instructions, follow-up care, medications, Prescriptions given X 2. 23:33 Patient left the ED. sg Signatures: Randy Alonzo RN RN Magdiel Corona PA PA jmm Salyer, Edna es
--- NOTE | 2020-02-29 23:32 | EDPHYS ---
Physician Documentation [facility] Name: Wilber Amos Age: 24 yrs Sex: Female : 1995 Arrival Date: 02/29/2020 Time: 22:42 Bed 12 Private MD: ED Physician Alcon Olmstead HPI: 02/28 23:24 This 24 yrs old Female presents to ER via Ambulatory with complaints of Jaw jmm Pain, Facial pain, gum pain. 23:24 The patient presents with pain. Onset: The symptoms/episode began/occurred gradually, 2 jmm week(s) ago. Duration: The symptoms are continuous. Modifying factors: The symptoms are alleviated by nothing, the symptoms are aggravated by nothing. This is a 24 yeazr old female with a history of add/adhd, anxiety that presents to the ED with complaints of right sided lower gum pain and dental pain. Symptoms began 2 weeks ago. Denies fever. . 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 - Social history:: Smoking status: Patient denies any tobacco usage or history of. ROS: 23:24 Constitutional: Negative for fever, chills, and weight loss, Cardiovascular: Negative jmm for chest pain, palpitations, and edema, Respiratory: Negative for shortness of breath, cough, wheezing, and pleuritic chest pain, MS/Extremity: Negative for injury and deformity. 23:24 All other systems are negative. Exam: 23:24 Constitutional: This is a well developed, well nourished patient who is awake, alert, jmm and in no acute distress. Head/Face: atraumatic. Eyes: EOMI, no conjunctival erythema appreciated Cardiovascular: Regular rate and rhythm. No edema appreciated Respiratory: Normal respirations, no respiratory distress appreciated 23:24 Abdomen/GI: Non distended, soft Back: Normal ROM Skin: General appearance color normal MS/ Extremity: Moves all extremities, no obvious deformities appreciated, no edema noted to the lower extremities Neuro: Awake and alert, normal gait Psych: Behavior is normal, Mood is normal, Patient is cooperative and pleasant 23:24 ENT: Dental exam: dental caries, that is mild, specifically in the lower right first molar (#30), lower right second molar (#31) and lower right third molar (#32), fractured teeth are noted, specifically the lower right second molar (#31) and lower right third molar (#32), gum swelling, that is mild, specifically in the lower right first molar (#30), lower right second molar (#31) and lower right third molar (#32). Vital Signs: 22:45 BP 136 / 80; Pulse 88; Resp 17; Temp 98.8; Pulse Ox 100% on R/A; Pain 10/10; sg MDM: 23:01 Patient medically screened. [facility] 23:26 Data reviewed: vital signs, nurses notes. Counseling: I had a detailed discussion with cesar the patient and/or guardian regarding: the historical points, exam findings, and any diagnostic results supporting the discharge/admit diagnosis, the need for outpatient follow up, to return to the emergency department if symptoms worsen or persist or if there are any questions or concerns that arise at home. ED course: Patient is alert and non toxic in appearance in the ED> Patient advised to follow up with dentist. < pain after inf alveolar block. Patient is otherwise given strict retyurn precautions. Patient understood and agrees with the plan of care. . 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 [facility] Administered Medications: 23:02 Drug: Marcaine (0.5 %) 10 ml {Note: administered by Yasmin PERALES} Volume: 10 ml; sg Route: Infiltration; Disposition: 03/01 00:12 Co-signature as Attending Physician, Alcon Olmstead MD. rn Disposition: 02/29/20 23:31 Discharged to Home. Impression: Dental caries. - Condition is Stable. - Discharge Instructions: Dental Pain. - Prescriptions for Clindamycin HCl 300 mg Oral Capsule - take 1 capsule by ORAL route every 6 hours for 10 days; 40 capsule. orphenadrine citrate 100 mg Oral Tablet Sustained Release - take 1 tablet by ORAL route 2 times per day As needed; 20 tablet. - Work release form, Medication Reconciliation Form, Thank You Letter, Antibiotic Education, Prescription Opioid Use form. - Follow up: Private Physician; When: 2 - 3 days; Reason: Recheck today's complaints, Continuance of care, Re-evaluation by your physician. Signatures: Randy Alonzo RN RN Magdiel Corona PA PA jmm Nieto, Roman, MD MD cyanide furnace operator: (The following items were deleted from the chart) 02/28 23:33 23:31 02/29/2020 23:31 Discharged to Home. Impression: Dental caries. Condition is sg Stable. Forms are Medication Reconciliation Form, Thank You Letter, Antibiotic Education, Prescription Opioid Use. Follow up: Private Physician; When: 2 - 3 days; Reason: Recheck today's complaints, Continuance of care, Re-evaluation by your physician. cesar
[2020-02-29 23:39] VITALS: BP 136/80; TEMP 98.8; O2SAT 100
== END 2020-02-29 23:33 | disposition home or self-care (01) ==
LOC: ER 22:38
DX: K02.9 Dental caries, unspecified (principal); F90.9 Attention-deficit hyperactivity disorder, unspecified type; F41.9 Anxiety disorder, unspecified; Z88.5 Allergy status to narcotic agent; Z88.8 Allergy status to other drugs, medicaments and biological substances
CPT/HCPCS: 99283

== ENCOUNTER 2020-06-02 15:20 | Emergency (ER) | payer SELFPAY ==
[2020-06-02 17:13] LABS: Absolute Lymphocytes (CBC) 1.5 K/uL (0.7-4.9); Basophils % 0.8 % (0-1.3); Lymphocytes % 22.7 % (15.3-44.8); MPV 8.8 fL (7.6-11.3); RBC Red Blood Cell Count 4.63 M/uL (3.86-4.86)
[2020-06-02 17:30] LABS: Potassium 3.9 mmol/L (3.5-5.1)
--- NOTE | 2020-06-02 17:41 | EDPHYS ---
Physician Documentation [facility] Name: Wilber Amos Age: 25 yrs Sex: Female : 1995 Arrival Date: 06/02/2020 Time: 15:23 Bed 20 Private MD: ED Physician Sunny Bone HPI: 06/02 15:35 This 25 yrs old Female presents to ER via Ambulatory with complaints of Chest kb Congestion, Headache. 15:35 The patient or guardian reports cough, that is intermittent, described as moderate, kb with no sputum. Severity of symptoms: At their worst the symptoms were moderate, in the emergency department the symptoms are unchanged. Modifying factors: The symptoms are alleviated by nothing, the symptoms are aggravated by nothing. Associated signs and symptoms: Pertinent positives: nausea, sore throat, vomiting, Pertinent negatives: chest pain, diarrhea, ear ache, fever, rhinorrhea. The patient has not experienced similar symptoms in the past. The patient has not recently seen a physician. 15:35 Onset: The symptoms/episode began/occurred 3 day(s) ago. Pt reports cough, congestion, kb chest pain and sore throat with cough, n/v/d, and headache for 3 days. Has appt with PCP tomorrow, but symptoms felt worse today so she came here . 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 - Social history:: Smoking status: Patient reports the use of cigarette tobacco products, smokes one-half pack cigarettes per day. ROS: 15:35 Neck: Negative for injury, pain, and swelling, Back: Negative for injury and pain, kb MS/Extremity: Negative for injury and deformity, Skin: Negative for injury, rash, and discoloration. 15:35 Constitutional: Positive for malaise. 15:35 ENT: Positive for sinus congestion, sore throat. 15:35 Cardiovascular: Positive for chest pain, with cough, Negative for edema, orthopnea, palpitations, paroxysmal nocturnal dyspnea. 15:35 Respiratory: Positive for cough, Negative for dyspnea on exertion, hemoptysis, orthopnea, pleurisy, shortness of breath, sputum production, wheezing. 15:35 Neuro: Positive for headache, Negative for altered mental status, dizziness, gait disturbance, hearing loss, loss of consciousness, numbness, seizure activity, speech changes, syncope, near syncope, tingling, tinnitus, tremor, visual changes, weakness. Exam: 15:35 Constitutional: This is a well developed, well nourished patient who is awake, alert, kb and in no acute distress. Head/Face: Normocephalic, atraumatic. Chest/axilla: Normal chest wall appearance and motion. Nontender with no deformity. No lesions are appreciated. Cardiovascular: Regular rate and rhythm with a normal S1 and S2. No gallops, murmurs, or rubs. Normal PMI, no JVD. No pulse deficits. Respiratory: Lungs have equal breath sounds bilaterally, clear to auscultation and percussion. No rales, rhonchi or wheezes noted. No increased work of breathing, no retractions or nasal flaring. Abdomen/GI: Soft, non-tender, with normal bowel sounds. No distension or tympany. No guarding or rebound. No evidence of tenderness throughout. Skin: Warm, dry with normal turgor. Normal color with no rashes, no lesions, and no evidence of cellulitis. MS/ Extremity: Pulses equal, no cyanosis. Neurovascular intact. Full, normal range of motion. Neuro: Awake and alert, GCS 15, oriented to person, place, time, and situation. Cranial nerves II-XII grossly intact. Motor strength 5/5 in all extremities. Sensory grossly intact. Cerebellar exam normal. Normal gait. Vital Signs: 15:31 BP 118 / 74; Pulse 94; Resp 16; Temp 98.5(TE); Pulse Ox 99% on R/A; Weight 77.11 kg; ss Height 5 ft. 6 in. (167.64 cm); Pain 8/10; 15:31 Body Mass Index 27.44 (77.11 kg, 167.64 cm) ss MDM: 15:33 Patient medically screened. kb 15:38 Data reviewed: vital signs, nurses notes. Data interpreted: Pulse oximetry: on room air kb is 99 %. Interpretation: normal. 17:35 Counseling: I had a detailed discussion with the patient and/or guardian regarding: the kb historical points, exam findings, and any diagnostic results supporting the discharge/admit diagnosis, lab results, radiology results, the need for outpatient follow up, a family practitioner, to return to the emergency department if symptoms worsen or persist or if there are any questions or concerns that arise at home. 06/02 15:34 Order name: CBC with Diff; Complete Time: 17:30 kb 06/02 15:34 Order name: Basic Metabolic Panel; Complete Time: 17:30 kb 06/02 15:34 Order name: Chest Single View XRAY; Complete Time: 18:14 kb 06/02 15:34 Order name: COVID-19 kb 06/02 15:34 Order name: IV Start; Complete Time: 17:42 kb 06/02 17:35 Order name: PO challenge; Complete Time: 17:42 kb Administered Medications: 16:30 Drug: NS 0.9% 1000 ml Route: IV; Rate: 1000 ml; Site: right antecubital; ls4 17:30 Follow up: IV Status: Completed infusion; IV Intake: 1000ml ls4 16:30 Drug: Zofran (Ondansetron) 4 mg Route: IVP; Site: right antecubital; ls4 17:30 Follow up: Response: No adverse reaction; Marked relief of symptoms ls4 Disposition: 06/03 10:59 Co-signature as Attending Physician, Sunny Bone MD I agree with the assessment and jona plan of care. Disposition: 06/02/20 17:41 Discharged to Home. Impression: Acute upper respiratory infection, unspecified, Viral infection, unspecified. - Condition is Stable. - Discharge Instructions: Viral Gastroenteritis, Adult, [id number], Viral Respiratory Infection, [id number], COVID-19. - Prescriptions for Zofran 4 mg Oral Tablet - take 1 tablet by ORAL route every 6 hours As needed; 20 tablet. Tessalon Perles 100 mg Oral Capsule - take 1 capsule by ORAL route every 8 hours As needed; 15 capsule. - Medication Reconciliation Form, Thank You Letter, Antibiotic Education, Prescription Opioid Use, Work release form form. - Follow up: Private Physician; When: 2 - 3 days; Reason: Recheck today's complaints, Continuance of care, Re-evaluation by your physician. Follow up: Emergency Department; When: As needed; Reason: Worsening of condition. Signatures: Dispatcher [employer] Tania Arias, JOSELUIS-Rachel HUGGINS-Sunny Mckinney MD MD cha Smirch, Shelby, TOMÁS RN ss Jillian Laguerre RN RN ls4 Corrections: (The following items were deleted from the chart) 06/02 18:38 17:41 06/02/2020 17:41 Discharged to Home. Impression: Acute upper respiratory ls4 infection, unspecified; Viral infection, unspecified. Condition is Stable. Forms are Medication Reconciliation Form, Thank You Letter, Antibiotic Education, Prescription Opioid Use. Follow up: Private Physician; When: 2 - 3 days; Reason: Recheck today's complaints, Continuance of care, Re-evaluation by your physician. Follow up: Emergency Department; When: As needed; Reason: Worsening of condition. kb
--- NOTE | 2020-06-02 17:41 | ER ---
Nurse's Notes [facility] Name: Wilber Amos Age: 25 yrs Sex: Female : 1995 Arrival Date: 06/02/2020 Time: 15:23 Bed 20 Private MD: Diagnosis: Acute upper respiratory infection, unspecified;Viral infection, unspecified Presentation: 06/02 15:31 Chief complaint: Chest congestion, pain with cough, sore throat, N/D, subjective fever, ss and headache x 3 days. Coronavirus screen: congestion, cough unrelated to allergies, fatigue, headache, nausea, Client presents with at least one sign or symptom that may indicate coronavirus-19. Standard/surgical mask placed on the client. Provider contacted for isolation considerations. Ebola Screen: No symptoms or risks identified at this time. Initial Sepsis Screen: Does the patient meet any 2 criteria? No. Patient's initial sepsis screen is negative. Does the patient have a suspected source of infection? No. Patient's initial sepsis screen is negative. Risk Assessment: Do you want to hurt yourself or someone else? Patient reports no desire to harm self or others. Onset of symptoms was May 30, 2020. 15:31 Method Of Arrival: Ambulatory ss 15:31 Acuity: ANU 3 ss Triage Assessment: 16:20 General: Appears in no apparent distress. uncomfortable, Behavior is calm, cooperative. ls4 16:20 Headache History: Other MILD HEADACHE OVER EYES. Pain: Pain currently is 0 out of 10 on ls4 a pain scale. Pain began DENIES PAIN Also complains of no other associated symptoms. Neuro: No deficits noted. GI: Reports nausea. 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 - Social history:: Smoking status: Patient reports the use of cigarette tobacco products, smokes one-half pack cigarettes per day. Screenin:30 Abuse screen: Denies threats or abuse. Denies injuries from another. Nutritional ls4 screening: No deficits noted. Tuberculosis screening: No symptoms or risk factors identified. Fall Risk None identified. Vital Signs: 15:31 BP 118 / 74; Pulse 94; Resp 16; Temp 98.5(TE); Pulse Ox 99% on R/A; Weight 77.11 kg; ss Height 5 ft. 6 in. (167.64 cm); Pain 8/10; 15:31 Body Mass Index 27.44 (77.11 kg, 167.64 cm) ED Course: 15:23 Patient arrived in ED. mr 15:26 Adonis Tania, [facility] kb 15:26 Sunny Bone MD is Attending Physician. kb 15:34 Triage completed. ss 15:34 Arm band placed on. EKG completed in triage. Results shown to MD. 16:45 Jillian Laguerre, RN is Primary Nurse. ls4 16:48 No provider procedures requiring assistance completed. ls4 16:48 Initial lab(s) drawn, by me, sent to lab. Inserted saline lock: 18 gauge in right ls4 antecubital area, using aseptic technique. Blood collected. Patient maintains SpO2 saturation greater than 95% on room air. 17:30 Patient has correct armband on for positive identification. Bed in low position. Call ls4 light in reach. Side rails up X 1. Pulse ox on. NIBP on. Verbal reassurance given. 17:42 Chest Single View XRAY Sent. ls4 17:54 Diet: Patient given juice. Tolerated well. ls4 18:00 IV discontinued, intact, bleeding controlled, No redness/swelling at site. Pressure ls4 dressing applied. 18:07 Chest Single View XRAY In Process Unspecified. EDMS Administered Medications: 16:30 Drug: NS 0.9% 1000 ml Route: IV; Rate: 1000 ml; Site: right antecubital; ls4 17:30 Follow up: IV Status: Completed infusion; IV Intake: 1000ml ls4 16:30 Drug: Zofran (Ondansetron) 4 mg Route: IVP; Site: right antecubital; ls4 17:30 Follow up: Response: No adverse reaction; Marked relief of symptoms ls4 Intake: 17:30 IV: 1000ml; Total: 1000ml. ls4 Outcome: 17:41 Discharge ordered by . kb 18:02 Patient left the ED. ls4 18:02 Discharged to home ambulatory. ls4 18:02 Condition: good 18:02 Discharge instructions given to patient, Instructed on discharge instructions, follow up and referral plans. medication usage, Demonstrated understanding of instructions, follow-up care, medications, Prescriptions given X 1. Addendum: 06/04/2020 16:34 Addendum: COVID-19 Result: Negative result given to RN to notify pt. Notified pt of s s negative COVID 19 swab results. Pt advised that even with a negative test result they should remain in isolation until symptom free for 3 days without medication. Pt also advised to return to the ED for worsening symptoms. Signatures: Dispatcher [employer] EDMS Tania Lamb, OXYGEN THERAPIST-C OXYGEN THERAPIST-Pete LeeaAida Shelby, RN RN Jillian Johnson RN RN ls4 Corrections: (The following items were deleted from the chart) 06/02 20:27 18:38 Patient left the ED. ls4 ls4
[2020-06-02] MEDS ORDERED: ONDANSETRON 4 MG/2 ML VIAL ONE (17:58)
[2020-06-02] MEDS ORDERED: NA CHLORIDE 0.9% 1,000 ML ONE (17:58)
--- NOTE | 2020-06-02 18:13 | RAD REPORT ---
EXAM DESCRIPTION: RAD - Chest Single View - 06/02/2020 6:07 pm CLINICAL HISTORY: Cough;Congestion Chest pain. COMPARISON: Chest Pa And Lat (2 Views) dated 12/06/2019; Chest Pa And Lat (2 Views) dated 12/21/2018; C hest Pa And Lat (2 Views) dated 05/24/2018; Chest Pa And Lat (2 Views) dated 02/26/2018 FINDINGS: Portable technique limits examination quality. The lungs are grossly clear. The heart is normal in size. No displaced fractures. IMPRESSION: No acute intrathoracic process suspected.
[2020-06-02 19:00] VITALS: BP 118/74; TEMP 98.5; O2SAT 99
== END 2020-06-02 18:38 | disposition home or self-care (01) ==
LOC: ER 15:20
DX: J06.9 Acute upper respiratory infection, unspecified (principal); Z20.828 Contact with and (suspected) exposure to other viral communicable diseases; B34.9 Viral infection, unspecified; F17.210 Nicotine dependence, cigarettes, uncomplicated; Z88.5 Allergy status to narcotic agent; Z88.8 Allergy status to other drugs, medicaments and biological substances
CPT/HCPCS: 36415; 71045; 80048; 85025; 96361; 96374; 99284; J2405; J7030; U0002

== ENCOUNTER 2021-05-14 10:30 | Emergency (ER) | payer SELFPAY ==
--- NOTE | 2021-05-14 13:54 | ER ---
Nurse's Notes [facility] Name: Wilber Amos Age: 25 yrs Sex: Female : 1995 Arrival Date: 05/14/2021 Time: 10:34 Bed Waiting Private MD: Diagnosis: Acute upper respiratory infection, unspecified Presentation: 05/14 11:28 Chief complaint: Patient states: cough, SOB, nausea x 2 days ago. Positive exposure to aa5 covid-19. Coronavirus screen: cough unrelated to allergies, nausea, shortness of breath. Ebola Screen: Patient negative for fever greater than or equal to 101.5 degrees Fahrenheit, and additional compatible Ebola Virus Disease symptoms. Initial Sepsis Screen: Does the patient meet any 2 criteria? No. Patient's initial sepsis screen is negative. Does the patient have a suspected source of infection? No. Patient's initial sepsis screen is negative. Risk Assessment: Do you want to hurt yourself or someone else? Patient reports no desire to harm self or others. Onset of symptoms was April 2021. 11:28 Method Of Arrival: Ambulatory aa5 11:28 Acuity: ANU 4 aa5 Historical: - Allergies: 11:30 cefoxitin; aa5 11:30 eletriptan HBr; aa5 11:30 Iodine; aa5 11:30 Mefoxin; aa5 11:30 Morphine; aa5 - PMHx: 11:30 ADD/ADHD; Anxiety; aa5 - Immunization history:: Client reports having NOT received the Covid vaccine. - Social history:: Smoking status: Patient reports the use of cigarette tobacco products, smokes one pack cigarettes per day. Screenin:59 Abuse screen: Denies threats or abuse. Denies injuries from another. Nutritional ss screening: No deficits noted. Tuberculosis screening: Never had TB. Fall Risk None identified. Assessment: 13:59 Reassessment: Patient appears in no apparent distress at this time. No changes from ss previously documented assessment. Patient is alert, oriented x 3, equal unlabored respirations, skin warm/dry/pink. Vital Signs: 11:28 BP 111 / 68; Pulse 90; Resp 18 S; Temp 98.2(O); Pulse Ox 100% on R/A; aa5 ED Course: 10:34 Patient arrived in ED. cl3 10:35 Tania Lamb FNP-C is [facility]. kb 10:35 Sunny Bone MD is Attending Physician. kb 11:28 Arm band placed on. aa5 11:30 Triage completed. aa5 13:58 No provider procedures requiring assistance completed. Patient did not have IV access ss during this emergency room visit. 13:59 Patient has correct armband on for positive identification. ss Administered Medications: No medications were administered Outcome: 13:53 Discharge ordered by MD. kb 13:58 Discharged to home ambulatory. ss 13:58 Condition: good 13:58 Discharge instructions given to patient, Instructed on discharge instructions, follow up and referral plans. Demonstrated understanding of instructions, follow-up care. 14:00 Patient left the ED. ss Signatures: Tania Lamb FNP-C FNP-Yarely Lopez RN RN aa5 Tatianna Lan RN RN ss Katerine Betancourt cl3 Corrections: (The following items were deleted from the chart) 11:30 11:28 BP 111 / 68; Pulse 90bpm; Resp 18bpm; Spontaneous; Pulse Ox 100% RA; aa5 aa5
--- NOTE | 2021-05-14 13:54 | EDPHYS ---
Physician Documentation [facility] Name: Wilber Amos Age: 25 yrs Sex: Female : 1995 Arrival Date: 05/14/2021 Time: 10:34 Bed Waiting Private MD: FELICIA Physician Sunny Bone HPI: 05/14 14:53 This 25 yrs old Female presents to ER via Ambulatory with complaints of kb Exposure To Covid. 14:53 The patient or guardian reports cough, that is intermittent, described as mild, kb difficulty breathing. Onset: The symptoms/episode began/occurred 2 day(s) ago. Severity of symptoms: At their worst the symptoms were mild, in the emergency department the symptoms are unchanged. Modifying factors: The symptoms are alleviated by nothing, the symptoms are aggravated by nothing. Associated signs and symptoms: Pertinent positives: nausea, Pertinent negatives: chest pain, diarrhea, ear ache, fever, rhinorrhea, sore throat, vomiting. The patient has not experienced similar symptoms in the past. The patient has not recently seen a physician. Pt reports intermittent cough, shortness of breath and nausea after being exposed to covid. Historical: - Allergies: 11:30 cefoxitin; aa5 11:30 eletriptan HBr; aa5 11:30 Iodine; aa5 11:30 Mefoxin; aa5 11:30 Morphine; aa5 - PMHx: 11:30 ADD/ADHD; Anxiety; aa5 - Immunization history:: Client reports having NOT received the Covid vaccine. - Social history:: Smoking status: Patient reports the use of cigarette tobacco products, smokes one pack cigarettes per day. ROS: 14:52 Constitutional: Negative for fever, chills, and weight loss. kb 14:52 Respiratory: Positive for cough, shortness of breath. 14:52 All other systems are negative. 14:53 Abdomen/GI: Positive for nausea, Negative for abdominal pain, vomiting, diarrhea. kb Exam: 14:53 Constitutional: This is a well developed, well nourished patient who is awake, alert, kb and in no acute distress. Head/Face: Normocephalic, atraumatic. ENT: Moist Mucous membranes Cardiovascular: Regular rate and rhythm with a normal S1 and S2. No gallops, murmurs, or rubs. No pulse deficits. Respiratory: Respirations even and unlabored. No increased work of breathing, no retractions or nasal flaring. Skin: Warm, dry with normal turgor. Normal color. MS/ Extremity: Pulses equal, no cyanosis. Neurovascular intact. Full, normal range of motion. Neuro: Awake and alert, GCS 15, oriented to person, place, time, and situation. Moves all extremities. Normal gait. Psych: Awake, alert, with orientation to person, place and time. Behavior, mood, and affect are within normal limits. Vital Signs: 11:28 BP 111 / 68; Pulse 90; Resp 18 S; Temp 98.2(O); Pulse Ox 100% on R/A; aa5 MDM: 11:33 Patient medically screened. kb 14:52 Data reviewed: vital signs, nurses notes. Data interpreted: Pulse oximetry: on room air kb is 100 %. Interpretation: normal. Counseling: I had a detailed discussion with the patient and/or guardian regarding: the historical points, exam findings, and any diagnostic results supporting the discharge/admit diagnosis, lab results, the need for outpatient follow up, a family practitioner, to return to the emergency department if symptoms worsen or persist or if there are any questions or concerns that arise at home. 05/14 13:05 Order name: SARS-COV-2 RT PCR; Complete Time: 13:33 EDMS Administered Medications: No medications were administered Disposition: 05/15 07:52 Co-signature as Attending Physician, Sunny Bone MD I agree with the assessment and jona plan of care. Disposition Summary: 05/14/21 13:53 Discharge Ordered Location: Home kb Condition: Stable kb Diagnosis - Acute upper respiratory infection, unspecified kb Followup: kb - With: Emergency Department - When: As needed - Reason: Worsening of condition Followup: kb - With: Private Physician - When: 2 - 3 days - Reason: Recheck today's complaints, Continuance of care, Re-evaluation by your physician Discharge Instructions: - Discharge Summary Sheet kb - Viral Respiratory Infection, Vndm-Nh-Moud kb Forms: - Medication Reconciliation Form kb - Thank You Letter kb - Antibiotic Education kb - Prescription Opioid Use kb - Work release form ss Signatures: Dispatcher [employer] EDTania Montemayor, PUTTY GLAZER-C JOSELUIS-Sunny Mckinney MD MD cha Calderon, Audri, RN RN aa5 Corrections: (The following items were deleted from the chart) 05/14 12:08 11:34 CORONAVIRUS+[email or web address].BRZ ordered. EDMS EDMS
[2021-05-14 14:08] VITALS: BP 111/68; TEMP 98.2; O2SAT 100
== END 2021-05-14 14:00 | disposition home or self-care (01) ==
LOC: ER 10:30
DX: J06.9 Acute upper respiratory infection, unspecified (principal); F17.210 Nicotine dependence, cigarettes, uncomplicated; Z20.822 Contact with and (suspected) exposure to COVID-19; Z88.5 Allergy status to narcotic agent; Z88.8 Allergy status to other drugs, medicaments and biological substances; Z91.048 Other nonmedicinal substance allergy status
CPT/HCPCS: 99281; U0003

== ENCOUNTER 2021-12-10 14:19 | Emergency (ER) | payer SELFPAY ==
--- OUTSIDE RECORDS SUMMARY | 2021-12-10 14:21 | XMS REPORT | Continuity of Care Document ---
:1995 Author Organization [facility] t Address [address] [place] [address] [address] [place] [address] Care Team Providers Name Role Phone Unavailable Unavailable Unavailable Problems This patient has no known problems. Allergies, Adverse Reactions, Alerts This patient has no known allergies or adverse reactions. Medications This patient has no known medications. Procedures This patient has no known procedures. Results Test Description Test Time Test Comments Results Result Comments Source SARS-CoV-2 (COVID-19), RT-PCR/TMA 2021-10-02 18:36:06 Test Item Value Reference Range Interpretation Comme nts SARS-CoV-2 INTERPRETATION NEGATIVE SEE NOTE S ARS-CoV-2 RNA NOT (test code = 42364) DETECTED Negative results do not preclude SARS-C oV-2 infection and should notb e used as the sole basis for patient management deci sions. Negativeresults must be combined with clinical o bservations, patient history ,and epidemiological information. Optimum specime n types and timingfor peak viral levels during infectio ns caused by SARS-CoV-2 have notbeen determined. Col lection of multiple specim ens or types ofspecimens may be necessary to detect virus. I mproper specimencollect ion and handling, sequence variab ility under primers/probes, or organism present below t he limit of detection may l ead to falsenegative r esults. Positive and negative pr edictive values oftesting are h ighly dependent on prevalence. False negative testresults are more likely when prevalence is h igh. SOURCE (test code = 67092) NASOPHARYNGEAL Note: Methodology is Paige Elise Real-Time RT-PCR. The expected r esult or reference range is NEGATIVE (Not Detected). For more information regarding COVID -19 testing to include clinica linformation, methodology det ail, intended use, FDA author ization andrecommended fact sheets for patients or hea lthcare providers, see Divergence Announcement: S ARS-CoV-2 (COVID-19) by Ricky MARTIN at URL below (note,fact shee ts are provided by method given in report:https:// www.[employer]/c [employer]/rodger t-communications/ Alternatively, see downloadable PDF fact sheet at:https://www. [employer]/COVID -19-RT-PCR UNLESS OTHERWISE INDIC ATED, ALL TESTING PERFORMED [facility] PATHOLOGY [facility], [place] [address] LABORATORY DIRE CTOR: ANA HICKEY M.D. CLIA NUMBER [id number] [facility] [place]. [id number]
[2021-12-10 16:41] LABS: Urine Blood Trace-intact (Negative); Urine Glucose Negative (Negative); Urine Protein Negative (Negative); Urine Specific Gravity >=1.030 (1.005-1.030)
[2021-12-10 16:59] LABS: Absolute Lymphocytes (CBC) 1.6 K/uL (0.7-4.9); Hematocrit 40.6 % (36.0-45.0); Lymphocytes % 28.7 % (15.3-44.8); MPV 8.2 fL (7.6-11.3); RBC Red Blood Cell Count 4.83 M/uL (3.86-4.86)
[2021-12-10] MEDS ORDERED: ONDANSETRON 4 MG/2 ML VIAL ONE (17:13)
[2021-12-10] MEDS ORDERED: FENTANYL CITR 100 MCG/2 ML ONE (17:13)
[2021-12-10] MEDS ORDERED: NA CHLORIDE 0.9% 1,000 ML ONE (17:13)
[2021-12-10 17:20] LABS: BUN Blood Urea Nitrogen 10 mg/dL (7-18); Bicarbonate 27 mmol/L (21-32); Glucose Level 89 mg/dL (74-106); Potassium 3.8 mmol/L (3.5-5.1); Sodium Level 140 mmol/L (136-145)
[2021-12-10 17:21] LABS: ALT/SGPT 16 U/L (12-78); AST/SGOT 10 U/L (15-37); Albumin 4.1 g/dL (3.4-5.0); Alkaline Phosphatase 63 U/L (45-117); Bilirubin Total 0.4 mg/dL (0.2-1.0); Lipase 90 U/L (73-393); Protein, Total 7.8 g/dL (6.4-8.2)
[2021-12-10 17:25] LABS: Urine Bacteria <20 /HPF (<20); Urine RBC <5 /HPF (NONE SEEN)
--- NOTE | 2021-12-10 18:01 | RAD REPORT ---
EXAM DESCRIPTION: CT - Abdomen Pelvis Wo Contrast - 12/10/2021 5:44 pm CLINICAL HISTORY: ABD PAIN COMPARISON: Abdomen Pelvis Wo Contrast dated 11/03/2018 TECHNIQUE: Axial [address] imaging of the abdomen and pelvis was performed without IV contrast. No IV contrast was given because of allergy, abnormal renal function, patient refusal or physician re quest. No oral contrast administered. All CT scans are performed using dose optimization technique as appropriate and may include automated exposure control or mA/KV adjustment according to patient size. FINDINGS: No suspicious findings in the lung bases. The liver, spleen and pancreas show no suspicious findings on non-contrast imaging. Gallbladder and b iliary tree are also without suspicious finding. No hydronephrosis or suspicious renal mass. No significant adrenal finding. Isodense renal masses an d pyelonephritis cannot be excluded in the absence of IV contrast. The urinary bladder is without sig nificant finding. No uterine abnormality seen. Both ovaries are identified normal in size. No dominant solid or cystic ovarian or adnexal finding. No collapsed or involuted ovarian cysts seen. Free fluid in the adnexa an d cul-de-sac within physiologic limits. No free air or pneumatosis. No suspicious inflammatory strand ing seen. No gastric dilatation or wall thickening. No acute small bowel finding. No colon dilatation or colon wall thickening. No acute colon process confirmed. Trace amount of stranding in the fat adjacent to t he descending colon is not clearly outside the range of normal. No hernia, mass or bulky lymphadenopa thy. No suspicious bony findings. IMPRESSION: No hydronephrosis, obstructing calculus or other acute finding identifiable. Isodense masses and pyelonephritis cannot be excluded on noncontrast imaging. No acute GI or DRILL PRESSER process confirmed on this study. Inflammatory bowel changes can be present and occ ult on CT imaging. Full assessment is limited is the absence of IV contrast.
--- NOTE | 2021-12-10 18:13 | EDPHYS ---
Physician Documentation [facility] Name: Wilber Amos Age: 26 yrs Sex: Female : 1995 Arrival Date: 12/10/2021 Time: 14:23 Bed 18 Private MD: ED Physician Alcon Olmstead HPI: 12/10 17:49 This 26 yrs old Black Female presents to ER via Ambulatory with complaints of Abdominal jr8 Pain - LLQ, Back Pain. 17:49 The patient presents with abdominal pain in the left lower quadrant. Onset: The jr8 symptoms/episode began/occurred acutely, today. The symptoms radiate to the left flank. Associated signs and symptoms: none. The symptoms are described as sharp. Modifying factors: The symptoms are alleviated by nothing, the symptoms are aggravated by movement. Severity of pain: At its worst the pain was moderate in the emergency department the pain is unchanged. The patient has not experienced similar symptoms in the past. The patient has not recently seen a physician. 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 - Social history:: Smoking status: Reported history of juuling and/or vaping. ROS: 17:49 Eyes: Negative for injury, pain, redness, and discharge, ENT: Negative for injury, jr8 pain, and discharge, Neck: Negative for injury, pain, and swelling, Cardiovascular: Negative for chest pain, palpitations, and edema, Respiratory: Negative for shortness of breath, cough, wheezing, and pleuritic chest pain, Back: Negative for injury and pain, MS/Extremity: Negative for injury and deformity, Skin: Negative for injury, rash, and discoloration, Neuro: Negative for headache, weakness, numbness, tingling, and seizure. 17:49 Abdomen/GI: Positive for abdominal pain, Negative for nausea, vomiting, and diarrhea, abdominal distension, hematemesis, black/tarry stool, rectal pain, rectal bleeding. Exam: 17:49 Cardiovascular: Regular rate and rhythm with a normal S1 and S2. No gallops, murmurs, jr8 or rubs. Normal PMI, no JVD. No pulse deficits. Respiratory: Lungs have equal breath sounds bilaterally, clear to auscultation and percussion. No rales, rhonchi or wheezes noted. No increased work of breathing, no retractions or nasal flaring. Skin: Warm, dry with normal turgor. Normal color with no rashes, no lesions, and no evidence of cellulitis. MS/ Extremity: Pulses equal, no cyanosis. Neurovascular intact. Full, normal range of motion. Neuro: Awake and alert, GCS 15, oriented to person, place, time, and situation. Cranial nerves II-XII grossly intact. Motor strength 5/5 in all extremities. Sensory grossly intact. Cerebellar exam normal. Normal gait. 17:49 Constitutional: The patient appears alert, awake, in obvious pain. 17:49 Abdomen/GI: Inspection: abdomen appears normal, Bowel sounds: active, all quadrants, Palpation: soft, in all quadrants, moderate abdominal tenderness, in the posterior aspect of left lateral abdomen, anterior aspect of left lateral abdomen and left lower quadrant, mass, is not appreciated, rebound tenderness, is not appreciated, voluntary guarding, is not appreciated, involuntary guarding, is not appreciated, no appreciated organomegaly, Indicators: McBurney's point is not tender, Mason's sign is negative, Rovsing's sign is negative, Liver: tenderness, is not appreciated. 17:49 Back: CVA tenderness, that is mild, is noted on the left. Vital Signs: 14:34 BP 125 / 79; Pulse 103; Resp 17; Temp 99(TE); Pulse Ox 98% on R/A; Weight 72.57 kg; ab2 Height 5 ft. 6 in. (167.64 cm); Pain 8/10; 18:47 BP 119 / 77; Pulse 89; Resp 18; Pulse Ox 99% on R/A; lr4 14:34 Body Mass Index 25.82 (72.57 kg, 167.64 cm) ab2 MDM: 16:29 Patient medically screened. jr8 18:11 Data reviewed: vital signs, nurses notes, lab test result(s), radiologic studies, CT jr8 scan. Data interpreted: Pulse oximetry: on room air is 98 %. Interpretation: normal. Counseling: I had a detailed discussion with the patient and/or guardian regarding: the historical points, exam findings, and any diagnostic results supporting the discharge/admit diagnosis, lab results, radiology results, the need for outpatient follow up, a family practitioner, to return to the emergency department if symptoms worsen or persist or if there are any questions or concerns that arise at home. Response to treatment: the patient's symptoms have mildly improved after treatment. Special discussion: Based on the patient's Hx, exam, and Dx evaluation, there is no indication for emergent surgery or inpatient Tx. It is understood by the patient/guardian that if the Sx's persist or worsen they need to return immediately for re-evaluation. 12/10 16:29 Order name: CBC with Diff; Complete Time: 17:20 [facility] 12/10 16:29 Order name: CMP; Complete Time: 17:27 [facility] 12/10 16:29 Order name: Lipase; Complete Time: 17:27 [facility] 12/10 16:29 Order name: Urine Microscopic Only; Complete Time: 17:27 [facility] 12/10 16:42 Order name: Urine Dipstick-Ancillary; Complete Time: 16:57 EDMS 12/10 16:46 Order name: Urine --Ancillary (enter results) bd 12/10 16:29 Order name: IV Saline Lock; Complete Time: 16:55 [facility] 12/10 16:29 Order name: Labs collected and sent; Complete Time: 16:55 [facility] 12/10 16:29 Order name: Urine Test (obtain specimen); Complete Time: 16:56 [facility] 12/10 16:56 Order name: CT Abd/Pelvis - Without Contrast; Complete Time: 18:11 Administered Medications: 17:05 Drug: NS 0.9% 1000 ml Route: IV; Rate: 1000 ml; Site: right antecubital; lr4 17:25 Follow up: IV Status: Infusion continued lr4 17:10 Drug: fentaNYL (PF) 25 mcg Route: IVP; Site: right antecubital; lr4 17:25 Follow up: Response: Pain is decreased lr4 18:48 Follow up: Response: Pain is decreased lr4 17:10 Drug: Zofran (Ondansetron) 4 mg Route: IVP; Site: right antecubital; lr4 17:25 Follow up: Response: Nausea is decreased lr4 Disposition: 18:54 Co-signature as Attending Physician, Alcon Olmstead MD. rn Disposition Summary: 12/10/21 18:13 Discharge Ordered Location: Home jr8 Problem: new jr8 Symptoms: have improved jr8 Condition: Stable jr8 Diagnosis - Lower abdominal pain, unspecified jr8 Followup: jr8 - With: Private Physician - When: 2 - 3 days - Reason: Recheck today's complaints, Continuance of care, Re-evaluation by your physician Discharge Instructions: - Discharge Summary Sheet jr8 - Abdominal Pain, Adult jr8 Forms: - Medication Reconciliation Form jr8 - Thank You Letter jr8 - Antibiotic Education jr8 - Prescription Opioid Use jr8 - Work release form lr4 Signatures: Dispatcher [employer] EDAlcon Barr MD MD rn Roszak, Josh, PA PA jr8 Darwin Freeman2 Juanita Escalona, RN RN lr4
--- NOTE | 2021-12-10 18:13 | ER ---
Nurse's Notes [facility] Name: Wilber Amos Age: 26 yrs Sex: Female : 1995 Arrival Date: 12/10/2021 Time: 14: Bed 18 Private MD: Diagnosis: Lower abdominal pain, unspecified Presentation: 12/10 14:34 Chief complaint:. Coronavirus screen: Vaccine status: Patient reports being ab2 unvaccinated. Client denies travel out of the [place] in the last 14 days. At this time, the client does not indicate any symptoms associated with coronavirus-19. Ebola Screen: Patient negative for fever greater than or equal to 101.5 degrees Fahrenheit, and additional compatible Ebola Virus Disease symptoms Patient denies exposure to infectious person. Patient denies travel to an Ebola-affected area in the 21 days before illness onset. No symptoms or risks identified at this time. Initial Sepsis Screen:. Initial Sepsis Screen: Does the patient meet any 2 criteria? No. Patient's initial sepsis screen is negative. Does the patient have a suspected source of infection? No. Patient's initial sepsis screen is negative. Risk Assessment: Do you want to hurt yourself or someone else? Patient reports no desire to harm self or others. Onset of symptoms is unknown. 14:34 Acuity: ANU 3 ab2 14:34 Method Of Arrival: Ambulatory ab2 Triage Assessment: 14:35 General: Appears uncomfortable, Behavior is calm, cooperative, appropriate for age. ab2 Pain: Complains of pain in left lower quadrant Pain radiates to left low back Pain currently is 8 out of 10 on a pain scale. GI: Reports lower abdominal pain, nausea. 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 - Social history:: Smoking status: Reported history of juuling and/or vaping. Screenin:59 Abuse screen: Denies threats or abuse. Nutritional screening: No deficits noted. lr4 Tuberculosis screening: No symptoms or risk factors identified. Fall Risk None identified. Assessment: 16:57 General: Appears in no apparent distress. uncomfortable, Behavior is cooperative, lr4 anxious. Pain: Complains of pain in back and left low back and left lower quadrant Pain radiates to back Pain currently is 10 out of 10 on a pain scale. Quality of pain is described as aching, sharp, Pain began 1 day ago. Neuro: No deficits noted. Cardiovascular: No deficits noted. Respiratory: No deficits noted. GI: Bowel sounds present X 4 quads. Abd is soft Abdomen is tender to palpation in suprapubic area, posterior aspect of left lateral abdomen, anterior aspect of left lateral abdomen and left lower quadrant. 18:48 Reassessment: Patient states feeling better. Patient states symptoms have improved. lr4 Vital Signs: 14:34 BP 125 / 79; Pulse 103; Resp 17; Temp 99(TE); Pulse Ox 98% on R/A; Weight 72.57 kg; ab2 Height 5 ft. 6 in. (167.64 cm); Pain 8/10; 18:47 BP 119 / 77; Pulse 89; Resp 18; Pulse Ox 99% on R/A; lr4 14:34 Body Mass Index 25.82 (72.57 kg, 167.64 cm) ab2 ED Course: 14:23 Patient arrived in ED. am2 14:35 Triage completed. ab2 14:36 Arm band placed on right wrist. ab2 16:28 Judson Masters [facility] jr8 16:28 Alcon Olmstead MD is Attending Physician. jr8 16:33 Juanita Escalona RN is Primary Nurse. lr4 16:57 No provider procedures requiring assistance completed. Inserted saline lock: 20 gauge lr4 in right antecubital area, using aseptic technique. 16:59 Patient has correct armband on for positive identification. Bed in low position. Call lr4 light in reach. Side rails up X 1. Door closed. Noise minimized. Head of bed elevated. 17:46 CT Abd/Pelvis - Without Contrast In Process Unspecified. EDMS 18:46 IV discontinued, intact, bleeding controlled, No redness/swelling at site. Pressure lr4 dressing applied. Administered Medications: 17:05 Drug: NS 0.9% 1000 ml Route: IV; Rate: 1000 ml; Site: right antecubital; lr4 17:25 Follow up: IV Status: Infusion continued lr4 17:10 Drug: fentaNYL (PF) 25 mcg Route: IVP; Site: right antecubital; lr4 17:25 Follow up: Response: Pain is decreased lr4 18:48 Follow up: Response: Pain is decreased lr4 17:10 Drug: Zofran (Ondansetron) 4 mg Route: IVP; Site: right antecubital; lr4 17:25 Follow up: Response: Nausea is decreased lr4 Outcome: 16:59 Condition: stable lr4 18:13 Discharge ordered by . jr8 18:46 Discharged to home ambulatory. lr4 18:46 Discharge instructions given to patient. 18:48 Patient left the ED. lr4 Signatures: Dispatcher [employer] EDMS Judson Masters PA PA jr8 Kat Townsend Alexis ab2 Rogers, Lashaunda, RN RN lr4
[2021-12-10 19:54] VITALS: BP 119/77; O2SAT 99
[2021-12-10 19:55] VITALS: TEMP 99
[2021-12-10 20:51] LABS: Urine Specific Gravity/Preg >1.030 (1.005-1.030)
== END 2021-12-10 18:48 | disposition home or self-care (01) ==
LOC: ER 14:19
DX: R10.32 Left lower quadrant pain (principal); Z88.5 Allergy status to narcotic agent; Z88.8 Allergy status to other drugs, medicaments and biological substances; Z91.048 Other nonmedicinal substance allergy status
CPT/HCPCS: 36415; 74176; 80053; 81003; 81015; 81025; 83690; 85025; 96374; 96375; 99284; J2405; J3010; J7030

== ENCOUNTER 2022-08-21 07:17 | Emergency (ER) | payer SELFPAY ==
--- OUTSIDE RECORDS SUMMARY | 2022-08-21 07:20 | XMS REPORT | Continuity of Care Document ---
:1995 Author Organization [facility] t Address [address] [place] [address] [address]. [address] [place] [address] Care Team Providers Name Role Phone Unavailable [...] S ARS-CoV-2 RNA NOT (test code = 58018) DETECTED Negative results do not preclude SARS-C oV-2 infection and should notb e used as the sole basis for patient management deci sions. Negativeresults must be combined with c linical observations, p atient history,and epi demiological information. Op timum specimen types and timin gfor peak viral levels during i nfections caused by SARS-CoV-2 h ave notbeen determined. Col lection of multiple specim ens or types ofspecimens may be necessary to detect virus. I mproper specimencollect ion and handling, seque nce variability under primers/p robes,or organism presen t below the limit of detect ion may lead to falsenegative r esults. Positive and negative pr edictive values oftesting are h ighly dependent on prevalence. False negative testresults are more likely when prevalence is high. SOURCE (test code = 60655) NASOPHARYNGEAL Note: Methodology is Paige Elise Real-Time RT-PCR. The expected result or reference range is NEGATI VE (Not Detected). For more information regarding COVID -19 testing to include clinica linformation, methodology det ail, intended use, FDA author ization andrecommended fact sheets for patients or hea lthcare providers, see [facility] Announcement: S ARS-CoV-2 (COVID-19) by Ricky MARTIN at URL below (note,fact shee ts are provided by method given in report:https:// www.[employer]/ clinicians/janelle nt-communication s/ Alternativel y, see downloadable PD F fact sheet at:https://www. [employer]/COVI D-19-RT-PCR UNL ESS OTHERWISE INDICATED, ALL TESTING PERFORMED [facility], [facility]. [address] [place] [address] 4 TIRE STRIPPER: Myesha EPPS [id number] [employer] ACCREDITATION N O. [id number]
[2022-08-21] MEDS ORDERED: ONDANSETRON 4 MG/2 ML VIAL ONE (07:35)
[2022-08-21] MEDS ORDERED: FAMOTIDINE 20 MG/2 ML VIAL IV ONE (07:35)
[2022-08-21] MEDS ORDERED: NA CHLORIDE 0.9% 1,000 ML ONE (07:35)
[2022-08-21 07:45] LABS: Urine Blood Trace-intact (Negative); Urine Glucose Negative (Negative); Urine Protein Trace (Negative); Urine Specific Gravity >=1.030 (1.005-1.030)
[2022-08-21 08:04] LABS: Absolute Lymphocytes (CBC) 2.3 K/uL (0.7-4.9); Hematocrit 39.3 % (36.0-45.0); Lymphocytes % 40.3 % (15.3-44.8); MCV 84.3 fL (80-100); RBC Red Blood Cell Count 4.67 M/uL (3.86-4.86)
[2022-08-21 08:19] LABS: Albumin 3.8 g/dL (3.4-5.0); Bilirubin Total 0.4 mg/dL (0.2-1.0); Potassium 3.1 mmol/L (3.5-5.1); Protein, Total 7.4 g/dL (6.4-8.2)
[2022-08-21 08:40] LABS: SARS-COV-2 RT PCR NEGATIVE (NEGATIVE)
--- NOTE | 2022-08-21 09:03 | ER ---
Nurse's Notes [facility] Name: Wilber Amos Age: 27 yrs Sex: Female : 1995 Arrival Date: 08/21/2022 Time: 07:20 Bed 7 Private MD: Diagnosis: Other viral agents as the cause of diseases classified elsewhere;Vomiting, unspecified;Diarrhea, unspecified Presentation: 08/21 07:24 Chief complaint: Patient states: cough, headache and body aches that began a week ago, ss got better, but came back yesterday. Denies fever. Coronavirus screen: Client presents with at least one sign or symptom that may indicate coronavirus-19. Ebola Screen: Patient denies exposure to infectious person. Patient denies travel to an Ebola-affected area in the 21 days before illness onset. Initial Sepsis Screen: Does the patient meet any 2 criteria? No. Patient's initial sepsis screen is negative. Does the patient have a suspected source of infection? No. Patient's initial sepsis screen is negative. Risk Assessment: Do you want to hurt yourself or someone else? Patient reports no desire to harm self or others. Onset of symptoms was August 14, 2022. 07:24 Method Of Arrival: Ambulatory ss 07:24 Acuity: ANU 3 ss Historical: - Allergies: 07:26 cefoxitin; ss 07:26 eletriptan HBr; ss 07:26 Iodine; ss 07:26 Mefoxin; ss 07:26 Morphine; ss - PMHx: 07:26 ADD/ADHD; Anxiety; ss - Family history:: not pertinent. - Hospitalizations: : No recent hospitalization is reported. Screenin:28 Abuse screen: Denies threats or abuse. Nutritional screening: No deficits noted. vg1 Tuberculosis screening: No symptoms or risk factors identified. Fall Risk No fall in past 12 months (0 pts). No secondary diagnosis (0 pts). IV access (20 points). Ambulatory Aid- None/Bed Rest/Nurse Assist (0 pts). Gait- Normal/Bed Rest/Wheelchair (0 pts) Mental Status- Oriented to own ability (0 pts). Total [place] Fall Scale indicates No Risk (0-24 pts). Assessment: 07:28 General: Appears in no apparent distress. uncomfortable, Behavior is cooperative. Pain: vg1 Complains of pain in epigastric area Pain currently is 7 out of 10 on a pain scale. Quality of pain is described as sharp, stabbing, Also complains of nausea. Neuro: Level of Consciousness is awake, alert, obeys commands, Oriented to person, place, time, situation. Cardiovascular: Patient's skin is warm and dry. Respiratory: Reports cough that is Airway is patent Respiratory effort is even, unlabored. GI: Abdomen is flat, Abdomen is tender to palpation in epigastric area Reports nausea, vomiting, since this morning. : No signs and/or symptoms were reported regarding the genitourinary system. EENT: No signs and/or symptoms were reported regarding the EENT system. Derm: Skin is pink, warm \T\ dry. Musculoskeletal: Circulation, motion, and sensation intact. 08:29 Reassessment: Patient appears in no apparent distress at this time. Patient and/or vg1 family updated on plan of care and expected duration. Pain level reassessed. Patient is alert, oriented x 3, equal unlabored respirations, skin warm/dry/pink. rated ABD 4/10. Vital Signs: 07:37 BP 119 / 77; Pulse 86; Resp 16; Temp 98.6(O); Pulse Ox 99% ; Weight 61.23 kg; Height 5 vg1 ft. 6 in. (167.64 cm); Pain 7/10; 08:30 BP 111 / 76; Pulse 57; Resp 14; Pulse Ox 100% on R/A; vg1 07:37 Body Mass Index 21.79 (61.23 kg, 167.64 cm) vg1 ED Course: 07:20 Patient arrived in ED. rg4 07:20 Alcon Olmstead MD is Attending Physician. rn 07:22 Gayle Enciso, RN is Primary Nurse. vg1 07:26 Triage completed. ss 07:26 Arm band placed on right wrist. ss 07:28 Patient has correct armband on for positive identification. Bed in low position. Call [facility] light in reach. Side rails up X 1. 07:41 Initial lab(s) drawn, by me, sent to lab. Inserted saline lock: 20 gauge in right 1 antecubital area, using aseptic technique. Blood collected. 07:50 Urine collected: clean catch specimen, cloudy. mm9 07:52 COVID-19/FLU A+B Sent. vg1 09:17 No provider procedures requiring assistance completed. IV discontinued, intact, vg1 bleeding controlled, No redness/swelling at site. Pressure dressing applied. Administered Medications: 07:42 Drug: NS 0.9% 1000 ml Route: IV; Rate: 1 bolus; Site: right antecubital; vg1 09:13 Follow up: IV Status: Completed infusion; IV Intake: 1000ml vg1 07:42 Drug: Zofran (Ondansetron) 4 mg Route: IVP; Site: right antecubital; vg1 08:29 Follow up: Response: No adverse reaction; Marked relief of symptoms vg1 07:44 Drug: Pepcid (famotidine) 20 mg Route: IVP; Site: right antecubital; vg1 08:29 Follow up: Response: No adverse reaction; Marked relief of symptoms vg1 Medication: 07:28 VIS not applicable for this client. vg1 Intake: 09:13 IV: 1000ml; Total: 1000ml. vg1 Outcome: 09:02 Discharge ordered by . rn 09:17 Discharged to home ambulatory. vg1 09:17 Condition: good 09:17 Discharge instructions given to patient, Instructed on discharge instructions, follow up and referral plans. medication usage, Demonstrated understanding of instructions, follow-up care, medications, Prescriptions given X 1. 09:19 Patient left the ED. vg1 Signatures: Alcon Olmstead MD MD rn Smirch, Shelby, RN RN ss Garcia, Rubi rg4 Gayle Enciso RN RN vg1 Chela Quigley mm9
--- NOTE | 2022-08-21 09:03 | EDPHYS ---
Physician Documentation [facility] Name: Wilber Amos Age: 27 yrs Sex: Female : 1995 Arrival Date: 08/21/2022 Time: 07:20 Bed 7 Private MD: ED Physician Alcon Olmstead HPI: 08/21 07:33 This 27 yrs old Black Female presents to ER via Ambulatory with complaints of Flu rn Symptoms. 07:33 Pt reports "flu without fever". Reports runny nose, cough, sore throat, upper abd pain, rn nausea/vomiting/diarrhea. Present for 1 week. No blood in emesis or stool. Has chronic abd pain with a lot of ER visits. . Onset: The symptoms/episode began/occurred 1 week(s) ago. Severity of symptoms: At their worst the symptoms were moderate in the emergency department the symptoms are unchanged. The patient has experienced similar episodes in the past. The patient has not recently seen a physician. Historical: - Allergies: 07:26 cefoxitin; ss 07:26 eletriptan HBr; ss 07:26 Iodine; ss 07:26 Mefoxin; ss 07:26 Morphine; ss - PMHx: 07:26 ADD/ADHD; Anxiety; ss - Family history:: not pertinent. - Hospitalizations: : No recent hospitalization is reported. 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 Exam: 07:33 Constitutional: This is a well developed, well nourished patient who is awake, alert, rn and in no acute distress. Head/Face: Normocephalic, atraumatic. Eyes: Periorbital areas with no swelling, redness, or edema. ENT: Oropharynx with no redness, swelling, or masses, exudates, or evidence of obstruction, uvula midline. Cardiovascular: Regular rate and rhythm. No pulse deficits. Respiratory: No increased work of breathing, no retractions or nasal flaring. Abdomen/GI: Soft, non-tender Skin: Warm, dry MS/ Extremity: Pulses equal, no cyanosis. Neuro: Awake and alert, GCS 15 Vital Signs: 07:37 BP 119 / 77; Pulse 86; Resp 16; Temp 98.6(O); Pulse Ox 99% ; Weight 61.23 kg; Height 5 vg1 ft. 6 in. (167.64 cm); Pain 7/10; 08:30 BP 111 / 76; Pulse 57; Resp 14; Pulse Ox 100% on R/A; vg1 07:37 Body Mass Index 21.79 (61.23 kg, 167.64 cm) vg1 MDM: 07:20 Patient medically screened. rn 09:01 Differential Diagnosis flu, viral syndrome, COVID, acid reflux, gastritis, chronic abd rn pain, UTI. Data reviewed: vital signs, nurses notes, lab test result(s), and as a result, I will discharge patient. Counseling: I had a detailed discussion with the patient and/or guardian regarding: the historical points, exam findings, and any diagnostic results supporting the discharge/admit diagnosis, lab results, the need for outpatient follow up, to return to the emergency department if symptoms worsen or persist or if there are any questions or concerns that arise at home. Response to treatment: the patient's symptoms have markedly improved after treatment, and as a result, I will discharge patient. Special discussion: I discussed with the patient/guardian in detail that at this point there is no indication for admission to the hospital. It is understood, however, that if the symptoms persist or worsen the patient needs to return immediately for re-evaluation. 08/21 07:31 Order name: COVID-19/FLU A+B; Complete Time: 08:51 rn 08/21 07:31 Order name: CBC with Diff; Complete Time: 08:17 rn 08/21 07:31 Order name: CMP; Complete Time: 08:22 rn 08/21 07:31 Order name: Lipase; Complete Time: 08:22 rn 08/21 07:45 Order name: Urine Dipstick-Ancillary; Complete Time: 08:01 EDMS 08/21 07:51 Order name: Urine --Ancillary (enter results) eb 12/02 07:31 Order name: IV Saline Lock; Complete Time: 07:47 rn 12 07:31 Order name: Labs collected and sent; Complete Time: 07:47 rn 12 07:31 Order name: Urine Dipstick-Ancillary (obtain specimen); Complete Time: 07:47 rn 12 07:31 Order name: Urine Test (obtain specimen); Complete Time: 07:47 rn Administered Medications: 07:42 Drug: NS 0.9% 1000 ml Route: IV; Rate: 1 bolus; Site: right antecubital; vg1 09:13 Follow up: IV Status: Completed infusion; IV Intake: 1000ml vg1 07:42 Drug: Zofran (Ondansetron) 4 mg Route: IVP; Site: right antecubital; vg1 08:29 Follow up: Response: No adverse reaction; Marked relief of symptoms vg1 07:44 Drug: Pepcid (famotidine) 20 mg Route: IVP; Site: right antecubital; vg1 08:29 Follow up: Response: No adverse reaction; Marked relief of symptoms vg1 Disposition Summary: 08/21/22 09:02 Discharge Ordered Location: Home rn Problem: new rn Symptoms: have improved rn Condition: Stable rn Diagnosis - Other viral agents as the cause of diseases classified elsewhere rn - Vomiting, unspecified rn - Diarrhea, unspecified rn Followup: rn - With: Private Physician - When: As needed - Reason: Recheck today's complaints, Re-evaluation by your physician Discharge Instructions: - Discharge Summary Sheet rn - Diarrhea, Adult rn - Nausea and Vomiting, Adult rn Forms: - Medication Reconciliation Form rn - Thank You Letter 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
[2022-08-21 09:23] VITALS: TEMP 98.6
[2022-08-21 09:24] VITALS: BP 111/76; O2SAT 100
== END 2022-08-21 09:19 | disposition home or self-care (01) ==
LOC: ER 07:17
DX: R11.10 Vomiting, unspecified (principal); B97.89 Other viral agents as the cause of diseases classified elsewhere; R19.7 Diarrhea, unspecified
CPT/HCPCS: 0240U; 36415; 80053; 81003; 81025; 83690; 85025; 96361; 96374; 96375; 99284; J2405; J7030

== ENCOUNTER 2022-11-23 14:19 | Emergency (ER) | payer SELFPAY ==
--- OUTSIDE RECORDS SUMMARY | 2022-11-23 14:22 | XMS REPORT | Continuity of Care Document ---
:1995 Author Organization [facility] t Address [address] [place] [address] [address] [place] [address] Care Team Providers Name Role Phone Unavailable [...] S ARS-CoV-2 RNA NOT (test code = 18820) DETECTED Negative results do not preclude SARS-C [...] prevalence is high. SOURCE (test code = 29775) NASOPHARYNGEAL Note: Methodology is Paige Elise Real-Time RT-PCR. The expected result or reference range is NEGATI VE (Not Detected). For more information regarding COVID -19 testing to include clinica linformation, methodology det ail, intended use, FDA author ization andrecommended fact sheets for patients or hea lthcare providers, see [facility] Announcement: S ARS-CoV-2 (COVID-19) by Ricky MARTIN at URL below (note,fact shee ts are provided by method given in report:https:// www.Splunk/ clinicians/janelle nt-communication s/ Alternativel y, see downloadable PD F fact sheet at:https://www. Splunk/COVI D-19-RT-PCR UNL ESS OTHERWISE INDICATED, ALL TESTING PERFORMED [facility], [facility]. [address] [place] [address] 4 MARINE CONSULTANT: Myesha EPPS [id number] CAP ACCREDITATION N O. [id number]
[2022-11-23 15:39] LABS: Absolute Lymphocytes (CBC) 1.5 K/uL (0.7-4.9); Hematocrit 39.9 % (36.0-45.0); Lymphocytes % 30.9 % (15.3-44.8); MCV 83.5 fL (80-100); MPV 7.8 fL (7.6-11.3); RBC Red Blood Cell Count 4.78 M/uL (3.86-4.86)
[2022-11-23 16:03] LABS: Bilirubin Total 0.4 mg/dL (0.2-1.0); Potassium 3.6 mmol/L (3.5-5.1); Protein, Total 7.2 g/dL (6.4-8.2)
[2022-11-23 16:18] LABS: SARS-COV-2 RT PCR NEGATIVE (NEGATIVE)
[2022-11-23] MEDS ORDERED: NA CHLORIDE 0.9% 1,000 ML ONE (16:46)
[2022-11-23] MEDS ORDERED: ONDANSETRON 4 MG/2 ML VIAL ONE (16:46)
--- NOTE | 2022-11-23 17:14 | EDPHYS ---
Physician Documentation [facility] Name: Wilber Amos Age: 27 yrs Sex: Female : 1995 Arrival Date: 11/23/2022 Time: 14:25 Bed DX3 Private MD: ED Physician Edmund Rosenbaum HPI: 11/23 14:42 This 27 yrs old Black Female presents to ER via Wheelchair with complaints of jmm Vomiting/Diarrhea, Chills, Fever. 14:42 The patient presents to the emergency department with nausea, vomiting, diarrhea. jmm Onset: The symptoms/episode began/occurred gradually. Possible causes: sick contacts. The symptoms are aggravated by nothing. The symptoms are alleviated by nothing. Associated signs and symptoms:. Patient says she was exposed to multiple people diagnosed with coronavirus. Complains of nausea, congestion, cough, vomiting and diarrhea.. 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 - Social history:: Smoking status: Reported history of juuling and/or vaping. ROS: 14:42 Constitutional: Positive for body aches. jmm 14:42 ENT: Positive for sinus congestion. 14:42 Cardiovascular: 14:42 Respiratory: Positive for cough. 14:42 Abdomen/GI: Positive for vomiting, diarrhea. 14:42 All other systems are negative. Exam: 14:42 Constitutional: This is a well developed, well nourished patient who is awake, alert, jmm and in no acute distress. Head/Face: atraumatic. Eyes: EOMI, no conjunctival erythema appreciated 14:42 Neck: Trachea midline, Supple Chest/axilla: Normal chest wall appearance and motion. Cardiovascular: Regular rate and rhythm. No edema appreciated 14:42 Abdomen/GI: Non distended Back: Normal ROM Skin: General appearance color normal MS/ Extremity: Moves all extremities, no obvious deformities appreciated, no edema noted to the lower extremities Neuro: Awake and alert Psych: Behavior is normal, Mood is normal, Patient is cooperative and pleasant 14:42 ENT: Posterior pharynx: erythema, that is mild. 14:42 Respiratory: the patient does not display signs of respiratory distress, Respirations: normal, Breath sounds: are clear throughout. Vital Signs: 14:42 BP 117 / 67; Pulse 91; Resp 18 S; Temp 98.5(O); Pulse Ox 100% on R/A; Weight 63.5 kg aa5 (R); Height 5 ft. 6 in. (167.64 cm) (R); Pain 0/10; 17:34 BP 116 / 70; Pulse 78; Resp 18; Pulse Ox 100% on R/A; eh3 14:42 Body Mass Index 22.60 (63.50 kg, 167.64 cm) aa5 MDM: 14:42 Patient medically screened. [facility] 17:12 Differential diagnosis: Viral syndrome, coronavirus. Data reviewed: vital signs, nurses [facility] notes. I considered the following discharge prescriptions or medication management in the emergency department Medications were administered in the Emergency Department. See MAR. Test considered but Not performed: CT: No active abdominal pain. Counseling: I had a detailed discussion with the patient and/or guardian regarding: the historical points, exam findings, and any diagnostic results supporting the discharge/admit diagnosis, lab results, the need for outpatient follow up, to return to the emergency department if symptoms worsen or persist or if there are any questions or concerns that arise at home. ED course: Symptoms have alleviated. Patient advised follow-up PCP otherwise given strict return precautions. Patient understood agrees plan of care. 03 14:42 Order name: CBC with Diff [facility] 11/23 14:42 Order name: CMP [facility] 11/23 14:42 Order name: Lipase [facility] 11/23 14:42 Order name: IV Saline Lock; Complete Time: 15:28 [facility] 11/23 14:42 Order name: Labs collected and sent; Complete Time: 15:28 [facility] 11/23 14:42 Order name: COVID-19/FLU A+B [facility] 11/23 15:44 Order name: CBC with Automated Diff; Complete Time: 15:47 [facility] 11/23 16:06 Order name: Comprehensive Metabolic Panel; Complete Time: 16:06 [facility] 11/23 16:06 Order name: Lipase; Complete Time: 16:06 [facility] 03/06 16:18 Order name: COVID-19/FLU A+B; Complete Time: 16:24 EDMS Administered Medications: 16:47 Drug: NS 0.9% 1000 ml Route: IV; Rate: 1 bolus; Site: right antecubital; iw 17:27 Follow up: IV Status: Completed infusion; IV Intake: 900ml eh3 16:47 Drug: Zofran (Ondansetron) 4 mg Route: IVP; Site: right antecubital; iw 17:27 Follow up: Response: No adverse reaction eh3 Disposition Summary: 11/23/22 17:14 Discharge Ordered Location: Home [facility] Condition: Stable [facility] Diagnosis - Vomiting jmm - Diarrhea, unspecified jmm Followup: [facility] - With: Private Physician - When: 2 - 3 days - Reason: Recheck today's complaints, Continuance of care, Re-evaluation by your physician Discharge Instructions: - Discharge Summary Sheet jmm - Diarrhea, Adult jmm - Vomiting, Adult m Forms: - Work release form [facility] - Medication Reconciliation Form [facility] - Thank You Letter [facility] - Antibiotic Education [facility] - Prescription Opioid Use [facility] Prescriptions: - ondansetron 4 mg Oral tablet,disintegrating - place 1 tablet by TRANSLINGUAL route every 4-6 hours As needed; 20 tablet; [facility] Refills: 0, Product Selection Permitted Signatures: Dispatcher MedHost EDMS Magdiel Carter PA PA jmm Williams, Irene, RN TOMÁS Yarely Calvillo RN RN aa5 BlackduckTracy RN 3
--- NOTE | 2022-11-23 17:14 | ER ---
Nurse's Notes [facility] Name: Wilber Amos Age: 27 yrs Sex: Female : 1995 Arrival Date: 11/23/2022 Time: 14:25 Bed DX3 Private MD: Diagnosis: Vomiting;Diarrhea, unspecified Presentation: 11/23 14:42 Chief complaint: Patient states: vomiting and diarrhea that began Wednesday, pt also aa5 reports chills began last night. Denies abd pain. 14:42 Onset of symptoms was November 2022. aa5 14:42 Acuity: ANU 3 aa5 14:42 Coronavirus screen: diarrhea, vomiting. Ebola Screen: Patient denies travel to an [facility] Ebola-affected area in the 21 days before illness onset. Initial Sepsis Screen: Does the patient meet any 2 criteria? HR > 90 bpm. Does the patient have a suspected source of infection? No. Patient's initial sepsis screen is negative. Risk Assessment: Do you want to hurt yourself or someone else? Patient reports no desire to harm self or others. 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 - Social history:: Smoking status: Reported history of juuling and/or vaping. Screenin:23 [facility] ED Fall Risk Assessment (Adult) Score/Fall Risk Level 0 - 2 = Low Risk. Abuse eh3 screen: Denies threats or abuse. Denies injuries from another. Nutritional screening: No deficits noted. Tuberculosis screening: No symptoms or risk factors identified. Assessment: 17:23 General: Appears in no apparent distress. uncomfortable, Behavior is calm, cooperative, eh3 appropriate for age. Pain: Complains of pain in abdomen. Neuro: Level of Consciousness is awake, alert, obeys commands, Oriented to person, place, time, situation. Cardiovascular: Capillary refill < 3 seconds Patient's skin is warm and dry. Respiratory: Airway is patent Respiratory effort is even, unlabored, Respiratory pattern is regular, symmetrical. GI: Abdomen is flat, non-distended, Reports diarrhea, intolerance of fluids, intolerance of food, nausea, vomiting. : No signs and/or symptoms were reported regarding the genitourinary system. EENT: No signs and/or symptoms were reported regarding the EENT system. Derm: Skin is pink, warm \T\ dry. Musculoskeletal: Circulation, motion, and sensation intact. Range of motion: intact in all extremities. Vital Signs: 14:42 BP 117 / 67; Pulse 91; Resp 18 S; Temp 98.5(O); Pulse Ox 100% on R/A; Weight 63.5 kg aa5 (R); Height 5 ft. 6 in. (167.64 cm) (R); Pain 0/10; 17:34 BP 116 / 70; Pulse 78; Resp 18; Pulse Ox 100% on R/A; eh3 14:42 Body Mass Index 22.60 (63.50 kg, 167.64 cm) aa5 ED Course: 14:25 Patient arrived in ED. rg4 14:25 Magdiel Carter PA is PHCP. [facility] 14:25 Edmund Rosenbaum MD is Attending Physician. [facility] 14:42 Arm band placed on. aa5 15:08 Triage completed. aa5 15:28 COVID-19/FLU A+B Sent. em1 15:28 CBC with Diff Sent. em1 15:28 CMP Sent. em1 15:28 Lipase Sent. em1 15:28 Initial lab(s) drawn, by mn, sent to lab. Inserted saline lock: 22 gauge in right em1 antecubital area, using aseptic technique. Blood collected. 16:04 Roma Campos, RN is Primary Nurse. iw 17:23 Patient has correct armband on for positive identification. eh3 17:27 No provider procedures requiring assistance completed. IV discontinued, intact, eh3 bleeding controlled, No redness/swelling at site. Pressure dressing applied. Administered Medications: 16:47 Drug: NS 0.9% 1000 ml Route: IV; Rate: 1 bolus; Site: right antecubital; iw 17:27 Follow up: IV Status: Completed infusion; IV Intake: 900ml eh3 16:47 Drug: Zofran (Ondansetron) 4 mg Route: IVP; Site: right antecubital; 17:27 Follow up: Response: No adverse reaction eh3 Medication: 17:27 VIS not applicable for this client. eh3 Intake: 17:27 IV: 900ml; Total: 900ml. eh3 Outcome: 17:14 Discharge ordered by MD. guerrero 17:35 Discharged to home ambulatory. eh3 17:35 Condition: stable 17:35 Discharge instructions given to patient, Instructed on discharge instructions, follow up and referral plans. medication usage, Demonstrated understanding of instructions, follow-up care, medications, Prescriptions given X 1. 17:35 Patient left the ED. eh3 Signatures: Magdiel Carter PA PA jmm Williams, Irene, RN Sim Jensen em1 Yarely Calvillo, RN RN bahman5 Isa Enciso 4 Tracy Vicente, RN RN 3
[2022-11-23 18:05] VITALS: TEMP 98.5; O2SAT 100
[2022-11-23 18:10] VITALS: BP 116/70
== END 2022-11-23 17:35 | disposition home or self-care (01) ==
LOC: ER 14:19
DX: R11.10 Vomiting, unspecified (principal); R19.7 Diarrhea, unspecified; Z20.822 Contact with and (suspected) exposure to COVID-19; Z88.5 Allergy status to narcotic agent; Z88.8 Allergy status to other drugs, medicaments and biological substances; Z91.048 Other nonmedicinal substance allergy status
CPT/HCPCS: 0240U; 36415; 80053; 83690; 85025; 96361; 96374; 99284; J2405; J7030

== ENCOUNTER 2023-01-20 10:21 | Emergency (ER) | payer SELFPAY ==
--- OUTSIDE RECORDS SUMMARY | 2023-01-20 10:24 | XMS REPORT | Continuity of Care Document ---
:1995 Author Organization [facility] t Address [address] [place] [address] [address] [place] [address] Care Team Providers Name Role Phone Unavailable [...] S ARS-CoV-2 RNA NOT (test code = 89884) DETECTED Negative results do not preclude SARS-C [...] prevalence is high. SOURCE (test code = 04798) NASOPHARYNGEAL Note: Methodology is Paige Elise Real-Time RT-PCR. The expected result or reference range is NEGATI VE (Not Detected). For more information regarding COVID -19 testing to include clinica linformation, methodology det ail, intended use, FDA author ization andrecommended fact sheets for patients or hea lthcare providers, see [facility] Announcement: S ARS-CoV-2 (COVID-19) by Ricky MARTIN at URL below (note,fact shee ts are provided by method given in report:https:// www.[employer]/ clinicians/janelle nt-communication s/ Alternativel y, see downloadable PD F fact sheet at:https://www. [employer]/COVI D-19-RT-PCR UNL ESS OTHERWISE INDICATED, ALL TESTING PERFORMED [facility], [facility]. [address] [place] [address] 4 BIOLOGY INTERN: Myesha EPPS [id number] CAP ACCREDITATION N O. [id number]
[2023-01-20] MEDS ORDERED: ONDANSETRON 4 MG/2 ML VIAL ONE (10:41)
[2023-01-20] MEDS ORDERED: KETOROLAC 30 MG/ML INJ ONE (10:41)
[2023-01-20] MEDS ORDERED: NA CHLORIDE 0.9% 1,000 ML ONE (10:41)
[2023-01-20 10:54] LABS: Absolute Lymphocytes (CBC) 1.1 K/uL (0.7-4.9); Hematocrit 41.7 % (36.0-45.0); MCV 83.6 fL (80-100); MPV 7.9 fL (7.6-11.3); RBC Red Blood Cell Count 4.99 M/uL (3.86-4.86)
[2023-01-20 11:06] LABS: Potassium 3.6 mEq/L (3.5-5.1)
--- NOTE | 2023-01-20 11:07 | RAD REPORT ---
EXAM DESCRIPTION: CT - CTFB CLINICAL HISTORY: evaluate for abscess Facial pain and swelling COMPARISON: No comparisons TECHNIQUE: Axial 2 mm thick images of the face were obtained with sagittal and coronal reconstructio n images. All CT scans are performed using dose optimization technique as appropriate and may include automated exposure control or mA/KV adjustment according to patient size. FINDINGS: Significant soft tissue swelling and edema is seen along the left aspect of the face. This appears adjacent to several eroded left posterior maxillary teeth. These 2 eroded teeth are also not ed to contain periapical abscesses, the largest involving left posterior maxillary molar measuring up to 4 mm in size. In addition there is likely a periodontal abscess present or developing along the l eft maxilla buccal cortex measuring 10 x 5 mm. The globes and orbital contents are grossly unremarkable.The paranasal sinuses and mastoids are clear . IMPRESSION: Significant left-sided facial soft tissue swelling is seen with suspected developing odo ntogenic abscess as detailed.Several eroded left-sided posterior maxillary teeth as described.
--- NOTE | 2023-01-20 11:21 | EDPHYS ---
Physician Documentation [facility] Name: Wilber Amos Age: 27 yrs Sex: Female : 1995 Arrival Date: 01/20/2023 Time: 10:21 Bed 6 Private MD: ED Physician Sunny Bone HPI: 01/20 11:24 This 27 yrs old Black Female presents to ER via Ambulatory with complaints of kb Toothache, Abscess, Mouth Swelling. 11:24 The patient presents with pain, redness, swelling. The problem is located in the upper kb left second molar (#15) and upper left first molar (#14) and upper left second bicuspid (#13) and upper left first bicuspid (#12). Onset: The symptoms/episode began/occurred yesterday. Duration: The symptoms are continuous. Modifying factors: The symptoms are alleviated by nothing, the symptoms are aggravated by nothing. Associated signs and symptoms: Pertinent positives: nausea, pain, redness in area, swelling, facial, vomiting, Pertinent negatives: fever. Severity of symptoms: At their worst the symptoms were moderate, in the emergency department the symptoms are unchanged. The patient has not experienced similar symptoms in the past. The patient has not recently seen a physician. Pt reports dental pain that started yesterday and she had facial swelling with increased pain when she woke up today. Reports nausea and vomiting. Denies fever. 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 - Social history:: Smoking status: Reported history of juuling and/or vaping. ROS: 11:23 Constitutional: Negative for fever, chills, and weight loss. kb 11:23 ENT: Positive for dental pain, swelling. 11:23 Abdomen/GI: Positive for nausea and vomiting. 11:23 All other systems are negative. Exam: 11:23 Constitutional: This is a well developed, well nourished patient who is awake, alert, kb and in no acute distress. Head/Face: Normocephalic, atraumatic. Cardiovascular: Regular rate and rhythm with a normal S1 and S2. No gallops, murmurs, or rubs. No pulse deficits. Respiratory: Respirations even and unlabored. No increased work of breathing. Talking in full sentences Abdomen/GI: Soft, non-tender. No distention Skin: Warm, dry with normal turgor. Normal color. MS/ Extremity: Pulses equal, no cyanosis. Neurovascular intact. Full, normal range of motion. Neuro: Awake and alert, GCS 15, oriented to person, place, time, and situation. Moves all extremities. Normal gait. 11:23 ENT: Dental exam: dental caries, that is moderate, diffusely, gum swelling, that is moderate, specifically in the upper left first bicuspid (#12), upper left second bicuspid (#13), upper left first molar (#14) and upper left second molar (#15), pain, that is moderate. Vital Signs: 10:30 Resp 17; Temp 98.2(TE); Weight 65.77 kg; Height 5 ft. 6 in. ; Pain 6/10; ss 10:31 BP 123 / 85; Pulse 73; Resp 19; Pulse Ox 100% on R/A; ap3 10:30 Body Mass Index 23.40 (65.77 kg, 167.64 cm) ss 10:30 Pain Scale: Adult ss MDM: 10:28 Patient medically screened. kb 11:24 Differential diagnosis: dental caries, gingivitis, dental abscess, cellulitis. Data kb reviewed: vital signs, nurses notes. Management of patient was discussed with the following: dr Bone, recommends outpatient follow up. Counseling: I had a detailed discussion with the patient and/or guardian regarding: the historical points, exam findings, and any diagnostic results supporting the discharge/admit diagnosis, lab results, radiology results, the need for outpatient follow up, a dentist, to return to the emergency department if symptoms worsen or persist or if there are any questions or concerns that arise at home. 01/20 10:32 Order name: CBC with Diff kb 01/20 10:32 Order name: Basic Metabolic Panel; Complete Time: 11:07 kb 01/20 10:47 Order name: Facial Bones W/ Mpr; Complete Time: 11:11 EDMS 01/20 10:32 Order name: IV Start; Complete Time: 10:46 kb Administered Medications: 10:46 Drug: NS 0.9% IV 1000 ml Route: IV; Rate: 1000 ml; Site: right antecubital; ap3 12:02 Follow up: IV Status: Completed infusion ap3 10:46 Drug: Ondansetron IVP 4 mg Route: IVP; Site: right antecubital; ap3 11:26 Follow up: Response: No adverse reaction ap3 10:46 Drug: Ketorolac IVP 15 mg Route: IVP; Site: right antecubital; ap3 12:02 Follow up: Response: No adverse reaction; Pain is decreased ap3 11:43 Drug: Clindamycin IVPB 600 mg Route: IVPB; Infused Over: 30 mins; Site: right ap3 antecubital; 12:02 Follow up: IV Status: Completed infusion ap3 Disposition Summary: 01/20/23 11:21 Discharge Ordered Location: Home kb Condition: Stable kb Diagnosis - Periapical abscess without sinus kb Followup: kb - With: Emergency Department - When: As needed - Reason: Worsening of condition Followup: kb - With: Private Physician - When: 2 - 3 days - Reason: Recheck today's complaints, Continuance of care, Re-evaluation by your physician Discharge Instructions: - Discharge Summary Sheet kb - Dental Abscess kb - Dental Pain, [id number] kb Forms: - Medication Reconciliation Form kb - Thank You Letter kb - Antibiotic Education kb - Prescription Opioid Use kb - Work release form ld1 Prescriptions: - ondansetron 4 mg Oral Tablet,disintegrating - take 1 tablet by ORAL route every 6 hours As needed; 12 tablet; Refills: 0, kb Product Selection Permitted - Clindamycin HCl 300 mg Oral Capsule - take 1 capsule by ORAL route every 6 hours for 10 days; 40 capsule; Refills: 0, kb Product Selection Permitted - Diclofenac Sodium 75 mg Oral tablet,delayed release (DR/EC) - take 1 tablet by ORAL route 2 times per day As needed; 30 tablet; Refills: 0, kb Product Selection Permitted Signatures: Dispatcher [employer] Tania Arias, Tatianna Oh RN RN ss Prokisch, Amanda, RN RN ap3 Corrections: (The following items were deleted from the chart) 10:47 10:32 Maxillofacial W/Cont+CT.RAD.BRZ ordered. EDMS EDMS
--- NOTE | 2023-01-20 11:21 | ER ---
Nurse's Notes [facility] Name: Wilber Amos Age: 27 yrs Sex: Female : 1995 Arrival Date: 01/20/2023 Time: 10:21 Bed 6 Private MD: Diagnosis: Periapical abscess without sinus Presentation: 01/20 10:30 Chief complaint: Patient states: Dental pain that began yesterday. Woke up with ss swelling to L side of face today. Pt states that she knows she has two broken teeth she needs pulled, and needs to see an oral surgeon to do so, but has yet to make an appointment. Coronavirus screen: Client denies travel out of the [place] in the last 14 days. Ebola Screen: Patient denies exposure to infectious person. Patient denies travel to an Ebola-affected area in the 21 days before illness onset. Initial Sepsis Screen: Does the patient meet any 2 criteria? No. Patient's initial sepsis screen is negative. Does the patient have a suspected source of infection? Yes:. Risk Assessment: Do you want to hurt yourself or someone else? Patient reports no desire to harm self or others. Onset of symptoms was January 19, 2023. 10:30 Method Of Arrival: Ambulatory ss 10:30 Acuity: ANU 3 ss Triage Assessment: 10:47 EENT: Reports pain in left cheek and left jaw. 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 - Social history:: Smoking status: Reported history of juuling and/or vaping. Screenin:47 [facility] ED Fall Risk Assessment (Adult) History of falling in the last 3 months, ap3 including since admission No falls in past 3 months (0 pts). Abuse screen: Denies threats or abuse. Nutritional screening: No deficits noted. Tuberculosis screening: No symptoms or risk factors identified. Assessment: 10:46 General: Appears uncomfortable, Behavior is calm, cooperative, appropriate for age. ap3 Pain: Complains of pain in left cheek and left jaw Pain began 1 day ago. Neuro: Level of Consciousness is awake, alert, obeys commands, Oriented to person, place, time, situation. Cardiovascular: Patient's skin is warm and dry. Respiratory: Airway is patent Respiratory effort is even, unlabored, Respiratory pattern is regular, symmetrical. EENT: patient reports broken teeth, and pain near swelling. Vital Signs: 10:30 Resp 17; Temp 98.2(TE); Weight 65.77 kg; Height 5 ft. 6 in. ; Pain 6/10; ss 10:31 BP 123 / 85; Pulse 73; Resp 19; Pulse Ox 100% on R/A; ap3 10:30 Body Mass Index 23.40 (65.77 kg, 167.64 cm) ss 10:30 Pain Scale: Adult ss ED Course: 10:23 Patient arrived in ED. am2 10:28 [facility]C [facility] kb 10:28 Sunny Bone MD is Attending Physician. kb 10:33 Triage completed. ss 10:33 Arm band placed on right wrist. ss 10:45 Kat Donald, TOMÁS is Primary Nurse. ap3 10:46 Initial lab(s) drawn, by me, sent to lab. Inserted saline lock: 20 gauge in right ap3 antecubital area, using aseptic technique. Blood collected. 10:48 Patient has correct armband on for positive identification. Placed in gown. Bed in low ap3 position. Side rails up X 1. Adult w/ patient. Pulse ox on. NIBP on. Door closed. Noise minimized. 10:56 Facial Bones W/ Mpr In Process Unspecified. EDMS 12:02 No provider procedures requiring assistance completed. IV discontinued, intact, ap3 bleeding controlled, No redness/swelling at site. Pressure dressing applied. Administered Medications: 10:46 Drug: NS 0.9% IV 1000 ml Route: IV; Rate: 1000 ml; Site: right antecubital; ap3 12:02 Follow up: IV Status: Completed infusion ap3 10:46 Drug: Ondansetron IVP 4 mg Route: IVP; Site: right antecubital; ap3 11:26 Follow up: Response: No adverse reaction ap3 10:46 Drug: Ketorolac IVP 15 mg Route: IVP; Site: right antecubital; ap3 12:02 Follow up: Response: No adverse reaction; Pain is decreased ap3 11:43 Drug: Clindamycin IVPB 600 mg Route: IVPB; Infused Over: 30 mins; Site: right ap3 antecubital; 12:02 Follow up: IV Status: Completed infusion ap3 Medication: 12:03 VIS not applicable for this client. ap3 Outcome: 11:21 Discharge ordered by MD. quintero 12:03 Discharged to home ambulatory, with family. ap3 12:03 Condition: good 12:03 Discharge instructions given to patient, Instructed on discharge instructions, follow up and referral plans. medication usage, Demonstrated understanding of instructions, follow-up care, medications, Prescriptions given X 2. 12:03 Patient left the ED. ap3 Signatures: Dispatcher [employer] EDMS Tania Lamb, RACE CAR DRIVER-C JOSELUIS-Tatianna Malone RN RN ss Moreno, Amanda am2 Kat Donald RN RN ap3
[2023-01-20] MEDS ORDERED: CLINDAMYCIN 600MG/D5W 50 ML IV ONE (11:34)
[2023-01-20 12:08] VITALS: TEMP 98.2
[2023-01-20 12:10] VITALS: BP 123/85; O2SAT 100
[2023-01-20 13:19] LABS: Blood Morphology Comment NOT SEEN (NOT SEEN); Platelet Estimate ADEQ; White Blood Cell Scan OK (OK)
== END 2023-01-20 12:03 | disposition home or self-care (01) ==
LOC: ER 10:21
DX: K04.7 Periapical abscess without sinus (principal)
CPT/HCPCS: 36415; 70486; 76377; 80048; 85025; 96361; 96365; 96375; 99284; J2405; J7030

== ENCOUNTER 2023-06-09 14:55 | Emergency (ER) | payer SELFPAY ==
--- OUTSIDE RECORDS SUMMARY | 2023-06-09 14:58 | XMS REPORT | Continuity of Care Document ---
:1995 Author Organization [facility] t Address [address] [place] [address] [address] [place] [address] Care Team Providers Name Role Phone Unavailable [...] S ARS-CoV-2 RNA NOT (test code = 54024) DETECTED Negative results do not preclude SARS-C [...] prevalence is high. SOURCE (test code = 24491) NASOPHARYNGEAL Note: Methodology is Paige Elise Real-Time RT-PCR. The expected result or reference range is NEGATI VE (Not Detected). For more information regarding COVID -19 testing to include clinica linformation, methodology det ail, intended use, FDA author ization andrecommended fact sheets for patients or hea lthcare providers, see [facility] Announcement: S ARS-CoV-2 (COVID-19) by Ricky MARTIN at URL below (note,fact shee ts are provided by method given in report:https:// www.[employer]/ clinicians/janelle nt-communication s/ Alternativel y, see downloadable PD F fact sheet at:https://www. [employer]/COVI D-19-RT-PCR UNL ESS OTHERWISE INDICATED, ALL TESTING PERFORMED [facility], [facility]. [address] [place] [address] 4 ROUSTABOUT CREW LEADER: Myesha EPPS [id number] CAP ACCREDITATION N O. [id number]
[2023-06-09 16:01] LABS: Absolute Lymphocytes (CBC) 1.6 K/uL (0.7-4.9); Hematocrit 38.6 % (36.0-45.0); Lymphocytes % 18.1 % (15.3-44.8); MCV 84.5 fL (80-100); MPV 7.7 fL (7.6-11.3); Platelets 292 thou/uL (152-406); RBC Red Blood Cell Count 4.56 M/uL (3.86-4.86)
[2023-06-09 16:32] LABS: Albumin 3.5 g/dL (3.4-5.0); Bilirubin Direct 0.2 mg/dL (0-0.2); Bilirubin Indirect, Calculated 0.1 mg/dL (0.2-0.8); Bilirubin Total 0.3 mg/dL (0.2-1.0); Magnesium 2.1 mg/dL (1.6-2.4); Protein, Total 6.9 g/dL (6.4-8.2); Thyroid Stimulating Hormone 0.216 uIU/mL (0.358-3.740)
--- NOTE | 2023-06-09 17:50 | RAD REPORT ---
EXAM DESCRIPTION: CT - Head Brain Wo Cont - 06/09/2023 5:06 pm CLINICAL HISTORY: SYNCOPE COMPARISON: Facial Bones W/ Mpr dated 01/20/2023; HEAD BRAIN W O CONTRAST dated 08/20/2014 TECHNIQUE: Noncontrast head CT images were obtained without IV contrast. Multiplanar reformats were generated and reviewed. All CT scans are performed using dose optimization technique as appropriate and may include automated exposure control or mA/KV adjustment according to patient size. FINDINGS: No intracranial hemorrhage, mass, or edema. Midline structures are unremarkable. Normal ventricular caliber for age. Gutierrez-white matter differentiation is preserved, without evidence of acute infarct. No abnormal extra- axial fluid collections. Mastoid air cells and visualized portions of the paranasal sinuses are clear. No acute bony findings. IMPRESSION: No evidence of an acute intracranial process.
--- NOTE | 2023-06-09 17:57 | ER ---
Nurse's Notes [facility] Name: Wilber Amos Age: 28 yrs Sex: Female : 1995 Arrival Date: 06/09/2023 Time: 14:55 Bed 7 Private MD: Diagnosis: Syncope Presentation: 06/09 15:15 Chief complaint: Patient states: Syncopal episode while washing hands in restroom at work. Denies recent illness. Coronavirus screen: Vaccine status: Patient reports being unvaccinated. Ebola Screen: No symptoms or risks identified at this time. Initial Sepsis Screen: Does the patient meet any 2 criteria? No. Patient's initial sepsis screen is negative. Does the patient have a suspected source of infection? No. Patient's initial sepsis screen is negative. Risk Assessment: Do you want to hurt yourself or someone else? Patient reports no desire to harm self or others. Onset of symptoms was June 09, 2023. 15:15 Method Of Arrival: Ambulatory ph 15:15 Acuity: ANU 3 ph Triage Assessment: 15:17 General: Appears in no apparent distress. comfortable, slender, well groomed, Behavior ph is calm, cooperative, appropriate for age, Denies fever, feeling ill. Pain: Complains of pain in headache. Historical: - Allergies: 15:16 cefoxitin; ph 15:16 eletriptan HBr; ph 15:16 Iodine; ph 15:16 Mefoxin; ph 15:16 Morphine; ph - PMHx: 15:16 ADD/ADHD; Anxiety; ph - Immunization history:: Adult Immunizations unknown. - Social history:: Smoking status: Patient denies any tobacco usage or history of. Screenin:[facility] ED Fall Risk Assessment (Adult) History of falling in the last 3 months, aa5 including since admission No falls in past 3 months (0 pts) Confusion or Disorientation No (0 pts) Intoxicated or Sedated No (0 pts) Impaired Gait No (0 pts) Mobility Assist Device Used No (0 pt) Altered Elimination No (0 pt) Score/Fall Risk Level 0 - 2 = Low Risk Oriented to surroundings, Maintained a safe environment, Educated pt \\T\\ family on fall prevention, incl call for assistance when getting out of bed. Abuse screen: Denies threats or abuse. Nutritional screening: No deficits noted. Tuberculosis screening: No symptoms or risk factors identified. Assessment: 15:35 General: Appears comfortable, Behavior is calm, cooperative, Reports "feeling tired". aa5 Pain: Complains of pain in head Quality of pain is described as aching. Neuro: Level of Consciousness is awake, alert, obeys commands, Oriented to person, place, time, situation. Cardiovascular: Heart tones S1 S2 present Patient's skin is warm and dry. Rhythm is regular. Respiratory: Airway is patent Respiratory effort is even, unlabored, Respiratory pattern is regular, symmetrical. GI: Abdomen is flat, non-distended, Bowel sounds present X 4 quads. Abd is soft and non tender X 4 quads. : No signs and/or symptoms were reported regarding the genitourinary system. EENT: No signs and/or symptoms were reported regarding the EENT system. Derm: Skin is pink, warm \\T\\ dry. Musculoskeletal: Range of motion: intact in all extremities. 17:00 Reassessment: Patient is alert, oriented x 3, equal unlabored respirations, skin aa5 warm/dry/pink. Vital Signs: 15:21 BP 110 / 61; Pulse 85; Resp 18; Temp 98.6; Pulse Ox 99% on R/A; Weight 65.77 kg; Height ph 5 ft. 6 in. ; 17:00 BP 106 / 64; Pulse 78; Resp 16; Pulse Ox 100% ; aa5 15:21 Body Mass Index 23.40 (65.77 kg, 167.64 cm) ph ED Course: 14:58 Patient arrived in ED. cc5 15:06 Amarilis Cleary PA-C is PHCP. sb4 15:06 Ivonne Atkins is Attending Physician. sb4 15:16 Triage completed. ph 15:17 Arm band placed on Patient placed in waiting room, Patient notified of wait time. ph 15:30 Provided Education on: na. ko1 15:30 No provider procedures requiring assistance completed. ko1 15:35 Yarely Calvillo, RN is Primary Nurse. aa5 15:35 Patient placed in an exam room, on a stretcher. ll1 16:35 Patient has correct armband on for positive identification. Bed in low position. Call aa5 light in reach. Side rails up X 1. Client placed on continuous cardiac and pulse oximetry monitoring. NIBP monitoring applied. 17:08 Head Brain Wo Cont CT In Process Unspecified. EDMS Administered Medications: No medications were administered Medication: 15:30 VIS not applicable for this client. ko1 Outcome: 17:56 Discharge ordered by MD. méndez 18:16 Patient left the ED. [email or web address] Signatures: Dispatcher [employer] EDMS Yarely Calvillo RN RN aa5 Deepthi Vicente RN Wilman Aviles ph RN RN michael1 Kasia Chávez RN RN byron1 Amarilis Cleary, PA-Rachel PA-Jackie Logan5 Corrections: (The following items were deleted from the chart) 18:04 17:00 BP 106 / 4; Pulse 78bpm; Resp 16bpm; Pulse Ox 100%; yeimi [email or web address]
--- NOTE | 2023-06-09 17:57 | EDPHYS ---
Physician Documentation [facility] Name: Wilber Amos Age: 28 yrs Sex: Female : 1995 Arrival Date: 06/09/2023 Time: 14:55 Bed 7 Private MD: ED Physician Ivonne Atkins HPI: 06/09 17:47 This 28 yrs old Black Female presents to ER via Ambulatory with complaints of Passed sb4 Out Prior To Arrival. 17:47 The patient has experienced syncope, collapsed. Onset: The symptoms/episode sb4 began/occurred just prior to arrival. Duration: This was a single episode, that lasted an unknown period of time. Context: the episode(s) was witnessed, by no one, the downtime is unknown, occurred at work, occurred while the patient was washing hands. Just prior to the episode the patient experienced no apparent symptoms. Associated injury: The patient did not suffer any apparent associated injury. Associated signs and symptoms: The patient has no apparent associated signs or symptoms. Current symptoms: Currently, the patient is not experiencing any symptoms, the patient feels back to baseline, no decreased level of consciousness, no confusion, no dysphasia, no headache, no paralysis. The patient has not experienced similar symptoms in the past. 17:48 The patient has not recently seen a physician. sb4 Historical: - Allergies: 15:16 cefoxitin; ph 15:16 eletriptan HBr; ph 15:16 Iodine; ph 15:16 Mefoxin; ph 15:16 Morphine; ph - PMHx: 15:16 ADD/ADHD; Anxiety; ph - Immunization history:: Adult Immunizations unknown. - Social history:: Smoking status: Patient denies any tobacco usage or history of. ROS: 17:48 Constitutional: Negative for fever, chills, and weight loss, sb4 17:48 Neuro: Positive for syncope, 17:48 All other systems are negative, Exam: 17:48 Constitutional: This is a well developed, well nourished patient who is awake, alert, sb4 and in no acute distress. Head/Face: Normocephalic, atraumatic. Eyes: Extra-ocular motions intact. Periorbital areas with no swelling, redness, or edema. ENT: Mucous membranes moist. Cardiovascular: Regular rate and rhythm with a normal S1 and S2. Respiratory: Lungs have equal breath sounds bilaterally, clear to auscultation and percussion. No rales, rhonchi or wheezes noted. No increased work of breathing, no retractions or nasal flaring. Abdomen/GI: Soft, non-tender, no distension. Skin: Warm, dry with normal turgor. Normal color with no rashes, no lesions, and no evidence of cellulitis. MS/ Extremity: Pulses equal, no cyanosis. Neurovascular intact. Full, normal range of motion. Neuro: Awake and alert, GCS 15, oriented to person, place, time, and situation. Motor strength 5/5 in all extremities. Sensory grossly intact. Vital Signs: 15:21 BP 110 / 61; Pulse 85; Resp 18; Temp 98.6; Pulse Ox 99% on R/A; Weight 65.77 kg; Height ph 5 ft. 6 in. ; 17:00 BP 106 / 64; Pulse 78; Resp 16; Pulse Ox 100% ; aa5 15:21 Body Mass Index 23.40 (65.77 kg, 167.64 cm) ph MDM: 15:12 Patient medically screened. sb4 17:48 Differential Diagnosis: cardiac arrhythmia, drug effect, emotional response, pseudo sb4 seizure, vasovagal episode. see above. 17:56 Data reviewed: vital signs, nurses notes, lab test result(s), EKG, radiologic studies, sb4 and as a result, I will discharge patient. Consideration of Admission/Observation Escalation of care including admission/observation considered. Counseling: I had a detailed discussion with the patient and/or guardian regarding the historical points, exam findings, and any diagnostic results supporting the discharge/admit diagnosis, lab results, radiology results, the need for outpatient follow up, for definitive care, to return to the emergency department if symptoms worsen or persist or if there are any questions or concerns that arise at home. 06/09 15:19 Order name: Basic Metabolic Panel; Complete Time: 16:35 sb4 06/09 15:19 Order name: CBC with Diff; Complete Time: 16:07 sb4 06/09 15:19 Order name: LFT's; Complete Time: 16:35 sb4 06/09 15:19 Order name: Magnesium; Complete Time: 16:35 sb4 06/09 15:19 Order name: Troponin HS; Complete Time: 16:35 sb4 06/09 15:19 Order name: TSH; Complete Time: 16:35 sb4 06/09 16:42 Order name: Head Brain Wo Cont CT; Complete Time: 17:54 sb4 06/09 15:19 Order name: EKG; Complete Time: 15:19 sb4 06/09 15:19 Order name: Cardiac monitoring; Complete Time: 15:56 sb4 06/09 15:19 Order name: EKG - Nurse/Tech; Complete Time: 15:56 sb4 06/09 15:19 Order name: IV Saline Lock; Complete Time: 15:56 sb4 06/09 15:19 Order name: Labs collected and sent; Complete Time: 15:56 sb4 EC:27 Rate is 77 beats/min. Rhythm is regular, Normal Sinus Rhythm. Right axis deviation sb4 noted. MD interval is normal at 148 msec. QRS interval is normal at 74 msec. QT interval is normal at 374 msec. No Q waves. T waves are Normal. No ST changes noted. Reviewed by me. Administered Medications: No medications were administered Disposition Summary: 06/09/23 17:56 Discharge Ordered Notes: Location: Home sb4 Problem: new sb4 Symptoms: are resolved sb4 Condition: Stable sb4 Diagnosis - Syncope sb4 Followup: sb4 - With: Private Physician - When: As needed - Reason: Recheck today's complaints, Continuance of care, Re-evaluation by your physician Discharge Instructions: - Discharge Summary Sheet sb4 - Syncope, [id number] sb4 Forms: - Work release form sb4 - Medication Reconciliation Form sb4 - Thank You Letter sb4 - Antibiotic Education sb4 - Prescription Opioid Use sb4 - Patient Portal Instructions sb4 - Leadership Thank You Letter sb4 Signatures: Dispatcher [employer] Deepthi Das RN RN Kasia Gaming RN RN Amarilis Javed PA-C PA-C sb4
[2023-06-09 18:21] VITALS: TEMP 98.6
[2023-06-09 18:23] VITALS: BP 106/64; O2SAT 100
== END 2023-06-09 18:16 | disposition home or self-care (01) ==
LOC: ER 14:55
DX: R55 Syncope and collapse (principal)
CPT/HCPCS: 36415; 70450; 80048; 80076; 83735; 84443; 84484; 85025

== ENCOUNTER → 2023-10-21 | Emergency (ER) | payer SELFPAY ==
[~2023-10-21] MED LIST: NA CHLORIDE 0.9% 1,000 ML ONE; ONDANSETRON 4 MG/2 ML VIAL ONE; PROMETHAZINE INJ 25 MG/ML AMP ONE
--- OUTSIDE RECORDS SUMMARY | 2023-10-21 12:09 | XMS REPORT | Continuity of Care Document ---
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
[2023-10-21 13:07] LABS: Absolute Lymphocytes (CBC) 0.8 K/uL (0.7-4.9); Hematocrit 37.4 % (36.0-45.0); MCV 83.5 fL (80-100); MPV 7.9 fL (7.6-11.3); Platelets 262 thou/uL (152-406); RBC Red Blood Cell Count 4.48 M/uL (3.86-4.86); Specific Gravity 1.026 (1.005-1.030)
[2023-10-21 13:09] LABS: Specific Gravity 1.026 (1.005-1.030); Urine Bacteria None Seen /HPF (<20); Urine Bilirubin NEGATIVE (Negative); Urine Blood Negative (Negative); Urine Clarity Turbid (Clear); Urine Color Yellow (Yellow); Urine Glucose NEGATIVE (Negative); Urine Mucus Slight /HPF (None Seen); Urine Protein TRACE (Negative); Urine RBC <5 /HPF (None Seen); Urine Urobilinogen Normal (Normal)
[2023-10-21 13:21] LABS: Albumin 3.3 g/dL (3.4-5.0); Bilirubin Total 0.4 mg/dL (0.2-1.0); Potassium 3.7 mEq/L (3.5-5.1); Protein, Total 6.8 g/dL (6.4-8.2)
--- NOTE | 2023-10-21 14:49 | EDPHYS ---
Physician Documentation [facility] Name: Wilber Amos Age: 28 yrs Sex: Female : 1995 Arrival Date: 10/21/2023 Time: 12:07 Bed 10 Private MD: ED Physician Sunny Bone HPI: 10/21 14:43 This 28 yrs old Black Female presents to ER via Ambulatory with complaints of Vomiting. jona 14:43 The patient presents to the emergency department with nausea, vomiting, that is jona intermittent, diarrhea, that is intermittent. Onset: The symptoms/episode began/occurred 3 day(s) ago. Possible causes: unknown. The symptoms are aggravated by nothing. The symptoms are alleviated by nothing. Associated signs and symptoms: The patient has no apparent associated signs or symptoms. Severity of symptoms: At their worst the symptoms were mild moderate in the emergency department the symptoms are unchanged. The patient has experienced similar episodes in the past, several times. 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 - Social history:: Smoking status: Patient/guardian denies using tobacco. - Family history:: not pertinent. ROS: 14:43 Constitutional: Negative for fever, chills, and weight loss, Eyes: Negative for injury, jona pain, redness, and discharge, ENT: Negative for injury, pain, and discharge, Neck: Negative for injury, pain, and swelling, Cardiovascular: Negative for chest pain, palpitations, and edema, Back: Negative for injury and pain, : Negative for injury, bleeding, discharge, and swelling, MS/Extremity: Negative for injury and deformity, Skin: Negative for injury, rash, and discoloration, Neuro: Negative for headache, weakness, numbness, tingling, and seizure, 14:43 Respiratory: Positive for cough, 14:43 Abdomen/GI: Positive for abdominal pain, nausea and vomiting, diarrhea, Exam: 14:43 Constitutional: This is a well developed, well nourished patient who is awake, alert, jona and in no acute distress. Head/Face: Normocephalic, atraumatic. Eyes: Pupils equal round and reactive to light, extra-ocular motions intact. Lids and lashes normal. Conjunctiva and sclera are non-icteric and not injected. Cornea within normal limits. Periorbital areas with no swelling, redness, or edema. ENT: Nares patent. No nasal discharge, no septal abnormalities noted. Tympanic membranes are normal and external auditory canals are clear. Oropharynx with no redness, swelling, or masses, exudates, or evidence of obstruction, uvula midline. Mucous membranes moist. Neck: Trachea midline, no thyromegaly or masses palpated, and no cervical lymphadenopathy. Supple, full range of motion without nuchal rigidity, or vertebral point tenderness. No Meningismus. Chest/axilla: Normal chest wall appearance and motion. Nontender with no deformity. No lesions are appreciated. Cardiovascular: Regular rate and rhythm with a normal S1 and S2. No gallops, murmurs, or rubs. Normal PMI, no JVD. No pulse deficits. Respiratory: Lungs have equal breath sounds bilaterally, clear to auscultation and percussion. No rales, rhonchi or wheezes noted. No increased work of breathing, no retractions or nasal flaring. Abdomen/GI: Soft, non-tender, with normal bowel sounds. No distension or tympany. No guarding or rebound. No evidence of tenderness throughout. Back: No spinal tenderness. No costovertebral tenderness. Full range of motion. Skin: Warm, dry with normal turgor. Normal color with no rashes, no lesions, and no evidence of cellulitis. MS/ Extremity: Pulses equal, no cyanosis. Neurovascular intact. Full, normal range of motion. Neuro: Awake and alert, GCS 15, oriented to person, place, time, and situation. Cranial nerves II-XII grossly intact. Motor strength 5/5 in all extremities. Sensory grossly intact. Cerebellar exam normal. Normal gait. Psych: Awake, alert, with orientation to person, place and time. Behavior, mood, and affect are within normal limits. Vital Signs: 12:21 BP 106 / 59; Pulse 76; Resp 18; Temp 98.3; Pulse Ox 100% ; Weight 68.04 kg; Height 5 db ft. 6 in. ; 14:04 BP 107 / 63; Pulse 71; Resp 17; Pulse Ox 99% on R/A; rs5 14:57 BP 110 / 62; Pulse 75; Resp 18; Pulse Ox 99% on R/A; rs5 12:21 Body Mass Index 24.21 (68.04 kg, 167.64 cm) db MDM: 12:33 Patient medically screened. [facility] 14:46 Differential diagnosis: Nonspecific abd pain, gastritis, viral gastroenteritis, jona gastroenteritis. Data reviewed: vital signs, nurses notes, lab test result(s), CBC, electrolytes, hepatic panel. Consideration of Admission/Observation Escalation of care including admission/observation considered. I considered the following discharge prescriptions or medication management in the emergency department Medications were administered in the Emergency Department. See MAR. Test considered but Not performed: CT: no ct abd pelvis. Historians other than the Patient: Friend: friend well informed. Care significantly affected by the following chronic conditions: adhd, asthma, asthma. Counseling: I had a detailed discussion with the patient and/or guardian regarding the historical points, exam findings, and any diagnostic results supporting the discharge/admit diagnosis, lab results, the need for outpatient follow up, for definitive care, a family practitioner. 10/21 12:34 Order name: CBC with Diff; Complete Time: 14:35 [facility] 10/21 12:34 Order name: Comprehensive Metabolic Panel; Complete Time: 14:35 [facility] 10/21 12:34 Order name: Lipase; Complete Time: 14:35 [facility] 10/21 12:34 Order name: Urinalysis w/ reflexes; Complete Time: 14:35 [facility] 10/21 12:34 Order name: PREGU; Complete Time: 14:35 [facility] 10/21 14:43 Order name: PO challenge; Complete Time: 14:55 [facility] Administered Medications: 13:00 Drug: NS 0.9% IV 1000 ml IV at 1 bolus Per protocol; 1000 mL bolus Route: IV; Rate: 1 as6 bolus; Site: right antecubital; 14:00 Follow up: Response: No adverse reaction rs5 13:00 Drug: Ondansetron IVP 4 mg IVP once; over 2 minutes Route: IVP; Site: right antecubital;as6 14:00 Follow up: Response: No adverse reaction rs5 14:50 Drug: Promethazine IVP 12.5 mg IVP once Route: IVP; Site: right antecubital; rs5 14:59 Follow up: Response: No adverse reaction; Nausea is decreased rs5 Disposition Summary: 10/21/23 14:48 Discharge Ordered Notes: Location: Home [facility] Problem: new jona Symptoms: have improved jona Condition: Stable jona Diagnosis - Vomiting jona - Diarrhea, unspecified jona - Cough jona - Acute upper respiratory infection, unspecified jona Followup: [facility] - With: Private Physician - When: 2 - 3 days - Reason: Recheck today's complaints, Continuance of care, Re-evaluation by your physician Discharge Instructions: - Discharge Summary Sheet [facility] - Food Choices to Help Relieve Diarrhea, Adult jona - Diarrhea, Adult jona - Upper Respiratory Infection, Adult jona - Cool Mist Vaporizer jona - Upper Respiratory Infection, Adult, [id number] jona - Diarrhea, Adult, Mbfg-dy-Qdpt jona - Cough, Adult, Juya-uy-Begg jona - Cough, Adult jona Forms: - Work release form [facility] - Medication Reconciliation Form [facility] - Thank You Letter [facility] - Antibiotic Education [facility] - Prescription Opioid Use [facility] - Patient Portal Instructions [facility] - Leadership Thank You Letter [facility] Prescriptions: - Bromfed DM 2-30-10 mg/5 mL Oral syrup - administer 7.5 milliliter ORAL route every 6-8 hours as needed for cold jona symptoms; 180 milliliter; Refills: 0, Product Selection Permitted - ondansetron 4 mg Oral Tablet,disintegrating - take 1 tablet ORAL route every 6 to 8 hours for 5 days; 20 tablet; Refills: 0, [facility] Product Selection Permitted - promethazine 25 mg Oral tablet - take 1 tablet ORAL route every 6 hours As needed; 15 tablet; Refills: 0, [facility] Product Selection Permitted Signatures: Dispatcher [employer] Sunny Martinez MD MD cha Slawson, Ashby RN RN as6 Yadira Cash RN RN db Kevin Portillo RN RN rs5
--- NOTE | 2023-10-21 14:49 | ER ---
Nurse's Notes [facility] Name: Wilber Amos Age: 28 yrs Sex: Female : 1995 Arrival Date: 10/21/2023 Time: 12:07 Bed 10 Private MD: Diagnosis: Vomiting;Diarrhea, unspecified;Cough;Acute upper respiratory infection, unspecified Presentation: 10/21 12:21 Chief complaint: Patient states: PATIENT STATES HAS VOMITING STARTED THIS AM AT 0200. db COMPLAINS OF SORE THROAT X 2 DAYS. ABDOMINAL PAIN SINCE YESTERDAY. DIARRHEA STARTED TODAY. Coronavirus screen: Client denies travel out of the [place] in the last 14 days. At this time, the client does not indicate any symptoms associated with coronavirus-19. Ebola Screen: Patient negative for fever greater than or equal to 101.5 degrees Fahrenheit, and additional compatible Ebola Virus Disease symptoms Patient denies exposure to infectious person. Patient denies travel to an Ebola-affected area in the 21 days before illness onset. No symptoms or risks identified at this time. Initial Sepsis Screen: Does the patient meet any 2 criteria? No. Patient's initial sepsis screen is negative. Does the patient have a suspected source of infection? No. Patient's initial sepsis screen is negative. Risk Assessment: Do you want to hurt yourself or someone else? Patient reports no desire to harm self or others. Onset of symptoms was October 21, 2023. 12:21 Method Of Arrival: Ambulatory db 12:21 Acuity: ANU 3 db Triage Assessment: 12:23 General: Appears in no apparent distress. comfortable, Behavior is calm, cooperative. db Pain: Complains of pain in abdomen. GI: Reports lower abdominal pain, diarrhea, nausea, vomiting. 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 - Social history:: Smoking status: Patient/guardian denies using tobacco. - Family history:: not pertinent. Screenin:[facility] ED Fall Risk Assessment (Adult) Score/Fall Risk Level 0 - 2 = Low Risk. Abuse as6 screen: Denies threats or abuse. Denies injuries from another. Nutritional screening: No deficits noted. Tuberculosis screening: No symptoms or risk factors identified. Assessment: 13:00 General: Appears in no apparent distress. Behavior is calm, cooperative. Pain: as6 Complains of pain in suprapubic area, right lower quadrant and left lower quadrant Quality of pain is described as crampy. Neuro: Level of Consciousness is awake, alert, obeys commands, Oriented to person, place, time, situation. Cardiovascular: Capillary refill < 3 seconds Patient's skin is warm and dry. Respiratory: Respiratory effort is even, unlabored, Respiratory pattern is regular, symmetrical. GI: Abdomen is flat, Reports lower abdominal pain, nausea, vomiting. : No deficits noted. No signs and/or symptoms were reported regarding the genitourinary system. EENT: Reports sore throat . Derm: Skin is intact. 14:30 Reassessment: Pt reports nausea, provider notified . rs5 14:55 General: Appears in no apparent distress. comfortable, Behavior is calm, cooperative. rs5 Pain: Complains of pain in right lower quadrant and suprapubic area and back of throat Pain does not radiate. Pain currently is 3 out of 10 on a pain scale. Quality of pain is described as aching, Is continuous. Neuro: Level of Consciousness is awake, alert, obeys commands, Oriented to person, place, time, situation. Cardiovascular: Rhythm is regular. Respiratory: Respiratory effort is even, unlabored, Respiratory pattern is regular, symmetrical. GI: Abdomen is round non-distended, Bowel sounds present X 4 quads. Patient currently denies nausea. : No signs and/or symptoms were reported regarding the genitourinary system. EENT: No signs and/or symptoms were reported regarding the EENT system. Derm: No signs and/or symptoms reported regarding the dermatologic system. Musculoskeletal: Range of motion: intact in all extremities. Vital Signs: 12:21 BP 106 / 59; Pulse 76; Resp 18; Temp 98.3; Pulse Ox 100% ; Weight 68.04 kg; Height 5 db ft. 6 in. ; 14:04 BP 107 / 63; Pulse 71; Resp 17; Pulse Ox 99% on R/A; rs5 14:57 BP 110 / 62; Pulse 75; Resp 18; Pulse Ox 99% on R/A; rs5 12:21 Body Mass Index 24.21 (68.04 kg, 167.64 cm) db ED Course: 12:07 Patient arrived in ED. ra3 12:23 Triage completed. db 12:23 Arm band placed on. db 12:33 Sunny Bone MD is Attending Physician. [facility] 13:00 Inserted saline lock: 20 gauge in right antecubital area, using aseptic technique. as6 Blood collected. 13:01 Bed in low position. Call light in reach. Side rails up X 1. as6 14:58 No provider procedures requiring assistance completed. rs5 15:05 IV discontinued, intact, bleeding controlled, No redness/swelling at site. Pressure rs5 dressing applied. Administered Medications: 13:00 Drug: NS 0.9% IV 1000 ml IV at 1 bolus Per protocol; 1000 mL bolus Route: IV; Rate: 1 as6 bolus; Site: right antecubital; 14:00 Follow up: Response: No adverse reaction rs5 13:00 Drug: Ondansetron IVP 4 mg IVP once; over 2 minutes Route: IVP; Site: right antecubital;as6 14:00 Follow up: Response: No adverse reaction rs5 14:50 Drug: Promethazine IVP 12.5 mg IVP once Route: IVP; Site: right antecubital; rs5 14:59 Follow up: Response: No adverse reaction; Nausea is decreased rs5 Medication: 13:01 VIS not applicable for this client. as6 Outcome: 14:48 Discharge ordered by . jona 15:05 Discharged to home ambulatory, rs5 15:05 Condition: stable 15:05 Discharge instructions given to patient, Instructed on discharge instructions, follow up and referral plans. medication usage, Demonstrated understanding of instructions, follow-up care, medications, Prescriptions given X 3, 15:05 Patient left the ED. rs5 Signatures: Sunny Bone MD MD cha Slawson, Ashby RN RN as6 Yadira Cash RN RN db Kevin Portillo RN RN rs5 Hollie Jackson ra3
[2023-10-21 15:40] VITALS: BP 110/62; TEMP 98.3; O2SAT 99
== END ==
LOC: ER 12:07
DX: R11.10 Vomiting, unspecified (principal); R19.7 Diarrhea, unspecified; R05.9 Cough, unspecified; J06.9 Acute upper respiratory infection, unspecified
CPT/HCPCS: 36415; 80053; 81001; 81025; 83690; 85025; J2405; J2550; J7030